=== PATIENT | male | born 2000 | race Caucasian/White ===

== ENCOUNTER 2022-02-08 07:57 | Emergency (ER) | payer MEDICAID, OTHER ==
[~2022-02-08] VITALS: Ht 183 cm; Wt 127.0 kg
[2022-02-08] MEDS ORDERED: LORazepam INJ 2 MG/ML (ATIVAN) VIAL IVP STA (08:39)
--- NOTE | 2022-02-08 08:39 | ED Neurological Problem ---
General Chief Complaint: Neurological Problems Stated Complaint: VOMITING - DIZZY - POSS SEIZURE - ABD PAIN Nursing Triage Note: SEIZURES X 5 SINCE 1700 02/08, WITH N/V/D UNABLE TO HOLD DOWN SEIZURE MEDS. ABDOMINAL PAIN, HAS RINGING IN HIS EARS, ATYPICAL FOR NORMAL SEIZURES Source: patient Exam Limitations: no limitations History of Present Illness Date Seen by Provider: February 08, 2022 Time Seen by Provider: 08:18 Initial Comments 21yoM with PMH of epilepsy, PNES, MORAN, CKD (normal creatinine around 1.3 per the patient) coming in due to one day of upper abdominal pain, n/v that is nb/nb, and increase in seizure activity. He says he hasn't been able to take his Depakote med due to the nausea which he says when he misses, he typically has breakthrough seizures. Denies any fever, significant chest pain, shortness of b reath, diarrhea, weakness, numbness, rash, or any other concerns. Allergies and Home Medications Allergies Coded Allergies: Penicillins (Verified Allergy, Unknown, 02/08/22) amoxicillin (Verified Allergy, Unknown, 02/08/22) latex (Verified Allergy, Unknown, 02/08/22) Patient Home Medication List Home Medication List Reviewed: Yes Ondansetron (Ondansetron Odt) 4 Mg Tab.rapdis, 4 MG PO Q6H PRN for NAUSEA/VOMITING-1ST LINE Prescribed by: SANDRA MARI on 02/08/22 0931 Review of Systems Review of Systems Constitutional: No chills, No fever Eyes: Denies Blurred Vision Ears, Nose, Mouth, Throat: ear pain Respiratory: No cough, No short of breath Cardiovascular: No chest pain Gastrointestinal: abdominal pain, nausea, vomiting Genitourinary: no symptoms reported Musculoskeletal: no symptoms reported Skin: no symptoms reported Psychiatric/Neurological: Other (seizures) Endocrine: No Symptoms Reported Hematologic/Lymphatic: No Symptoms Reported All Other Systems Reviewed Negative Unless Noted: Yes Past [id number]-Jblcqh-Elxvxc Hx Patient Social History Tobacco type used: Cigarettes Smoking Status: Current Everyday Smoker Alcohol Frequency: Rarely Immunizations Up To Date Influenza Vaccine Up-to-Date: Yes; Up-to-Date Past Medical History Surgery/Hospitalization HX: CKD, SEIZURES, AFIB WITH ABLATION, HEPATITIS, SMOKER Physical Exam Vital Signs Vital Signs - First Documented 02/08/22 08:25 Temp 37.0 Pulse 111 Resp 22 B/P (MAP) 155/126 (136) Pulse Ox 98 O2 Delivery Room Air Capillary Refill : Height, Weight, BMI Height: '" Weight: lbs. oz. kg; 37.00 BMI Method: General Appearance: WD/WN, no apparent distress HEENT: PERRL/EOMI, normal ENT inspection, pharynx normal Neck: non-tender, full range of motion, supple, normal inspection Respiratory: chest non-tender, lungs clear, normal breath sounds, no respiratory distress, no accessory muscle use Cardiovascular: regular rate, rhythm, no edema, no murmur Gastrointestinal: normal bowel sounds, soft; No distended, No guarding, No rebound; tenderness Back: normal inspection, no CVA tenderness, no vertebral tenderness Extremities: normal range of motion, non-tender, normal inspection, no pedal edema, no calf tenderness, normal capillary refill Neurologic/Psychiatric: no motor/sensory deficits, alert, normal mood/affect Crainal Nerves: normal hearing, normal speech, PERRL Coordination/Gait: normal finger to nose Motor/Sensory: no motor deficit, no sensory deficit Skin: normal color, warm/dry Lymphatic: no adenopathy Progress/Results/Core Measures Results/Orders Lab Results Laboratory Tests Test 02/08/22 08:28 Range/Units White Blood Count 11.2 H 4.3-11.0 10^3/uL Red Blood Count 4.42 4.30-5.52 10^6/uL Hemoglobin 14.4 13.3-17.7 g/dL Hematocrit 41 40-54 % Mean Corpuscular Volume 92 80-99 fL Mean Corpuscular Hemoglobin 33 25-34 pg Mean Corpuscular Hemoglobin Concent 35 32-36 g/dL Red Cell Distribution Width 11.9 10.0-14.5 % Platelet Count 244 130-400 10^3/uL Mean Platelet Volume 11.2 9.0-12.2 fL Immature Granulocyte % (Auto) 1 % Neutrophils (%) (Auto) 51 42-75 % Lymphocytes (%) (Auto) 34 12-44 % Monocytes (%) (Auto) 14 H 0-12 % Eosinophils (%) (Auto) 1 0-10 % Basophils (%) (Auto) 1 0-10 % Neutrophils # (Auto) 5.6 1.8-7.8 10^3/uL Lymphocytes # (Auto) 3.8 1.0-4.0 10^3/uL Monocytes # (Auto) 1.5 H 0.0-1.0 10^3/uL Eosinophils # (Auto) 0.1 0.0-0.3 10^3/uL Basophils # (Auto) 0.1 0.0-0.1 10^3/uL Immature Granulocyte # (Auto) 0.1 0.0-0.1 10^3/uL Sodium Level 141 135-145 MMOL/L Potassium Level 3.7 3.6-5.0 MMOL/L Chloride Level 97 L 98-107 MMOL/L Carbon Dioxide Level 28 21-32 MMOL/L Anion Gap 16 H 5-14 MMOL/L Blood Urea Nitrogen 17 7-18 MG/DL Creatinine 1.53 H 0.60-1.30 MG/DL Estimat Glomerular Filtration Rate 66 BUN/Creatinine Ratio 11 Glucose Level 92 70-105 MG/DL Calcium Level 12.8 H 8.5-10.1 MG/DL Corrected Calcium 8.5-10.1 MG/DL Total Bilirubin 0.4 0.1-1.0 MG/DL Aspartate Amino Transf (AST/SGOT) 60 H 5-34 U/L Alanine Aminotransferase (ALT/SGPT) 153 H 0-55 U/L Alkaline Phosphatase 60 40-136 U/L Troponin I < 0.028 <0.028 NG/ML Total Protein 8.1 6.4-8.2 GM/DL Albumin 5.1 H 3.2-4.5 GM/DL Lipase 26 8-78 U/L My Orders Orders - SANDRA MARI MD Ed Iv/Invasive Line Start (02/08/22 08:39) Ns Iv 1000 Ml (Sodium Chloride 0.9%) (02/08/22 08:45) Ondansetron Injection (Zofran Injectio (02/08/22 08:45) Lidocaine 2% Viscous 15 Ml (Xylocaine Vi (02/08/22 08:45) Antacid Suspension (Mylanta Suspension (02/08/22 08:45) Comprehensive Metabolic Panel (02/08/22 08:39) Lipase (02/08/22 08:39) Cbc With Automated Diff (02/08/22 08:39) Ct Abdomen/Pelvis W (02/08/22 08:39) Ketorolac Injection (Toradol Injection) (02/08/22 08:45) Lorazepam Injection (Ativan Injection) (02/08/22 08:39) Troponin I [place] (02/08/22 08:39) Ekg Tracing (02/08/22 08:39) Iohexol Injection (Omnipaque 350 Mg/Ml 1 (02/08/22 08:45) Received Contrast (Hold Metformin- Contr (02/08/22 08:45) Ns (Ivpb) (Sodium Chloride 0.9% Ivpb Bag (02/08/22 08:45) Sodium Chloride Flush (Catheter Flush Sy (02/08/22 08:45) Medications Given in ED Current Medications Medications Dose Ordered Sig/Macho Route Start Time Stop Time Status Last Admin Dose Admin Al Hydrox/Mg Hydrox/Simethicone 30 ml ONCE ONCE PO 02/08/22 08:45 02/08/22 08:46 DC 02/08/22 08:54 30 ML Iohexol 100 ml ONCE ONCE IV 02/08/22 08:45 02/08/22 08:46 DC 02/08/22 09:15 100 ML Ketorolac Tromethamine 15 mg ONCE ONCE IVP 02/08/22 08:45 02/08/22 08:46 DC 02/08/22 08:56 15 MG Lidocaine HCl 15 ml ONCE ONCE PO 02/08/22 08:45 02/08/22 08:46 DC 02/08/22 08:54 15 ML Ondansetron HCl 4 mg ONCE ONCE IVP 02/08/22 08:45 02/08/22 08:46 DC 02/08/22 08:55 4 MG Sodium Chloride 100 ml ONCE ONCE IV 02/08/22 08:45 02/08/22 08:46 DC 02/08/22 09:15 80 ML Vital Signs/I&O 02/08/22 02/08/22 08:25 09:17 Temp 37.0 37.0 Pulse 111 111 Resp 22 22 B/P (MAP) 155/126 (136) 155/126 Pulse Ox 98 98 O2 Delivery Room Air Blood Pressure Mean: 136 Progress Progress Note : Progress Note 21-year-old male with above history coming in due to upper abdominal pain with vomiting, not taking his seizure medicine and having a seizure. ABCs were intact and vitals were stable on presentation. Physical exam with some upper abdominal tenderness but no signs of peritonitis. An IV was placed and basic labs were obtained. AST and ALT slightly elevated, the patient says he does have chronic hepatitis and this is normal for him. Corrected calcium with albu min is 11.9. Creatinine 1.5 which is not far from his baseline. He was given a liter of IV fluids. He was also given Toradol for pain, Zofran for nausea. Given Ativan half milligram to reduce seizure activity. The activity that was witnessed by me seems to be nonepileptic in nature. He appears to shake his body for a few seconds, talks during that, is not confused afterwards. On reassessment the patient was feeling much better, and feels back to his baseline. CT abdomen pelvis negative for acute findings. I believe he is stable for discharge with outpatient follow-up. He was sent home with strict return precautions Initial ECG Impression Date: February 08, 2022 Initial ECG Impression Time: 08:33 Initial ECG Rate: 103 Initial ECG Rhythm: S.Tach Comment Narrow QRS, normal axis, no significant ST changes, T wave inversion in lead III which is nonspecific Diagnostic Imaging Diagonstic Imaging: CT (abd/pelv) Comments NAME: SAL MARTINEZ [facility] REC#: [id number] PT STATUS: REG ER : 2000 PHYSICIAN: SANDRA MARI MD ADMIT DATE: 02/08/22/ER Draft Date of Exam:02/08/22 CT ABDOMEN/PELVIS W CLINICAL INDICATION: Patient with central abdominal pain with vomiting. EXAM: Axial CT scan abdomen and pelvis performed with 100 mL of Omnipaque 350 IV contrast. Sagittal and coronal reformatted images are created. Auto Exposure Controls were utilized during the CT exam to meet ALARA standards for radiation dose reduction. COMPARISON: None. FINDINGS: There is minimal atelectasis involving the posterior aspect of the right lung base. There is hepatomegaly with the liver measuring 22.2 cm in craniocaudal dimension. There is diffuse low-density throughout the liver. There is no liver mass. There is no intrahepatic or extrahepatic ductal dilation. The spleen, pancreas, gallbladder, and adrenal glands are unremarkable. Both kidneys are unremarkable. No hydronephrosis, stone, or mass. The bladder is fluid-filled and unremarkable. Prostate gland is unremarkable. There is no intraabdominal free air or free fluid. There is dense material within the right colon and appendix likely from ingested material. Appendix is unremarkable. There is no intestinal obstruction. There is a small hiatal hernia. There is no lymphadenopathy. The extraabdominal and extrapelvic soft tissue structures are unremarkable. IMPRESSION: 1: There is hepatomegaly and diffuse low-density throughout the liver. These findings may be seen with diffuse fatty infiltration. Hepatitis should also be excluded. 2: Small hiatal hernia. 3: The remainder of this exam is unremarkable. Dictated on workstation # [id number] Dict: 02/08/22920 Trans: 02/08/22932 [facility] [id number] Interpreted by: PORFIRIO SIDDIQUI MD Electronically signed by: Departure Impression Primary Impression: Vomiting in adult Additional Impression: Seizure Disposition: 01 HOME, SELF-CARE Condition: Stable Departure-Patient Inst. Decision time for Depature: 09:45 Referrals: NO,LOCAL PHYSICIAN (PCP/Family) Primary Care Physician Patient Instructions: Nausea and Vomiting, Adult ED, Seizures, Adult ED Add. Discharge Instructions: I sent nausea medicine to your pharmacy. Be sure to take this and then take your seizure medicine so that you have less seizures. If you have any concerns follow-up with your regular doctor or if things get a lot worse you can always come back to the ER. Scripts Ondansetron (Ondansetron Odt) 4 Mg Tab.rapdis 4 MG PO Q6H PRN for NAUSEA/VOMITING-1ST LINE for 5 Days, #20 TAB Prov: SANDRA MARI MD 02/08/22 Work/School Note: Work Release Form Date Seen in the Emergency Department: February 08, 2022 Return to Work: February 09, 2022 Restrictions: Return-No Vomiting(24hrs) SANDRA MARI MD February 08, 2022 08:39
[2022-02-08] MEDS ORDERED: NS 100 ML (IVPB) BAG IV ONE (08:45)
[2022-02-08] MEDS ORDERED: LIDOCAINE 2% VISCOUS 15 ML UDC PO ONE (08:45)
[2022-02-08] MEDS ORDERED: KETOROLAC 30 MG/ML VIAL IVP ONE (08:45)
[2022-02-08] MEDS ORDERED: ONDANSETRON 4 MG/2 ML (SDV) Z0FRAN IVP ONE (08:45)
[2022-02-08] MEDS ORDERED: CATHETER FLUSH 10 ML SYR IV PRN (08:45)
[2022-02-08] MEDS ORDERED: NS IV 1000 ML 1,000 ML IV SCH (08:45)
[2022-02-08] MEDS ORDERED: ANTACID SUSP 30 ML UDC (MYLANTA) PO ONE (08:45)
[2022-02-08] MEDS ORDERED: HOLD METFORMIN - RECEIVED CONTRAST 20 ML VIAL IV SCH (08:45)
[2022-02-08] MEDS ORDERED: IOHEXOL 350 MG/ML 100 ML (OMNIPAQUE 350) VIAL IV ONE (08:45)
[2022-02-08 08:47] LABS: BASOPHILS # (AUTO) 0.1 10^3/uL (0.0-0.1); BASOPHILS % (AUTO) 1 % (0-10); EOSINOPHILS # (AUTO) 0.1 10^3/uL (0.0-0.3); EOSINOPHILS % (AUTO) 1 % (0-10); HEMATOCRIT 41 % (40-54); HEMOGLOBIN 14.4 g/dL (13.3-17.7); LYMPHOCYTES # (AUTO) 3.8 10^3/uL (1.0-4.0); LYMPHOCYTES % (AUTO) 34 % (12-44); MEAN CORPUSCULAR HEMOGLOBIN 33 pg (25-34); MEAN CORPUSCULAR HGB CONC 35 g/dL (32-36); MEAN CORPUSCULAR VOLUME 92 fL (80-99); MEAN PLATELET VOLUME 11.2 fL (9.0-12.2); MONOCYTES # (AUTO) 1.5 10^3/uL (0.0-1.0); MONOCYTES % (AUTO) 14 % (0-12); NEUTROPHILS # (AUTO) 5.6 10^3/uL (1.8-7.8); NEUTROPHILS % (AUTO) 51 % (42-75); PLATELET COUNT 244 10^3/uL (130-400); WHITE BLOOD COUNT 11.2 10^3/uL (4.3-11.0)
[2022-02-08 08:52] LABS: ALBUMIN 5.1 GM/DL (3.2-4.5); CHLORIDE 97 MMOL/L (98-107); POTASSIUM 3.7 MMOL/L (3.6-5.0); SODIUM 141 MMOL/L (135-145)
[2022-02-08 08:54] LABS: CALCIUM 12.8 MG/DL (8.5-10.1)
[2022-02-08 08:55] LABS: GLUCOSE 92 MG/DL (70-105); TOTAL PROTEIN 8.1 GM/DL (6.4-8.2)
[2022-02-08 08:56] LABS: BILIRUBIN,TOTAL 0.4 MG/DL (0.1-1.0); CARBON DIOXIDE 28 MMOL/L (21-32)
[2022-02-08 08:58] LABS: ALKALINE PHOSPHATASE 60 U/L (40-136); CREATININE SERUM 1.53 MG/DL (0.60-1.30); GFR ESTIMATED 66
[2022-02-08 08:59] LABS: BUN/CREATININE RATIO 11
[2022-02-08 09:01] LABS: ALANINE AMINOTRANSFERASE 153 U/L (0-55); LIPASE 26 U/L (8-78)
[2022-02-08] MEDS ORDERED: ONDA4TAB11 PO (09:31)
--- NOTE | 2022-02-08 09:34 | Diagnostic Imaging Report ---
CLINICAL INDICATION: Patient with central abdominal pain with vomiting. EXAM: Axial CT scan abdomen and pelvis performed with 100 mL of Omnipaque 350 IV contrast. Sagittal and coronal reformatted images are created. Auto Exposure Controls were utilized during the CT exam to meet ALARA standards for radiation dose reduction. COMPARISON: None. FINDINGS: There is minimal atelectasis involving the posterior aspect of the right lung base. There is hepatomegaly with the liver measuring 22.2 cm in craniocaudal dimension. There is diffuse low-density throughout the liver. There is no liver mass. There is no intrahepatic or extrahepatic ductal dilation. The spleen, pancreas, gallbladder, and adrenal glands are unremarkable. Both kidneys are unremarkable. No hydronephrosis, stone, or mass. The bladder is fluid-filled and unremarkable. Prostate gland is unremarkable. There is no intraabdominal free air or free fluid. There is dense material within the right colon and appendix likely from ingested material. Appendix is unremarkable. There is no intestinal obstruction. There is a small hiatal hernia. There is no lymphadenopathy. The extraabdominal and extrapelvic soft tissue structures are unremarkable. IMPRESSION: 1: There is hepatomegaly and diffuse low-density throughout the liver. These findings may be seen with diffuse fatty infiltration. Hepatitis should also be excluded. 2: Small hiatal hernia. 3: The remainder of this exam is unremarkable. Dictated by: Dictated on workstation # [id number]
[2022-02-08 09:53] VITALS: BP 116/83
== END 2022-02-08 09:56 | disposition home or self-care (01) ==
LOC: ER 07:59
DX: R11.2 Nausea with vomiting, unspecified (principal); R56.9 Unspecified convulsions; T42.6X6A Underdosing of other antiepileptic and sedative-hypnotic drugs, initial encounter; F17.210 Nicotine dependence, cigarettes, uncomplicated; Z91.14 Patient's other noncompliance with medication regimen
CPT/HCPCS: 36415; 74177; 80053; 83690; 84484; 85025

== ENCOUNTER 2022-02-11 11:27 | Inpatient (IN) | payer MEDICAID ==
[~2022-02-11] VITALS: Ht 180 cm; Wt 118.0 kg
[~2022-02-11 11:27] MED LIST: ONDA4TAB11 PO
[2022-02-11] MEDS ORDERED: LACTATED RINGERS 1,000 ML IV SCH (12:45)
[2022-02-11] MEDS ORDERED: PROMETHAZINE INJ 25 MG/ML (PHENERGAN) AMP IVP ONE ×2 (12:45→13:45)
--- NOTE | 2022-02-11 13:00 | ED General ---
General Chief Complaint: Neurological Problems Stated Complaint: SEIZURE,ABD PAIN, N/V Nursing Triage Note: PT PRESENTS TO ED WITH COMPLAINTS OF SEIZURE LASTING APROX 5-6 SEC TODAY. REPORTS HE HAS HAD N/V SINCE LAST NIGHT. PT DENIES FEVER. (GABY ROWLAND) Source of Information: Patient (FRANTZ GONSALEZ MD) History of Present Illness Date Seen by Provider: February 11, 2022 Time Seen by Provider: 12:30 Initial Comments 21 year old male with history of epilepsy presents today for increased seizure activity, abdominal pain, nausea, and vomiting. He was seen in the ED on February 08 for the same symptoms and had a CT at that time that showed no acute findings but did show diffuse low-density areas throughout his liver. he also had elevated liver enzymes and creatinine at that time. He was deemed safe to return home at that time with instructions to return if symptoms worsened or failed to improve and given zofran for nausea. He reports that the zofran hasn't helped and he hasn;t been able to keep any food down since yeterday around noon. he actively threw up clear fluid while I was in the room speaking with him. He takes depakote for his seizures and reports yesterday at noon was the last time he has been able to take it. His last seizure was today at around 9:00am. He reports his abdominal pain is diffuse and unchanged. (GABY ROWLAND) Allergies and Home Medications Allergies Coded Allergies: Penicillins (Verified Allergy, Unknown, 02/11/22) amoxicillin (Verified Allergy, Unknown, 02/11/22) latex (Verified Allergy, Unknown, 02/11/22) Patient Home Medication List Home Medication List Reviewed: Yes (FRANTZ GONSALEZ MD) Divalproex Sodium (Divalproex Sodium) 500 Mg Tablet.dr, 500 MG PO TID, (Reported) Entered as Reported by: LUZ MARINA PEGUERO on 02/11/222219 Last Action: Reviewed Gabapentin (Neurontin) 300 Mg Capsule, 300 MG PO TID, (Reported) Entered as Reported by: LEANNA DASILVA on 02/12/221137 Last Action: Reviewed Levothyroxine Sodium (Levothyroxine Sodium) 25 Mcg Tablet, 25 MCG PO DAILY, (Reported) Entered as Reported by: LEANNA DASILVA on 02/12/221137 Last Action: Reviewed Metoprolol Tartrate (Metoprolol Tartrate) 25 Mg Tablet, 25 MG PO BID PRN for FAST HEART RATE, (Reported) Entered as Reported by: LEANNA DASILVA on 02/12/221137 Last Action: Reviewed Ondansetron (Ondansetron Odt) 4 Mg Tab.rapdis, 4 MG PO Q8H PRN for NAUSEA/VOMITING, (Reported) Entered as Reported by: LEANNA DASILVA on 02/12/221137 Last Action: Reviewed Discontinued Medications Divalproex Sodium (Depakote Sprinkle) 125 Mg Cap, 300 MG PO TID Discontinued Reason: No Longer Taking Prescribed by: SHIRAZ VICTORIA on 02/11/22 [id number] Last Action: Discontinued Review of Systems Review of Systems Constitutional: No chills, No fever EENTM: throat pain (from throwing up); No hearing loss, No vision loss Respiratory: No cough, No short of breath Cardiovascular: No chest pain, No palpitations Gastrointestinal: abdominal pain (diffuse); No constipation; diarrhea, nausea, vomiting Genitourinary: No dysuria; frequency (normal); No hematuria; other (reports urine is very dark) Musculoskeletal: No muscle pain, No muscle weakness Skin: No change in color, No rash Psychiatric/Neurological: No Symptoms Reported Hematologic/Lymphatic: No Symptoms Reported Immunological/Allergic: no symptoms reported (GABY ROWLAND) Past Lwzpfqy-Xzcqbw-Xxcdgi Hx Patient Social History Tobacco Use?: Yes Tobacco type used: Cigarettes Smoking Status: Current Everyday Smoker Substance use?: No Alcohol Use?: Yes Alcohol Frequency: Once in a while Pt feels they are or have been: No (GABY ROWLAND) Past Medical History Surgery/Hospitalization HX: CKD, SEIZURES, AFIB WITH ABLATION, HEPATITIS, SMOKER (GABY ROWLAND) Physical Exam Vital Signs Vital Signs - First Documented 02/11/22 11:47 Temp 37.3 Pulse 98 Resp 18 B/P (MAP) 150/100 (117) Pulse Ox 99 (FRANTZ GONSALEZ MD) Vital Signs Capillary Refill : Less Than 3 Seconds (GABY ROWLAND) Height, Weight, BMI Height: '" Weight: lbs. oz. kg; 36.00 BMI Method: General Appearance: WD/WN, Other (threw up once while I was int he room with him and appeared uncomfortable when I layed him back flat or had him sit up on his own.) Eyes: Bilateral Eye PERRL, Bilateral Eye EOMI HEENT: PERRL/EOMI; No Moist Mucous Membranes Neck: Normal Inspection, Non Tender, Supple Respiratory: Lungs Clear, Normal Breath Sounds, No Respiratory Distress Cardiovascular: No Murmur, Normal Peripheral Pulses, Tachycardia Gastrointestinal: Normal Bowel Sounds, Soft; No Rebound; Tenderness (Diffuse pain worse in the RLQ, suprapubic region, and RUQ. Negative rovsings sign. Pushing in the RLQ caused him to complain of suprapubic pain.) Back: Normal Inspection, No CVA Tenderness Extremity: Normal Inspection, No Pedal Edema Neurologic/Psychiatric: Alert, Oriented x3, No Motor/Sensory Deficits Skin: Normal Color, Warm/Dry Lymphatic: No Adenopathy (GABY ROWLAND) Progress/Results/Core Measures Suspected Sepsis SIRS Temperature: Pulse: 98 Respiratory Rate: 18 Laboratory Tests 02/11/22 13:03: Blood Pressure 150 /100 Mean: 117 Laboratory Tests 02/11/22 13:03: (GABY ROWLAND) Results/Orders Lab Results Laboratory Tests Test 02/11/22 13:03 02/11/22 14:48 Range/Units White Blood Count 9.7 4.3-11.0 10^3/uL Red Blood Count 3.98 L 4.30-5.52 10^6/uL Hemoglobin 13.0 L 13.3-17.7 g/dL Hematocrit 37 L 40-54 % Mean Corpuscular Volume 92 80-99 fL Mean Corpuscular Hemoglobin 33 25-34 pg Mean Corpuscular Hemoglobin Concent 35 32-36 g/dL Red Cell Distribution Width 11.8 10.0-14.5 % Platelet Count 188 130-400 10^3/uL Mean Platelet Volume 11.3 9.0-12.2 fL Immature Granulocyte % (Auto) 0 % Neutrophils (%) (Auto) 67 42-75 % Lymphocytes (%) (Auto) 23 12-44 % Monocytes (%) (Auto) 9 0-12 % Eosinophils (%) (Auto) 1 0-10 % Basophils (%) (Auto) 0 0-10 % Neutrophils # (Auto) 6.5 1.8-7.8 10^3/uL Lymphocytes # (Auto) 2.2 1.0-4.0 10^3/uL Monocytes # (Auto) 0.9 0.0-1.0 10^3/uL Eosinophils # (Auto) 0.1 0.0-0.3 10^3/uL Basophils # (Auto) 0.0 0.0-0.1 10^3/uL Immature Granulocyte # (Auto) 0.0 0.0-0.1 10^3/uL Sodium Level 139 135-145 MMOL/L Potassium Level 3.9 3.6-5.0 MMOL/L Chloride Level 98 98-107 MMOL/L Carbon Dioxide Level 25 21-32 MMOL/L Anion Gap 16 H 5-14 MMOL/L Blood Urea Nitrogen 29 H 7-18 MG/DL Creatinine 2.99 #H 0.60-1.30 MG/DL Estimat Glomerular Filtration Rate 29 BUN/Creatinine Ratio 10 Glucose Level 98 70-105 MG/DL Calcium Level 13.6 *H 8.5-10.1 MG/DL Corrected Calcium 13.2 H 8.5-10.1 MG/DL Magnesium Level 1.6 1.6-2.4 MG/DL Total Bilirubin 0.5 0.1-1.0 MG/DL Aspartate Amino Transf (AST/SGOT) 43 H 5-34 U/L Alanine Aminotransferase (ALT/SGPT) 100 H 0-55 U/L Alkaline Phosphatase 54 40-136 U/L Total Protein 7.0 6.4-8.2 GM/DL Albumin 4.5 3.2-4.5 GM/DL Thyroid Stimulating Hormone (TSH) 7.16 H 0.35-4.94 UIU/ML Free Thyroxine 0.82 0.70-1.48 NG/DL Free Triiodothyronine 2.43 1.71-3.71 pg/mL Valproic Acid (Depakene) Level 68.8 50.0-100.0 UG/ML Urine Color YELLOW Urine Clarity CLEAR Urine pH 7.0 5-9 Urine Specific [place] <=1.005 1.016-1.022 Urine Protein NEGATIVE NEGATIVE Urine Glucose (UA) NEGATIVE NEGATIVE Urine Ketones NEGATIVE NEGATIVE Urine Nitrite NEGATIVE NEGATIVE Urine Bilirubin NEGATIVE NEGATIVE Urine Urobilinogen 0.2 < = 1.0 MG/DL Urine Leukocyte Esterase NEGATIVE NEGATIVE Urine RBC (Auto) NEGATIVE NEGATIVE Urine RBC NONE /HPF Urine WBC 2-5 /HPF Urine Crystals PRESENT H /LPF Urine Amorphous Sediment RARE ANGY URATES H /LPF Urine Bacteria TRACE /HPF Urine Casts PRESENT /LPF Urine Hyaline Casts 0-2 H /LPF Urine Mucus NEGATIVE /LPF Urine Culture Indicated YES Urine Opiates Screen NEGATIVE NEGATIVE Urine Oxycodone Screen NEGATIVE NEGATIVE Urine Methadone Screen NEGATIVE NEGATIVE Urine Propoxyphene Screen NEGATIVE NEGATIVE Urine Barbiturates Screen NEGATIVE NEGATIVE Ur Tricyclic Antidepressants Screen NEGATIVE NEGATIVE Urine Phencyclidine Screen NEGATIVE NEGATIVE Urine Amphetamines Screen NEGATIVE NEGATIVE Urine Methamphetamines Screen NEGATIVE NEGATIVE Urine Benzodiazepines Screen NEGATIVE NEGATIVE Urine Cocaine Screen NEGATIVE NEGATIVE Urine Cannabinoids Screen NEGATIVE NEGATIVE (FRANTZ GONSALEZ MD) Micro Results Microbiology 02/11/22 Urine Culture - Final, Complete NO GROWTH (FRANTZ GONSALEZ MD) My Orders Orders - FRANTZ GONSALEZ MD Ed Iv/Invasive Line Start (02/11/22 12:42) Cbc With Automated Diff (02/11/22 12:42) Comprehensive Metabolic Panel (02/11/22 12:42) Magnesium (02/11/22 12:42) Ua Culture If Indicated (02/11/22 12:42) Drug Screen Stat (Urine) (02/11/22 12:42) Lactated Ringers (Lr 1000 Ml Iv Solution (02/11/22 12:45) Promethazine Injection (Phenergan Injec (02/11/22 13:45) Thyroid Stimulating Hormone (02/11/22 14:01) Triiodothryonine T3 Free (02/11/22 14:01) Free T4 (Free Thyroxine) (02/11/22 14:01) Valproic Acid (02/11/22 14:01) (FRANTZ GONSALEZ MD) Medications Given in ED (FRANTZ GONSALEZ MD) Vital Signs/I&O 02/11/22 11:47 Temp 37.3 Pulse 98 Resp 18 B/P (MAP) 150/100 (117) Pulse Ox 99 (FRANTZ GONSALEZ MD) Vital Signs/I&O Capillary Refill : Less Than 3 Seconds (GABY ROWLAND) Blood Pressure Mean: 117 Progress Note : Time: 15:08 Progress Note I have reviewed and agree with the medical student's history and physical exam ination. 21-year-old male history of seizures and he states chronic kidney disease, Valerio, hypertension. Has had increasing abdominal pain nausea vomiting and diarrhea for the last week. Prior ED visit on 02/08 showed some dehydration. Patient was fluid resuscitated and given Zofran for home. He states it had been working until last night when his symptoms started worsening again. He presents for further evaluation. Patient is noted. Had a CT of the abdomen and pelvis at his most recent visit on the which was read as negative except for some mild hepatomegaly and findings consistent with VALERIO. Physical exam reveals that he is awake alert and oriented mentating normally. He has normal bowel sounds but generalized tenderness to the abdomen without distention, rebound or guarding. He has clear lungs and stable vitals. He does have dry oral mucosa. Laboratory studies show a normal CBC with an abnormal chemistry mildly elevated liver functions actually improved from his most recent visit. Elevated calcium greater than 13 and a significant increase in his creatinine. At this point decision was made to offer admission for further fluid therapy and control of his nausea and vomiting. Nausea and vomiting may be due to the increase in calcium. At this time thyroid functions are pending as is a Depakote level. I discussed the case with Dr. Faria who graciously accepts the patient for admission at this time. (FRANTZ GONSALEZ MD) Departure Communication (Admissions) Time/Spoke to Admitting Phy: 14:[address] Faria (FRANTZ GONSALEZ MD) Impression Primary Impression: Nausea & vomiting Qualified Codes: R11.2 - Nausea with vomiting, unspecified Additional Impressions: Acute on chronic renal failure Qualified Codes: N17.9 - Acute kidney failure, unspecified; N18.9 - Chronic kidney disease, unspecified Dehydration Hypercalcemia Abdominal pain Qualified Codes: R10.84 - Generalized abdominal pain Disposition: ADMITTED INPATIENT Condition: Stable Admissions Decision to Admit Reason: Admit from ER (General) Decision to Admit/Date: February 11, 2022 Time/Decision to Admit Time: 14:20 (FRANTZ GONSALEZ MD) Departure-Patient Inst. Referrals: NO,LOCAL PHYSICIAN (PCP/Family) Primary Care Physician Verification and Attestation of Medical Student E/M Service A medical student performed and documented this service in my presence. I reviewed and verified all information documented by the medical student and made modifications to such information, when appropriate. I personally performed the physical exam and medical decision making. Frantz Gonsalez, February 11, 2022,15:12 (FRANTZ GONSALEZ MD) GABY ROWLAND February 11, 2022 13:00 FRANTZ GONSALEZ MD February 11, 2022 14:20
[2022-02-11 13:16] LABS: BASOPHILS % (AUTO) 0 % (0-10); EOSINOPHILS # (AUTO) 0.1 10^3/uL (0.0-0.3); EOSINOPHILS % (AUTO) 1 % (0-10); HEMATOCRIT 37 % (40-54); LYMPHOCYTES # (AUTO) 2.2 10^3/uL (1.0-4.0); LYMPHOCYTES % (AUTO) 23 % (12-44); MEAN CORPUSCULAR HEMOGLOBIN 33 pg (25-34); MEAN CORPUSCULAR HGB CONC 35 g/dL (32-36); MEAN CORPUSCULAR VOLUME 92 fL (80-99); MEAN PLATELET VOLUME 11.3 fL (9.0-12.2); MONOCYTES # (AUTO) 0.9 10^3/uL (0.0-1.0); MONOCYTES % (AUTO) 9 % (0-12); NEUTROPHILS # (AUTO) 6.5 10^3/uL (1.8-7.8); NEUTROPHILS % (AUTO) 67 % (42-75); PLATELET COUNT 188 10^3/uL (130-400); WHITE BLOOD COUNT 9.7 10^3/uL (4.3-11.0)
[2022-02-11 13:26] LABS: ALBUMIN 4.5 GM/DL (3.2-4.5); POTASSIUM 3.9 MMOL/L (3.6-5.0)
[2022-02-11 13:31] LABS: BILIRUBIN,TOTAL 0.5 MG/DL (0.1-1.0)
[2022-02-11 13:33] LABS: CREATININE SERUM 2.99 MG/DL (0.60-1.30)
[2022-02-11 13:35] LABS: MAGNESIUM 1.6 MG/DL (1.6-2.4)
[2022-02-11 13:48] LABS: CALCIUM 13.6 MG/DL (8.5-10.1)
[2022-02-11 14:24] LABS: VALPROIC ACID 68.8 UG/ML (50.0-100.0)
[2022-02-11 14:39] LABS: FREE T4 (FREE THYROXINE) 0.82 NG/DL (0.70-1.48)
[2022-02-11 14:53] LABS: BILIRUBIN,URINE NEGATIVE (NEGATIVE); CLARITY,URINE CLEAR; COLOR,URINE YELLOW; GLUCOSE, URINE (UA) NEGATIVE (NEGATIVE); KETONES,URINE NEGATIVE (NEGATIVE); LEUKOCYTE ESTERASE ,URINE NEGATIVE (NEGATIVE); NITRITE,URINE NEGATIVE (NEGATIVE); PROTEIN,URINE NEGATIVE (NEGATIVE)
[2022-02-11 15:12] LABS: AMORPHOUS SEDIMENT,UR RARE AMOR URATES /LPF; BACTERIA,URINE TRACE /HPF; HYALINE CASTS, URINE 0-2 /LPF
[2022-02-11 15:14] LABS: AMPHETAMINE SCREEN, URINE NEGATIVE (NEGATIVE); BARBITURATE SCREEN URINE NEGATIVE (NEGATIVE); BENZODIAZEPINES SCREEN URINE NEGATIVE (NEGATIVE); CANNABINOID SCREEN, URINE NEGATIVE (NEGATIVE); COCAINE SCREEN URINE NEGATIVE (NEGATIVE); METHADONE STAT NEGATIVE (NEGATIVE); OPIATE SCREEN URINE NEGATIVE (NEGATIVE); OXYCODONE STAT NEGATIVE (NEGATIVE); PROPOXYPHENE STAT NEGATIVE (NEGATIVE); TRICYCLIC ANTIDEPRESSANTS SCRE NEGATIVE (NEGATIVE)
[2022-02-11 17:27] VITALS: BP 143/92
[2022-02-11] MEDS ORDERED: DIVA125C PO (17:49)
[2022-02-11] MEDS ORDERED: GABA300S2 PO (17:50)
[2022-02-11] MEDS ORDERED: METO-333 PO (17:51)
[2022-02-11] MEDS ORDERED: LEVO25CA4 PO (17:54)
[2022-02-11] MEDS ORDERED: ONDANSETRON 4 MG (ZOFRAN) ORAL DISSOLVE TAB PO PRN (18:30)
[2022-02-11 19:06] VITALS: BP 117/71
[2022-02-11 19:14] VITALS: BP 117/71
[2022-02-11] MEDS ORDERED: NS IV 1000 ML 1,000 ML ONE (19:21)
[2022-02-11] MEDS ORDERED: RT-ALBUTEROL/IPRATROPIUM 3 ML (DUONEB) VIAL INH PRN (19:30)
[2022-02-11] MEDS ORDERED: DIVALPROX SPRINKLE 125 MG (DEPAKOTE) CAP PO SCH (21:00)
[2022-02-11] MEDS ORDERED: DIVA-76 PO (22:20)
[2022-02-11] MEDS: DIVALPROEX 500 MG DELAYED RELEASE (DEPAKOTE) TAB PO SCH (22:45)
[2022-02-11] MEDS: NS IV 1000 ML 1,000 ML IV SCH (22:45)
[2022-02-11] MEDS: GABAPENTIN 300 MG (NEURONTIN) CAP PO SCH (22:45)
[2022-02-12] VITALS (7 sets, daily range): BP systolic 113–158; BP diastolic 57–88
[2022-02-12] MEDS: LEVOTHYROXINE 25 MCG (LEVOTHROID) TAB PO SCH (05:43)
[2022-02-12] MEDS: NS IV 1000 ML 1,000 ML IV SCH ×3 (05:44→22:22)
[2022-02-12 05:56] LABS: BASOPHILS % (AUTO) 0 % (0-10); EOSINOPHILS # (AUTO) 0.1 10^3/uL (0.0-0.3); EOSINOPHILS % (AUTO) 2 % (0-10); HEMATOCRIT 34 % (40-54); HEMOGLOBIN 11.9 g/dL (13.3-17.7); LYMPHOCYTES # (AUTO) 1.8 10^3/uL (1.0-4.0); LYMPHOCYTES % (AUTO) 27 % (12-44); MEAN CORPUSCULAR HEMOGLOBIN 33 pg (25-34); MEAN CORPUSCULAR HGB CONC 35 g/dL (32-36); MEAN CORPUSCULAR VOLUME 93 fL (80-99); MEAN PLATELET VOLUME 10.9 fL (9.0-12.2); MONOCYTES # (AUTO) 0.9 10^3/uL (0.0-1.0); MONOCYTES % (AUTO) 13 % (0-12); NEUTROPHILS # (AUTO) 3.9 10^3/uL (1.8-7.8); NEUTROPHILS % (AUTO) 58 % (42-75); PLATELET COUNT 160 10^3/uL (130-400); WHITE BLOOD COUNT 6.8 10^3/uL (4.3-11.0)
[2022-02-12 06:20] LABS: POTASSIUM 4.4 MMOL/L (3.6-5.0)
[2022-02-12 06:21] LABS: CALCIUM 11.1 MG/DL (8.5-10.1)
[2022-02-12 06:25] LABS: CREATININE SERUM 2.43 MG/DL (0.60-1.30)
[2022-02-12] MEDS: GABAPENTIN 300 MG (NEURONTIN) CAP PO SCH ×3 (08:13→21:27)
[2022-02-12] MEDS: DIVALPROEX 500 MG DELAYED RELEASE (DEPAKOTE) TAB PO SCH ×3 (08:13→21:27)
[2022-02-12] MEDS: PANTOPRAZOLE 40 MG (PROTONIX) VIAL IV SCH (08:15)
--- NOTE | 2022-02-12 10:16 | History & Physical-Hospitalist ---
History of Present Illness HPI/Chief Complaint Pt is a 21yoCM who presented to the ER due to increase seizures. He has a known seizure disorder and has hd some nasuea and vomiting over the past few days and has subsequently ahd increased siezures. He was in the ER on 02/[address] of his abd done without acute findings and he was able to be discharged home. He has continued to worsen and returned to the ER yesterday where he was found to have elevated creatinine and admitted for IV fluids. This morning he reports feeling better but still thinks he has a ways to go. He states he is still shakey but is able to keep food down now. Source: patient Exam Limitations: no limitations Date Seen 02/12/22 Time Seen by a Provider: 10:16 Attending Physician No,Local Physician PCP Admitting Physician: Zeinab Faria MD Attending Physician: Zeinab Faria MD Referring Physician Date of Admission February 11, 2022 at 15:06 Home Medications & Allergies Home Medications Reviewed patient Home Medication Reconciliation performed by pharmacy medication reconciliations dialysis patient care technician and/or nursing. Patients Allergies have been reviewed. Allergies Allergies Coded Allergies Penicillins (Verified Allergy, Unknown, 02/11/22) amoxicillin (Verified Allergy, Unknown, 02/11/22) latex (Verified Allergy, Unknown, 02/11/22) Past Tizlhcu-Cahljf-Gcgmfi Hx Patient Social History Marrital Status: single Tobacco Use?: No Tobacco type used: Cigarettes Smoking Status: Current Everyday Smoker Use of E-Cig and/or Vaping dev: Unable to obtain Substance use?: No Alcohol Use?: Yes Alcohol Frequency: Several times a month Pt feels they are or have been: No Current Status Advance Directives: No Primary Language: Lithuanian Preferred Spoken Language: Lithuanian Is interpretation needed?: No Sensory deficits: Vision impairment Implanted or Applied Medical D: None Past Medical History Seizure Disorder Renal Failure Liver Disease/Jaundice Hypothyroidsim Review of Systems Constitutional: No chills, No fever EENTM: no symptoms reported Respiratory: No cough, No short of breath Cardiovascular: No chest pain, No palpitations Gastrointestinal: abdominal pain, nausea, vomiting Genitourinary: no symptoms reported Musculoskeletal: no symptoms reported Skin: no symptoms reported Psychiatric/Neurological: No Symptoms Reported Physical Exam Physical Exam Vital Signs Vital Signs - First Documented 02/11/22 02/11/22 02/11/22 11:47 17:27 19:14 Temp 37.3 Pulse 98 Resp 18 B/P (MAP) 150/100 (117) Pulse Ox 99 O2 Delivery Room Air FiO2 21 Capillary Refill : Less Than 3 Seconds Height, Weight, BMI Height: '" Weight: lbs. oz. kg; 36.41 BMI Method: General Appearance: No Apparent Distress, WD/WN, Anxious, Obese HEENT: PERRL/EOMI, Moist Mucous Membranes; No Scleral Icterus (L), No Scleral Icterus (R) Neck: Normal Inspection, Supple Respiratory: Lungs Clear, No Accessory Muscle Use, No Respiratory Distress Cardiovascular: Regular Rate, Rhythm, No JVD, No Murmur Gastrointestinal: Normal Bowel Sounds, Non Tender, Soft Extremity: Normal Capillary Refill, No Calf Tenderness, No Pedal Edema Neurologic/Psychiatric: Alert, Oriented x3, Normal Mood/Affect Skin: Normal Color, Warm/Dry Results Results/Procedures Labs Laboratory Tests 02/11/22 13:03 02/12/22 05:40 Patient resulted labs reviewed. Imaging: Reviewed Imaging Report Imaging [facility] [place], [place] NAME: SAL MARTINEZ [facility] REC#: [id number] PT STATUS: DEP ER : 2000 PHYSICIAN: SANDRA MARI MD ADMIT DATE: 02/08/22/ER Signed Date of Exam:02/08/22 CT ABDOMEN/PELVIS W CLINICAL INDICATION: Patient with central abdominal pain with vomiting. EXAM: Axial CT scan abdomen and pelvis performed with 100 mL of Omnipaque 350 IV contrast. Sagittal and coronal reformatted images are created. Auto Exposure Controls were utilized during the CT exam to meet ALARA standards for radiation dose reduction. COMPARISON: None. FINDINGS: There is minimal atelectasis involving the posterior aspect of the right lung base. There is hepatomegaly with the liver measuring 22.2 cm in craniocaudal dimension. There is diffuse low-density throughout the liver. There is no liver mass. There is no intrahepatic or extrahepatic ductal dilation. The spleen, pancreas, gallbladder, and adrenal glands are unremarkable. Both kidneys are unremarkable. No hydronephrosis, stone, or mass. The bladder is fluid-filled and unremarkable. Prostate gland is unremarkable. There is no intraabdominal free air or free fluid. There is dense material within the right colon and appendix likely from ingested material. Appendix is unremarkable. There is no intestinal obstruction. There is a small hiatal hernia. There is no lymphadenopathy. The extraabdominal and extrapelvic soft tissue structures are unremarkable. IMPRESSION: 1: There is hepatomegaly and diffuse low-density throughout the liver. These findings may be seen with diffuse fatty infiltration. Hepatitis should also be excluded. 2: Small hiatal hernia. 3: The remainder of this exam is unremarkable. Dictated by: Dictated on workstation # [id number] Dict: 02/08/2221 Trans: 02/08/221653 CV [id number] Interpreted by: PORFIRIO SIDDIQUI MD Electronically signed by: PORFIRIO SIDDIQUI MD 02/08/22 165 Assessment/Plan Admission Diagnosis Acute renal failure Admission Status: Inpatient Order (span 2 midnights) Reason for Inpatient Admission: see below Assessment and Plan Acute Renal Failure Dehydration Hypercalcemia Continue IVF Trend creatinine, improving Monitor UOP Will refer to Nephrology as an outpatient Seizure disorder Continue home meds Ativan prn Seizure precautions Hypothyroidism Just started synthroid it appears on 01/23 Keep current dose as likely not therapeutic yet TSH 7 Diagnosis/Problems Diagnosis/Problems (1) Hypothyroidism (2) Acute on chronic renal failure Status: Acute Qualifiers: Acute renal failure type: unspecified Chronic kidney disease stage: unspecified stage Qualified Codes: N17.9 - Acute kidney failure, unspecified; N18.9 - Chronic kidney disease, unspecified (3) Nausea & vomiting Status: Acute Qualifiers: Vomiting type: unspecified Qualified Codes: R11.2 - Nausea with vomiting, unspecified (4) Hypercalcemia Status: Acute (5) Dehydration Status: Acute (6) Seizure Status: Acute ZEINAB FARIA MD February 12, 2022 10:16
[2022-02-12] MEDS ORDERED: GABA300C PO (11:38)
[2022-02-12] MEDS ORDERED: METO-333 PO (11:38)
[2022-02-12] MEDS ORDERED: LEVO25TA5 PO (11:38)
[2022-02-12] MEDS ORDERED: ONDA4TAB11 PO (11:38)
[2022-02-12] MEDS: ACETAMINOPHEN 500 MG TAB (TYLENOL) PO PRN (13:09)
[2022-02-12] MEDS ORDERED: LORazepam 0.5 MG (ATIVAN) TABLET PO PRN (13:30)
[2022-02-12 21:35] LABS: HEPATITIS C ANTIBODY C Non-Reactive (Non-Reactive)
[2022-02-13] MEDS: ACETAMINOPHEN 500 MG TAB (TYLENOL) PO PRN ×2 (00:46→07:05)
[2022-02-13 04:21] VITALS: BP 130/74
[2022-02-13] MEDS: LEVOTHYROXINE 25 MCG (LEVOTHROID) TAB PO SCH (05:27)
[2022-02-13 05:47] LABS: HEMATOCRIT 32 % (40-54); HEMOGLOBIN 10.9 g/dL (13.3-17.7); MEAN CORPUSCULAR HEMOGLOBIN 32 pg (25-34); MEAN CORPUSCULAR HGB CONC 35 g/dL (32-36); MEAN CORPUSCULAR VOLUME 94 fL (80-99); MEAN PLATELET VOLUME 11.4 fL (9.0-12.2); PLATELET COUNT 146 10^3/uL (130-400); WHITE BLOOD COUNT 4.9 10^3/uL (4.3-11.0)
[2022-02-13 05:58] LABS: POTASSIUM 4.1 MMOL/L (3.6-5.0)
[2022-02-13 05:59] LABS: CALCIUM 9.1 MG/DL (8.5-10.1)
[2022-02-13 06:04] LABS: CREATININE SERUM 1.7 MG/DL (0.60-1.30)
[2022-02-13 07:42] VITALS: BP 154/82
[2022-02-13] MEDS: NS IV 1000 ML 1,000 ML IV SCH (07:49)
[2022-02-13] MEDS: GABAPENTIN 300 MG (NEURONTIN) CAP PO SCH (08:59)
[2022-02-13] MEDS: DIVALPROEX 500 MG DELAYED RELEASE (DEPAKOTE) TAB PO SCH (08:59)
[2022-02-13] MEDS: PANTOPRAZOLE 40 MG (PROTONIX) VIAL IV SCH (08:59)
--- NOTE | 2022-02-13 10:54 | Discharge Summary ---
Diagnosis/Chief Complaint Date of Admission February 11, 2022 at 15:06 Date of Discharge Admission Diagnosis Acute renal failure Primary Care No,Local Physician Discharge Diagnosis (1) Hypothyroidism (2) Acute on chronic renal failure Status: Acute (3) Nausea & vomiting Status: Acute (4) Hypercalcemia Status: Acute (5) Dehydration Status: Acute (6) Seizure Status: Acute Discharge Summary Discharge Physical Exam Allergies: Coded Allergies: Penicillins (Verified Allergy, Unknown, 02/11/22) amoxicillin (Verified Allergy, Unknown, 02/11/22) latex (Verified Allergy, Unknown, 02/11/22) Vitals & I&Os Vital Signs Date Time Temp Pulse Resp B/P (MAP) Pulse Ox O2 Delivery O2 Flow Rate FiO2 02/13/22 08:00 Room Air 02/13/22 07:42 36.4 89 17 154/82 (106) 97 02/11/22 19:14 21 Hospital Course Labs (last 24 hrs) Laboratory Tests 02/13/22 05:13: White Blood Count 4.9, Red Blood Count 3.36L, Hemoglobin 10.9L, Hematocrit 32L, Mean Corpuscular Volume 94, Mean Corpuscular Hemoglobin 32, Mean Corpuscular Hemoglobin Concent 35, Red Cell Distribution Width 11.8, Platelet Count 146, Mean Platelet Volume 11.4, Sodium Level 141, Potassium Level 4.1, Chloride Level 108H, Carbon Dioxide Level 22, Anion Gap 11, Blood Urea Nitrogen 18, Creatinine 1.70H, Estimat Glomerular Filtration Rate 58, BUN/Creatinine Ratio 11, Glucose Level 89, Calcium Level 9.1 Microbiology 02/11/22 Urine Culture - Final, Complete NO GROWTH Patient resulted labs reviewed. Pending Labs Laboratory Tests 02/13/22 05:13: White Blood Count 4.9, Red Blood Count 3.36, Hemoglobin 10.9, Hematocrit 32, Me an Corpuscular Volume 94, Mean Corpuscular Hemoglobin 32, Mean Corpuscular Hemoglobin Concent 35, Red Cell Distribution Width 11.8, Platelet Count 146, Mean Platelet Volume 11.4, Sodium Level 141, Potassium Level 4.1, Chloride Level 108, Carbon Dioxide Level 22, Anion Gap 11, Blood Urea Nitrogen 18, Creatinine 1.70, Estimat Glomerular Filtration Rate 58, BUN/Creatinine Ratio 11, Glucose Level 89, Calcium Level 9.1 Imaging: Reviewed Imaging Report Discharge Home Medications: Active Scripts Active Reported Metoprolol Tartrate 25 Mg Tablet 25 Mg PO BID PRN ONLY TAKES IF HAVE A FAST HEART RATE Levothyroxine Sodium 25 Mcg Tablet 25 Mcg PO DAILY Neurontin (Gabapentin) 300 Mg Capsule 300 Mg PO TID Ondansetron Odt (Ondansetron) 4 Mg Tab.rapdis 4 Mg PO Q8H PRN Divalproex Sodium 500 Mg Tablet.dr 500 Mg PO TID Instructions to patient/family Please see electronic discharge instructions given to patient. Problem Qualifiers (1) Acute on chronic renal failure: Acute renal failure type: unspecified Chronic kidney disease stage: unspecified stage Qualified Codes: N17.9 - Acute kidney failure, unspecified; N18.9 - Chronic kidney disease, unspecified (2) Nausea & vomiting: Vomiting type: unspecified Qualified Codes: R11.2 - Nausea with vomiting, unspecified ZEINAB GIMENEZ MD Feb 13, 2022 10:54
--- NOTE | 2022-02-13 10:56 | Discharge Inst-Simple/Standard ---
Discharge Inst-Standard Patient Instructions/Follow Up Plan of Care/Instructions/FU: Please continue to take your medications as written. Please follow up with your primary care doctor to follow up this hospital stay. Activity as Tolerated: Yes Discharge Diet: No Restrictions Return to The Hospital For: Chest pain, shortness of breath, fever, weakness, if you feel you are getting worse. ZEINAB GIMENEZ MD Feb 13, 2022 10:56
[2022-02-13 11:14] VITALS: BP 141/82
[2022-02-13 11:50] VITALS: BP 141/82
== END 2022-02-13 11:50 | disposition home or self-care (01) | DRG 684 ==
LOC: EDUNIT# 11:27 → ER 11:28 → OBSVTOIN 15:06 → 4TH 15:06
PROVIDERS: ADMIT Family Medicine; ATTEND Family Medicine
DX: N17.9 Acute kidney failure, unspecified (principal); E86.0 Dehydration; E83.52 Hypercalcemia; G40.909 Epilepsy, unspecified, not intractable, without status epilepticus; E03.9 Hypothyroidism, unspecified; N18.9 Chronic kidney disease, unspecified; R11.2 Nausea with vomiting, unspecified; F17.210 Nicotine dependence, cigarettes, uncomplicated; I48.91 Unspecified atrial fibrillation
CPT/HCPCS: 36415; 80048; 80053; 80074; 80164; 80306; 81000; 83735; 84439; 84443; 84481; 85025; 85027; 87088

== ENCOUNTER 2022-02-20 13:21 | Emergency (ER) | payer MEDICAID ==
[~2022-02-20] VITALS: Ht 180 cm; Wt 81.0 kg
[~2022-02-20 13:21] MED LIST changes: +DIVA-76 PO; +DIVA125C PO; +GABA300C PO; +GABA300S2 PO; +LEVO25CA4 PO; +LEVO25TA5 PO; +METO-333 PO
[2022-02-20 13:59] LABS: BILIRUBIN,URINE NEGATIVE (NEGATIVE); CLARITY,URINE CLEAR; COLOR,URINE YELLOW; GLUCOSE, URINE (UA) NEGATIVE (NEGATIVE); KETONES,URINE NEGATIVE (NEGATIVE); LEUKOCYTE ESTERASE ,URINE NEGATIVE (NEGATIVE); NITRITE,URINE NEGATIVE (NEGATIVE); PROTEIN,URINE NEGATIVE (NEGATIVE)
--- NOTE | 2022-02-20 13:59 | ED GI ---
General Chief Complaint: Abdominal/GI Problems Stated Complaint: VOMITING - BLURRED VISION - SHAKING Nursing Triage Note: ARRIVED VIA AMB TO ROOM 09 WITH MULTIPLE COMPLAINTS. COMPLAINS OF LOWER ABD PAIN, DIZINESS, VOMITNG, AND HEADACHE X2 DAYS. Source of Information: Patient Exam Limitations: No Limitations History of Present Illness Date Seen by Provider: Feb 20, 2022 Time Seen by Provider: 13:35 Initial Comments Patient to the ER with 2 days progressive worsening nausea vomiting, abdominal pain, shakes lightheadedness. His mom who he lives with has similar symptoms. He does not have anything at home for nausea. He has a history of epilepsy as well as PNES, Valerio and CKD with a baseline creatinine around 1.3. He feels dehydrated. He is not having diarrhea or constipation. No dysuria. He has not been exposed to adverse climate conditions. Patient is followed by [facility] and used to go to the [facility] and [place] for primary care. Uses Depakote for his epilepsy. No history of abdominal surgeries but he has had EGD and colonoscopy in [place] both of which were unremarkable except for gastritis. Allergies and Home Medications Allergies Coded Allergies: Penicillins (Verified Allergy, Unknown, 02/11/22) amoxicillin (Verified Allergy, Unknown, 02/11/22) latex (Verified Allergy, Unknown, 02/11/22) meclizine (Verified Allergy, Unknown, 02/20/22) Patient Home Medication List Home Medication List Reviewed: Yes Divalproex Sodium (Divalproex Sodium) 500 Mg Tablet.dr, 500 MG PO TID, (Reported) Entered as Reported by: LUZ MARINA PEGUERO on 02/11/222219 Gabapentin (Neurontin) 300 Mg Capsule, 300 MG PO TID, (Reported) Entered as Reported by: LEANNA DASILVA on 02/12/22 1138 Levothyroxine Sodium (Levothyroxine Sodium) 25 Mcg Tablet, 25 MCG PO DAILY, (Reported) Entered as Reported by: LEANNA DASILVA on 02/12/22 1138 Metoprolol Tartrate (Metoprolol Tartrate) 25 Mg Tablet, 25 MG PO BID PRN for FAST HEART RATE, (Reported) Entered as Reported by: LEANNA DASILVA on 02/12/22 1138 Ondansetron (Ondansetron Odt) 4 Mg Tab.rapdis, 4 MG PO Q8H PRN for NAUSEA/VOMITING, (Reported) Entered as Reported by: LEANNA DASILVA on 02/12/22 1138 Review of Systems Review of Systems Constitutional: No chills, No diaphoresis EENTM: No Blurred Vision, No Double Vision Respiratory: Denies Cough, Denies Shortness of Air Cardiovascular: Denies Chest Pain, Denies Edema Gastrointestinal: See HPI; Denies Abdomen Distended; Abdominal Pain; Denies Constipated, Denies Diarrhea; Nausea, Poor Fluid Intake, Vomiting Genitourinary: Denies Burning, Denies Discharge Musculoskeletal: No back pain, No joint pain All Other Systems Reviewed Negative Unless Noted: Yes Past Xvxyiia-Rduzdw-Pspmps Hx Patient Social History Tobacco Use?: Yes Smoking Status: Current Everyday Smoker Substance use?: No Alcohol Use?: No Past Medical History Surgery/Hospitalization HX: CKD, SEIZURES, AFIB WITH ABLATION, HEPATITIS, SMOKER Seizure Disorder Renal Failure Liver Disease/Jaundice Hypothyroidsim Physical Exam Vital Signs Vital Signs - First Documented 02/20/22 13:35 Temp 37.3 Pulse 121 Resp 16 B/P (MAP) 145/98 (114) Pulse Ox 96 O2 Delivery Room Air Capillary Refill : Less Than 3 Seconds Height/Weight/BMI Height: '" Weight: lbs. oz. kg; 25.00 BMI Method: General Appearance: WD/WN, no apparent distress HEENT: PERRL/EOMI; No pharynx normal (Mildly dry oral mucosa) Neck: full range of motion, supple, normal inspection Respiratory: lungs clear, normal breath sounds, no respiratory distress, no accessory muscle use Cardiovascular: normal peripheral pulses, regular rate, rhythm Gastrointestinal: normal bowel sounds, non tender, soft, no organomegaly, other (No mesenteric signs.) Extremities: normal range of motion, non-tender, normal capillary refill Neurologic/Psychiatric: alert, normal mood/affect, oriented x 3 Skin: normal color, warm/dry Progress/Results/Core Measures Results/Orders Lab Results Laboratory Tests Test 02/20/22 13:44 02/20/22 13:55 02/20/22 14:34 Range/Units White Blood Count 7.0 4.3-11.0 10^3/uL Red Blood Count 3.72 L 4.30-5.52 10^6/uL Hemoglobin 12.4 L 13.3-17.7 g/dL Hematocrit 35 L 40-54 % Mean Corpuscular Volume 94 80-99 fL Mean Corpuscular Hemoglobin 33 25-34 pg Mean Corpuscular Hemoglobin Concent 35 32-36 g/dL Red Cell Distribution Width 12.1 10.0-14.5 % Platelet Count 238 130-400 10^3/uL Mean Platelet Volume 10.9 9.0-12.2 fL Immature Granulocyte % (Auto) 1 % Neutrophils (%) (Auto) 62 42-75 % Lymphocytes (%) (Auto) 25 12-44 % Monocytes (%) (Auto) 10 0-12 % Eosinophils (%) (Auto) 1 0-10 % Basophils (%) (Auto) 0 0-10 % Neutrophils # (Auto) 4.4 1.8-7.8 10^3/uL Lymphocytes # (Auto) 1.8 1.0-4.0 10^3/uL Monocytes # (Auto) 0.7 0.0-1.0 10^3/uL Eosinophils # (Auto) 0.1 0.0-0.3 10^3/uL Basophils # (Auto) 0.0 0.0-0.1 10^3/uL Immature Granulocyte # (Auto) 0.1 0.0-0.1 10^3/uL Sodium Level 143 135-145 MMOL/L Potassium Level 3.6 3.6-5.0 MMOL/L Chloride Level 105 98-107 MMOL/L Carbon Dioxide Level 25 21-32 MMOL/L Anion Gap 13 5-14 MMOL/L Blood Urea Nitrogen 14 7-18 MG/DL Creatinine 1.40 H 0.60-1.30 MG/DL Estimat Glomerular Filtration Rate 73 BUN/Creatinine Ratio 10 Glucose Level 90 70-105 MG/DL Calcium Level 9.5 8.5-10.1 MG/DL Corrected Calcium 9.1 8.5-10.1 MG/DL Magnesium Level 1.9 1.6-2.4 MG/DL Total Bilirubin 0.3 0.1-1.0 MG/DL Aspartate Amino Transf (AST/SGOT) 59 H 5-34 U/L Alanine Aminotransferase (ALT/SGPT) 120 H 0-55 U/L Alkaline Phosphatase 54 40-136 U/L C-Reactive Protein High Sensitivity 0.05 0.00-0.50 MG/DL Total Protein 7.2 6.4-8.2 GM/DL Albumin 4.5 3.2-4.5 GM/DL Lipase 27 8-78 U/L Valproic Acid (Depakene) Level 84.1 50.0-100.0 UG/ML Urine Color YELLOW Urine Clarity CLEAR Urine pH 7.0 5-9 Urine Specific [place] 1.010 L 1.016-1.022 Urine Protein NEGATIVE NEGATIVE Urine Glucose (UA) NEGATIVE NEGATIVE Urine Ketones NEGATIVE NEGATIVE Urine Nitrite NEGATIVE NEGATIVE Urine Bilirubin NEGATIVE NEGATIVE Urine Urobilinogen 0.2 < = 1.0 MG/DL Urine Leukocyte Esterase NEGATIVE NEGATIVE Urine RBC (Auto) NEGATIVE NEGATIVE Urine RBC NONE /HPF Urine WBC RARE /HPF Urine Squamous Epithelial Cells NONE /HPF Urine Crystals NONE /LPF Urine Bacteria NEGATIVE /HPF Urine Casts NONE /LPF Urine Mucus NEGATIVE /LPF Urine Culture Indicated NO SARS-CoV-2 RNA (RT-PCR) Not Detected Not Detecte My Orders Orders - YESY LALA Covid 19 Inhouse Test (02/20/22 13:51) Ed Iv/Invasive Line Start (02/20/22 13:51) Lactated Ringers (Lr 1000 Ml Iv Solution (02/20/22 14:00) Ondansetron Injection (Zofran Injectio (02/20/22 14:00) Cbc With Automated Diff (02/20/22 13:51) Comprehensive Metabolic Panel (02/20/22 13:51) Hs C Reactive Protein (02/20/22 13:51) Valproic Acid (02/20/22 13:51) Ua Culture If Indicated (02/20/22 13:51) Lipase (02/20/22 13:51) Magnesium (02/20/22 13:51) Medications Given in ED Current Medications Medications Dose Ordered Sig/Macho Route Start Time Stop Time Status Last Admin Dose Admin Lactated Ringer's 1,000 ml @ 0 mls/hr Q0M ONCE IV 02/20/22 14:00 02/20/22 14:01 DC 02/20/22 14:11 1,000 MLS/HR Ondansetron HCl 8 mg ONCE ONCE IVP 02/20/22 14:00 02/20/22 14:01 DC 02/20/22 14:11 8 MG Vital Signs/I&O 02/20/22 13:35 Temp 37.3 Pulse 121 Resp 16 B/P (MAP) 145/98 (114) Pulse Ox 96 O2 Delivery Room Air Blood Pressure Mean: 114 Progress Progress Note #1: Time: 13:58 Progress Note Patient does appear mildly dehydrated but has normal vital signs. We will give him a liter of lactated Ringer's check some labs including a lipase. He sounds like he has a gastroenteritis probably viral in type. Ondansetron 8 mg. Progress Note #2: Time: 15:19 Progress Note Nausea is gone. Labs are at baseline. Questions are answered and patient is okay to go home for a GI bug with some ondansetron. Departure Impression Primary Impression: Viral gastroenteritis Disposition: HOME, SELF-CARE Condition: Improved Departure-Patient Inst. Decision time for Depature: 15:20 Referrals: NO,LOCAL PHYSICIAN (PCP/Family) Primary Care Physician Patient Instructions: Viral Gastroenteritis, Adult (DC) Add. Discharge Instructions: Drink lots of fluids. Sports drink such as Gatorade, Powerade etc. are recommended. Ondansetron 1 or 2 tablets every 6 hours as needed for nausea and or vomiting. Tylenol 1000 mg every 8 hours as needed for pain. Gas-X can be helpful for cramping. Probiotics are always a good choice while you are sick. If you develop diarrhea then take 2 tablets of Imodium/loperamide, 4 mg. Every 4 hours afterwards that you still have loose, watery stools you should take an extra tablet of loperamide until symptoms natividad. Symptoms usually go away in 3 to 5 days. If they are persistent for longer than that and you can follow-up with your primary care doctor for reevaluation. However if you become dehydrated have intractable vomiting or other worrisome symptoms then I encourage you to return to the nearest ER for reevaluation. All discharge instructions reviewed with patient and/or family. Voiced understanding. Scripts Ondansetron (Ondansetron Odt) 4 Mg Tab.rapdis 4-8 MG PO Q6H PRN for NAUSEA/VOMITING, #15 TAB 0 Refills Prov: YESY LALA 02/20/22 YESY LALA Feb 20, 2022 13:59
[2022-02-20] MEDS ORDERED: ONDANSETRON 4 MG/2 ML (SDV) Z0FRAN IVP ONE (14:00)
[2022-02-20] MEDS ORDERED: LACTATED RINGERS 1,000 ML IV ONE (14:00)
[2022-02-20 14:05] LABS: ALBUMIN 4.5 GM/DL (3.2-4.5); POTASSIUM 3.6 MMOL/L (3.6-5.0)
[2022-02-20 14:06] LABS: CALCIUM 9.5 MG/DL (8.5-10.1)
[2022-02-20 14:08] LABS: TOTAL PROTEIN 7.2 GM/DL (6.4-8.2)
[2022-02-20 14:09] LABS: BASOPHILS % (AUTO) 0 % (0-10); BILIRUBIN,TOTAL 0.3 MG/DL (0.1-1.0); EOSINOPHILS # (AUTO) 0.1 10^3/uL (0.0-0.3); EOSINOPHILS % (AUTO) 1 % (0-10); HEMATOCRIT 35 % (40-54); HEMOGLOBIN 12.4 g/dL (13.3-17.7); LYMPHOCYTES # (AUTO) 1.8 10^3/uL (1.0-4.0); LYMPHOCYTES % (AUTO) 25 % (12-44); MEAN CORPUSCULAR HEMOGLOBIN 33 pg (25-34); MEAN CORPUSCULAR HGB CONC 35 g/dL (32-36); MEAN CORPUSCULAR VOLUME 94 fL (80-99); MEAN PLATELET VOLUME 10.9 fL (9.0-12.2); MONOCYTES # (AUTO) 0.7 10^3/uL (0.0-1.0); MONOCYTES % (AUTO) 10 % (0-12); NEUTROPHILS # (AUTO) 4.4 10^3/uL (1.8-7.8); NEUTROPHILS % (AUTO) 62 % (42-75); PLATELET COUNT 238 10^3/uL (130-400)
[2022-02-20 14:11] LABS: CREATININE SERUM 1.4 MG/DL (0.60-1.30)
[2022-02-20 14:14] LABS: MAGNESIUM 1.9 MG/DL (1.6-2.4)
[2022-02-20 14:16] LABS: BACTERIA,URINE NEGATIVE /HPF; WBC,URINE RARE /HPF
[2022-02-20 14:21] LABS: VALPROIC ACID 84.1 UG/ML (50.0-100.0)
[2022-02-20] MEDS ORDERED: ONDA4TAB11 PO (15:22)
[2022-02-20 15:31] VITALS: BP 114/56
== END 2022-02-20 15:31 | disposition home or self-care (01) ==
LOC: EDUNIT# 13:21 → ER 13:22
DX: A08.4 Viral intestinal infection, unspecified (principal); F17.200 Nicotine dependence, unspecified, uncomplicated
CPT/HCPCS: 36415; 80053; 80164; 81000; 83690; 83735; 85025; 86141; 87636

== ENCOUNTER 2022-02-27 08:08 | Emergency (ER) | payer MEDICAID ==
[~2022-02-27] VITALS: Ht 180 cm; Wt 117.9 kg
[2022-02-27 08:43] LABS: BASOPHILS % (AUTO) 0 % (0-10); EOSINOPHILS # (AUTO) 0.1 10^3/uL (0.0-0.3); EOSINOPHILS % (AUTO) 1 % (0-10); HEMATOCRIT 37 % (40-54); HEMOGLOBIN 12.9 g/dL (13.3-17.7); LYMPHOCYTES # (AUTO) 2.5 10^3/uL (1.0-4.0); LYMPHOCYTES % (AUTO) 36 % (12-44); MEAN CORPUSCULAR HEMOGLOBIN 33 pg (25-34); MEAN CORPUSCULAR HGB CONC 35 g/dL (32-36); MEAN CORPUSCULAR VOLUME 94 fL (80-99); MONOCYTES # (AUTO) 0.7 10^3/uL (0.0-1.0); MONOCYTES % (AUTO) 10 % (0-12); NEUTROPHILS # (AUTO) 3.7 10^3/uL (1.8-7.8); NEUTROPHILS % (AUTO) 52 % (42-75); PLATELET COUNT 226 10^3/uL (130-400)
[2022-02-27] MEDS ORDERED: LACTATED RINGERS 1,000 ML IV ONE (08:45)
[2022-02-27] MEDS ORDERED: VALPROATE INJ (NON-FORMULARY) 500 MG in D5W 100 ML IVPB 100 ML IV ONE (08:45)
[2022-02-27] MEDS ORDERED: ONDANSETRON 4 MG/2 ML (SDV) Z0FRAN IVP ONE (09:00)
[2022-02-27] MEDS ORDERED: PANTOPRAZOLE 40 MG (PROTONIX) VIAL IV ONE (09:00)
[2022-02-27 09:01] LABS: ALBUMIN 4.8 GM/DL (3.2-4.5)
[2022-02-27 09:02] LABS: CHLORIDE 102 MMOL/L (98-107); POTASSIUM 4.4 MMOL/L (3.6-5.0); SODIUM 139 MMOL/L (135-145)
[2022-02-27 09:04] LABS: GLUCOSE 98 MG/DL (70-105); TOTAL PROTEIN 7.5 GM/DL (6.4-8.2)
[2022-02-27 09:05] LABS: CARBON DIOXIDE 25 MMOL/L (21-32)
[2022-02-27 09:06] LABS: BILIRUBIN,TOTAL 0.3 MG/DL (0.1-1.0)
[2022-02-27 09:07] LABS: BILIRUBIN,URINE NEGATIVE (NEGATIVE); CLARITY,URINE CLEAR; COLOR,URINE YELLOW; GLUCOSE, URINE (UA) NEGATIVE (NEGATIVE); KETONES,URINE NEGATIVE (NEGATIVE); LEUKOCYTE ESTERASE ,URINE TRACE (NEGATIVE); NITRITE,URINE NEGATIVE (NEGATIVE); PROTEIN,URINE NEGATIVE (NEGATIVE)
[2022-02-27 09:07] LABS: ALKALINE PHOSPHATASE 61 U/L (40-136)
[2022-02-27 09:08] LABS: CREATININE SERUM 1.38 MG/DL (0.60-1.30); GFR ESTIMATED 74
[2022-02-27 09:09] LABS: BUN/CREATININE RATIO 14
[2022-02-27 09:10] LABS: ALANINE AMINOTRANSFERASE 118 U/L (0-55); MAGNESIUM 1.9 MG/DL (1.6-2.4)
[2022-02-27 09:17] LABS: VALPROIC ACID 54.9 UG/ML (50.0-100.0)
[2022-02-27 09:32] LABS: FREE T4 (FREE THYROXINE) 1.12 NG/DL (0.70-1.48)
[2022-02-27 09:44] LABS: AMORPHOUS SEDIMENT,UR MOD AMOR PHOSPHATE /LPF; BACTERIA,URINE NEGATIVE /HPF; WBC,URINE 0-2 /HPF
--- NOTE | 2022-02-27 10:28 | ED General ---
General Chief Complaint: Abdominal/GI Problems Stated Complaint: VOMITING - ABD PAIN - SEIZURE Nursing Triage Note: NAUSEA/VOMITING- STARTED APPROX 0300, TOOK ZOFRAN 0400, PT REPORTS 3 SEIZURES SINCE 399-LAST TOOK DEPAKOTE 02-26-221999- REPORTS HE ATTEMPTED TO TAKE AM DOSE BUT VOMITED. Source of Information: Patient, Old Records Exam Limitations: No Limitations Allergies and Home Medications Allergies Coded Allergies: Penicillins (Verified Allergy, Unknown, 02/11/22) amoxicillin (Verified Allergy, Unknown, 02/11/22) latex (Verified Allergy, Unknown, 02/11/22) meclizine (Verified Allergy, Unknown, 02/20/22) Patient Home Medication List Divalproex Sodium (Divalproex Sodium) 500 Mg Tablet.dr, 500 MG PO TID, (Reported) Entered as Reported by: LUZ MARINA PEGUERO on 02/11/222219 Gabapentin (Neurontin) 300 Mg Capsule, 300 MG PO TID, (Reported) Entered as Reported by: LEANNA DASILVA on 02/12/22 1138 Levothyroxine Sodium (Levothyroxine Sodium) 25 Mcg Tablet, 25 MCG PO DAILY, (Reported) Entered as Reported by: LEANNA DASILVA on 02/12/22 1138 Metoprolol Tartrate (Metoprolol Tartrate) 25 Mg Tablet, 25 MG PO BID PRN for FAST HEART RATE, (Reported) Entered as Reported by: LEANNA DASILVA on 02/12/22 1138 Ondansetron (Ondansetron Odt) 4 Mg Tab.rapdis, 4 MG PO Q8H PRN for NAUSEA/VOMITING, (Reported) Entered as Reported by: LEANNA DASILVA on 02/12/22 1138 Ondansetron (Ondansetron Odt) 4 Mg Tab.rapdis, 4-8 MG PO Q6H PRN for NAUSEA/VOMITING Prescribed by: YESY LALA on 02/20/22 1522 Past Kvdthxy-Vljiiw-Qbrayi Hx Patient Social History Tobacco Use?: Yes Tobacco type used: Cigarettes Smoking Status: Current Everyday Smoker Substance use?: No Alcohol Frequency: Couple times a week Past Medical History Surgery/Hospitalization HX: CKD, SEIZURES, AFIB WITH ABLATION, HEPATITIS, SMOKER Seizure Disorder Renal Failure Liver Disease/Jaundice Hypothyroidsim Physical Exam Vital Signs Vital Signs - First Documented Capillary Refill : Less Than 3 Seconds Height, Weight, BMI Height: '" Weight: lbs. oz. kg; 36.00 BMI Method: Progress/Results/Core Measures Suspected Sepsis SIRS Temperature: Pulse: 68 Respiratory Rate: 18 Laboratory Tests 02/27/22 08:35: White Blood Count 7.0 Blood Pressure 132 /68 Mean: 91 Laboratory Tests 02/27/22 08:35: Creatinine 1.38H, Platelet Count 226, Total Bilirubin 0.3 Results/Orders Lab Results Laboratory Tests Test 02/27/22 08:35 02/27/22 09:05 Range/Units White Blood Count 7.0 4.3-11.0 10^3/uL Red Blood Count 3.91 L 4.30-5.52 10^6/uL Hemoglobin 12.9 L 13.3-17.7 g/dL Hematocrit 37 L 40-54 % Mean Corpuscular Volume 94 80-99 fL Mean Corpuscular Hemoglobin 33 25-34 pg Mean Corpuscular Hemoglobin Concent 35 32-36 g/dL Red Cell Distribution Width 12.3 10.0-14.5 % Platelet Count 226 130-400 10^3/uL Mean Platelet Volume 11.0 9.0-12.2 fL Immature Granulocyte % (Auto) 0 % Neutrophils (%) (Auto) 52 42-75 % Lymphocytes (%) (Auto) 36 12-44 % Monocytes (%) (Auto) 10 0-12 % Eosinophils (%) (Auto) 1 0-10 % Basophils (%) (Auto) 0 0-10 % Neutrophils # (Auto) 3.7 1.8-7.8 10^3/uL Lymphocytes # (Auto) 2.5 1.0-4.0 10^3/uL Monocytes # (Auto) 0.7 0.0-1.0 10^3/uL Eosinophils # (Auto) 0.1 0.0-0.3 10^3/uL Basophils # (Auto) 0.0 0.0-0.1 10^3/uL Immature Granulocyte # (Auto) 0.0 0.0-0.1 10^3/uL Sodium Level 139 135-145 MMOL/L Potassium Level 4.4 3.6-5.0 MMOL/L Chloride Level 102 98-107 MMOL/L Carbon Dioxide Level 25 21-32 MMOL/L Anion Gap 12 5-14 MMOL/L Blood Urea Nitrogen 19 H 7-18 MG/DL Creatinine 1.38 H 0.60-1.30 MG/DL Estimat Glomerular Filtration Rate 74 BUN/Creatinine Ratio 14 Glucose Level 98 70-105 MG/DL Calcium Level 11.0 H 8.5-10.1 MG/DL Corrected Calcium 8.5-10.1 MG/DL Magnesium Level 1.9 1.6-2.4 MG/DL Total Bilirubin 0.3 0.1-1.0 MG/DL Aspartate Amino Transf (AST/SGOT) 49 H 5-34 U/L Alanine Aminotransferase (ALT/SGPT) 118 H 0-55 U/L Alkaline Phosphatase 61 40-136 U/L C-Reactive Protein High Sensitivity 0.06 0.00-0.50 MG/DL Total Protein 7.5 6.4-8.2 GM/DL Albumin 4.8 H 3.2-4.5 GM/DL Lipase 22 8-78 U/L Thyroid Stimulating Hormone (TSH) 4.92 0.35-4.94 UIU/ML Free Thyroxine 1.12 0.70-1.48 NG/DL Valproic Acid (Depakene) Level 54.9 50.0-100.0 UG/ML Urine Color YELLOW Urine Clarity CLEAR Urine pH 7.0 5-9 Urine Specific [place] 1.015 L 1.016-1.022 Urine Protein NEGATIVE NEGATIVE Urine Glucose (UA) NEGATIVE NEGATIVE Urine Ketones NEGATIVE NEGATIVE Urine Nitrite NEGATIVE NEGATIVE Urine Bilirubin NEGATIVE NEGATIVE Urine Urobilinogen 0.2 < = 1.0 MG/DL Urine Leukocyte Esterase TRACE H NEGATIVE Urine RBC (Auto) NEGATIVE NEGATIVE Urine RBC NONE /HPF Urine WBC 0-2 /HPF Urine Crystals PRESENT H /LPF Urine Amorphous Sediment MOD ANGY PHOSPHATE H /LPF Urine Bacteria NEGATIVE /HPF Urine Casts NONE /LPF Urine Mucus NEGATIVE /LPF Urine Culture Indicated NO My Orders Orders - JAMES GUADARRAMA MD Valproate Inj (Non-Formulary) (Depacon ( (02/27/22 08:45) Ed Iv/Invasive Line Start (02/27/22 08:34) Lactated Ringers (Lr 1000 Ml Iv Solution (02/27/22 08:45) Cbc With Automated Diff (02/27/22 08:34) Comprehensive Metabolic Panel (02/27/22 08:34) Magnesium (02/27/22 08:34) Ua Culture If Indicated (02/27/22 08:34) Thyroid Stimulating Hormone (02/27/22 08:34) Free T4 (Free Thyroxine) (02/27/22 08:34) Valproic Acid (02/27/22 08:37) Ondansetron Injection (Zofran Injectio (02/27/22 09:00) Pantoprazole Injection (Protonix Injecti (02/27/22 09:00) Hs C Reactive Protein (02/27/22 09:13) Lipase (02/27/22 09:13) Medications Given in ED Current Medications Medications Dose Ordered Sig/Macho Route Start Time Stop Time Status Last Admin Dose Admin Lactated Ringer's 1,000 ml @ 0 mls/hr Q0M ONCE IV 02/27/22 08:45 02/27/22 08:46 DC 02/27/22 08:54 999 MLS/HR Ondansetron HCl 4 mg ONCE ONCE IVP 02/27/22 09:00 02/27/22 09:01 DC 02/27/22 09:00 4 MG Pantoprazole 40 mg ONCE ONCE IV 02/27/22 09:00 02/27/22 09:01 DC 02/27/22 09:00 40 MG Valproate Sodium 500 mg/Dextrose 105 ml @ 110 mls/hr ONCE ONCE IV 02/27/22 08:45 02/27/22 09:42 DC 02/27/22 09:23 110 MLS/HR Vital Signs/I&O 02/27/22 02/27/22 08:20 08:20 Temp 35.9 35.9 Pulse 68 68 Resp 18 99 B/P (MAP) 132/68 (89) 138/68 Pulse Ox 99 99 O2 Delivery Room Air Capillary Refill : Less Than 3 Seconds Blood Pressure Mean: 91 Departure Impression Primary Impression: Nausea and vomiting Qualified Codes: R11.2 - Nausea with vomiting, unspecified Additional Impressions: Generalized abdominal pain Hypothyroidism Qualified Codes: E03.9 - Hypothyroidism, unspecified Seizure disorder Hiatal hernia Disposition: HOME, SELF-CARE Condition: Improved Departure-Patient Inst. Referrals: NO,LOCAL PHYSICIAN (PCP/Family) Primary Care Physician Patient Instructions: Severe Abdominal Pain, Adult (DC), Seizures Add. Discharge Instructions: Resume your home medications as previously directed. Start with a noncarbonated clear liquid diet today. If you are not feeling improved tomorrow, gradually advance your diet with small quantities of bland food as tolerated. Because of your hiatal hernia, you likely have some gastritis and acid reflux. You may help control symptoms of these conditions with antacid medication such as Pepcid (famotidine) 20 mg twice daily. Try this for the next couple of weeks and discuss with a primary care provider in follow-up. Avoid the following: Eating large meals, eating close to bedtime, caffeine, carbonation, citrus fruits and juices, tomato products, other acidic foods and beverages, mints, tobacco, alcohol, spicy foods, fatty and greasy foods, NSAID medications such as ibuprofen or naproxen, and anything else you know irritates your stomach. For nausea and vomiting start with sublingual Zofran. For nausea and vomiting not controlled by Zofran, add Phenergan (promethazine) as prescribed. Establish with a primary care provider soon as possible. Return to care if you have worsening symptoms despite following these instructions. All discharge instructions reviewed with patient and/or family. Voiced understanding. Scripts Famotidine (Pepcid) 20 Mg Tablet 20 MG PO BID, #30 TAB Prov: JAMES GUADARRAMA MD 02/27/22 Promethazine HCl (Promethazine Tablet) 25 Mg Tablet 25 MG PO Q6H PRN for NAUSEA/VOMITING, #10 TAB Prov: JAMES GUADARRAMA MD 02/27/22 JAMES GUADARRAMA MD Feb 27, 2022 10:28
[2022-02-27] MEDS ORDERED: KETOROLAC 30 MG/ML VIAL IVP ONE (10:30)
[2022-02-27] MEDS ORDERED: LIDOCAINE 2% VISCOUS 15 ML UDC PO ONE (10:30)
[2022-02-27] MEDS ORDERED: PROM25TA14 PO (10:32)
[2022-02-27] MEDS ORDERED: FAMO-119 PO (10:32)
[2022-02-27 10:40] VITALS: BP 139/75
== END 2022-02-27 10:40 | disposition home or self-care (01) ==
LOC: EDUNIT# 08:08 → ER 08:09
DX: K44.9 Diaphragmatic hernia without obstruction or gangrene (principal); G40.909 Epilepsy, unspecified, not intractable, without status epilepticus; E03.9 Hypothyroidism, unspecified; F17.210 Nicotine dependence, cigarettes, uncomplicated; Z79.899 Other long term (current) drug therapy
CPT/HCPCS: 36415; 80053; 80164; 81000; 83690; 83735; 84439; 84443; 85025; 86141

== ENCOUNTER 2022-03-01 21:59 | Emergency (ER) | payer MEDICAID ==
[~2022-03-01] VITALS: Ht 175.3 cm; Wt 117.0 kg
[~2022-03-01 21:59] MED LIST changes: +FAMO-119 PO; +PROM25TA14 PO
--- NOTE | 2022-03-01 22:34 | ED Abdominal Pain ---
General Chief Complaint: General Problems/Pain Stated Complaint: ABD PAIN, DIZZY, SEIZURE ACTIVITY Source of Information: Patient Exam Limitations: No Limitations History of Present Illness Date Seen by Provider: Mar 01, 2022 Time Seen by Provider: 22:18 Initial Comments Patient to the ER by private conveyance chief complaint that his chronic nausea vomiting and abdominal pain have acted up to the point that he has not been able to keep his Depakote down for the past 2 to 3 days and he is having some tremors in his legs. He has a history of pseudoseizures as well as epilepsy. He is f ollowed outpatient by nephrology for his chronic kidney disease and had an admission earlier in the month for dehydration related to his chronic GI troubles. He sees a GI doctor at [facility] who told him they thought most of his symptoms were from anxiety. He is also been having some dizziness which is chronic for him and feels like he is off balance when he walks. He says this is worse when he is having his GI symptoms. Nursing reports he was flailing his arms around in the waiting room when she called him back. Patient states he has started following up here at [place] because he was fired by his renal doctor for looking into his records and seeing that his GI doctor and frequent ER visits have all documented his high history of anxiety and suspected multitude of his symptoms are related to this diagnosis of anxiety. Allergies and Home Medications Allergies Coded Allergies: Penicillins (Verified Allergy, Unknown, 02/11/22) amoxicillin (Verified Allergy, Unknown, 02/11/22) latex (Verified Allergy, Unknown, 02/11/22) meclizine (Verified Allergy, Unknown, 02/20/22) Patient Home Medication List Home Medication List Reviewed: Yes Divalproex Sodium (Divalproex Sodium) 500 Mg Tablet.dr, 500 MG PO TID, (Reported) Entered as Reported by: LUZ MARINA PEGUERO on 02/11/220 Famotidine (Pepcid) 20 Mg Tablet, 20 MG PO BID Prescribed by: JAMES PELAYO on 02/27/22 1032 Gabapentin (Neurontin) 300 Mg Capsule, 300 MG PO TID, (Reported) Entered as Reported by: LEANNA DASILVA on 02/12/22 1138 Levothyroxine Sodium (Levothyroxine Sodium) 25 Mcg Tablet, 25 MCG PO DAILY, (Reported) Entered as Reported by: LEANNA DASILVA on 02/12/22 1138 Metoprolol Tartrate (Metoprolol Tartrate) 25 Mg Tablet, 25 MG PO BID PRN for FAST HEART RATE, (Reported) Entered as Reported by: LEANNA DASILVA on 02/12/22 1138 Ondansetron (Ondansetron Odt) 4 Mg Tab.rapdis, 4 MG PO Q8H PRN for NAUSEA /VOMITING, (Reported) Entered as Reported by: LEANNA DASILVA on 02/12/22 1138 Ondansetron (Ondansetron Odt) 4 Mg Tab.rapdis, 4-8 MG PO Q6H PRN for NAUSEA/VOMITING Prescribed by: YESY LALA on 02/20/22 1522 Promethazine HCl (Promethazine Tablet) 25 Mg Tablet, 25 MG PO Q6H PRN for NAUSEA/VOMITING Prescribed by: JAMES PELAYO on 02/27/22 1032 Review of Systems Review of Systems Constitutional: No chills, No diaphoresis EENTM: No Blurred Vision, No Double Vision Respiratory: Denies Cough, Denies Shortness of Air Cardiovascular: Denies Chest Pain, Denies Lightheadedness Gastrointestinal: See HPI, Abdominal Pain (Epigastric); Denies Constipated, Denies Diarrhea; Nausea, Poor Fluid Intake, Vomiting Genitourinary: Denies Burning, Denies Discharge Musculoskeletal: No back pain, No joint pain All Other Systems Reviewed Negative Unless Noted: Yes Past Tzsbsfc-Lewymf-Jznnmn Hx Patient Social History Tobacco Use?: No Use of E-Cig and/or Vaping dev: No Substance use?: No Past Medical History Surgery/Hospitalization HX: CKD, SEIZURES, AFIB WITH ABLATION, HEPATITIS, SMOKER Seizure Disorder Renal Failure Liver Disease/Jaundice Hypothyroidsim Physical Exam Vital Signs Vital Signs - First Documented 03/01/22 22:21 Temp 36.9 Pulse 112 Resp 14 B/P (MAP) 153/98 (116) Pulse Ox 100 Capillary Refill : Height/Weight/BMI Height: '" Weight: lbs. oz. kg; 36.00 BMI Method: General Appearance: WD/WN, mild distress HEENT: PERRL/EOMI, normal ENT inspection, TMs normal (Clear, noninjected nonretracted or bulging); No pharynx normal (Mildly dry oral mucosa) Neck: full range of motion, supple, normal inspection Respiratory: lungs clear, normal breath sounds, no respiratory distress, no accessory muscle use Cardiovascular: normal peripheral pulses, regular rate, rhythm Gastrointestinal: normal bowel sounds, non tender, soft Extremities: normal inspection, normal capillary refill Neurologic/Psychiatric: relations director II-XII nml as tested, no motor/sensory deficits, alert, normal mood/affect, oriented x 3 Skin: normal color, warm/dry Progress/Results/Core Measures Results/Orders Lab Results Laboratory Tests Test 03/01/22 22:30 03/01/22 22:36 Range/Units White Blood Count 6.8 4.3-11.0 10^3/uL Red Blood Count 4.17 L 4.30-5.52 10^6/uL Hemoglobin 13.7 13.3-17.7 g/dL Hematocrit 39 L 40-54 % Mean Corpuscular Volume 94 80-99 fL Mean Corpuscular Hemoglobin 33 25-34 pg Mean Corpuscular Hemoglobin Concent 35 32-36 g/dL Red Cell Distribution Width 12.1 10.0-14.5 % Platelet Count 238 130-400 10^3/uL Mean Platelet Volume 11.0 9.0-12.2 fL Immature Granulocyte % (Auto) 0 % Neutrophils (%) (Auto) 52 42-75 % Lymphocytes (%) (Auto) 36 12-44 % Monocytes (%) (Auto) 10 0-12 % Eosinophils (%) (Auto) 2 0-10 % Basophils (%) (Auto) 1 0-10 % Neutrophils # (Auto) 3.5 1.8-7.8 10^3/uL Lymphocytes # (Auto) 2.5 1.0-4.0 10^3/uL Monocytes # (Auto) 0.7 0.0-1.0 10^3/uL Eosinophils # (Auto) 0.1 0.0-0.3 10^3/uL Basophils # (Auto) 0.0 0.0-0.1 10^3/uL Immature Granulocyte # (Auto) 0.0 0.0-0.1 10^3/uL Sodium Level 137 135-145 MMOL/L Potassium Level 3.5 L 3.6-5.0 MMOL/L Chloride Level 98 98-107 MMOL/L Carbon Dioxide Level 25 21-32 MMOL/L Anion Gap 14 5-14 MMOL/L Blood Urea Nitrogen 12 7-18 MG/DL Creatinine 1.54 H 0.60-1.30 MG/DL Estimat Glomerular Filtration Rate 65 BUN/Creatinine Ratio 8 Glucose Level 124 H 70-105 MG/DL Calcium Level 9.7 8.5-10.1 MG/DL Corrected Calcium 8.5-10.1 MG/DL Total Bilirubin 0.4 0.1-1.0 MG/DL Aspartate Amino Transf (AST/SGOT) 82 H 5-34 U/L Alanine Aminotransferase (ALT/SGPT) 147 H 0-55 U/L Alkaline Phosphatase 64 40-136 U/L C-Reactive Protein High Sensitivity 0.06 0.00-0.50 MG/DL Total Protein 7.7 6.4-8.2 GM/DL Albumin 4.9 H 3.2-4.5 GM/DL Lipase 28 8-78 U/L Valproic Acid (Depakene) Level 47.7 L 50.0-100.0 UG/ML Urine Color YELLOW Urine Clarity CLEAR Urine pH 6.5 5-9 Urine Specific [place] 1.020 1.016-1.022 Urine Protein NEGATIVE NEGATIVE Urine Glucose (UA) NEGATIVE NEGATIVE Urine Ketones NEGATIVE NEGATIVE Urine Nitrite NEGATIVE NEGATIVE Urine Bilirubin NEGATIVE NEGATIVE Urine Urobilinogen 0.2 < = 1.0 MG/DL Urine Leukocyte Esterase NEGATIVE NEGATIVE Urine RBC (Auto) NEGATIVE NEGATIVE Urine RBC NONE /HPF Urine WBC 0-2 /HPF Urine Squamous Epithelial Cells RARE /HPF Urine Crystals NONE /LPF Urine Bacteria TRACE /HPF Urine Casts NONE /LPF Urine Mucus NEGATIVE /LPF Urine Culture Indicated NO Urine Opiates Screen NEGATIVE NEGATIVE Urine Oxycodone Screen NEGATIVE NEGATIVE Urine Methadone Screen NEGATIVE NEGATIVE Urine Propoxyphene Screen NEGATIVE NEGATIVE Urine Barbiturates Screen NEGATIVE NEGATIVE Ur Tricyclic Antidepressants Screen NEGATIVE NEGATIVE Urine Phencyclidine Screen NEGATIVE NEGATIVE Urine Amphetamines Screen NEGATIVE NEGATIVE Urine Methamphetamines Screen NEGATIVE NEGATIVE Urine Benzodiazepines Screen NEGATIVE NEGATIVE Urine Cocaine Screen NEGATIVE NEGATIVE Urine Cannabinoids Screen NEGATIVE NEGATIVE My Orders Orders - YESY LALA Ua Culture If Indicated (03/01/22 22:31) Drug Screen Stat (Urine) (03/01/22 22:31) Cbc With Automated Diff (03/01/22 22:31) Comprehensive Metabolic Panel (03/01/22 22:31) Hs C Reactive Protein (03/01/22 22:31) Lipase (03/01/22 22:31) Ed Iv/Invasive Line Start (03/01/22 22:31) Lactated Ringers (Lr 1000 Ml Iv Solution (03/01/22 22:45) Ondansetron Injection (Zofran Injectio (03/01/22 22:45) Valproic Acid (03/01/22 22:35) Lidocaine 2% Viscous 15 Ml (Xylocaine Vi (03/01/22 22:45) Famotidine Tablet (Pepcid Tablet) (03/01/22 22:40) Antacid Suspension (Mylanta Suspension (03/01/22 22:45) Medications Given in ED Current Medications Medications Dose Ordered Sig/Macho Route Start Time Stop Time Status Last Admin Dose Admin Al Hydrox/Mg Hydrox/Simethicone 30 ml ONCE ONCE PO 03/01/22 22:45 03/01/22 22:46 DC 03/01/22 23:28 30 ML Lactated Ringer's 1,000 ml @ 0 mls/hr Q0M ONCE IV 03/01/22 22:45 03/01/22 22:46 DC 03/01/22 22:45 0 MLS/HR Lidocaine HCl 15 ml ONCE ONCE PO 03/01/22 22:45 03/01/22 22:46 DC 03/01/22 23:28 15 ML Ondansetron HCl 8 mg ONCE ONCE IVP 03/01/22 22:45 03/01/22 22:46 DC 03/01/22 22:45 8 MG Vital Signs/I&O 03/01/22 22:21 Temp 36.9 Pulse 112 Resp 14 B/P (MAP) 153/98 (116) Pulse Ox 100 Progress Progress Note #1: Time: 22:38 Progress Note Patient was observed ambulating normally prior to being called back to her room. He may have some vertigo so we will trial some meclizine after his nausea is under control. Ondansetron 8 mg IV a liter of fluids for his potential dehydration based on his history and tachycardia of 115. We will check some basic labs and trial GI cocktail soon as his nausea is under control. Progress Note #2: Time: 23:49 Progress Note His labs are at baseline. His nausea was taken away with 8 mg of IV Zofran. We gave him a GI cocktail which he states took away all of his abdominal pain. He is feeling better. We encouraged him to get back to taking his Depakote as his levels have slipped a little below 50 and he is claiming some seizure-like activity. We recommend he establish care with a primary care doctor and we will provide him with a refill of Phenergan per his request. The patient was able to easily ambulate to and from the bathroom without issue. He is no longer having dizziness and states he feels back to normal. He does not take meclizine because it causes a rash and ringing in his ears. Departure Impression Primary Impression: Gastroenteritis Disposition: HOME, SELF-CARE Condition: Stable Departure-Patient Inst. Decision time for Depature: 23:50 Referrals: NO,LOCAL PHYSICIAN (PCP/Family) Primary Care Physician Patient Instructions: Gastritis (DC), LOCAL PHYSICIAN LIST Add. Discharge Instructions: Continue to work on establishing care with a primary care provider. Drink plenty of fluids. Resume taking your Depakote today. Ondansetron as prescribed. Phenergan 1 tablet every 6 hours as needed for breakthrough nausea and vomiting. All discharge instructions reviewed with patient and/or family. Voiced understanding. Scripts Promethazine HCl (Promethazine Tablet) 25 Mg Tablet 25 MG PO Q6H PRN for NAUSEA/VOMITING, #15 TAB 0 Refills Prov: YESY LALA 03/01/22 YESY LALA Mar 01, 2022 22:34
[2022-03-01 22:37] LABS: BASOPHILS % (AUTO) 1 % (0-10); EOSINOPHILS # (AUTO) 0.1 10^3/uL (0.0-0.3); EOSINOPHILS % (AUTO) 2 % (0-10); HEMATOCRIT 39 % (40-54); HEMOGLOBIN 13.7 g/dL (13.3-17.7); LYMPHOCYTES # (AUTO) 2.5 10^3/uL (1.0-4.0); LYMPHOCYTES % (AUTO) 36 % (12-44); MEAN CORPUSCULAR HEMOGLOBIN 33 pg (25-34); MEAN CORPUSCULAR HGB CONC 35 g/dL (32-36); MEAN CORPUSCULAR VOLUME 94 fL (80-99); MONOCYTES # (AUTO) 0.7 10^3/uL (0.0-1.0); MONOCYTES % (AUTO) 10 % (0-12); NEUTROPHILS # (AUTO) 3.5 10^3/uL (1.8-7.8); NEUTROPHILS % (AUTO) 52 % (42-75); PLATELET COUNT 238 10^3/uL (130-400); WHITE BLOOD COUNT 6.8 10^3/uL (4.3-11.0)
[2022-03-01] MEDS ORDERED: FAMOTIDINE 20 MG (PEPCID) TABLET PO STA (22:40)
[2022-03-01 22:41] LABS: BILIRUBIN,URINE NEGATIVE (NEGATIVE); CLARITY,URINE CLEAR; COLOR,URINE YELLOW; GLUCOSE, URINE (UA) NEGATIVE (NEGATIVE); KETONES,URINE NEGATIVE (NEGATIVE); LEUKOCYTE ESTERASE ,URINE NEGATIVE (NEGATIVE); NITRITE,URINE NEGATIVE (NEGATIVE); PH,URINE 6.5 (5-9); PROTEIN,URINE NEGATIVE (NEGATIVE)
[2022-03-01 22:45] LABS: ALBUMIN 4.9 GM/DL (3.2-4.5); CHLORIDE 98 MMOL/L (98-107); POTASSIUM 3.5 MMOL/L (3.6-5.0); SODIUM 137 MMOL/L (135-145)
[2022-03-01] MEDS ORDERED: ONDANSETRON 4 MG/2 ML (SDV) Z0FRAN IVP ONE (22:45)
[2022-03-01] MEDS ORDERED: LACTATED RINGERS 1,000 ML IV ONE (22:45)
[2022-03-01] MEDS ORDERED: LIDOCAINE 2% VISCOUS 15 ML UDC PO ONE (22:45)
[2022-03-01] MEDS ORDERED: ANTACID SUSP 30 ML UDC (MYLANTA) PO ONE (22:45)
[2022-03-01 22:47] LABS: CALCIUM 9.7 MG/DL (8.5-10.1)
[2022-03-01 22:48] LABS: GLUCOSE 124 MG/DL (70-105); TOTAL PROTEIN 7.7 GM/DL (6.4-8.2)
[2022-03-01 22:49] LABS: CARBON DIOXIDE 25 MMOL/L (21-32)
[2022-03-01 22:50] LABS: BILIRUBIN,TOTAL 0.4 MG/DL (0.1-1.0)
[2022-03-01 22:51] LABS: ALKALINE PHOSPHATASE 64 U/L (40-136); CREATININE SERUM 1.54 MG/DL (0.60-1.30); GFR ESTIMATED 65
[2022-03-01 22:53] LABS: BUN/CREATININE RATIO 8
[2022-03-01 22:54] LABS: ALANINE AMINOTRANSFERASE 147 U/L (0-55)
[2022-03-01 22:55] LABS: LIPASE 28 U/L (8-78)
[2022-03-01 22:57] LABS: WBC,URINE 0-2 /HPF
[2022-03-01 22:58] LABS: AMPHETAMINE SCREEN, URINE NEGATIVE (NEGATIVE); BACTERIA,URINE TRACE /HPF; BARBITURATE SCREEN URINE NEGATIVE (NEGATIVE); BENZODIAZEPINES SCREEN URINE NEGATIVE (NEGATIVE); CANNABINOID SCREEN, URINE NEGATIVE (NEGATIVE); COCAINE SCREEN URINE NEGATIVE (NEGATIVE); METHADONE STAT NEGATIVE (NEGATIVE); OPIATE SCREEN URINE NEGATIVE (NEGATIVE); OXYCODONE STAT NEGATIVE (NEGATIVE); PROPOXYPHENE STAT NEGATIVE (NEGATIVE); SQUAMOUS EPITHELIAL CELL,UR RARE /HPF; TRICYCLIC ANTIDEPRESSANTS SCRE NEGATIVE (NEGATIVE)
[2022-03-01] MEDS ORDERED: PROM25TA14 PO (23:51)
[2022-03-02 00:18] VITALS: BP 124/58
== END 2022-03-02 00:22 | disposition home or self-care (01) ==
LOC: EDUNIT# 21:59 → ER 22:03
DX: K52.9 Noninfective gastroenteritis and colitis, unspecified (principal); F17.200 Nicotine dependence, unspecified, uncomplicated
CPT/HCPCS: 36415; 80053; 80164; 80306; 81000; 83690; 85025; 86141

== ENCOUNTER 2022-03-06 20:34 | Emergency (ER) | payer MEDICAID ==
[~2022-03-06] VITALS: Ht 167.2 cm; Wt 113.4 kg
[2022-03-06] MEDS ORDERED: NS IV 1000 ML 1,000 ML IV STA (21:01)
--- NOTE | 2022-03-06 21:04 | ED General ---
General Chief Complaint: Neurological Problems Stated Complaint: DIZZY, ABD PAIN, SEIZURES, DRY THROAT Source of Information: Patient Exam Limitations: No Limitations (SANDRA BARCENAS) History of Present Illness Date Seen by Provider: Mar 06, 2022 Time Seen by Provider: 21:02 Initial Comments Patient is a 21-year-old male with a history of chronic kidney disease, seizures who presents ED with dizziness, seizures, abdominal pain and vomiting. Symptoms started last night not feeling well. He states this morning he started having some intermittent diffuse abdominal cramping with 10+ episodes of vomiting without any blood. Denies of any diarrhea. Generalized abdominal discomfort without any difficulty urinating. Patient states he had 3 seizures today. He reports history of epilepsy and currently on Depakote. Was not able to take his Depakote secondary to the vomiting. States he had a few seconds of shaking and then became postictal for about 5 minutes. These were not witnessed. Last seizure a few weeks ago. Does not currently follow with a neurologist or cook pie. Patient denies any chest pain, cough, shortness of breath. Reports a mild headache and dizziness. Denies any visual disturbances. States he has been seen in the past for similar abdominal pain. Patient on arrival alert and orient x3. GCS 15. (SANDRA BARCENAS) Allergies and Home Medications Allergies Coded Allergies: Penicillins (Verified Allergy, Unknown, 02/11/22) amoxicillin (Verified Allergy, Unknown, 02/11/22) latex (Verified Allergy, Unknown, 02/11/22) meclizine (Verified Allergy, Unknown, 02/20/22) Patient Home Medication List Home Medication List Reviewed: Yes (JAMES GUADARRAMA MD) Divalproex Sodium (Divalproex Sodium) 500 Mg Tablet.dr, 500 MG PO TID, (Reported) Entered as Reported by: LUZ MARINA PEGUERO on 02/11/220 Famotidine (Pepcid) 20 Mg Tablet, 20 MG PO BID Prescribed by: JAMES PELAYO on 02/27/22 1032 Gabapentin (Neurontin) 300 Mg Capsule, 300 MG PO TID, (Reported) Entered as Reported by: LEANNA DASILVA on 02/12/22 1138 Levothyroxine Sodium (Levothyroxine Sodium) 25 Mcg Tablet, 25 MCG PO DAILY, (Reported) Entered as Reported by: LEANNA DASILVA on 02/12/22 1138 Metoprolol Tartrate (Metoprolol Tartrate) 25 Mg Tablet, 25 MG PO BID PRN for FAST HEART RATE, (Reported) Entered as Reported by: LEANNA DASILVA on 02/12/22 1138 Ondansetron (Ondansetron Odt) 4 Mg Tab.rapdis, 4 MG PO Q8H PRN for N AUSEA/VOMITING, (Reported) Entered as Reported by: LEANNA DASILVA on 02/12/22 1138 Ondansetron (Ondansetron Odt) 4 Mg Tab.rapdis, 4-8 MG PO Q6H PRN for NAUSEA/VOMITING Prescribed by: YESY LALA on 02/20/22 1522 Promethazine HCl (Promethazine Tablet) 25 Mg Tablet, 25 MG PO Q6H PRN for NAUSEA/VOMITING Prescribed by: JAMES PELAYO on 02/27/22 1032 Promethazine HCl (Promethazine Tablet) 25 Mg Tablet, 25 MG PO Q6H PRN for NAUSEA/VOMITING Prescribed by: YESY LALA on 03/01/22 7481 Review of Systems Review of Systems Constitutional: No chills, No diaphoresis; malaise, weakness EENTM: No hearing loss, No ear pain, No blurred vision, No double vision Respiratory: No cough, No orthopnea, No short of breath, No stridor, No wheezing Cardiovascular: No chest pain, No edema Gastrointestinal: abdominal pain; No diarrhea; nausea, vomiting Genitourinary: No decreased output, No discharge Musculoskeletal: No back pain, No joint pain Skin: No change in color, No change in hair/nails (SANDRA BARCENAS) All Other Systems Reviewed Negative Unless Noted: Yes (SANDRA BARCENAS) Past Tllqrhr-Ijwwki-Qszkdk Hx Past Medical History Surgery/Hospitalization HX: CKD, SEIZURES, AFIB WITH ABLATION, HEPATITIS, SMOKER Seizure Disorder Renal Failure Liver Disease/Jaundice Hypothyroidsim (SANDRA BARCENAS) Physical Exam Vital Signs Vital Signs - First Documented 03/06/22 03/06/22 20:43 22:39 Temp 37.0 Pulse 132 Resp 20 B/P (MAP) 145/83 (103) Pulse Ox 100 O2 Delivery Room Air (JAMES GUADARRAMA MD) Vital Signs Capillary Refill : (SANDRA BARCENAS) Height, Weight, BMI Height: '" Weight: lbs. oz. kg; 38.00 BMI Method: General Appearance: No Apparent Distress, WD/WN Eyes: Bilateral Eye Normal Inspection, Bilateral Eye PERRL, Bilateral Eye EOMI HEENT: PERRL/EOMI, TMs Normal, Normal ENT Inspection, Pharynx Normal Neck: Full Range of Motion, Normal Inspection, Non Tender, Supple Respiratory: Chest Non Tender, Lungs Clear, Normal Breath Sounds, No Accessory Muscle Use Cardiovascular: Regular Rate, Rhythm, No Edema, No Gallop, No JVD Gastrointestinal: Normal Bowel Sounds, No Organomegaly, No Pulsatile Mass, Non Tender Back: Normal Inspection, No CVA Tenderness Neurologic/Psychiatric: Alert, Oriented x3, No Motor/Sensory Deficits, Normal Mood/Affect Skin: Normal Color, Warm/Dry (SANDRA BARCENAS) Progress/Results/Core Measures Suspected Sepsis SIRS Temperature: Pulse: Respiratory Rate: Laboratory Tests 03/06/22 20:50: White Blood Count 8.8 Blood Pressure / Mean: Laboratory Tests 03/06/22 20:50: Creatinine 1.40H, Platelet Count 202, Total Bilirubin 0.4 (SANDRA BARCENAS) Results/Orders Lab Results Laboratory Tests Test 03/06/22 20:50 03/06/22 21:08 Range/Units White Blood Count 8.8 4.3-11.0 10^3/uL Red Blood Count 4.23 L 4.30-5.52 10^6/uL Hemoglobin 14.0 13.3-17.7 g/dL Hematocrit 40 40-54 % Mean Corpuscular Volume 96 80-99 fL Mean Corpuscular Hemoglobin 33 25-34 pg Mean Corpuscular Hemoglobin Concent 35 32-36 g/dL Red Cell Distribution Width 12.2 10.0-14.5 % Platelet Count 202 130-400 10^3/uL Mean Platelet Volume 11.1 9.0-12.2 fL Immature Granulocyte % (Auto) 1 % Neutrophils (%) (Auto) 62 42-75 % Lymphocytes (%) (Auto) 26 12-44 % Monocytes (%) (Auto) 11 0-12 % Eosinophils (%) (Auto) 1 0-10 % Basophils (%) (Auto) 1 0-10 % Neutrophils # (Auto) 5.4 1.8-7.8 10^3/uL Lymphocytes # (Auto) 2.3 1.0-4.0 10^3/uL Monocytes # (Auto) 0.9 0.0-1.0 10^3/uL Eosinophils # (Auto) 0.0 0.0-0.3 10^3/uL Basophils # (Auto) 0.0 0.0-0.1 10^3/uL Immature Granulocyte # (Auto) 0.0 0.0-0.1 10^3/uL Sodium Level 138 135-145 MMOL/L Potassium Level 3.9 3.6-5.0 MMOL/L Chloride Level 103 98-107 MMOL/L Carbon Dioxide Level 21 21-32 MMOL/L Anion Gap 14 5-14 MMOL/L Blood Urea Nitrogen 10 7-18 MG/DL Creatinine 1.40 H 0.60-1.30 MG/DL Estimat Glomerular Filtration Rate 73 BUN/Creatinine Ratio 7 Glucose Level 112 H 70-105 MG/DL Calcium Level 11.1 H 8.5-10.1 MG/DL Corrected Calcium 8.5-10.1 MG/DL Magnesium Level 1.5 L 1.6-2.4 MG/DL Total Bilirubin 0.4 0.1-1.0 MG/DL Aspartate Amino Transf (AST/SGOT) 70 H 5-34 U/L Alanine Aminotransferase (ALT/SGPT) 163 H 0-55 U/L Alkaline Phosphatase 58 40-136 U/L C-Reactive Protein High Sensitivity 0.05 0.00-0.50 MG/DL Total Protein 7.9 6.4-8.2 GM/DL Albumin 4.8 H 3.2-4.5 GM/DL Thyroid Stimulating Hormone (TSH) 1.38 0.35-4.94 UIU/ML Valproic Acid (Depakene) Level 54.1 50.0-100.0 UG/ML Urine Color YELLOW Urine Clarity CLEAR Urine pH 7.5 5-9 Urine Specific Sod 1.015 L 1.016-1.022 Urine Protein NEGATIVE NEGATIVE Urine Glucose (UA) NEGATIVE NEGATIVE Urine Ketones NEGATIVE NEGATIVE Urine Nitrite NEGATIVE NEGATIVE Urine Bilirubin NEGATIVE NEGATIVE Urine Urobilinogen 0.2 < = 1.0 MG/DL Urine Leukocyte Esterase NEGATIVE NEGATIVE Urine RBC (Auto) NEGATIVE NEGATIVE Urine RBC NONE /HPF Urine WBC RARE /HPF Urine Squamous Epithelial Cells NONE /HPF Urine Crystals NONE /LPF Urine Bacteria TRACE /HPF Urine Casts NONE /LPF Urine Mucus NEGATIVE /LPF Urine Culture Indicated NO Urine Opiates Screen NEGATIVE NEGATIVE Urine Oxycodone Screen NEGATIVE NEGATIVE Urine Methadone Screen NEGATIVE NEGATIVE Urine Propoxyphene Screen NEGATIVE NEGATIVE Urine Barbiturates Screen NEGATIVE NEGATIVE Ur Tricyclic Antidepressants Screen NEGATIVE NEGATIVE Urine Phencyclidine Screen NEGATIVE NEGATIVE Urine Amphetamines Screen NEGATIVE NEGATIVE Urine Methamphetamines Screen NEGATIVE NEGATIVE Urine Benzodiazepines Screen NEGATIVE NEGATIVE Urine Cocaine Screen NEGATIVE NEGATIVE Urine Cannabinoids Screen NEGATIVE NEGATIVE (JAMES GUADARRAMA MD) Medications Given in ED Current Medications Medications Dose Ordered Sig/Macho Route Start Time Stop Time Status Last Admin Dose Admin Lorazepam 1 mg ONCE ONCE IVP 03/06/22 21:15 03/06/22 21:20 DC 03/06/22 21:16 1 MG Magnesium Oxide 400 mg ONCE ONCE PO 03/06/22 22:30 03/06/22 22:31 DC 03/06/22 22:35 400 MG Promethazine HCl 25 mg ONCE ONCE IVP 03/06/22 21:45 03/06/22 21:46 DC 03/06/22 21:47 25 MG (JAMES GUADARRAMA MD) Vital Signs/I&O 03/06/22 03/06/22 20:43 22:39 Temp 37.0 Pulse 132 89 Resp 20 18 B/P (MAP) 145/83 (103) 116/80 Pulse Ox 100 98 O2 Delivery Room Air (JAMES GUADARRAMA MD) Vital Signs/I&O Capillary Refill : (SANDRA BARCENAS) Departure Communication (PCP) No seizure-like activity. Patient given dose of Ativan with improvement of his symptoms. Was given Phenergan for nausea. Was given a liter of fluid. Patient lab work was otherwise unremarkable besides a magnesium of 1.5. Patient Was given p.o. magnesium. Stable chronic kidney disease with a GFR 73 and creatinine 1.40 which appears to be improving. Patient neuro exam unremarkable. No current chest pain. Has some mild dizziness. Patient was observed here in the ED without any acute changes. Patient was sleeping at bedside. No seizure- like activity. Patient needs a follow-up with a cook pie and neurologist for his chronic kidney disease and history of seizures. Currently on Depakote. Does have nausea medication at home. Generalized abdominal discomfort. Do not think CT scan is warranted at this time with normal white blood count with similar type pain in the past with negative CT scan. History of Valerio. Return precaution were discussed with patient. (SANDRA BARCENAS) Impression Primary Impression: Generalized abdominal pain Additional Impressions: Nausea and vomiting Seizure disorder Disposition: HOME, SELF-CARE Condition: Stable Departure-Patient Inst. Decision time for Depature: 21:57 (SANDRA BARCENAS) Referrals: [facility] [place],LOCAL PHYSICIAN (PCP) Primary Care Physician Patient Instructions: Seizures, Adult (DC) ATTENDING PHYSICIAN NOTE: I was physically present as attending physician in the emergency department during the care of this patient, but I was not directly involved in the decision making or delivery of care for this patient. (JAMES GUADARRAMA MD) SANDRA BARCENAS Mar 06, 2022 21:04 JAMES GUADARRAMA MD Mar 07, 2022 07:37
[2022-03-06 21:06] LABS: BASOPHILS % (AUTO) 1 % (0-10); EOSINOPHILS % (AUTO) 1 % (0-10); HEMATOCRIT 40 % (40-54); LYMPHOCYTES # (AUTO) 2.3 10^3/uL (1.0-4.0); LYMPHOCYTES % (AUTO) 26 % (12-44); MEAN CORPUSCULAR HEMOGLOBIN 33 pg (25-34); MEAN CORPUSCULAR HGB CONC 35 g/dL (32-36); MEAN CORPUSCULAR VOLUME 96 fL (80-99); MEAN PLATELET VOLUME 11.1 fL (9.0-12.2); MONOCYTES # (AUTO) 0.9 10^3/uL (0.0-1.0); MONOCYTES % (AUTO) 11 % (0-12); NEUTROPHILS # (AUTO) 5.4 10^3/uL (1.8-7.8); NEUTROPHILS % (AUTO) 62 % (42-75); PLATELET COUNT 202 10^3/uL (130-400); WHITE BLOOD COUNT 8.8 10^3/uL (4.3-11.0)
[2022-03-06 21:10] LABS: ALBUMIN 4.8 GM/DL (3.2-4.5); CHLORIDE 103 MMOL/L (98-107); POTASSIUM 3.9 MMOL/L (3.6-5.0); SODIUM 138 MMOL/L (135-145)
[2022-03-06 21:11] LABS: CALCIUM 11.1 MG/DL (8.5-10.1)
[2022-03-06 21:12] LABS: GLUCOSE 112 MG/DL (70-105); TOTAL PROTEIN 7.9 GM/DL (6.4-8.2)
[2022-03-06 21:13] LABS: CARBON DIOXIDE 21 MMOL/L (21-32)
[2022-03-06 21:13] LABS: BILIRUBIN,URINE NEGATIVE (NEGATIVE); CLARITY,URINE CLEAR; COLOR,URINE YELLOW; GLUCOSE, URINE (UA) NEGATIVE (NEGATIVE); KETONES,URINE NEGATIVE (NEGATIVE); LEUKOCYTE ESTERASE ,URINE NEGATIVE (NEGATIVE); NITRITE,URINE NEGATIVE (NEGATIVE); PH,URINE 7.5 (5-9); PROTEIN,URINE NEGATIVE (NEGATIVE)
[2022-03-06 21:14] LABS: BILIRUBIN,TOTAL 0.4 MG/DL (0.1-1.0)
[2022-03-06] MEDS ORDERED: LORazepam INJ 2 MG/ML (ATIVAN) VIAL IVP ONE (21:15)
[2022-03-06 21:16] LABS: ALKALINE PHOSPHATASE 58 U/L (40-136); GFR ESTIMATED 73
[2022-03-06 21:17] LABS: BUN/CREATININE RATIO 7
[2022-03-06 21:19] LABS: ALANINE AMINOTRANSFERASE 163 U/L (0-55)
[2022-03-06 21:24] LABS: MAGNESIUM 1.5 MG/DL (1.6-2.4)
[2022-03-06 21:25] LABS: VALPROIC ACID 54.1 UG/ML (50.0-100.0)
[2022-03-06] MEDS ORDERED: PROMETHAZINE INJ 25 MG/ML (PHENERGAN) AMP IVP ONE (21:45)
[2022-03-06 21:49] LABS: AMPHETAMINE SCREEN, URINE NEGATIVE (NEGATIVE); BARBITURATE SCREEN URINE NEGATIVE (NEGATIVE); BENZODIAZEPINES SCREEN URINE NEGATIVE (NEGATIVE); CANNABINOID SCREEN, URINE NEGATIVE (NEGATIVE); COCAINE SCREEN URINE NEGATIVE (NEGATIVE); METHADONE STAT NEGATIVE (NEGATIVE); OPIATE SCREEN URINE NEGATIVE (NEGATIVE); OXYCODONE STAT NEGATIVE (NEGATIVE); PROPOXYPHENE STAT NEGATIVE (NEGATIVE); TRICYCLIC ANTIDEPRESSANTS SCRE NEGATIVE (NEGATIVE)
[2022-03-06 21:55] LABS: BACTERIA,URINE TRACE /HPF; WBC,URINE RARE /HPF
[2022-03-06] MEDS ORDERED: MAGNESIUM OXIDE (MAG-OX)400 MG TAB PO ONE (22:30)
[2022-03-06 22:39] VITALS: BP 116/80
== END 2022-03-06 22:35 | disposition home or self-care (01) ==
LOC: EDUNIT# 20:34 → ER 20:39
DX: G40.909 Epilepsy, unspecified, not intractable, without status epilepticus (principal); R10.84 Generalized abdominal pain; Z79.899 Other long term (current) drug therapy
CPT/HCPCS: 36415; 80053; 80164; 80306; 81000; 83735; 84443; 85025; 86141

== ENCOUNTER → 2022-03-07 | Outpatient (CLI) | payer MEDICAID ==
[2022-03-07 12:30] LABS: ALANINE AMINOTRANSFERASE 156 U/L (0-55); ALBUMIN 4.7 GM/DL (3.2-4.5); ALKALINE PHOSPHATASE 61 U/L (40-136); BILIRUBIN,TOTAL 0.5 MG/DL (0.1-1.0); BUN/CREATININE RATIO 8; CALCIUM 10.6 MG/DL (8.5-10.1); CARBON DIOXIDE 28 MMOL/L (21-32); CHLORIDE 101 MMOL/L (98-107); CREATININE SERUM 1.55 MG/DL (0.60-1.30); GFR ESTIMATED 65; GLUCOSE 94 MG/DL (70-105); POTASSIUM 3.5 MMOL/L (3.6-5.0); SODIUM 143 MMOL/L (135-145); TOTAL PROTEIN 7.5 GM/DL (6.4-8.2)
== END ==
LOC: LAB 11:27
PROVIDERS: ATTEND Registered Nurse Emergency
DX: K44.9 Diaphragmatic hernia without obstruction or gangrene (principal); R16.0 Hepatomegaly, not elsewhere classified; R73.9 Hyperglycemia, unspecified; I12.9 Hypertensive chronic kidney disease with stage 1 through stage 4 chronic kidney disease, or unspecified chronic kidney disease; N18.9 Chronic kidney disease, unspecified; K76.0 Fatty (change of) liver, not elsewhere classified; E78.5 Hyperlipidemia, unspecified; R40.0 Somnolence
CPT/HCPCS: 36415; 80053; 83036; 86038; 86431

== ENCOUNTER 2022-03-12 05:05 | Emergency (ER) | payer MEDICAID ==
[~2022-03-12] VITALS: Ht 155 cm; Wt 127.0 kg
--- NOTE | 2022-03-12 05:39 | ED Abdominal Pain ---
General Chief Complaint: Abdominal/GI Problems Stated Complaint: DIZZY,VOMITING,ABD PAIN Nursing Triage Note: PATIENT VERBALIZED PAIN ABDOMINAL, NAUSEA, VOMITTING Source of Information: Patient Exam Limitations: No Limitations (FRANTZ GONSALEZ MD) History of Present Illness Date Seen by Provider: Mar 12, 2022 Time Seen by Provider: 05:28 Initial Comments Patient is a 21-year-old male who appears older than stated age chief complaint right upper quadrant abdominal pain, nausea vomiting. Patient has a history of chronic liver disease and chronic kidney disease. 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 Ulloa from facilities that Mr. Ulloa apparently told him not to get records from. He does not currently have a glass technologist and is awaiting referral to one in [place]. He tells me that his liver disease is related to MORAN. He tells me that he is borderline diabetic. He has hyperthyroidism. He tells me his last dose of Zofran and Phenergan was at 2 AM. He took both at the same time. He is continued to vomit. He is concerned that he will be unable to hold down his seizure medicines. He is on valproic acid for seizure since he was 14 years old. No recent fevers, chills, cough or congestion. His right upper quadrant abdominal pain is chronic. He endorses a little bit of burning with urination this morning but not a lot. No diarrhea, no black or bloody stools. He states that he has had a cardiac ablation in the past he is on metoprolol daily. Nursing staff noted prior to triage that the patient was drinking a Pepsi and seem to be "guzzling it" and then he vomited in a trash can. Patient is counseled on not drinking large amounts of soda with chronic kidney disease and with active nausea and vomiting. All other review of systems reviewed and negative except as stated. Timing/Duration: 12-24 Hours Severity/Quality: Moderate, Cramping Location: RUQ Radiation: No Radiation Activities at Onset: None Associated Symptoms: Nausea/Vomiting (FRANTZ GONSALEZ MD) Allergies and Home Medications Allergies Coded Allergies: Penicillins (Verified Allergy, Unknown, 02/11/22) amoxicillin (Verified Allergy, Unknown, 02/11/22) latex (Verified Allergy, Unknown, 02/11/22) meclizine (Verified Allergy, Unknown, 02/20/22) Patient Home Medication List Home Medication List Reviewed: Yes (FRANTZ GONSALEZ MD) Divalproex Sodium (Divalproex Sodium) 500 Mg Tablet.dr, 500 MG PO TID, (Reported) Entered as Reported by: LUZ MARINA PEGUERO on 02/11/22 2220 Famotidine (Pepcid) 20 Mg Tablet, 20 MG PO BID Prescribed by: JAMES PELAYO on 02/27/22 1032 Gabapentin (Neurontin) 300 Mg Capsule, 300 MG PO TID, (Reported) Entered as Reported by: LEANNA DASILVA on 02/12/22 1138 Levothyroxine Sodium (Levothyroxine Sodium) 25 Mcg Tablet, 25 MCG PO DAILY, (Reported) Entered as Reported by: LEANNA DASILVA on 02/12/22 1138 Metoprolol Tartrate (Metoprolol Tartrate) 25 Mg Tablet, 25 MG PO BID PRN for FAST HEART RATE, (Reported) Entered as Reported by: LEANNA DASILVA on 02/12/22 1138 Ondansetron (Ondansetron Odt) 4 Mg Tab.rapdis, 4 MG PO Q8H PRN for NAUSEA/VOMITING, (Reported) Entered as Reported by: LEANNA DASILVA on 02/12/22 1138 Ondansetron (Ondansetron Odt) 4 Mg Tab.rapdis, 4-8 MG PO Q6H PRN for NAUSEA/VOMITING Prescribed by: YESY LALA on 02/20/22 1522 Promethazine HCl (Promethazine Tablet) 25 Mg Tablet, 25 MG PO Q6H PRN for NAUSEA/VOMITING Prescribed by: JAMES PELAYO on 02/27/22 1032 Promethazine HCl (Promethazine Tablet) 25 Mg Tablet, 25 MG PO Q6H PRN for NAUSEA/VOMITING Prescribed by: YESY LALA on 03/01/22 7823 Review of Systems Review of Systems Constitutional: see HPI EENTM: No Symptoms Reported Respiratory: No Symptoms Reported Cardiovascular: No Symptoms Reported Gastrointestinal: Abdominal Pain (RUQ), Nausea, Vomiting Genitourinary: Burning ("a little") Musculoskeletal: no symptoms reported Skin: no symptoms reported Psychiatric/Neurological: No Symptoms Reported (FRANTZ GONSALEZ MD) All Other Systems Reviewed Negative Unless Noted: Yes (FRANTZ GONSALEZ MD) Past Vagulzz-Vovkkm-Caanca Hx Past Medical History Surgery/Hospitalization HX: CKD, SEIZURES, AFIB WITH ABLATION, HEPATITIS, SMOKER Seizure Disorder Renal Failure Liver Disease/Jaundice Hypothyroidsim (FRANTZ GONSALEZ MD) Physical Exam Vital Signs Vital Signs - First Documented 03/12/22 05:28 Temp 36.7 Pulse 101 Resp 20 B/P (MAP) 149/108 (122) Pulse Ox 100 O2 Delivery Room Air (JAMES GUADARRAMA MD) Vital Signs Capillary Refill : Less Than 3 Seconds (FRANTZ GONSALEZ MD) Height/Weight/BMI Height: '" Weight: lbs. oz. kg; 52.00 BMI Method: General Appearance: WD/WN, no apparent distress HEENT: PERRL/EOMI Respiratory: lungs clear, normal breath sounds, no respiratory distress, no accessory muscle use Cardiovascular: regular rate, rhythm Gastrointestinal: soft, tenderness (mild RUQ) Extremities: normal range of motion, non-tender, normal inspection Neurologic/Psychiatric: alert, normal mood/affect, oriented x 3, other (flat affect; lisp) Skin: normal color, warm/dry (FRANTZ GONSALEZ MD) Progress/Results/Core Measures Results/Orders Lab Results Laboratory Tests Test 03/12/22 05:25 Range/Units White Blood Count 7.2 4.3-11.0 10^3/uL Red Blood Count 3.98 L 4.30-5.52 10^6/uL Hemoglobin 13.1 L 13.3-17.7 g/dL Hematocrit 37 L 40-54 % Mean Corpuscular Volume 94 80-99 fL Mean Corpuscular Hemoglobin 33 25-34 pg Mean Corpuscular Hemoglobin Concent 35 32-36 g/dL Red Cell Distribution Width 12.0 10.0-14.5 % Platelet Count 188 130-400 10^3/uL Mean Platelet Volume 10.9 9.0-12.2 fL Immature Granulocyte % (Auto) 0 % Neutrophils (%) (Auto) 48 42-75 % Lymphocytes (%) (Auto) 40 12-44 % Monocytes (%) (Auto) 10 0-12 % Eosinophils (%) (Auto) 1 0-10 % Basophils (%) (Auto) 0 0-10 % Neutrophils # (Auto) 3.5 1.8-7.8 10^3/uL Lymphocytes # (Auto) 2.9 1.0-4.0 10^3/uL Monocytes # (Auto) 0.7 0.0-1.0 10^3/uL Eosinophils # (Auto) 0.1 0.0-0.3 10^3/uL Basophils # (Auto) 0.0 0.0-0.1 10^3/uL Immature Granulocyte # (Auto) 0.0 0.0-0.1 10^3/uL Urine Color YELLOW Urine Clarity CLEAR Urine pH 6.0 5-9 Urine Specific [place] 1.010 L 1.016-1.022 Urine Protein NEGATIVE NEGATIVE Urine Glucose (UA) NEGATIVE NEGATIVE Urine Ketones NEGATIVE NEGATIVE Urine Nitrite NEGATIVE NEGATIVE Urine Bilirubin NEGATIVE NEGATIVE Urine Urobilinogen 0.2 < = 1.0 MG/DL Urine Leukocyte Esterase NEGATIVE NEGATIVE Urine RBC (Auto) NEGATIVE NEGATIVE Urine RBC NONE /HPF Urine WBC RARE /HPF Urine Crystals NONE /LPF Urine Bacteria NEGATIVE /HPF Urine Casts NONE /LPF Urine Mucus NEGATIVE /LPF Urine Culture Indicated NO Sodium Level 139 135-145 MMOL/L Potassium Level 3.6 3.6-5.0 MMOL/L Chloride Level 99 98-107 MMOL/L Carbon Dioxide Level 26 21-32 MMOL/L Anion Gap 14 5-14 MMOL/L Blood Urea Nitrogen 12 7-18 MG/DL Creatinine 1.41 H 0.60-1.30 MG/DL Estimat Glomerular Filtration Rate 72 BUN/Creatinine Ratio 9 Glucose Level 107 H 70-105 MG/DL Calcium Level 11.1 H 8.5-10.1 MG/DL Corrected Calcium 8.5-10.1 MG/DL Total Bilirubin 0.3 0.1-1.0 MG/DL Aspartate Amino Transf (AST/SGOT) 46 H 5-34 U/L Alanine Aminotransferase (ALT/SGPT) 116 H 0-55 U/L Alkaline Phosphatase 59 40-136 U/L Total Protein 7.5 6.4-8.2 GM/DL Albumin 4.8 H 3.2-4.5 GM/DL Valproic Acid (Depakene) Level 71.6 50.0-100.0 UG/ML (JAMES GUADARRAMA MD) Medications Given in ED Current Medications Medications Dose Ordered Sig/Macho Route Start Time Stop Time Status Last Admin Dose Admin Diphenhydramine HCl 12.5 mg ONCE ONCE IVP 03/12/22 06:00 03/12/22 06:01 DC 03/12/22 05:55 12.5 MG Droperidol 2.5 mg ONCE ONCE IV 03/12/22 06:00 03/12/22 06:01 DC 03/12/22 05:56 2.5 MG (JAMES GUADARRAMA MD) Vital Signs/I&O 03/12/22 05:28 Temp 36.7 Pulse 101 Resp 20 B/P (MAP) 149/108 (122) Pulse Ox 100 O2 Delivery Room Air (JAMES GUADARRAMA MD) Blood Pressure Mean: 122 Progress Progress Note : Time: 06:40 Progress Note Care of this patient was assumed from Dr. Gonsalez at shift change. Patient states that his nausea is improved after receiving medications and IV fluids. He does report feeling dizzy or lightheaded after receiving these medications. He told the nurse prior to receiving Benadryl that he sometimes gets dizzy with that. He is working on getting a ride presently. He is asking to be discharged now. (JAMES GUADARRAMA MD) Initial ECG Impression Date: Mar 12, 2022 Initial ECG Impression Time: 05:44 Initial ECG Rate: 92 Initial ECG Rhythm: Normal Sinus Initial ECG Intervals: Normal Initial ECG Intervals WA interval 149 QRS 95 QTC 373 Comment No ectopy is noted, no ST segment elevation or depression, nonspecific ST-T wave changes in the lateral leads (FRANTZ GONSALEZ MD) Departure Impression Primary Impression: Nausea and vomiting Qualified Codes: R11.2 - Nausea with vomiting, unspecified Additional Impression: Chronic kidney disease Qualified Codes: N18.9 - Chronic kidney disease, unspecified Disposition: 01 HOME, SELF-CARE Condition: Improved Departure-Patient Inst. Referrals: SHAYNA MAI APRN (PCP) Primary Care Physician Patient Instructions: Nausea and Vomiting, Adult (DC) Add. Discharge Instructions: You may continue taking Zofran (ondansetron) and/or Phenergan (promethazine) as previously prescribed to control nausea and vomiting. Adhere to a noncarbonated clear liquid diet for the first half of today. If you are feeling well at that point, you may gradually advance your diet with small quantities of bland food as tolerated. Continue taking Pepcid (famotidine) 20 mg twice daily. Avoid the following: Eating large meals, eating close to bedtime, caffeine, carbonation, citrus fruits and juices, chocolate, alcohol, tobacco, mints, tomato products, fatty/greasy foods, NSAID medications such as ibuprofen or naproxen, spicy foods, or anything else you know irritates your stomach. Follow-up with your primary care provider. Please call today to schedule an appointment. All discharge instructions reviewed with patient and/or family. Voiced understanding. FRANTZ GONSALEZ MD Mar 12, 2022 05:39 JAMES GUADARRAMA MD Mar 12, 2022 06:45
[2022-03-12 05:44] LABS: BILIRUBIN,URINE NEGATIVE (NEGATIVE); CLARITY,URINE CLEAR; COLOR,URINE YELLOW; GLUCOSE, URINE (UA) NEGATIVE (NEGATIVE); KETONES,URINE NEGATIVE (NEGATIVE); LEUKOCYTE ESTERASE ,URINE NEGATIVE (NEGATIVE); NITRITE,URINE NEGATIVE (NEGATIVE); PROTEIN,URINE NEGATIVE (NEGATIVE)
[2022-03-12] MEDS ORDERED: NS IV 500 ML 500 ML IV SCH (05:45)
[2022-03-12 05:54] LABS: BASOPHILS % (AUTO) 0 % (0-10); EOSINOPHILS # (AUTO) 0.1 10^3/uL (0.0-0.3); EOSINOPHILS % (AUTO) 1 % (0-10); HEMATOCRIT 37 % (40-54); HEMOGLOBIN 13.1 g/dL (13.3-17.7); LYMPHOCYTES # (AUTO) 2.9 10^3/uL (1.0-4.0); LYMPHOCYTES % (AUTO) 40 % (12-44); MEAN CORPUSCULAR HEMOGLOBIN 33 pg (25-34); MEAN CORPUSCULAR HGB CONC 35 g/dL (32-36); MEAN CORPUSCULAR VOLUME 94 fL (80-99); MEAN PLATELET VOLUME 10.9 fL (9.0-12.2); MONOCYTES # (AUTO) 0.7 10^3/uL (0.0-1.0); MONOCYTES % (AUTO) 10 % (0-12); NEUTROPHILS # (AUTO) 3.5 10^3/uL (1.8-7.8); NEUTROPHILS % (AUTO) 48 % (42-75); PLATELET COUNT 188 10^3/uL (130-400); WHITE BLOOD COUNT 7.2 10^3/uL (4.3-11.0)
[2022-03-12] MEDS ORDERED: DROPERIDOL 5 MG/2 ML (INAPSINE) ED ONLY! IV ONE (06:00)
[2022-03-12] MEDS ORDERED: diphenhydrAMINE 50 MG/ML INJ (BENADRYL) IVP ONE (06:00)
[2022-03-12 06:03] LABS: ALBUMIN 4.8 GM/DL (3.2-4.5); CHLORIDE 99 MMOL/L (98-107); POTASSIUM 3.6 MMOL/L (3.6-5.0); SODIUM 139 MMOL/L (135-145)
[2022-03-12 06:04] LABS: BACTERIA,URINE NEGATIVE /HPF; CALCIUM 11.1 MG/DL (8.5-10.1); WBC,URINE RARE /HPF
[2022-03-12 06:05] LABS: GLUCOSE 107 MG/DL (70-105); TOTAL PROTEIN 7.5 GM/DL (6.4-8.2)
[2022-03-12 06:06] LABS: CARBON DIOXIDE 26 MMOL/L (21-32)
[2022-03-12 06:07] LABS: BILIRUBIN,TOTAL 0.3 MG/DL (0.1-1.0)
[2022-03-12 06:09] LABS: ALKALINE PHOSPHATASE 59 U/L (40-136); CREATININE SERUM 1.41 MG/DL (0.60-1.30); GFR ESTIMATED 72
[2022-03-12 06:10] LABS: BUN/CREATININE RATIO 9
[2022-03-12 06:12] LABS: ALANINE AMINOTRANSFERASE 116 U/L (0-55)
[2022-03-12 06:18] LABS: VALPROIC ACID 71.6 UG/ML (50.0-100.0)
[2022-03-12 06:57] VITALS: BP 149/108
== END 2022-03-12 06:50 | disposition home or self-care (01) ==
LOC: EDUNIT# 05:05 → ER 05:08
DX: N18.9 Chronic kidney disease, unspecified (principal); Z91.040 Latex allergy status
CPT/HCPCS: 36415; 80053; 80164; 81000; 85025; 93005

== ENCOUNTER 2022-03-13 18:54 | Emergency (ER) | payer MEDICAID ==
[~2022-03-13] VITALS: Ht 180 cm; Wt 113.4 kg
[2022-03-13] MEDS ORDERED: NS IV 1000 ML 1,000 ML IV STA ×2 (20:10→21:43)
[2022-03-13] MEDS ORDERED: diphenhydrAMINE 50 MG/ML INJ (BENADRYL) IM ONE (20:15)
--- NOTE | 2022-03-13 20:16 | ED Abdominal Pain ---
General Chief Complaint: Abdominal/GI Problems Stated Complaint: VOMITING, ABDOMINAL PAIN, DIZZINESS Nursing Triage Note: pt amb to ed by pov with c/o n/v and abd pain. pt reports he began vomiting worse after receiving a med here yesterday and felt like it was "lao torture" and his "whole body was ready to burst." reports he has vomited 12 times in the last 24 hours. pt also reports sore throat for several weeks. Source of Information: Patient Exam Limitations: No Limitations (SANDRA BARCENAS) History of Present Illness Date Seen by Provider: Mar 13, 2022 Time Seen by Provider: 20:15 Initial Comments Patient is a 21-year-old male with a history of chronic liver disease, chronic kidney disease who presents ED for evaluation of his vomiting. States this was secondary to taking the medication yesterday here in the ER droperidol. Patient states he has vomited 10+ episodes of any blood or mucus. Denies any diarrhea. Patient states he does take Zofran and Phenergan without much improvement. Patient reports some burning sensation of the right side of his head with some dizziness. History of similar type pain in the past. Reports left and right- sided abdominal pain since last night. Described as sharp without radiation. Patient appears in no acute distress. Patient had associated burning with urination. Denies of any diarrhea, black tarry stools, chest pain, shortness of breath, fever, chills (SANDRA BARCENAS) Allergies and Home Medications Allergies Coded Allergies: Penicillins (Verified Allergy, Unknown, 02/11/22) amoxicillin (Verified Allergy, Unknown, 02/11/22) latex (Verified Allergy, Unknown, 02/11/22) meclizine (Verified Allergy, Unknown, 02/20/22) Patient Home Medication List Home Medication List Reviewed: Yes (SANDRA BARCENAS) Divalproex Sodium (Divalproex Sodium) 500 Mg Tablet.dr, 500 MG PO TID, (Reported) Entered as Reported by: LUZ MARINA PEGUERO on 02/11/222219 Famotidine (Pepcid) 20 Mg Tablet, 20 MG PO BID Prescribed by: JAMES PELAYO on 02/27/22 1032 Gabapentin (Neurontin) 300 Mg Capsule, 300 MG PO TID, (Reported) Entered as Reported by: LEANNA DASILVA on 02/12/22 1138 Levothyroxine Sodium (Levothyroxine Sodium) 25 Mcg Tablet, 25 MCG PO DAILY, (Reported) Entered as Reported by: LEANNA DASILVA on 02/12/22 1138 Metoprolol Tartrate (Metoprolol Tartrate) 25 Mg Tablet, 25 MG PO BID PRN for FAST HEART RATE, (Reported) Entered as Reported by: LEANNA DASILVA on 02/12/22 1138 Ondansetron (Ondansetron Odt) 4 Mg Tab.rapdis, 4 MG PO Q8H PRN for NAUSEA/VOMITING, (Reported) Entered as Reported by: LEANNA DASILVA on 02/12/22 1138 Ondansetron (Ondansetron Odt) 4 Mg Tab.rapdis, 4-8 MG PO Q6H PRN for NAUSEA/VOMITING Prescribed by: YESY LALA on 02/20/22 1522 Promethazine HCl (Promethazine Tablet) 25 Mg Tablet, 25 MG PO Q6H PRN for NAUSEA/VOMITING Prescribed by: JAMES PELAYO on 02/27/22 1032 Promethazine HCl (Promethazine Tablet) 25 Mg Tablet, 25 MG PO Q6H PRN for NAUSEA/VOMITING Prescribed by: YESY LALA on 03/01/22 4381 Review of Systems Review of Systems Constitutional: No chills, No diaphoresis, No malaise, No weakness EENTM: No Double Vision, No Eye Pain, No Ear Drainage, No Ear Pain, No Mouth Pain, No Throat Pain Respiratory: Denies Cough, Denies Shortness of Air Cardiovascular: Denies Chest Pain, Denies Edema Gastrointestinal: Denies Abdominal Pain, Denies Diarrhea, Denies Nausea Genitourinary: Denies Burning, Denies Discharge Musculoskeletal: No back pain, No joint pain Skin: No change in color, No change in hair/nails Psychiatric/Neurological: Denies Anxiety, Denies Depressed (SANDRA BARCENAS) All Other Systems Reviewed Negative Unless Noted: Yes (SANDRA BARCENAS) Past Yfppncf-Bvaair-Nfqqsp Hx Past Medical History Surgery/Hospitalization HX: CKD, SEIZURES, AFIB WITH ABLATION, HEPATITIS, SMOKER Seizure Disorder Renal Failure Liver Disease/Jaundice Hypothyroidsim (SANDRA BARCENAS) Physical Exam Vital Signs Vital Signs - First Documented 03/13/22 19:33 Temp 37.6 Pulse 111 Resp 20 B/P (MAP) 123/90 (101) Pulse Ox 96 O2 Delivery Room Air (JENNY FRY DO) Vital Signs Capillary Refill : Less Than 3 Seconds (SANDRA BARCENAS) Height/Weight/BMI Height: '" Weight: lbs. oz. kg; 35.00 BMI Method: General Appearance: WD/WN, no apparent distress HEENT: PERRL/EOMI, normal ENT inspection, TMs normal, pharynx normal Neck: non-tender, full range of motion, supple, normal inspection Respiratory: chest non-tender, lungs clear, normal breath sounds, no respiratory distress, no accessory muscle use Cardiovascular: regular rate, rhythm, no edema, no gallop, no JVD Gastrointestinal: normal bowel sounds, non tender, soft Extremities: normal range of motion, non-tender, normal inspection, no pedal edema Back: normal inspection, no CVA tenderness Neurologic/Psychiatric: customer support analyst II-XII nml as tested, no motor/sensory deficits, alert, normal mood/affect, oriented x 3 Skin: normal color, warm/dry (SANDRA BARCENAS) Progress/Results/Core Measures Results/Orders Lab Results Laboratory Tests Test 03/13/22 21:07 03/13/22 21:51 03/13/22 22:40 Range/Units White Blood Count 8.2 4.3-11.0 10^3/uL Red Blood Count 4.38 4.30-5.52 10^6/uL Hemoglobin 14.5 13.3-17.7 g/dL Hematocrit 41 40-54 % Mean Corpuscular Volume 93 80-99 fL Mean Corpuscular Hemoglobin 33 25-34 pg Mean Corpuscular Hemoglobin Concent 36 32-36 g/dL Red Cell Distribution Width 12.0 10.0-14.5 % Platelet Count 220 130-400 10^3/uL Mean Platelet Volume 10.7 9.0-12.2 fL Immature Granulocyte % (Auto) 0 % Neutrophils (%) (Auto) 67 42-75 % Lymphocytes (%) (Auto) 20 12-44 % Monocytes (%) (Auto) 12 0-12 % Eosinophils (%) (Auto) 1 0-10 % Basophils (%) (Auto) 0 0-10 % Neutrophils # (Auto) 5.5 1.8-7.8 10^3/uL Lymphocytes # (Auto) 1.7 1.0-4.0 10^3/uL Monocytes # (Auto) 1.0 0.0-1.0 10^3/uL Eosinophils # (Auto) 0.0 0.0-0.3 10^3/uL Basophils # (Auto) 0.0 0.0-0.1 10^3/uL Immature Granulocyte # (Auto) 0.0 0.0-0.1 10^3/uL Sodium Level 141 143 135-145 MMOL/L Potassium Level 4.4 4.4 3.6-5.0 MMOL/L Chloride Level 100 104 98-107 MMOL/L Carbon Dioxide Level 28 25 21-32 MMOL/L Anion Gap 13 14 5-14 MMOL/L Blood Urea Nitrogen 18 17 7-18 MG/DL Creatinine 2.00 H 1.96 H 0.60-1.30 MG/DL Estimat Glomerular Filtration Rate 48 49 BUN/Creatinine Ratio 9 9 Glucose Level 101 109 H 70-105 MG/DL Calcium Level 13.1 *H 11.2 H 8.5-10.1 MG/DL Corrected Calcium 8.5-10.1 MG/DL Total Bilirubin 0.6 0.1-1.0 MG/DL Aspartate Amino Transf (AST/SGOT) 55 H 5-34 U/L Alanine Aminotransferase (ALT/SGPT) 122 H 0-55 U/L Alkaline Phosphatase 59 40-136 U/L Total Protein 7.8 6.4-8.2 GM/DL Albumin 5.0 H 3.2-4.5 GM/DL Lipase 15 8-78 U/L Magnesium Level 1.7 1.6-2.4 MG/DL Valproic Acid (Depakene) Level 70.5 50.0-100.0 UG/ML (JENNY FRY DO) Medications Given in ED Current Medications Medications Dose Ordered Sig/Macho Route Start Time Stop Time Status Last Admin Dose Admin Al Hydrox/Mg Hydrox/Simethicone 30 ml ONCE ONCE PO 03/13/22 22:30 03/13/22 22:31 DC 03/13/22 22:34 30 ML Lidocaine HCl 15 ml ONCE ONCE PO 03/13/22 22:30 03/13/22 22:31 DC 03/13/22 22:34 15 ML (JENNY FRY ) Vital Signs/I&O 03/13/22 03/13/22 19:33 23:25 Temp 37.6 Pulse 111 102 Resp 20 16 B/P (MAP) 123/90 (101) 125/87 Pulse Ox 96 97 O2 Delivery Room Air Room Air (JENNY FRY ) Blood Pressure Mean: 101 Departure Communication (PCP) Patient with a history of seizures, Vaelrio, chronic abdominal pain who has been seen here several times in the past month for abdominal pain vomiting seizures. Denies any seizures today but reports 10+ episode of vomiting since yesterday. Denies of any hematemesis. Unclear if this was secondary to the medication he was given yesterday according to the patient. He had no vomiting here in the ER. Generalized abdominal discomfort. Due to similar type pain in the past with negative CT scan abd and pelvis imaging was held at this time. Patient was given GI cocktail with resolution of abdominal pain. Tolerating p.o. fluids at bedside. Patient initial lab work showed normal white blood count, hemoglobin. Hypercalcemia of 13.1 with GFR 48 and creatinine of 2. This change from 1.41 creatinine from yesterday's visit. Had a calcium of 11.1 yesterday. Patient was given 2 L of fluid. Recheck of creatinine was 1.96, GFR 49 and calcium of 11.2. Not a significant change. Patient was still wanting to go home. Discussed observation for continued IV fluids. He states he has a visit with his primary care physician tomorrow. Does have Zofran and Phenergan at home contniue to take. He has been taking his Depakote with level of 70 here. No seizure-like activity. He has no tremoring or shakes. Avoid use high calcium diet. I do think this his kidney function will continue to improve if patient is able to keep oral fluids down. Discussed following up with his primary care physician tomorrow which he does have a visit for further evaluation of this nausea and vomiting, chronic abd pain. Patient needs a follow-up with watchstander. He needs recheck of his lab work kidney function and calcium. Patient was able to drink 3 cups of fluids here without vomiting or feel nauseous. Continue with PPI. (BARCENAS,SANDRA A PA) Impression Primary Impression: Acute on chronic renal failure Additional Impression: Hypercalcemia Disposition: HOME, SELF-CARE Condition: Stable Departure-Patient Inst. Decision time for Depature: 23:18 (SANDRA BARCENAS) Referrals: SHAYNA MAI APRN (PCP/Family) Primary Care Physician Patient Instructions: Acute Kidney Injury Add. Discharge Instructions: Follow-up with your primary care physician tomorrow for recheck of lab work. If worsening symptoms return back to ED for further evaluation All discharge instructions reviewed with patient and/or family. Voiced understanding. ATTENDING PHYSICIAN NOTE: I WAS PHYSICALLY PRESENT ER PHYSICIAN, BUT I WAS NOT INVOLVED IN ANY DECISION MAKING OR ANY CARE OF PT. (JENNY FRY DO) SANDRA BARCENAS Mar 13, 2022 20:16 JENNY FRY DO Mar 14, 2022 01:14
[2022-03-13 21:11] LABS: BASOPHILS % (AUTO) 0 % (0-10); EOSINOPHILS % (AUTO) 1 % (0-10); HEMATOCRIT 41 % (40-54); HEMOGLOBIN 14.5 g/dL (13.3-17.7); LYMPHOCYTES # (AUTO) 1.7 10^3/uL (1.0-4.0); LYMPHOCYTES % (AUTO) 20 % (12-44); MEAN CORPUSCULAR HEMOGLOBIN 33 pg (25-34); MEAN CORPUSCULAR HGB CONC 36 g/dL (32-36); MEAN CORPUSCULAR VOLUME 93 fL (80-99); MEAN PLATELET VOLUME 10.7 fL (9.0-12.2); MONOCYTES % (AUTO) 12 % (0-12); NEUTROPHILS # (AUTO) 5.5 10^3/uL (1.8-7.8); NEUTROPHILS % (AUTO) 67 % (42-75); PLATELET COUNT 220 10^3/uL (130-400); WHITE BLOOD COUNT 8.2 10^3/uL (4.3-11.0)
[2022-03-13 21:26] LABS: CHLORIDE 100 MMOL/L (98-107); POTASSIUM 4.4 MMOL/L (3.6-5.0); SODIUM 141 MMOL/L (135-145)
[2022-03-13 21:28] LABS: GLUCOSE 101 MG/DL (70-105); TOTAL PROTEIN 7.8 GM/DL (6.4-8.2)
[2022-03-13 21:30] LABS: BILIRUBIN,TOTAL 0.6 MG/DL (0.1-1.0); CARBON DIOXIDE 28 MMOL/L (21-32)
[2022-03-13 21:32] LABS: ALKALINE PHOSPHATASE 59 U/L (40-136); GFR ESTIMATED 48
[2022-03-13 21:33] LABS: BUN/CREATININE RATIO 9
[2022-03-13 21:35] LABS: ALANINE AMINOTRANSFERASE 122 U/L (0-55); LIPASE 15 U/L (8-78)
[2022-03-13 21:36] LABS: CALCIUM 13.1 MG/DL (8.5-10.1)
[2022-03-13] MEDS ORDERED: NS IV 1000 ML 1,000 ML ONE (21:53)
[2022-03-13 22:07] LABS: MAGNESIUM 1.7 MG/DL (1.6-2.4)
[2022-03-13 22:14] LABS: VALPROIC ACID 70.5 UG/ML (50.0-100.0)
[2022-03-13] MEDS ORDERED: ANTACID SUSP 30 ML UDC (MYLANTA) PO ONE (22:30)
[2022-03-13] MEDS ORDERED: LIDOCAINE 2% VISCOUS 15 ML UDC PO ONE (22:30)
[2022-03-13 22:59] LABS: POTASSIUM 4.4 MMOL/L (3.6-5.0)
[2022-03-13 23:00] LABS: CALCIUM 11.2 MG/DL (8.5-10.1)
[2022-03-13 23:05] LABS: CREATININE SERUM 1.96 MG/DL (0.60-1.30)
[2022-03-13 23:25] VITALS: BP 125/87
[2022-03-14] MEDS ORDERED: ONDA4TAB11 PO (15:30)
== END 2022-03-13 23:25 | disposition home or self-care (01) ==
LOC: EDUNIT# 18:54 → ER 18:55
DX: N18.9 Chronic kidney disease, unspecified (principal); E83.52 Hypercalcemia; Z91.040 Latex allergy status
CPT/HCPCS: 36415; 80048; 80053; 80164; 83690; 83735; 85025

== ENCOUNTER 2022-03-14 13:01 | Emergency (ER) | payer MEDICAID ==
[~2022-03-14] VITALS: Ht 175.3 cm; Wt 81.6 kg
--- NOTE | 2022-03-14 13:13 | ED General ---
General Stated Complaint: DIZZINESS,NAUSEA History of Present Illness Date Seen by Provider: Mar 14, 2022 Time Seen by Provider: 13:10 Initial Comments 21-year-old male presents with feeling of dizziness, nausea and left upper quadrant pain. Patient reports that has been going on for least 72 hours. Patient went to her primary care provider today where he received labs and nausea medication. He states that he was told just to go home nothing was wrong. However we did call his primary care provider who reported that reported that she did labs, gave him some Phenergan and wanted him to get a CT. Patient has a history of chronic kidney disease and elevated liver enzymes. 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 Upon arrival patient does not provide much other information. Allergies and Home Medications Allergies Coded Allergies: Penicillins (Verified Allergy, Unknown, 02/11/22) amoxicillin (Verified Allergy, Unknown, 02/11/22) latex (Verified Allergy, Unknown, 02/11/22) meclizine (Verified Allergy, Unknown, 02/20/22) Patient Home Medication List Home Medication List Reviewed: Yes Divalproex Sodium (Divalproex Sodium) 500 Mg Tablet.dr, 500 MG PO TID, (Reported) Entered as Reported by: LUZ MARINA PEGUERO on 02/11/220 Famotidine (Pepcid) 20 Mg Tablet, 20 MG PO BID Prescribed by: JAMES PELAYO on 02/27/22 1032 Gabapentin (Neurontin) 300 Mg Capsule, 300 MG PO TID, (Reported) Entered as Reported by: LEANNA DASILVA on 02/12/22 1138 Levothyroxine Sodium (Levothyroxine Sodium) 25 Mcg Tablet, 25 MCG PO DAILY, (Reported) Entered as Reported by: LEANNA DASILVA on 02/12/22 1138 Metoprolol Tartrate (Metoprolol Tartrate) 25 Mg Tablet, 25 MG PO BID PRN for FAST HEART RATE, (Reported) Entered as Reported by: LEANNA DASILVA on 02/12/22 1138 Ondansetron (Ondansetron Odt) 4 Mg Tab.rapdis, 4 MG PO Q8H PRN for NAUSEA/VOMITING, (Reported) Entered as Reported by: LEANNA DASILVA on 02/12/22 1138 Ondansetron (Ondansetron Odt) 4 Mg Tab.rapdis, 4-8 MG PO Q6H PRN for NAUSEA/VOMITING Prescribed by: YESY LALA on 02/20/22 1522 Ondansetron (Ondansetron Odt) 4 Mg Tab.rapdis, 4 MG PO Q6H PRN for NAUSEA/VOMITING Prescribed by: LILIA SHIN on 03/14/22 1530 Promethazine HCl (Promethazine Tablet) 25 Mg Tablet, 25 MG PO Q6H PRN for NAUSEA/VOMITING Prescribed by: JAMES PELAYO on 02/27/22 1032 Promethazine HCl (Promethazine Tablet) 25 Mg Tablet, 25 MG PO Q6H PRN for NAUSEA/VOMITING Prescribed by: YESY LALA on 03/01/22 2351 Review of Systems Review of Systems Constitutional: No chills; dizziness; No fever Respiratory: no symptoms reported Cardiovascular: no symptoms reported Gastrointestinal: abdominal pain (LUQ), nausea Genitourinary: no symptoms reported Musculoskeletal: no symptoms reported Skin: no symptoms reported Psychiatric/Neurological: No Symptoms Reported Past Epzyorh-Crkpse-Lhypfe Hx Immunizations Up To Date First/Initial COVID19 Vaccinat: n/a Past Medical History Surgery/Hospitalization HX: CKD, SEIZURES, AFIB WITH ABLATION, HEPATITIS, SMOKER, HYPERTHYROID Seizure Disorder Renal Failure Liver Disease/Jaundice Hypothyroidsim Physical Exam Vital Signs Vital Signs - First Documented 03/14/22 13:10 Temp 36.1 Pulse 75 Resp 16 B/P (MAP) 139/83 (101) Pulse Ox 99 O2 Delivery Room Air Capillary Refill : Height, Weight, BMI Height: '" Weight: lbs. oz. 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 Norm as Tested Skin: Normal Color, Warm/Dry Progress/Results/Core Measures Suspected Sepsis SIRS Temperature: Pulse: Respiratory Rate: Laboratory Tests 03/14/22 13:15: White Blood Count 8.2 Blood Pressure / Mean: Laboratory Tests 03/14/22 13:15: Creatinine 1.79H, Platelet Count 198, Total Bilirubin 0.4 Results/Orders Lab Results Laboratory Tests Test 03/14/22 13:15 03/14/22 13:30 03/14/22 13:52 Range/Units White Blood Count 8.2 4.3-11.0 10^3/uL Red Blood Count 3.91 L 4.30-5.52 10^6/uL Hemoglobin 12.7 L 13.3-17.7 g/dL Hematocrit 36 L 40-54 % Mean Corpuscular Volume 91 80-99 fL Mean Corpuscular Hemoglobin 33 25-34 pg Mean Corpuscular Hemoglobin Concent 36 32-36 g/dL Red Cell Distribution Width 12.0 10.0-14.5 % Platelet Count 198 130-400 10^3/uL Mean Platelet Volume 10.9 9.0-12.2 fL Immature Granulocyte % (Auto) 0 % Neutrophils (%) (Auto) 63 42-75 % Lymphocytes (%) (Auto) 27 12-44 % Monocytes (%) (Auto) 9 0-12 % Eosinophils (%) (Auto) 1 0-10 % Basophils (%) (Auto) 0 0-10 % Neutrophils # (Auto) 5.2 1.8-7.8 10^3/uL Lymphocytes # (Auto) 2.2 1.0-4.0 10^3/uL Monocytes # (Auto) 0.7 0.0-1.0 10^3/uL Eosinophils # (Auto) 0.1 0.0-0.3 10^3/uL Basophils # (Auto) 0.0 0.0-0.1 10^3/uL Immature Granulocyte # (Auto) 0.0 0.0-0.1 10^3/uL Sodium Level 141 135-145 MMOL/L Potassium Level 3.7 3.6-5.0 MMOL/L Chloride Level 100 98-107 MMOL/L Carbon Dioxide Level 29 21-32 MMOL/L Anion Gap 12 5-14 MMOL/L Blood Urea Nitrogen 13 7-18 MG/DL Creatinine 1.79 H 0.60-1.30 MG/DL Estimat Glomerular Filtration Rate 54 BUN/Creatinine Ratio 7 Glucose Level 104 70-105 MG/DL Calcium Level 12.9 H 8.5-10.1 MG/DL Corrected Calcium 8.5-10.1 MG/DL Total Bilirubin 0.4 0.1-1.0 MG/DL Aspartate Amino Transf (AST/SGOT) 42 H 5-34 U/L Alanine Aminotransferase (ALT/SGPT) 89 H 0-55 U/L Alkaline Phosphatase 60 40-136 U/L C-Reactive Protein 0.36 <0.50 MG/DL Total Protein 7.3 6.4-8.2 GM/DL Albumin 5.0 H 3.2-4.5 GM/DL Lipase 15 8-78 U/L Influenza Type A (RT-PCR) Not Detected Not Detecte Influenza Type B (RT-PCR) Not Detected Not Detecte SARS-CoV-2 RNA (RT-PCR) Not Detected Not Detecte My Orders Orders - LILIA SHIN DO Cbc With Automated Diff (03/14/22 13:14) Comprehensive Metabolic Panel (03/14/22 13:14) Drug Screen Stat (Urine) (03/14/22 13:14) Lipase (03/14/22 13:14) Ua Culture If Indicated (03/14/22 13:14) Influenza A And B By Pcr (03/14/22 13:14) Crp Fs (03/14/22 13:14) Covid 19 Inhouse Test (03/14/22 13:14) Ns Iv 1000 Ml (Sodium Chloride 0.9%) (03/14/22 13:14) Ed Iv/Invasive Line Start (03/14/22 13:14) Ondansetron Injection (Zofran Injectio (03/14/22 13:15) Ct Abdomen/Pelvis Wo (03/14/22 13:33) Medications Given in ED Current Medications Medications Dose Ordered Sig/Macho Route Start Time Stop Time Status Last Admin Dose Admin Ondansetron HCl 4 mg ONCE ONCE IVP 03/14/22 13:15 03/14/22 13:17 DC 03/14/22 13:21 4 MG Vital Signs/I&O 03/14/22 13:10 Temp 36.1 Pulse 75 Resp 16 B/P (MAP) 139/83 (101) Pulse Ox 99 O2 Delivery Room Air Capillary Refill : Progress Note : Progress Note Patient with no acute findings on CT exam or labs. Patient with no vomiting while in the ER. Patient stable and will be discharged home. His fatigue is likely result of the Phenergan he received prior to arrival. That had improved throughout his stay. Patient was encouraged to follow-up with his primary care provider for further evaluation as needed. Patient declined to give nurse a urine sample Departure Impression Primary Impression: Abdominal pain Qualified Codes: R10.12 - Left upper quadrant pain Additional Impression: Nausea and vomiting Qualified Codes: R11.2 - Nausea with vomiting, unspecified Disposition: HOME, SELF-CARE Condition: Stable Departure-Patient Inst. Referrals: SHAYNA MAI APRN (PCP/Family) Primary Care Physician Patient Instructions: CLEAR LIQUID DIET ADULT/CHILD, Nausea and Vomiting, Adult ED, Severe Abdominal Pain, Adult (DC) Add. Discharge Instructions: Please follow-up with your primary care provider for further outpatient evaluation and possible GI or general surgery consult if needed for further evaluation such as EGD or colonoscopy Clear liquid diet, advance as tolerated Scripts Ondansetron (Ondansetron Odt) 4 Mg Tab.rapdis 4 MG PO Q6H PRN for NAUSEA/VOMITING, #20 TAB 0 Refills Prov: LILIA SHIN DO 03/14/22 LILIA SHIN DO Mar 14, 2022 13:13
[2022-03-14] MEDS ORDERED: NS IV 1000 ML 1,000 ML IV STA (13:14)
[2022-03-14] MEDS ORDERED: ONDANSETRON 4 MG/2 ML (SDV) Z0FRAN IVP ONE (13:15)
[2022-03-14 13:21] LABS: BASOPHILS % (AUTO) 0 % (0-10); EOSINOPHILS # (AUTO) 0.1 10^3/uL (0.0-0.3); EOSINOPHILS % (AUTO) 1 % (0-10); HEMATOCRIT 36 % (40-54); HEMOGLOBIN 12.7 g/dL (13.3-17.7); LYMPHOCYTES # (AUTO) 2.2 10^3/uL (1.0-4.0); LYMPHOCYTES % (AUTO) 27 % (12-44); MEAN CORPUSCULAR HEMOGLOBIN 33 pg (25-34); MEAN CORPUSCULAR HGB CONC 36 g/dL (32-36); MEAN CORPUSCULAR VOLUME 91 fL (80-99); MEAN PLATELET VOLUME 10.9 fL (9.0-12.2); MONOCYTES # (AUTO) 0.7 10^3/uL (0.0-1.0); MONOCYTES % (AUTO) 9 % (0-12); NEUTROPHILS # (AUTO) 5.2 10^3/uL (1.8-7.8); NEUTROPHILS % (AUTO) 63 % (42-75); PLATELET COUNT 198 10^3/uL (130-400); WHITE BLOOD COUNT 8.2 10^3/uL (4.3-11.0)
[2022-03-14 13:41] LABS: CARBON DIOXIDE 29 MMOL/L (21-32); CHLORIDE 100 MMOL/L (98-107); POTASSIUM 3.7 MMOL/L (3.6-5.0); SODIUM 141 MMOL/L (135-145)
[2022-03-14 13:42] LABS: ALANINE AMINOTRANSFERASE 89 U/L (0-55); ALKALINE PHOSPHATASE 60 U/L (40-136); BILIRUBIN,TOTAL 0.4 MG/DL (0.1-1.0); BUN/CREATININE RATIO 7; CALCIUM 12.9 MG/DL (8.5-10.1); CREATININE SERUM 1.79 MG/DL (0.60-1.30); GFR ESTIMATED 54; GLUCOSE 104 MG/DL (70-105); LIPASE 15 U/L (8-78); TOTAL PROTEIN 7.3 GM/DL (6.4-8.2)
--- NOTE | 2022-03-14 13:59 | Diagnostic Imaging Report ---
PROCEDURE: CT abdomen and pelvis without contrast. TECHNIQUE: Multiple contiguous axial images were obtained through the abdomen and pelvis without the use of intravenous contrast. Auto Exposure Controls were utilized during the CT exam to meet ALARA standards for radiation dose reduction. INDICATION: Left upper quadrant abdominal pain with nausea and vomiting. COMPARISON: Comparison is made with prior CT from 02/08/2022. FINDINGS: The lung bases are clear. Diffuse low attenuation throughout the liver is noted consistent with hepatic steatosis. No discrete liver mass is identified. The gallbladder is unremarkable. No biliary ductal dilatation is seen. Pancreas and spleen are unremarkable. No adrenal mass is detected. No renal calculi or hydronephrosis is identified. Aorta is nonaneurysmal. The small and large bowel loops are normal in caliber. There is no obstruction. The appendix is visualized in the right lower quadrant and appears unremarkable. No free fluid or fluid collection is seen. The bladder and prostate are unremarkable. IMPRESSION: 1. Hepatic steatosis. 2. Otherwise, unremarkable noncontrast CT of the abdomen and pelvis. Dictated by: Dictated on workstation # [id number]
[2022-03-14] MEDS ORDERED: ONDA4TAB11 PO (15:30)
[2022-03-14 15:36] VITALS: BP 129/58
== END 2022-03-14 15:38 | disposition home or self-care (01) ==
LOC: EDUNIT# 13:01 → ER FS 13:04
DX: R11.2 Nausea with vomiting, unspecified (principal); R10.12 Left upper quadrant pain; Z20.822 Contact with and (suspected) exposure to COVID-19; Z28.310 Unvaccinated for COVID-19
CPT/HCPCS: 36415; 74176; 80053; 83690; 85025; 86141; 87636

== ENCOUNTER → 2022-03-14 | Outpatient (CLI) | payer MEDICAID ==
[2022-03-14 08:59] LABS: ALBUMIN 4.5 GM/DL (3.2-4.5); BILIRUBIN,TOTAL 0.5 MG/DL (0.1-1.0); CALCIUM 12.5 MG/DL (8.5-10.1); CREATININE SERUM 1.73 MG/DL (0.60-1.30); POTASSIUM 3.1 MMOL/L (3.6-5.0); TOTAL PROTEIN 7.1 GM/DL (6.4-8.2)
== END ==
LOC: LAB 07:54
PROVIDERS: ATTEND Registered Nurse Emergency
DX: E83.52 Hypercalcemia (principal); R73.9 Hyperglycemia, unspecified; I12.9 Hypertensive chronic kidney disease with stage 1 through stage 4 chronic kidney disease, or unspecified chronic kidney disease; N18.9 Chronic kidney disease, unspecified; K76.0 Fatty (change of) liver, not elsewhere classified; E78.5 Hyperlipidemia, unspecified; R40.0 Somnolence; M25.50 Pain in unspecified joint; R11.2 Nausea with vomiting, unspecified
CPT/HCPCS: 36415; 80053; 83036; 83970; 86038; 86431

== ENCOUNTER 2022-03-20 20:01 | Outpatient (CLI) | payer MEDICAID | END 2022-03-21 04:45 | disposition home or self-care (01) | LOC: SLEEP 20:01 | PROVIDERS: ATTEND Registered Nurse Emergency | DX: G47.10 Hypersomnia, unspecified (principal); I12.9 Hypertensive chronic kidney disease with stage 1 through stage 4 chronic kidney disease, or unspecified chronic kidney disease; N18.9 Chronic kidney disease, unspecified; E78.5 Hyperlipidemia, unspecified; K76.0 Fatty (change of) liver, not elsewhere classified; M25.50 Pain in unspecified joint; R73.9 Hyperglycemia, unspecified | CPT/HCPCS: 95810 ==

== ENCOUNTER → 2022-03-21 | Outpatient (CLI) | payer MEDICAID ==
--- NOTE | 2022-03-21 11:37 | Diagnostic Imaging Report ---
PROCEDURE: US Gallbladder. TECHNIQUE: Multiple real-time grayscale images were obtained over the right upper quadrant in various projections. INDICATION: Right upper quadrant pain. The liver is upper limits of normal in size at 17.4 cm. There is diffuse increased echogenicity throughout the liver consistent with hepatic steatosis. No discrete liver mass is detected. Portal vein is patent and shows normal direction of flow. The gallbladder is without stones or sludge. There is no wall thickening or biliary duct dilatation. Pancreas is poorly visualized due to overlying bowel gas. Proximal aorta is nonaneurysmal. IVC is patent. Right kidney is without calculi or hydronephrosis. There is no ascites. IMPRESSION: 1. Hepatic steatosis. 2. No evidence of cholelithiasis or acute cholecystitis. Dictated by: Dictated on workstation # [id number]
== END ==
LOC: RAD 08:17
PROVIDERS: ATTEND Registered Nurse Emergency
DX: K76.0 Fatty (change of) liver, not elsewhere classified (principal); I12.9 Hypertensive chronic kidney disease with stage 1 through stage 4 chronic kidney disease, or unspecified chronic kidney disease; N18.9 Chronic kidney disease, unspecified
CPT/HCPCS: 36415; 76705; 83690

== ENCOUNTER → 2022-03-27 | Outpatient (CLI) | payer MEDICAID ==
[2022-03-27 15:51] LABS: CHLORIDE 102 MMOL/L (98-107); POTASSIUM 3.1 MMOL/L (3.6-5.0); SODIUM 141 MMOL/L (135-145)
[2022-03-27 15:52] LABS: ALANINE AMINOTRANSFERASE 95 U/L (0-55); ALBUMIN 4.6 GM/DL (3.2-4.5); ALKALINE PHOSPHATASE 55 U/L (40-136); BILIRUBIN,TOTAL 0.2 MG/DL (0.1-1.0); BUN/CREATININE RATIO 7; CALCIUM 9.5 MG/DL (8.5-10.1); CARBON DIOXIDE 27 MMOL/L (21-32); GFR ESTIMATED 80; GLUCOSE 122 MG/DL (70-105); TOTAL PROTEIN 6.8 GM/DL (6.4-8.2)
--- NOTE | 2022-03-27 17:19 | Diagnostic Imaging Report ---
INDICATION: Chronic neck pain. FINDINGS: Three views. Good alignment of the vertebral bodies. Body height and disc spaces are well-maintained. Odontoid intact. Atlantoaxial joint is in good alignment. Facets appear normal. No hypertrophic changes noted. Prevertebral soft tissues are not widened. IMPRESSION: Normal cervical spine. Dictated by: Dictated on workstation # [id number]
== END ==
LOC: LAB FS 14:38
PROVIDERS: ATTEND Registered Nurse Emergency
DX: E83.52 Hypercalcemia (principal); K76.0 Fatty (change of) liver, not elsewhere classified; N18.9 Chronic kidney disease, unspecified; M54.2 Cervicalgia
CPT/HCPCS: 36415; 72040; 80053

== ENCOUNTER 2022-04-01 20:07 | Emergency (ER) | payer MEDICAID ==
[~2022-04-01] VITALS: Ht 175.2 cm; Wt 131.3 kg
--- NOTE | 2022-04-01 20:50 | ED Headache ---
General Chief Complaint: Head/Cervical Problems Stated Complaint: HIT HEAD IN POOL Nursing Triage Note: PT ARRIVAL TO ER WITH COMPLAINT OF HEADACHE AFTER STRIKING FRONT OF HEAD ON RIGHT SIDE ON THE BOTTOM OF A 8' DEEP POOL. 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 PT STATES HEADACHE, BLURRED VISION, AND RINGING IN EARS. PAIN AT A 6/10. Source: patient Exam Limitations: no limitations (YUMI SHAY APRN) History of Present Illness Date Seen by Provider: Apr 01, 2022 Time Seen by Provider: 20:49 Initial Comments To ER with a headache, tinnitus, blurred vision that began after jumping into the pool headfirst and striking the right faith on the bottom surface of the pool. No loss of consciousness. Timing/Duration: 4-6 hours Severity/Quality: moderate Location: frontal Prior Headaches/Recent Trauma: no recent headache/trauma Associated Symptoms: denies symptoms (YUMI SHAY APRN) Allergies and Home Medications Allergies Coded Allergies: Penicillins (Verified Allergy, Unknown, 02/11/22) amoxicillin (Verified Allergy, Unknown, 02/11/22) latex (Verified Allergy, Unknown, 02/11/22) meclizine (Verified Allergy, Unknown, 02/20/22) Patient Home Medication List Home Medication List Reviewed: Yes (YUMI SHAY APRN) Divalproex Sodium (Divalproex Sodium) 500 Mg Tablet.dr, 500 MG PO TID, (Reported) Entered as Reported by: LUZ MARINA PEGUERO on 02/11/22 2220 Famotidine (Pepcid) 20 Mg Tablet, 20 MG PO BID Prescribed by: JAMES PELAYO on 02/27/22 1032 Gabapentin (Neurontin) 300 Mg Capsule, 300 MG PO TID, (Reported) Entered as Reported by: LEANNA DASILVA on 02/12/22 1138 Levothyroxine Sodium (Levothyroxine Sodium) 25 Mcg Tablet, 25 MCG PO DAILY, (Reported) Entered as Reported by: LEANNA DASILVA on 02/12/22 1138 Metoprolol Tartrate (Metoprolol Tartrate) 25 Mg Tablet, 25 MG PO BID PRN for FAST HEART RATE, (Reported) Entered as Reported by: LEANNA DASILVA on 02/12/22 1138 Ondansetron (Ondansetron Odt) 4 Mg Tab.rapdis, 4 MG PO Q8H PRN for NAUSEA/VOMITING, (Reported) Entered as Reported by: LEANNA DASILVA on 02/12/22 1138 Ondansetron (Ondansetron Odt) 4 Mg Tab.rapdis, 4-8 MG PO Q6H PRN for NAUSEA/VOMITING Prescribed by: YESY LALA on 02/20/22 1522 Ondansetron (Ondansetron Odt) 4 Mg Tab.rapdis, 4 MG PO Q6H PRN for NAUSEA/VOMITING Prescribed by: LILIA HSIN on 03/14/22 1530 Promethazine HCl (Promethazine Tablet) 25 Mg Tablet, 25 MG PO Q6H PRN for NAUSEA/VOMITING Prescribed by: JAMES PELAYO on 02/27/22 1032 Promethazine HCl (Promethazine Tablet) 25 Mg Tablet, 25 MG PO Q6H PRN for NAUSEA/VOMITING Prescribed by: YESY LALA on 03/01/22 2351 Review of Systems Review of Systems Constitutional: see HPI Eyes: No Symptoms Reported Ears, Nose, Mouth, Throat: no symptoms reported Respiratory: no symptoms reported Cardiovascular: no symptoms reported Genitourinary: no symptoms reported Musculoskeletal: no symptoms reported Skin: no symptoms reported Psychiatric/Neurological: No Symptoms Reported (YUMI SHAY APRN) Past Hkbonjz-Dgaezh-Gphoyj Hx Patient Social History Tobacco Use?: Yes Tobacco type used: Cigarettes Smoking Status: Current Everyday Smoker Use of E-Cig and/or Vaping dev: No Substance use?: No Alcohol Use?: Yes Alcohol type: Beer, Hard Liquor Alcohol Frequency: Rarely Pt feels they are or have been: No (YUMI SHAY APRN) Immunizations Up To Date Influenza Vaccine Up-to-Date: Yes; Up-to-Date First/Initial COVID19 Vaccinat: n/a Second COVID19 Vaccination Lion: n/a Third COVID19 Vaccination Date: n/a (YUMI SHAY APRN) Past Medical History Surgery/Hospitalization HX: epilepsy, hypothyroidism, HTN, neuropathy, SVT with ablation. Seizure Disorder Renal Failure Liver Disease/Jaundice Hypothyroidsim (YUMI SHAY APRN) Physical Exam Vital Signs Vital Signs - First Documented 04/01/22 20:20 Temp 36.8 Pulse 71 Resp 16 B/P (MAP) 115/74 (88) Pulse Ox 99 O2 Delivery Room Air (JAMES GUADARRAMA MD) Vital Signs Capillary Refill : Less Than 3 Seconds (YUMI SHAY APRN) Height, Weight, BMI Height: '" Weight: lbs. oz. kg; 42.00 BMI Method: General Appearance: WD/WN, no apparent distress HEENT: PERRL/EOMI, normal ENT inspection, TMs normal, other (no wood sign no hemotympanum) Neck: non-tender, full range of motion Cardiovascular: regular rate, rhythm, no murmur Respiratory: lungs clear, normal breath sounds, no respiratory distress, no accessory muscle use Gastrointestinal: normal bowel sounds, non tender, soft Extremities: normal range of motion, non-tender Psychiatric: alert, oriented x 3 Crainal Nerves: normal hearing, normal speech, PERRL Skin: normal color, warm/dry (YUMI SHAY APRN) Progress/Results/Core Measures Results/Orders Vital Signs/I&O 04/01/22 04/01/22 20:20 21:35 Temp 36.8 Pulse 71 68 Resp 16 16 B/P (MAP) 115/74 (88) 119/73 Pulse Ox 99 99 O2 Delivery Room Air Room Air (JAMES GUADARRAMA MD) Blood Pressure Mean: 88 Departure Communication (Admissions) NAME: SAL MARTNIEZ [facility] REC#: [id number] PT STATUS: REG ER : 2000 PHYSICIAN: YUMI SHAY APRN ADMIT DATE: 04/01/22/ER Draft Date of Exam:04/01/22 CT HEAD/CERVICAL SPINE WO PROCEDURE: CT head and CT cervical spine without contrast. TECHNIQUE: Multiple contiguous axial images were obtained through the brain and cervical spine without the use of intravenous contrast. Sagittal and coronal reformations through the cervical spine were then performed. Auto Exposure Controls were utilized during the CT exam to meet ALARA standards for radiation dose reduction. INDICATION: Head pain following injury. Blurred vision. No priors. CT HEAD: There is no hemorrhage, hydrocephalus, cerebral edema, mass, mass effect nor evidence for an elevation of the intracranial pressures. There are no abnormal extra-axial fluid collections. There is no sulcal effacement. The ballesteros-white matter differentiations maintained. The orbits, sinuses and calvarium appeared nonacute. No pneumocephalus. No hemo-sinus. CT CERVICAL: Cervical body heights maintained. The alignment anatomic. The facet relationships unremarkable. No substantial canal stenosis. No cervical fracture or paraspinal hemorrhage. Craniocervical relationship appeared unremarkable. No substantial stenosis. IMPRESSION: No hemorrhage, fracture or other acute/posttraumatic abnormalities identified at CT head and CT cervical spine. Dictated on workstation # [id number] Dict: 04/01/[id number] Trans: 04/01/222110 [facility] [id number] Interpreted by: JOB ROSEN Electronically signed by: (YUMI SHAY APRN) Impression Primary Impression: Concussion Disposition: 01 HOME, SELF-CARE Condition: Stable Departure-Patient Inst. Decision time for Depature: 21:20 (YUMI SHAY APRN) Referrals: BEHZAD MOLINA MD (PCP) Primary Care Physician SHAYNA MAI APRN (Family) Primary Care Physician Patient Instructions: Concussion in Adults Add. Discharge Instructions: 1. You can use Tylenol and ibuprofen for pain control. Return to ER for any concerns. All discharge instructions reviewed with patient and/or family. Voiced understanding. Work/School Note: Work Release Form Date Seen in the Emergency Department: Apr 01, 2022 Return to Work: Apr 03, 2022 ATTENDING PHYSICIAN NOTE: I was physically present as attending physician in the emergency department during the care of this patient, but I was not directly involved in the decision making or delivery of care for this patient. (JAMES GUADARRAMA MD) YUMI SHAY APRN Apr 01, 2022 20:50 JAMES GUADARRAMA MD Apr 03, 2022 06:58
--- NOTE | 2022-04-01 21:11 | Diagnostic Imaging Report ---
PROCEDURE: CT head and CT cervical spine without contrast. TECHNIQUE: Multiple contiguous axial images were obtained through the brain and cervical spine without the use of intravenous contrast. Sagittal and coronal reformations through the cervical spine were then performed. Auto Exposure Controls were utilized during the CT exam to meet ALARA standards for radiation dose reduction. INDICATION: Head pain following injury. Blurred vision. No priors. CT HEAD: There is no hemorrhage, hydrocephalus, cerebral edema, mass, mass effect nor evidence for an elevation of the intracranial pressures. There are no abnormal extra-axial fluid collections. There is no sulcal effacement. The ballesteros-white matter differentiations maintained. The orbits, sinuses and calvarium appeared nonacute. No pneumocephalus. No hemo-sinus. CT CERVICAL: Cervical body heights maintained. The alignment anatomic. The facet relationships unremarkable. No substantial canal stenosis. No cervical fracture or paraspinal hemorrhage. Craniocervical relationship appeared unremarkable. No substantial stenosis. IMPRESSION: No hemorrhage, fracture or other acute/posttraumatic abnormalities identified at CT head and CT cervical spine. Dictated by: Dictated on workstation # [id number]
[2022-04-01 21:35] VITALS: BP 119/73
== END 2022-04-01 21:36 | disposition home or self-care (01) ==
LOC: EDUNIT# 20:07 → ER 20:08
DX: S06.0X0A Concussion without loss of consciousness, initial encounter (principal); F17.210 Nicotine dependence, cigarettes, uncomplicated; Z28.310 Unvaccinated for COVID-19; W16.522A Jumping or diving into swimming pool striking bottom causing other injury, initial encounter; Y92.34 Swimming pool (public) as the place of occurrence of the external cause
CPT/HCPCS: 70450; 72125

== ENCOUNTER → 2022-04-04 | Outpatient (CLI) | payer MEDICAID ==
[2022-04-04 13:25] LABS: BUN/CREATININE RATIO 7; CARBON DIOXIDE 27 MMOL/L (21-32); CHLORIDE 100 MMOL/L (98-107); CREATININE SERUM 1.72 MG/DL (0.60-1.30); GFR ESTIMATED 57; POTASSIUM 3.6 MMOL/L (3.6-5.0); SODIUM 139 MMOL/L (135-145)
[2022-04-04 13:26] LABS: ALANINE AMINOTRANSFERASE 92 U/L (0-55); ALBUMIN 4.8 GM/DL (3.2-4.5); ALKALINE PHOSPHATASE 58 U/L (40-136); BILIRUBIN,TOTAL 0.2 MG/DL (0.1-1.0); GLUCOSE 117 MG/DL (70-105); TOTAL PROTEIN 7.1 GM/DL (6.4-8.2)
== END ==
LOC: LAB FS 11:44
PROVIDERS: ATTEND Registered Nurse Emergency
DX: E87.6 Hypokalemia (principal); G47.30 Sleep apnea, unspecified
CPT/HCPCS: 36415; 80053

== ENCOUNTER → 2022-04-08 | Outpatient (CLI) | payer MEDICAID | LOC: LAB FS 12:56 | PROVIDERS: ATTEND Registered Nurse Emergency | DX: E83.52 Hypercalcemia (principal) | CPT/HCPCS: 36415; 82306; 83970 ==

== ENCOUNTER 2022-04-09 18:09 | Emergency (ER) | payer MEDICAID ==
[~2022-04-09] VITALS: Ht 175 cm; Wt 127.0 kg
[2022-04-09] MEDS ORDERED: LACTATED RINGERS 1,000 ML IV STA (18:30)
--- NOTE | 2022-04-09 18:37 | ED General ---
General Chief Complaint: Neurological Problems Stated Complaint: SEIZURE, NAUSEA, DIZZINESS, ABDOMINAL PAIN Nursing Triage Note: PT STATES HE HAD A SEIZURE ABOUT 1630, CC OF NAUSEA, VOMITING, DIZZINESS, BLURRED VISION, AND ABD PAIN. STATES HE HAD THESE SAME S/S BEFORE THE SEIZURE SINCE THIS MORNING. STATES HE MAY BE DEHYDRATED Source of Information: Patient Exam Limitations: No Limitations History of Present Illness Date Seen by Provider: Apr 09, 2022 Time Seen by Provider: 18:34 Initial Comments Patient is a 21-year-old male with a history of seizures who presents the ED with seizure around 1630 with nausea vomiting dizziness, blurry vision and abdominal pain. Patient states he has a history of seizure which has been for several months since his last. States today he woke up with left upper quadrant abdominal pain. Described as a squeezing station and constant. Patient states he felt nauseous today as well. Patient Was walking around [facility] around 1630 when he started feeling lightheaded and sleepy and had a seizure. Denies hitting his head. Bystanders called EMS. Patient is not aware how long he had a seizure. Patient vomit twice after his seizure. Patient refused EMS transpor t at that time. This occured in [place]. Patient states he is currently on Depakote 500 mg twice daily. No history of previous abdominal surgery. Denies fever, cough, chest pain, headache, current dizziness. He reports feeling dizzy after the the seizure. Denies of any urinary symptoms, drug use or alcohol use. Patient on arrival alert and orient x3 Allergies and Home Medications Allergies Coded Allergies: Penicillins (Verified Allergy, Unknown, 02/11/22) amoxicillin (Verified Allergy, Unknown, 02/11/22) latex (Verified Allergy, Unknown, 02/11/22) meclizine (Verified Allergy, Unknown, 02/20/22) Patient Home Medication List Home Medication List Reviewed: Yes Divalproex Sodium (Divalproex Sodium) 500 Mg Tablet.dr, 500 MG PO TID, (Reported) Entered as Reported by: LUZ MARINA PEGUERO on 02/11/222219 Famotidine (Pepcid) 20 Mg Tablet, 20 MG PO BID Prescribed by: JAMES PELAYO on 02/27/22 1032 Gabapentin (Neurontin) 300 Mg Capsule, 300 MG PO TID, (Reported) Entered as Reported by: LEANNA DASILVA on 02/12/22 1138 Levothyroxine Sodium (Levothyroxine Sodium) 25 Mcg Tablet, 25 MCG PO DAILY, (Reported) Entered as Reported by: LEANNA DASILVA on 02/12/22 1138 Metoprolol Tartrate (Metoprolol Tartrate) 25 Mg Tablet, 25 MG PO BID PRN for FAST HEART RATE, (Reported) Entered as Reported by: LEANNA DASILVA on 02/12/22 1138 Ondansetron (Ondansetron Odt) 4 Mg Tab.rapdis, 4 MG PO Q8H PRN for NAUSEA/VOMITING, (Reported) Entered as Reported by: LEANNA DASILVA on 02/12/22 1138 Ondansetron (Ondansetron Odt) 4 Mg Tab.rapdis, 4-8 MG PO Q6H PRN for NAUSEA/VOMITING Prescribed by: YESY LALA on 02/20/22 1522 Ondansetron (Ondansetron Odt) 4 Mg Tab.rapdis, 4 MG PO Q6H PRN for ABY SEA/VOMITING Prescribed by: LILIA SHIN on 03/14/22 1530 Promethazine HCl (Promethazine Tablet) 25 Mg Tablet, 25 MG PO Q6H PRN for NAUSEA/VOMITING Prescribed by: JAMES PELAYO on 02/27/22 1032 Promethazine HCl (Promethazine Tablet) 25 Mg Tablet, 25 MG PO Q6H PRN for NAUSEA/VOMITING Prescribed by: YESY LALA on 03/01/22 2351 Review of Systems Review of Systems Constitutional: No chills, No diaphoresis, No malaise, No weakness EENTM: No ear pain, No blurred vision, No double vision Respiratory: No cough, No dyspnea on exertion Cardiovascular: No chest pain, No edema Gastrointestinal: No no symptoms reported, No see HPI; abdominal pain; No diarrhea; nausea, vomiting Genitourinary: No decreased output, No discharge Musculoskeletal: No back pain, No joint pain Skin: No change in hair/nails Psychiatric/Neurological: Other (seizure) All Other Systems Reviewed Negative Unless Noted: Yes Past Yauixpw-Vansiw-Mejaak Hx Patient Social History Tobacco Use?: Yes Tobacco type used: Cigarettes Smoking Status: Current Someday Smoker Substance use?: No Alcohol Use?: Yes Alcohol type: Beer Immunizations Up To Date First/Initial COVID19 Vaccinat: n/a Second COVID19 Vaccination Lion: n/a Third COVID19 Vaccination Date: n/a Past Medical History Surgery/Hospitalization HX: epilepsy, hypothyroidism, HTN, neuropathy, SVT with ablation. Seizure Disorder Renal Failure Liver Disease/Jaundice Hypothyroidsim Physical Exam Vital Signs Vital Signs - First Documented 04/09/22 18:17 Temp 36.6 Pulse 109 Resp 20 B/P (MAP) 144/98 (113) Pulse Ox 99 O2 Delivery Room Air Capillary Refill : Less Than 3 Seconds Height, Weight, BMI Height: '" Weight: lbs. oz. kg; 41.00 BMI Method: General Appearance: No Apparent Distress, WD/WN Eyes: Bilateral Eye Normal Inspection, Bilateral Eye PERRL, Bilateral Eye Abnormal EOM HEENT: PERRL/EOMI, TMs Normal, Normal ENT Inspection, Pharynx Normal Neck: Full Range of Motion, Normal Inspection, Non Tender, Supple Respiratory: Chest Non Tender, Lungs Clear, Normal Breath Sounds, No Accessory Muscle Use, No Respiratory Distress Cardiovascular: Regular Rate, Rhythm, No Edema, No Gallop, No JVD Gastrointestinal: Normal Bowel Sounds, No Organomegaly, No Pulsatile Mass, Tenderness (Left upper quadrant tenderness. Normal bowel sounds throughout. No rebound or guarding.) Extremity: Normal Capillary Refill, Normal Inspection, Normal Range of Motion, Non Tender Neurologic/Psychiatric: Alert, Oriented x3, No Motor/Sensory Deficits, Normal Mood/Affect, roller stitcher II-XII Norm as Tested Skin: Normal Color, Warm/Dry Progress/Results/Core Measures Suspected Sepsis SIRS Temperature: Pulse: 109 Respiratory Rate: 20 Laboratory Tests 04/09/22 18:30: White Blood Count 7.1 Blood Pressure 144 /98 Mean: 113 Laboratory Tests 04/09/22 18:30: Creatinine 1.96H, Platelet Count 187, Total Bilirubin 0.6 Results/Orders Lab Results Laboratory Tests Test 04/09/22 18:30 04/09/22 18:32 Range/Units White Blood Count 7.1 4.3-11.0 10^3/uL Red Blood Count 4.25 L 4.30-5.52 10^6/uL Hemoglobin 13.8 13.3-17.7 g/dL Hematocrit 40 40-54 % Mean Corpuscular Volume 93 80-99 fL Mean Corpuscular Hemoglobin 33 25-34 pg Mean Corpuscular Hemoglobin Concent 35 32-36 g/dL Red Cell Distribution Width 11.8 10.0-14.5 % Platelet Count 187 130-400 10^3/uL Mean Platelet Volume 11.2 9.0-12.2 fL Immature Granulocyte % (Auto) 0 % Neutrophils (%) (Auto) 67 42-75 % Lymphocytes (%) (Auto) 24 12-44 % Monocytes (%) (Auto) 8 0-12 % Eosinophils (%) (Auto) 1 0-10 % Basophils (%) (Auto) 0 0-10 % Neutrophils # (Auto) 4.7 1.8-7.8 10^3/uL Lymphocytes # (Auto) 1.7 1.0-4.0 10^3/uL Monocytes # (Auto) 0.5 0.0-1.0 10^3/uL Eosinophils # (Auto) 0.1 0.0-0.3 10^3/uL Basophils # (Auto) 0.0 0.0-0.1 10^3/uL Immature Granulocyte # (Auto) 0.0 0.0-0.1 10^3/uL Sodium Level 141 135-145 MMOL/L Potassium Level 3.3 L 3.6-5.0 MMOL/L Chloride Level 101 98-107 MMOL/L Carbon Dioxide Level 24 21-32 MMOL/L Anion Gap 16 H 5-14 MMOL/L Blood Urea Nitrogen 13 7-18 MG/DL Creatinine 1.96 H 0.60-1.30 MG/DL Estimat Glomerular Filtration Rate 49 BUN/Creatinine Ratio 7 Glucose Level 176 H 70-105 MG/DL Calcium Level 12.8 H 8.5-10.1 MG/DL Corrected Calcium 8.5-10.1 MG/DL Magnesium Level 1.6 1.6-2.4 MG/DL Total Bilirubin 0.6 0.1-1.0 MG/DL Aspartate Amino Transf (AST/SGOT) 58 H 5-34 U/L Alanine Aminotransferase (ALT/SGPT) 117 H 0-55 U/L Alkaline Phosphatase 52 40-136 U/L Total Protein 7.6 6.4-8.2 GM/DL Albumin 4.9 H 3.2-4.5 GM/DL Lipase 17 8-78 U/L Valproic Acid (Depakene) Level 64.8 50.0-100.0 UG/ML Urine Color YELLOW Urine Clarity CLEAR Urine pH 6.0 5-9 Urine Specific [place] 1.010 L 1.016-1.022 Urine Protein TRACE H NEGATIVE Urine Glucose (UA) NEGATIVE NEGATIVE Urine Ketones NEGATIVE NEGATIVE Urine Nitrite NEGATIVE NEGATIVE Urine Bilirubin NEGATIVE NEGATIVE Urine Urobilinogen 0.2 < = 1.0 MG/DL Urine Leukocyte Esterase NEGATIVE NEGATIVE Urine RBC (Auto) NEGATIVE NEGATIVE Urine RBC NONE /HPF Urine WBC 0-2 /HPF Urine Squamous Epithelial Cells 0-2 /HPF Urine Crystals NONE /LPF Urine Bacteria TRACE /HPF Urine Casts NONE /LPF Urine Mucus NEGATIVE /LPF Urine Culture Indicated NO Urine Opiates Screen NEGATIVE NEGATIVE Urine Oxycodone Screen NEGATIVE NEGATIVE Urine Methadone Screen NEGATIVE NEGATIVE Urine Propoxyphene Screen NEGATIVE NEGATIVE Urine Barbiturates Screen NEGATIVE NEGATIVE Ur Tricyclic Antidepressants Screen NEGATIVE NEGATIVE Urine Phencyclidine Screen NEGATIVE NEGATIVE Urine Amphetamines Screen NEGATIVE NEGATIVE Urine Methamphetamines Screen NEGATIVE NEGATIVE Urine Benzodiazepines Screen NEGATIVE NEGATIVE Urine Cocaine Screen NEGATIVE NEGATIVE Urine Cannabinoids Screen NEGATIVE NEGATIVE My Orders Orders - SANDRA BARCENAS Cbc With Automated Diff (04/09/22 18:30) Comprehensive Metabolic Panel (04/09/22 18:30) Lipase (04/09/22 18:30) Magnesium (04/09/22 18:30) Urinalysis (04/09/22 18:30) Drug Screen Stat (Urine) (04/09/22 18:30) Iv/Invasive Line Insertion .IV start (04/09/22 18:30) Lactated Ringers (Lr 1000 Ml Iv Solution (04/09/22 18:30) Ondansetron Injection (Zofran Injectio (04/09/22 18:45) Ketorolac Injection (Toradol Injection) (04/09/22 18:45) Valproic Acid (04/09/22 18:33) Medications Given in ED Current Medications Medications Dose Ordered Sig/Macho Route Start Time Stop Time Status Last Admin Dose Admin Ketorolac Tromethamine 30 mg ONCE ONCE IVP 04/09/22 18:45 04/09/22 18:46 DC 04/09/22 18:40 30 MG Ondansetron HCl 4 mg ONCE ONCE IVP 04/09/22 18:45 04/09/22 18:46 DC 04/09/22 18:39 4 MG Vital Signs/I&O 04/09/22 04/09/22 18:17 18:40 Temp 36.6 36.6 Pulse 109 Resp 20 B/P (MAP) 144/98 (113) Pulse Ox 99 O2 Delivery Room Air Capillary Refill : Less Than 3 Seconds Blood Pressure Mean: 113 Departure Communication (PCP) Patient with a seizure around 1630. On arrival alert and orient x3. Neuro exam unremarkable. Complain of left-sided abdominal pain since this morning with nausea. Patient vomited after his seizure. Patient without any seizure-like activity. Complain left side abdominal tenderness with mild tenderness on palpation. No history of previous abdominal surgery. Patient was seen on [address] abdomen pelvis with similar type pain. Creatinine 1.96. Calcium of 12.8. Patient Was given a liter of fluid. Patient's kidney function has been fluctuating throughout his visits. Creatinine today is actually improved from previous visits. Do think due to the hypercalcemia fluids will help at this time. Was given Zofran with improvement. Patient without any seizure-like activity. Seizure precautions. Neuro exam unremarkable. Recommend outpatient follow-up with his primary care physician for lab work. No surgical abdomen. Abdominal pain has improved. Chronic elevated liver enzymes Impression Primary Impression: Seizure Disposition: 01 HOME, SELF-CARE Condition: Stable Departure-Patient Inst. Decision time for Depature: 19:24 Referrals: SHAYNA MAI APRN (PCP) Primary Care Physician BEHZAD MOLINA MD (Family) Primary Care Physician Patient Instructions: Seizures, Adult ED SANDRA BARCENAS Apr 09, 2022 18:37
[2022-04-09 18:38] LABS: BASOPHILS % (AUTO) 0 % (0-10); EOSINOPHILS # (AUTO) 0.1 10^3/uL (0.0-0.3); EOSINOPHILS % (AUTO) 1 % (0-10); HEMATOCRIT 40 % (40-54); HEMOGLOBIN 13.8 g/dL (13.3-17.7); LYMPHOCYTES # (AUTO) 1.7 10^3/uL (1.0-4.0); LYMPHOCYTES % (AUTO) 24 % (12-44); MEAN CORPUSCULAR HEMOGLOBIN 33 pg (25-34); MEAN CORPUSCULAR HGB CONC 35 g/dL (32-36); MEAN CORPUSCULAR VOLUME 93 fL (80-99); MEAN PLATELET VOLUME 11.2 fL (9.0-12.2); MONOCYTES # (AUTO) 0.5 10^3/uL (0.0-1.0); MONOCYTES % (AUTO) 8 % (0-12); NEUTROPHILS # (AUTO) 4.7 10^3/uL (1.8-7.8); NEUTROPHILS % (AUTO) 67 % (42-75); PLATELET COUNT 187 10^3/uL (130-400); WHITE BLOOD COUNT 7.1 10^3/uL (4.3-11.0)
[2022-04-09] MEDS ORDERED: KETOROLAC 30 MG/ML VIAL IVP ONE (18:45)
[2022-04-09] MEDS ORDERED: ONDANSETRON 4 MG/2 ML (SDV) Z0FRAN IVP ONE (18:45)
[2022-04-09 18:51] LABS: BILIRUBIN,URINE NEGATIVE (NEGATIVE); CLARITY,URINE CLEAR; COLOR,URINE YELLOW; GLUCOSE, URINE (UA) NEGATIVE (NEGATIVE); KETONES,URINE NEGATIVE (NEGATIVE); LEUKOCYTE ESTERASE ,URINE NEGATIVE (NEGATIVE); NITRITE,URINE NEGATIVE (NEGATIVE); PROTEIN,URINE TRACE (NEGATIVE)
[2022-04-09 18:52] LABS: ALBUMIN 4.9 GM/DL (3.2-4.5)
[2022-04-09 18:53] LABS: CHLORIDE 101 MMOL/L (98-107); POTASSIUM 3.3 MMOL/L (3.6-5.0); SODIUM 141 MMOL/L (135-145)
[2022-04-09 18:54] LABS: CALCIUM 12.8 MG/DL (8.5-10.1)
[2022-04-09 18:55] LABS: GLUCOSE 176 MG/DL (70-105); TOTAL PROTEIN 7.6 GM/DL (6.4-8.2)
[2022-04-09 18:56] LABS: CARBON DIOXIDE 24 MMOL/L (21-32)
[2022-04-09 18:57] LABS: BILIRUBIN,TOTAL 0.6 MG/DL (0.1-1.0)
[2022-04-09 18:58] LABS: ALKALINE PHOSPHATASE 52 U/L (40-136); CREATININE SERUM 1.96 MG/DL (0.60-1.30); GFR ESTIMATED 49
[2022-04-09 19:00] LABS: BACTERIA,URINE TRACE /HPF; SQUAMOUS EPITHELIAL CELL,UR 0-2 /HPF; WBC,URINE 0-2 /HPF
[2022-04-09 19:00] LABS: BUN/CREATININE RATIO 7
[2022-04-09 19:01] LABS: ALANINE AMINOTRANSFERASE 117 U/L (0-55); MAGNESIUM 1.6 MG/DL (1.6-2.4)
[2022-04-09 19:02] LABS: LIPASE 17 U/L (8-78)
[2022-04-09 19:07] LABS: AMPHETAMINE SCREEN, URINE NEGATIVE (NEGATIVE); BARBITURATE SCREEN URINE NEGATIVE (NEGATIVE); BENZODIAZEPINES SCREEN URINE NEGATIVE (NEGATIVE); CANNABINOID SCREEN, URINE NEGATIVE (NEGATIVE); COCAINE SCREEN URINE NEGATIVE (NEGATIVE); METHADONE STAT NEGATIVE (NEGATIVE); OPIATE SCREEN URINE NEGATIVE (NEGATIVE); OXYCODONE STAT NEGATIVE (NEGATIVE); PROPOXYPHENE STAT NEGATIVE (NEGATIVE); TRICYCLIC ANTIDEPRESSANTS SCRE NEGATIVE (NEGATIVE)
[2022-04-09 19:08] LABS: VALPROIC ACID 64.8 UG/ML (50.0-100.0)
[2022-04-09 20:05] VITALS: BP 137/91
== END 2022-04-09 20:05 | disposition home or self-care (01) ==
LOC: EDUNIT# 18:09 → ER 18:11
DX: G40.909 Epilepsy, unspecified, not intractable, without status epilepticus (principal); R10.12 Left upper quadrant pain; R94.5 Abnormal results of liver function studies; F17.210 Nicotine dependence, cigarettes, uncomplicated; Z28.310 Unvaccinated for COVID-19
CPT/HCPCS: 36415; 80053; 80164; 80306; 81000; 83690; 83735; 85025

== ENCOUNTER → 2022-04-15 | Outpatient (CLI) | payer MEDICAID ==
[2022-04-15 11:49] LABS: BUN/CREATININE RATIO 14; CARBON DIOXIDE 29 MMOL/L (21-32); CHLORIDE 102 MMOL/L (98-107); CREATININE SERUM 1.01 MG/DL (0.60-1.30); GFR ESTIMATED 108; POTASSIUM 3.8 MMOL/L (3.6-5.0); SODIUM 141 MMOL/L (135-145)
[2022-04-15 11:50] LABS: ALANINE AMINOTRANSFERASE 80 U/L (0-55); ALKALINE PHOSPHATASE 69 U/L (40-136); BILIRUBIN,TOTAL 0.2 MG/DL (0.1-1.0); CALCIUM 11.3 MG/DL (8.5-10.1); GLUCOSE 114 MG/DL (70-105); TOTAL PROTEIN 7.4 GM/DL (6.4-8.2)
== END ==
LOC: LAB FS 10:37
PROVIDERS: ATTEND Registered Nurse Emergency
DX: E83.52 Hypercalcemia (principal)
CPT/HCPCS: 36415; 80053; 82652; 83519

== ENCOUNTER 2022-04-25 13:04 | Emergency (ER) | payer MEDICAID ==
[~2022-04-25] VITALS: Ht 175 cm; Wt 117.0 kg
[2022-04-25] MEDS ORDERED: NS IV 1000 ML 1,000 ML IV SCH (14:00)
[2022-04-25] MEDS ORDERED: DROPERIDOL 5 MG/2 ML (INAPSINE) ED ONLY! IV ONE (14:15)
--- NOTE | 2022-04-25 14:15 | ED GI ---
General Chief Complaint: Abdominal/GI Problems Stated Complaint: ABD PAIN,N/V,DIZZINESS Nursing Triage Note: Pt reports abd pain, nausea and dizziness for a couple days. Source of Information: Patient Exam Limitations: No Limitations History of Present Illness Date Seen by Provider: Apr 25, 2022 Time Seen by Provider: 13:55 Initial Comments Montez is a 21-year-old male who presents to the emergency department with a chief complaint of diffuse abdominal cramping/pain, nausea vomiting and dizziness with standing. Symptoms have been ongoing for couple of days, worse today. He has a history of chronic liver disease/MORAN. He also states he has chronic kidney disease. He has had multiple visits to the emergency department in the past for similar symptoms. Reports no fevers or chills. States that he is compliant with his medications. Reports that he took Zofran prior to arrival that has not helped. Denies any black or bloody stools. No problems with urination. Reports no blood in his vomitus. All other review of systems reviewed and negative except as stated. Timing/Duration: 2-3 Days Severity/Quality: Moderate Location: Generalized Abdomen Radiation: No Radiation Activities at Onset: None Associated Symptoms: Nausea/Vomiting Allergies and Home Medications Allergies Coded Allergies: Penicillins (Verified Allergy, Unknown, 02/11/22) amoxicillin (Verified Allergy, Unknown, 02/11/22) latex (Verified Allergy, Unknown, 02/11/22) meclizine (Verified Allergy, Unknown, 02/20/22) Patient Home Medication List Home Medication List Reviewed: Yes Divalproex Sodium (Divalproex Sodium) 500 Mg Tablet.dr, 500 MG PO TID, (Reported) Entered as Reported by: LUZ MARINA PEGUERO on 02/11/222219 Famotidine (Pepcid) 20 Mg Tablet, 20 MG PO BID Prescribed by: JAMES PELAYO on 02/27/22 1032 Gabapentin (Neurontin) 300 Mg Capsule, 300 MG PO TID, (Reported) Entered as Reported by: LEANNA DASILVA on 02/12/22 1138 Levothyroxine Sodium (Levothyroxine Sodium) 25 Mcg Tablet, 25 MCG PO DAILY, (Reported) Entered as Reported by: LEANNA DASILVA on 02/12/22 1138 Metoclopramide HCl (Reglan) 10 Mg Tablet, 10 MG PO Q8H PRN for nausea Prescribed by: FRANTZ GONSALEZ on 04/25/22 1505 Metoprolol Tartrate (Metoprolol Tartrate) 25 Mg Tablet, 25 MG PO BID PRN for FAST HEART RATE, (Reported) Entered as Reported by: LEANNA DASILVA on 02/12/22 1138 Ondansetron (Ondansetron Odt) 4 Mg Tab.rapdis, 4 MG PO Q8H PRN for NA USEA/VOMITING, (Reported) Entered as Reported by: LEANNA DASILVA on 02/12/22 1138 Ondansetron (Ondansetron Odt) 4 Mg Tab.rapdis, 4-8 MG PO Q6H PRN for NAUSEA/VOMITING Prescribed by: YESY LALA on 02/20/22 1522 Ondansetron (Ondansetron Odt) 4 Mg Tab.rapdis, 4 MG PO Q6H PRN for NAUSEA/VOMITING Prescribed by: LILIA SHIN on 03/14/22 1530 Promethazine HCl (Promethazine Tablet) 25 Mg Tablet, 25 MG PO Q6H PRN for NAUSEA/VOMITING Prescribed by: JAMES PELAYO on 02/27/22 1032 Promethazine HCl (Promethazine Tablet) 25 Mg Tablet, 25 MG PO Q6H PRN for NAUSEA/VOMITING Prescribed by: YESY LALA on 03/01/22 9881 Review of Systems Review of Systems Constitutional: see HPI EENTM: No Symptoms Reported Respiratory: No Symptoms Reported Cardiovascular: No Symptoms Reported Gastrointestinal: Nausea, Vomiting Genitourinary: No Symptoms Reported Musculoskeletal: no symptoms reported Skin: no symptoms reported Psychiatric/Neurological: No Symptoms Reported, Other (dizziness) All Other Systems Reviewed Negative Unless Noted: Yes Past Xndmvrt-Pqmokf-Fdyuaf Hx Patient Social History Tobacco Use?: Yes Tobacco type used: Cigarettes Smoking Status: Current Everyday Smoker Substance use?: No Alcohol Use?: Yes Alcohol Frequency: Couple times a week Immunizations Up To Date First/Initial COVID19 Vaccinat: n/a Second COVID19 Vaccination Lion: n/a Third COVID19 Vaccination Date: n/a Past Medical History Surgery/Hospitalization HX: epilepsy, hypothyroidism, HTN, neuropathy, SVT with ablation. Seizure Disorder Renal Failure Liver Disease/Jaundice Hypothyroidsim Physical Exam Vital Signs Vital Signs - First Documented 04/25/22 13:33 Temp 37.0 Pulse 116 Resp 18 B/P (MAP) 137/97 (110) Pulse Ox 99 O2 Delivery Room Air Capillary Refill : Less Than 3 Seconds Height/Weight/BMI Height: '" Weight: lbs. oz. kg; 38.00 BMI Method: General Appearance: WD/WN, no apparent distress HEENT: PERRL/EOMI Neck: full range of motion, supple, normal inspection Respiratory: lungs clear, normal breath sounds, no respiratory distress, no accessory muscle use Cardiovascular: regular rate, rhythm, tachycardia Peripheral Pulses: 2+ Radial Pulses (R), 2+ Radial Pulses (L) Gastrointestinal: normal bowel sounds, non tender, soft Extremities: normal range of motion, non-tender, normal inspection, no pedal edema Neurologic/Psychiatric: no motor/sensory deficits, alert, normal mood/affect, oriented x 3 Skin: normal color, warm/dry Progress/Results/Core Measures Results/Orders Lab Results Laboratory Tests Test 04/25/22 14:13 Range/Units Sodium Level 141 135-145 MMOL/L Potassium Level 3.2 L 3.6-5.0 MMOL/L Chloride Level 100 98-107 MMOL/L Carbon Dioxide Level 25 21-32 MMOL/L Anion Gap 16 H 5-14 MMOL/L Blood Urea Nitrogen 13 7-18 MG/DL Creatinine 1.29 0.60-1.30 MG/DL Estimat Glomerular Filtration Rate 80 BUN/Creatinine Ratio 10 Glucose Level 115 H 70-105 MG/DL Calcium Level 11.2 H 8.5-10.1 MG/DL Corrected Calcium 8.5-10.1 MG/DL Total Bilirubin 0.4 0.1-1.0 MG/DL Aspartate Amino Transf (AST/SGOT) 35 H 5-34 U/L Alanine Aminotransferase (ALT/SGPT) 93 H 0-55 U/L Alkaline Phosphatase 56 40-136 U/L Total Protein 7.6 6.4-8.2 GM/DL Albumin 5.0 H 3.2-4.5 GM/DL My Orders Orders - FRANTZ GONSALEZ MD Ed Iv/Invasive Line Start (04/25/22 13:59) Comprehensive Metabolic Panel (04/25/22 13:59) Ekg Tracing (04/25/22 13:59) Ns Iv 1000 Ml (Sodium Chloride 0.9%) (04/25/22 14:00) Droperidol Inj (Ed Only) (Inapsine Inj ( (04/25/22 14:15) Vital Signs/I&O 04/25/22 04/25/22 13:33 15:21 Temp 37.0 36.5 Pulse 116 76 Resp 18 18 B/P (MAP) 137/97 (110) 127/68 Pulse Ox 99 97 O2 Delivery Room Air Room Air Blood Pressure Mean: 110 Progress Progress Note : Time: 15:03 Progress Note Patient reassessed after fluids and Inapsine. He feels much better. I reviewed his labs with him, his electrolytes look good, potassium minimally depressed at 3.2. Renal function looks good today. Liver functions are at his baseline. He is not febrile. He has not vomited since he has been here. I offered a prescription of Reglan. We will send that to [facility] on in [place]. He will follow-up with his dowel pin man and his primary care physician. All questions are sought and answered. Patient is improved at discharge. Initial ECG Impression Date: Apr 25, 2022 Initial ECG Impression Time: 14:11 Initial ECG Rate: 80 Initial ECG Rhythm: Normal Sinus Initial ECG Impression: Normal Comment no acute changes Departure Impression Primary Impression: Nausea and vomiting Qualified Codes: R11.2 - Nausea with vomiting, unspecified Disposition: 01 HOME, SELF-CARE Condition: Improved Departure-Patient Inst. Decision time for Depature: 15:04 Referrals: BEHZAD MOLINA MD (PCP) Primary Care Physician SHAYNA MAI APRN (Family) Primary Care Physician Patient Instructions: Nausea and Vomiting, Adult ED Add. Discharge Instructions: Sips of clear liquids throughout the rest of the day today. As your symptoms improve you can slowly advance your diet. You can try Reglan/metoclopramide 10 mg every 8 hours as needed for nausea. You can take this with your Zofran. If you develop a fever, worsening vomiting or any other emergent, concerning symptoms please return to the emergency room for reevaluation. Follow-up with your primary care and your dowel pin man as scheduled. Scripts Metoclopramide HCl (Reglan) 10 Mg Tablet 10 MG PO Q8H PRN for nausea, #12 TAB Prov: FRANTZ GONSALEZ MD 04/25/22 FRANTZ GONSALEZ MD Apr 25, 2022 14:15
[2022-04-25 14:42] LABS: ALANINE AMINOTRANSFERASE 93 U/L (0-55); ALKALINE PHOSPHATASE 56 U/L (40-136); BILIRUBIN,TOTAL 0.4 MG/DL (0.1-1.0); BUN/CREATININE RATIO 10; CALCIUM 11.2 MG/DL (8.5-10.1); CARBON DIOXIDE 25 MMOL/L (21-32); CHLORIDE 100 MMOL/L (98-107); CREATININE SERUM 1.29 MG/DL (0.60-1.30); GFR ESTIMATED 80; GLUCOSE 115 MG/DL (70-105); POTASSIUM 3.2 MMOL/L (3.6-5.0); SODIUM 141 MMOL/L (135-145); TOTAL PROTEIN 7.6 GM/DL (6.4-8.2)
[2022-04-25] MEDS ORDERED: METO-310 PO (15:05)
[2022-04-25 15:21] VITALS: BP 127/68
== END 2022-04-25 15:21 | disposition home or self-care (01) ==
LOC: EDUNIT# 13:04 → ER 13:06
DX: R11.2 Nausea with vomiting, unspecified (principal); F17.210 Nicotine dependence, cigarettes, uncomplicated; Z91.040 Latex allergy status
CPT/HCPCS: 36415; 80053; 93005

== ENCOUNTER 2022-05-01 23:52 | Observation (INO) | payer MEDICAID ==
[~2022-05-01] VITALS: Ht 180 cm; Wt 109.0 kg
[~2022-05-01 23:52] MED LIST changes: +METO-310 PO
--- NOTE | 2022-05-02 00:25 | ED GI ---
General Chief Complaint: Abdominal/GI Problems Stated Complaint: NAUSEA,VOMITING Source of Information: Patient Exam Limitations: No Limitations History of Present Illness Date Seen by Provider: May 02, 2022 Time Seen by Provider: 00:00 Initial Comments Patient to the ER by private conveyance with chief complaint of 6 days of lower bilateral abdominal discomfort nausea and vomiting blackish green. He is using Pepto-Bismol with some relief. No fevers or chills. No known sick contacts. No abdominal surgeries. He smokes a pack of cigarettes per week and denies recreational drug use. He has some ondansetron which helps some with the nausea and he is taking about 1 tablet every 8 hours. He has had endoscopy within the last year demonstrating some erosive gastroesophagitis. Allergies and Home Medications Allergies Coded Allergies: Penicillins (Verified Allergy, Unknown, 02/11/22) amoxicillin (Verified Allergy, Unknown, 02/11/22) latex (Verified Allergy, Unknown, 02/11/22) meclizine (Verified Allergy, Unknown, 02/20/22) Patient Home Medication List Home Medication List Reviewed: Yes Divalproex Sodium (Divalproex Sodium) 500 Mg Tablet.dr, 500 MG PO TID, (Reported) Entered as Reported by: LUZ MARINA PEGUERO on 02/11/22 2220 Famotidine (Pepcid) 20 Mg Tablet, 20 MG PO BID Prescribed by: JAMES PELAYO on 02/27/22 1032 Gabapentin (Neurontin) 300 Mg Capsule, 300 MG PO TID, (Reported) Entered as Reported by: LEANNA DASILVA on 02/12/22 1138 Levothyroxine Sodium (Levothyroxine Sodium) 25 Mcg Tablet, 25 MCG PO DAILY, (Reported) Entered as Reported by: LEANNA DASILVA on 02/12/22 1138 Metoclopramide HCl (Reglan) 10 Mg Tablet, 10 MG PO Q8H PRN for nausea Prescribed by: FRANTZ GONSALEZ on 04/25/22 1505 Metoprolol Tartrate (Metoprolol Tartrate) 25 Mg Tablet, 25 MG PO BID PRN for FAST HEART RATE, (Reported) Entered as Reported by: LEANNA DASILVA on 02/12/22 1138 Ondansetron (Ondansetron Odt) 4 Mg Tab.rapdis, 4 MG PO Q8H PRN for NAUSEA/VOMITING, (Reported) Entered as Reported by: LEANNA DASILVA on 02/12/22 1138 Ondansetron (Ondansetron Odt) 4 Mg Tab.rapdis, 4-8 MG PO Q6H PRN for NAUSEA/VOMITING Prescribed by: YESY LALA on 02/20/22 1522 Ondansetron (Ondansetron Odt) 4 Mg Tab.rapdis, 4 MG PO Q6H PRN for NAUSEA/VOMIT ING Prescribed by: LILIA SHIN on 03/14/22 1530 Promethazine HCl (Promethazine Tablet) 25 Mg Tablet, 25 MG PO Q6H PRN for NAUSEA/VOMITING Prescribed by: JAMES PELAYO on 02/27/22 1032 Promethazine HCl (Promethazine Tablet) 25 Mg Tablet, 25 MG PO Q6H PRN for NAUSEA/VOMITING Prescribed by: YESY LALA on 03/01/22 2351 Review of Systems Review of Systems Constitutional: No chills, No diaphoresis, No fever EENTM: No Blurred Vision, No Double Vision Respiratory: Denies Cough, Denies Shortness of Air Cardiovascular: Denies Chest Pain, Denies Lightheadedness Gastrointestinal: See HPI, Abdominal Pain; Denies Constipated; Diarrhea, Nausea, Poor Fluid Intake, Vomiting Genitourinary: Denies Burning, Denies Discharge Musculoskeletal: No back pain, No joint pain Skin: No pruritus, No rash Psychiatric/Neurological: Denies Headache, Denies Numbness All Other Systems Reviewed Negative Unless Noted: Yes Past Uklsnoq-Kmhvqa-Hutaub Hx Patient Social History Tobacco Use?: Yes Tobacco type used: Cigarettes Use of E-Cig and/or Vaping dev: No Substance use?: No Immunizations Up To Date First/Initial COVID19 Vaccinat: n/a Second COVID19 Vaccination Lion: n/a Third COVID19 Vaccination Date: n/a Past Medical History Surgery/Hospitalization HX: epilepsy, hypothyroidism, HTN, neuropathy, SVT with ablation. Seizure Disorder Renal Failure Liver Disease/Jaundice Hypothyroidsim Physical Exam Vital Signs Vital Signs - First Documented 05/02/22 00:17 Temp 36.0 Pulse 117 Resp 20 B/P (MAP) 173/116 (135) Pulse Ox 98 O2 Delivery Room Air Capillary Refill : Height/Weight/BMI Height: '" Weight: lbs. oz. kg; 38.00 BMI Method: General Appearance: WD/WN, mild distress HEENT: PERRL/EOMI, normal ENT inspection, TMs normal; No pharynx normal (Dry oral mucosa with blue staining of the tongue) Neck: non-tender, full range of motion, supple, normal inspection Respiratory: lungs clear, normal breath sounds, no respiratory distress, no accessory muscle use Cardiovascular: normal peripheral pulses, regular rate, rhythm Gastrointestinal: normal bowel sounds, soft, tenderness (Left lower quadrant) Extremities: normal range of motion, non-tender, normal capillary refill Neurologic/Psychiatric: alert, normal mood/affect, oriented x 3 Skin: normal color, warm/dry Progress/Results/Core Measures Results/Orders Lab Results Laboratory Tests Test 05/02/22 00:18 05/02/22 00:48 05/02/22 02:10 05/02/22 02:13 Range/Units Influenza Type A (RT-PCR) Not Detected Not Detecte Influenza Type B (RT-PCR) Not Detected Not Detecte SARS-CoV-2 RNA (RT-PCR) Not Detected Not Detecte White Blood Count 10.4 4.3-11.0 10^3/uL Red Blood Count 4.37 4.30-5.52 10^6/uL Hemoglobin 14.1 13.3-17.7 g/dL Hematocrit 39 L 40-54 % Mean Corpuscular Volume 90 80-99 fL Mean Corpuscular Hemoglobin 32 25-34 pg Mean Corpuscular Hemoglobin Concent 36 32-36 g/dL Red Cell Distribution Width 11.4 10.0-14.5 % Platelet Count 215 130-400 10^3/uL Mean Platelet Volume 11.3 9.0-12.2 fL Immature Granulocyte % (Auto) 0 % Neutrophils (%) (Auto) 75 42-75 % Lymphocytes (%) (Auto) 14 12-44 % Monocytes (%) (Auto) 11 0-12 % Eosinophils (%) (Auto) 0 0-10 % Basophils (%) (Auto) 0 0-10 % Neutrophils # (Auto) 7.8 1.8-7.8 10^3/uL Lymphocytes # (Auto) 1.4 1.0-4.0 10^3/uL Monocytes # (Auto) 1.2 H 0.0-1.0 10^3/uL Eosinophils # (Auto) 0.0 0.0-0.3 10^3/uL Basophils # (Auto) 0.0 0.0-0.1 10^3/uL Immature Granulocyte # (Auto) 0.0 0.0-0.1 10^3/uL Sodium Level 141 135-145 MMOL/L Potassium Level 4.3 3.6-5.0 MMOL/L Chloride Level 98 98-107 MMOL/L Carbon Dioxide Level 29 21-32 MMOL/L Anion Gap 14 5-14 MMOL/L Blood Urea Nitrogen 18 7-18 MG/DL Creatinine 2.59 #H 0.60-1.30 MG/DL Estimat Glomerular Filtration Rate 35 BUN/Creatinine Ratio 7 Glucose Level 111 H 70-105 MG/DL Calcium Level 16.2 *H 15.9 *H 8.5-10.1 MG/DL Corrected Calcium 8.5-10.1 MG/DL Magnesium Level 1.5 L 1.6-2.4 MG/DL Total Bilirubin 0.5 0.1-1.0 MG/DL Aspartate Amino Transf (AST/SGOT) 77 H 5-34 U/L Alanine Aminotransferase (ALT/SGPT) 147 H 0-55 U/L Alkaline Phosphatase 65 40-136 U/L C-Reactive Protein High Sensitivity 0.28 0.00-0.50 MG/DL Total Protein 8.2 6.4-8.2 GM/DL Albumin 5.0 H 3.2-4.5 GM/DL My Orders Orders - YESY LALA 19 Inhouse Test (05/02/22 00:03) Influenza A And B By Pcr (05/02/22 00:03) Ed Iv/Invasive Line Start (05/02/22 00:32) Lactated Ringers (Lr 1000 Ml Iv Solution (05/02/22 00:45) Cbc With Automated Diff (05/02/22 00:32) Comprehensive Metabolic Panel (05/02/22 00:32) Hs C Reactive Protein (05/02/22 00:32) Magnesium (05/02/22 00:32) Lidocaine 2% Viscous 15 Ml (Xylocaine Vi (05/02/22 00:45) Famotidine Tablet (Pepcid Tablet) (05/02/22 00:35) Antacid Suspension (Mylanta Suspension (05/02/22 00:45) Ondansetron Injection (Zofran Injectio (05/02/22 00:45) Para Thryoid Hormone Intact (05/02/22 01:50) Thyroid Stimulating Hormone (05/02/22 01:50) Calcium (05/02/22 01:50) Ionized Calcium (05/02/22 01:50) Vitamin D 25-Hydroxy (05/02/22 01:50) Ed Iv/Invasive Line Start (05/02/22 02:17) Ns Iv 1000 Ml (Sodium Chloride 0.9%) (05/02/22 02:30) Magnesium 1 Gm/100 Ml Ivpb (Magnesium Mcdaniel (05/02/22 02:30) Medications Given in ED Current Medications Medications Dose Ordered Sig/Macho Route Start Time Stop Time Status Last Admin Dose Admin Al Hydrox/Mg Hydrox/Simethicone 30 ml ONCE ONCE PO 05/02/22 00:45 05/02/22 00:46 DC 05/02/22 01:29 30 ML Lactated Ringer's 1,000 ml @ 0 mls/hr Q0M ONCE IV 05/02/22 00:45 05/02/22 00:46 DC 05/02/22 00:46 0 MLS/HR Lidocaine HCl 15 ml ONCE ONCE PO 05/02/22 00:45 05/02/22 00:46 DC 05/02/22 01:29 15 ML Magnesium Sulfate/ Dextrose 100 ml @ 100 mls/hr ONCE ONCE IV 05/02/22 02:30 05/02/22 03:29 05/02/22 02:27 100 MLS/HR Ondansetron HCl 8 mg ONCE ONCE IVP 05/02/22 00:45 05/02/22 00:46 DC 05/02/22 00:46 8 MG Vital Signs/I&O 05/02/22 00:17 Temp 36.0 Pulse 117 Resp 20 B/P (MAP) 173/116 (135) Pulse Ox 98 O2 Delivery Room Air Progress Progress Note #1: Time: 00:31 Progress Note Dry oral mucosa and history of 6 days of nausea vomiting diarrhea. Plan to give him a liter of lactated Ringer's, swabbing for COVID check some basic labs and electrolytes. 8 mg Zofran IV and Pepcid with a GI cocktail per his request. Progress Note #2: Time: 02:02 Progress Note The patient has a significantly elevated calcium of unclear origin. Plan to order a PTH and ionized calcium which neither of which will be back today. He denies taking any calcium containing medications or supplements. He has a history of elevated calcium however has not been this high before. He does not take thiazide diuretics, lithium, vitamin A or theophylline. No known history of malignancy. No vitamin D supplementation. He does not have vital signs or history consistent with a pheochromocytoma. He does not have acromegaly or long periods of immobilization. We will check TSH. Calcium corrected for hypoalbu minemia is 15.4 mg/dL. He has a history of chronically high calcium and that may be contributing to his lack of symptoms however since it is still greater than 14 we recommend inpatient treatment. A urine creatinine and calcium can be used to calculate a calcium creatinine clearance ratio to help differentiate from Familial hypocalciuric hypercalcemia. Departure Communication (Admissions) Time/Spoke to Admitting Phy: 02:45 Discussed the case with Dr. Meza who agrees to admit the patient with IV fluids. Impression Primary Impression: Viral gastroenteritis Additional Impression: Hypercalcemia Disposition: ADMITTED INPATIENT Condition: Stable Admissions Decision to Admit Reason: Admit from ER (General) Decision to Admit/Date: May 02, 2022 Time/Decision to Admit Time: 02:45 Departure-Patient Inst. Referrals: BEHZAD MOLINA MD (PCP) Primary Care Physician SHAYNA MAI APRN (Family) Primary Care Physician YESY LALA May 02, 2022 00:25
[2022-05-02] MEDS ORDERED: FAMOTIDINE 20 MG (PEPCID) TABLET PO STA (00:35)
[2022-05-02] MEDS ORDERED: ANTACID SUSP 30 ML UDC (MYLANTA) PO ONE (00:45)
[2022-05-02] MEDS ORDERED: LACTATED RINGERS 1,000 ML IV ONE (00:45)
[2022-05-02] MEDS ORDERED: ONDANSETRON 4 MG/2 ML (SDV) Z0FRAN IVP ONE (00:45)
[2022-05-02] MEDS ORDERED: LIDOCAINE 2% VISCOUS 15 ML UDC PO ONE (00:45)
[2022-05-02 00:53] LABS: BASOPHILS % (AUTO) 0 % (0-10); EOSINOPHILS % (AUTO) 0 % (0-10); HEMATOCRIT 39 % (40-54); HEMOGLOBIN 14.1 g/dL (13.3-17.7); LYMPHOCYTES # (AUTO) 1.4 10^3/uL (1.0-4.0); LYMPHOCYTES % (AUTO) 14 % (12-44); MEAN CORPUSCULAR HEMOGLOBIN 32 pg (25-34); MEAN CORPUSCULAR HGB CONC 36 g/dL (32-36); MEAN CORPUSCULAR VOLUME 90 fL (80-99); MEAN PLATELET VOLUME 11.3 fL (9.0-12.2); MONOCYTES # (AUTO) 1.2 10^3/uL (0.0-1.0); MONOCYTES % (AUTO) 11 % (0-12); NEUTROPHILS # (AUTO) 7.8 10^3/uL (1.8-7.8); NEUTROPHILS % (AUTO) 75 % (42-75); PLATELET COUNT 215 10^3/uL (130-400); WHITE BLOOD COUNT 10.4 10^3/uL (4.3-11.0)
[2022-05-02 01:03] LABS: CHLORIDE 98 MMOL/L (98-107); POTASSIUM 4.3 MMOL/L (3.6-5.0); SODIUM 141 MMOL/L (135-145)
[2022-05-02 01:05] LABS: GLUCOSE 111 MG/DL (70-105); TOTAL PROTEIN 8.2 GM/DL (6.4-8.2)
[2022-05-02 01:07] LABS: BILIRUBIN,TOTAL 0.5 MG/DL (0.1-1.0); CARBON DIOXIDE 29 MMOL/L (21-32)
[2022-05-02 01:09] LABS: ALKALINE PHOSPHATASE 65 U/L (40-136); CREATININE SERUM 2.59 MG/DL (0.60-1.30); GFR ESTIMATED 35
[2022-05-02 01:10] LABS: BUN/CREATININE RATIO 7
[2022-05-02 01:12] LABS: ALANINE AMINOTRANSFERASE 147 U/L (0-55)
[2022-05-02 01:13] LABS: MAGNESIUM 1.5 MG/DL (1.6-2.4)
[2022-05-02 01:14] LABS: CALCIUM 16.2 MG/DL (8.5-10.1)
[2022-05-02] MEDS ORDERED: MAGNESIUM 1 GM/100 ML IVPB 100 ML IV ONE (02:30)
[2022-05-02] MEDS ORDERED: NS IV 1000 ML 1,000 ML IV SCH (02:30)
[2022-05-02 02:39] LABS: CALCIUM 15.9 MG/DL (8.5-10.1)
[2022-05-02 03:45] VITALS: BP 136/77
[2022-05-02] MEDS ORDERED: ONDANSETRON 4 MG/2 ML (SDV) Z0FRAN IV PRN (04:00)
[2022-05-02] MEDS ORDERED: LOPERAMIDE 2 MG (IMODIUM) TABLET PO PRN (04:00)
[2022-05-02] MEDS: NS IV 1000 ML 1,000 ML IV SCH ×5 (04:05→19:22)
[2022-05-02 05:51] LABS: BASOPHILS % (AUTO) 0 % (0-10); EOSINOPHILS % (AUTO) 0 % (0-10); HEMATOCRIT 33 % (40-54); HEMOGLOBIN 11.7 g/dL (13.3-17.7); LYMPHOCYTES # (AUTO) 1.5 10^3/uL (1.0-4.0); LYMPHOCYTES % (AUTO) 23 % (12-44); MEAN CORPUSCULAR HEMOGLOBIN 33 pg (25-34); MEAN CORPUSCULAR HGB CONC 36 g/dL (32-36); MEAN CORPUSCULAR VOLUME 93 fL (80-99); MEAN PLATELET VOLUME 11.9 fL (9.0-12.2); MONOCYTES # (AUTO) 0.6 10^3/uL (0.0-1.0); MONOCYTES % (AUTO) 9 % (0-12); NEUTROPHILS # (AUTO) 4.6 10^3/uL (1.8-7.8); NEUTROPHILS % (AUTO) 68 % (42-75); PLATELET COUNT 171 10^3/uL (130-400); WHITE BLOOD COUNT 6.8 10^3/uL (4.3-11.0)
[2022-05-02 06:00] LABS: POTASSIUM 3.2 MMOL/L (3.6-5.0)
[2022-05-02 06:06] LABS: CREATININE SERUM 2.35 MG/DL (0.60-1.30)
[2022-05-02 06:14] LABS: CALCIUM 13.7 MG/DL (8.5-10.1)
[2022-05-02 07:33] VITALS: BP 127/64
[2022-05-02] MEDS: ACETAMINOPHEN 325 MG TABLET PO PRN ×2 (08:24→20:37)
[2022-05-02] MEDS ORDERED: GABAPENTIN 300 MG (NEURONTIN) CAP PO SCH (10:28)
[2022-05-02] MEDS ORDERED: PATIENT MAY USE OWN MEDS, ALL MC SCH (10:30)
[2022-05-02] MEDS: GABAPENTIN 300 MG (NEURONTIN) CAP PO SCH ×2 (11:41→20:33)
[2022-05-02] MEDS: DIVALPROEX 500 MG DELAYED RELEASE (DEPAKOTE) TAB PO SCH ×2 (11:41→20:33)
[2022-05-02 11:44] VITALS: BP 151/71
[2022-05-02] MEDS ORDERED: FAMO20TA5 PO (12:19)
[2022-05-02] MEDS ORDERED: METO75TA PO (12:19)
[2022-05-02] MEDS ORDERED: IBUP-2473 PO (12:19)
--- NOTE | 2022-05-02 14:46 | History & Physical-Hospitalist ---
History of Present Illness HPI/Chief Complaint Montez Ulloa is a 21 year old male with PMH HTN, GERD, CKD, hypercalcemia, who presented with abdominal pain. He also reports nausea and vomiting. He has been having symptoms for about a week. He denies fevers and chills. He denies chest pain and palpitaitons. He denies shortness of breath and cough. He denies urinary symptoms. Source: patient Exam Limitations: no limitations Date Seen 05/02/22 Time Seen by a Provider: 10:00 Attending Physician Gi Quinteros MD PCP Admitting Physician: Jaclny Meza DO Attending Physician: Ninoska Pabon MD Referring Physician Date of Admission May 02, 2022 at 02:50 Home Medications & Allergies Home Medications Reviewed patient Home Medication Reconciliation performed by pharmacy medication reconciliations management services technician and/or nursing. Patients Allergies have been reviewed. Allergies Allergies Coded Allergies Penicillins (Verified Allergy, Unknown, 02/11/22) amoxicillin (Verified Allergy, Unknown, 02/11/22) latex (Verified Allergy, Unknown, 02/11/22) meclizine (Verified Allergy, Unknown, 02/20/22) Past Vdxuopp-Eqnink-Hcfdfm Hx Patient Social History Tobacco Use?: Yes Tobacco type used: Cigarettes Smoking Status: Current Everyday Smoker Use of E-Cig and/or Vaping dev: No Substance use?: No Alcohol Use?: No Pt feels they are or have been: No Immunizations Up To Date First/Initial COVID19 Vaccinat: n/a Second COVID19 Vaccination Lion: n/a Tetanus Booster (TDap): Less Than 5 Years Current Status Advance Directives: No Communicates: Verbally Primary Language: Sri Lankan Preferred Spoken Language: [place]ankan Is interpretation needed?: No Sensory deficits: Vision impairment Past Medical History Seizure Disorder Renal Failure Liver Disease/Jaundice Hypothyroidsim Family Medical History No Pertinent Family Hx Review of Systems Constitutional: no symptoms reported EENTM: no symptoms reported Respiratory: no symptoms reported Gastrointestinal: abdominal pain, nausea, vomiting Physical Exam Physical Exam Vital Signs Vital Signs - First Documented 05/02/22 00:17 Temp 36.0 Pulse 117 Resp 20 B/P (MAP) 173/116 (135) Pulse Ox 98 O2 Delivery Room Air Capillary Refill : Less Than 3 Seconds Height, Weight, BMI Height: '" Weight: lbs. oz. kg; 33.64 BMI Method: General Appearance: No Apparent Distress, Obese HEENT: PERRL/EOMI, Pharynx Normal Neck: Normal Inspection, Supple Respiratory: Lungs Clear, Normal Breath Sounds, No Respiratory Distress Cardiovascular: Regular Rate, Rhythm, No Edema, No Murmur Gastrointestinal: Normal Bowel Sounds, Non Tender, Soft Extremity: Normal Inspection, No Pedal Edema Neurologic/Psychiatric: Alert, Other (flat affect) Skin: Normal Color, Warm/Dry Results Results/Procedures Labs Laboratory Tests 05/02/22 00:48 05/02/22 05:36 Patient resulted labs reviewed. Imaging: Reviewed Imaging Report Assessment/Plan Admission Diagnosis Hypercalcemia Admission Status: Observation Assessment and Plan Hypercalcemia CYRUS on CKD Ca >16 on arrival Started on IV fluids Improved to 13.8 after a few hours Repeat Ca this afternoon PTH previously low/low-normal, repeat pending PTH related-peptide pending Vitamin D previously low, repeat pending Cr 2.5, slowly improving with IV fluids Consider Pamidronate if calcium remains elevated, deferring at this time due to renal function HTN GERD Seizure disorder Hypothyroidism Continue home meds DVT prophylaxis: ambulation Diagnosis/Problems Diagnosis/Problems (1) Hypercalcemia Status: Acute (2) Acute kidney injury superimposed on chronic kidney disease Status: Acute NINOSKA PABON MD May 02, 2022 14:46
[2022-05-02 15:48] LABS: POTASSIUM 3.6 MMOL/L (3.6-5.0)
[2022-05-02 15:49] LABS: CALCIUM 11.9 MG/DL (8.5-10.1)
[2022-05-02 15:53] LABS: CREATININE SERUM 2.37 MG/DL (0.60-1.30)
[2022-05-02 16:48] VITALS: BP 163/92
[2022-05-02 19:53] VITALS: BP 140/65
[2022-05-02] MEDS: meTOprolol TARTRATE 25 MG (LOPRESSOR) TABLET PO SCH (20:32)
[2022-05-02 23:08] VITALS: BP 120/60
[2022-05-03 03:21] VITALS: BP 134/76
[2022-05-03] MEDS: NS IV 1000 ML 1,000 ML IV SCH ×3 (04:25→10:07)
[2022-05-03] MEDS: ACETAMINOPHEN 325 MG TABLET PO PRN (05:42)
[2022-05-03 06:12] LABS: POTASSIUM 3.8 MMOL/L (3.6-5.0)
[2022-05-03 06:13] LABS: CALCIUM 9.8 MG/DL (8.5-10.1)
[2022-05-03 06:17] LABS: CREATININE SERUM 1.9 MG/DL (0.60-1.30)
[2022-05-03] MEDS ORDERED: LEVOTHYROXINE 25 MCG (LEVOTHROID) TAB PO SCH (06:30)
[2022-05-03 07:40] VITALS: BP 133/79
[2022-05-03] MEDS: DIVALPROEX 500 MG DELAYED RELEASE (DEPAKOTE) TAB PO SCH (08:20)
[2022-05-03] MEDS: GABAPENTIN 300 MG (NEURONTIN) CAP PO SCH (08:21)
[2022-05-03] MEDS: meTOprolol TARTRATE 25 MG (LOPRESSOR) TABLET PO SCH (08:21)
[2022-05-03] MEDS ORDERED: FAMOTIDINE 20 MG (PEPCID) TABLET PO SCH (09:00)
[2022-05-03 11:50] VITALS: BP 133/79
--- NOTE | 2022-05-03 20:07 | Discharge Summary ---
Discharge Summary Hospital Course Problems/Dx: (1) Hypercalcemia Status: Acute (2) Acute kidney injury superimposed on chronic kidney disease Status: Acute Hospital Course Date of Admission: May 02, 2022 at 02:50 Admission Diagnosis : Hypercalcemia Family Physician/Provider: Kelly Sanz Aprn Date of Discharge: 05/03/22 Discharge Diagnosis: Hypercalcemia, CYRUS on CKD Hospital Course: Montez Ulloa is a 21 year old male who presented with abdominal pain and was admitted with hypercalemia. He has been having issues with high calcium levels for several months. He has had 13 ER visits at our facility over the past three months. His calcium levels were confirmed elevated by ionized Calcium. PTH levels were low. His Vitamin D levels were low. He had a PTH related peptide drawn previously but it has yet to be completed due to reported supply chain issues. Another sample was sent. He was treated with IV fluids and his calcium levels normalized. Consideration should be given for Pamidronate or Zolendronate as an outpatient if his calcium levels again increase. His course was complicated by CYRUS on CKD. He is establishing with a supervisor pigment making as an outpatient. He was discharged home in stable condition. Labs and Pending Lab Test: Laboratory Tests 05/03/22 05:04: Sodium Level 141, Potassium Level 3.8, Chloride Level 109H, Carbon Dioxide Level 22, Anion Gap 10, Blood Urea Nitrogen 19H, Creatinine 1.90H, Estimat Glomerular Filtration Rate 51, BUN/Creatinine Ratio 10, Glucose Level 85, Calcium Level 9.8 Home Meds Active Reported Famotidine 20 Mg Tablet 20 Mg PO DAILY LAST FILLED 03-10-2022 #30 DAY SUPPLY Metoprolol Tartrate 75 Mg Tablet 75 Mg PO BID Ibuprofen 200 Mg Tablet 400-600 Mg PO Q8H PRN Levothyroxine Sodium 25 Mcg Tablet 25 Mcg PO DAILY Neurontin (Gabapentin) 300 Mg Capsule 300 Mg PO TID Divalproex Sodium 500 Mg Tablet.dr 500 Mg PO TID Assessment/Pt Instructions See instructions Discharge Planning: <30 minutes discharge planning Discharge Instructions Discharge Diet: Low Sodium Diet Activity as Tolerated: Yes Discharge Physical Examination Vital Signs Vital Signs Date Time Temp Pulse Resp B/P (MAP) Pulse Ox O2 Delivery O2 Flow Rate FiO2 05/03/22 11:50 36.4 57 18 133/79 93 Room Air General Appearance: No Apparent Distress, Obese Respiratory: Lungs Clear, No Respiratory Distress Cardiovascular: Regular Rate, Rhythm, No Murmur Gastrointestinal: Normal Bowel Sounds, Soft Extremity: Normal Inspection, No Pedal Edema Skin: Normal Color, Warm/Dry Neurologic/Psychiatric: Alert, Normal Mood/Affect Allergies: Coded Allergies: Penicillins (Verified Allergy, Unknown, 02/11/22) amoxicillin (Verified Allergy, Unknown, 02/11/22) latex (Verified Allergy, Unknown, 02/11/22) meclizine (Verified Allergy, Unknown, 02/20/22) Discharge Summary Date of Admission May 02, 2022 at 02:50 Date of Discharge May 03, 2022 at 11:51 Discharge Date: May 03, 2022 Discharge Time: 11:51 Admission Diagnosis Hypercalcemia Discharge Diagnosis Hypercalcemia CYRUS on CKD (1) Hypercalcemia Status: Acute (2) Acute kidney injury superimposed on chronic kidney disease Status: Acute NINOSKA PABON MD May 03, 2022 20:06
== END 2022-05-03 10:31 | disposition home or self-care (01) ==
LOC: EDUNIT# 23:52 → ER 23:55 → 4TH 23:56 → UNDOADMOB 05-02 02:50 → 4TH 05-02 02:50 → UNDODISOB 05-03 11:51
PROVIDERS: ADMIT Internal Medicine; ATTEND Internal Medicine
DX: K52.9 Noninfective gastroenteritis and colitis, unspecified (principal); E83.52 Hypercalcemia; I12.0 Hypertensive chronic kidney disease with stage 5 chronic kidney disease or end stage renal disease; N17.9 Acute kidney failure, unspecified; N18.9 Chronic kidney disease, unspecified; F17.210 Nicotine dependence, cigarettes, uncomplicated; Z79.899 Other long term (current) drug therapy; K21.9 Gastro-esophageal reflux disease without esophagitis; G40.909 Epilepsy, unspecified, not intractable, without status epilepticus; E03.9 Hypothyroidism, unspecified; Z79.890 Hormone replacement therapy
CPT/HCPCS: 80048 ×2; 80053; 82306; 82310; 82330; 83519; 83735; 83970; 84443; 85025; 86141; 87636; 93005; 96361 ×2; 96365; 96375; 99284; G0378; 36415

== ENCOUNTER 2022-05-16 23:37 | Emergency (ER) | payer MEDICAID ==
[~2022-05-16 23:37] MED LIST changes: +FAMO20TA5 PO; +IBUP-2473 PO; +METO75TA PO
[2022-05-16] MEDS ORDERED: ONDANSETRON 4 MG/2 ML (SDV) Z0FRAN IVP ONE (23:45)
[2022-05-16] MEDS ORDERED: PANTOPRAZOLE 40 MG (PROTONIX) VIAL IV ONE (23:45)
--- NOTE | 2022-05-16 23:49 | ED GI ---
General Stated Complaint: N/V Source of Information: Patient Exam Limitations: No Limitations History of Present Illness Date Seen by Provider: May 16, 2022 Time Seen by Provider: 23:35 Initial Comments Patient to the ER by EMS from across the street at [facility] with chief complaint that he is having nausea vomiting x4 days with epigastric abdominal discomfort. He had some ondansetron leftover and he took some last at 9:00 but does not feel that it helped for very long. He says typically when he gets bad he has to go to the EMS to go to the ER because IV nausea medicine is necessary. He has had reactions to Phenergan and Compazine and does not want these. He denies any abdominal surgeries. He is not having fevers or chills. No history of diabetes but he does have prediabetes. No history of pancreatitis. Does not drink alcohol. Denies recreational drugs. EMS initiated an IV and a liter of fluids. He is not having any blood in his emesis but he did have a red slurpy at [facility]. He has not had a bowel movement in 3 days but he states he is also not been able to keep anything down except for fluids. Allergies and Home Medications Allergies Coded Allergies: Penicillins (Verified Allergy, Unknown, 02/11/22) amoxicillin (Verified Allergy, Unknown, 02/11/22) latex (Verified Allergy, Unknown, 02/11/22) meclizine (Verified Allergy, Unknown, 02/20/22) Patient Home Medication List Home Medication List Reviewed: Yes Divalproex Sodium (Divalproex Sodium) 500 Mg Tablet.dr, 500 MG PO TID, (Reported) Entered as Reported by: LUZ MARINA PEGUERO on 02/11/222219 Famotidine (Famotidine) 20 Mg Tablet, 20 MG PO DAILY, (Reported) Entered as Reported by: TRUPTI EVANS on 05/02/22 1219 Gabapentin (Neurontin) 300 Mg Capsule, 300 MG PO TID, (Reported) Entered as Reported by: LEANNA DASILVA on 02/12/22 1138 Ibuprofen (Ibuprofen) 200 Mg Tablet, 400-600 MG PO Q8H PRN for PAIN-MILD (1-4), (Reported) Entered as Reported by: TRUPTI EVANS on 05/02/22 1219 Levothyroxine Sodium (Levothyroxine Sodium) 25 Mcg Tablet, 25 MCG PO DAILY, (Reported) Entered as Reported by: LEANNA DASILVA on 02/12/22 1138 Metoprolol Tartrate (Metoprolol Tartrate) 75 Mg Tablet, 75 MG PO BID, (Reported) Entered as Reported by: TRUPTI EVANS on 05/02/22 1219 Ondansetron (Ondansetron Odt) 4 Mg Tab.rapdis, 4-8 MG PO Q6H PRN for NAUSEA/VOMITING Prescribed by: YESY LALA on 05/17/22 0203 Review of Systems Review of Systems Constitutional: No chills, No diaphoresis EENTM: No Blurred Vision, No Double Vision Respiratory: Denies Cough, Denies Shortness of Air Cardiovascular: Denies Chest Pain, Denies Lightheadedness Gastrointestinal: Abdominal Pain; Denies Constipated, Denies Diarrhea; Nausea, Poor Fluid Intake, Vomiting Genitourinary: Denies Burning, Denies Discharge, Denies Drainage All Other Systems Reviewed Negative Unless Noted: Yes Past Vghdxlc-Pntcjg-Finaun Hx Patient Social History Tobacco Use?: No Use of E-Cig and/or Vaping dev: No Immunizations Up To Date First/Initial COVID19 Vaccinat: n/a Second COVID19 Vaccination Lion: n/a Third COVID19 Vaccination Date: n/a Past Medical History Surgery/Hospitalization HX: SVT with ablation Seizure Disorder Renal Failure Liver Disease/Jaundice Hypothyroidsim Family Medical History No Pertinent Family Hx Physical Exam Vital Signs Vital Signs - First Documented 05/16/22 05/17/22 23:37 02:30 Temp 36.8 Pulse 107 Resp 18 B/P (MAP) 146/111 (123) Pulse Ox 93 O2 Delivery Room Air Capillary Refill : Height/Weight/BMI Height: '" Weight: lbs. oz. kg; 33.64 BMI Method: General Appearance: WD/WN, no apparent distress HEENT: PERRL/EOMI, pharynx normal Neck: full range of motion, supple, normal inspection Respiratory: lungs clear, normal breath sounds, no respiratory distress, no accessory muscle use Cardiovascular: normal peripheral pulses, regular rate, rhythm Peripheral Pulses: 2+ Radial Pulses (R), 2+ Radial Pulses (L) Gastrointestinal: normal bowel sounds, non tender, soft, no organomegaly, other (No mesenteric signs. No acute surgical abdomen) Extremities: non-tender, normal inspection, normal capillary refill Neurologic/Psychiatric: alert, normal mood/affect, oriented x 3 Skin: normal color, warm/dry Progress/Results/Core Measures Results/Orders Lab Results Laboratory Tests Test 05/16/22 23:40 05/16/22 23:51 Range/Units White Blood Count 9.0 4.3-11.0 10^3/uL Red Blood Count 4.53 4.30-5.52 10^6/uL Hemoglobin 14.7 13.3-17.7 g/dL Hematocrit 41 40-54 % Mean Corpuscular Volume 91 80-99 fL Mean Corpuscular Hemoglobin 33 25-34 pg Mean Corpuscular Hemoglobin Concent 36 32-36 g/dL Red Cell Distribution Width 11.4 10.0-14.5 % Platelet Count 264 130-400 10^3/uL Mean Platelet Volume 11.5 9.0-12.2 fL Immature Granulocyte % (Auto) 0 % Neutrophils (%) (Auto) 61 42-75 % Lymphocytes (%) (Auto) 25 12-44 % Monocytes (%) (Auto) 12 0-12 % Eosinophils (%) (Auto) 1 0-10 % Basophils (%) (Auto) 0 0-10 % Neutrophils # (Auto) 5.5 1.8-7.8 10^3/uL Lymphocytes # (Auto) 2.3 1.0-4.0 10^3/uL Monocytes # (Auto) 1.1 H 0.0-1.0 10^3/uL Eosinophils # (Auto) 0.1 0.0-0.3 10^3/uL Basophils # (Auto) 0.0 0.0-0.1 10^3/uL Immature Granulocyte # (Auto) 0.0 0.0-0.1 10^3/uL Sodium Level 138 135-145 MMOL/L Potassium Level 3.8 3.6-5.0 MMOL/L Chloride Level 96 L 98-107 MMOL/L Carbon Dioxide Level 27 21-32 MMOL/L Anion Gap 15 H 5-14 MMOL/L Blood Urea Nitrogen 24 H 7-18 MG/DL Creatinine 2.94 H 0.60-1.30 MG/DL Estimat Glomerular Filtration Rate 30 BUN/Creatinine Ratio 8 Glucose Level 102 70-105 MG/DL Calcium Level 14.3 *H 8.5-10.1 MG/DL Corrected Calcium 8.5-10.1 MG/DL Magnesium Level 1.7 1.6-2.4 MG/DL Total Bilirubin 0.8 0.1-1.0 MG/DL Aspartate Amino Transf (AST/SGOT) 66 H 5-34 U/L Alanine Aminotransferase (ALT/SGPT) 108 H 0-55 U/L Alkaline Phosphatase 74 40-136 U/L C-Reactive Protein High Sensitivity 0.56 H 0.00-0.50 MG/DL Total Protein 8.2 6.4-8.2 GM/DL Albumin 5.1 H 3.2-4.5 GM/DL Lipase 15 8-78 U/L Influenza Type A (RT-PCR) Not Detected Not Detecte Influenza Type B (RT-PCR) Not Detected Not Detecte SARS-CoV-2 RNA (RT-PCR) Detected H Not Detecte My Orders Orders - YESY LALA Cbc With Automated Diff (05/16/22 23:43) Comprehensive Metabolic Panel (05/16/22 23:43) Hs C Reactive Protein (05/16/22 23:43) Lipase (05/16/22 23:43) Pantoprazole Injection (Protonix Injecti (05/16/22 23:45) Covid 19 Inhouse Test (05/16/22 23:43) Influenza A And B By Pcr (05/16/22 23:43) Magnesium (05/16/22 23:43) Ua Culture If Indicated (05/16/22 23:43) Drug Screen Stat (Urine) (05/16/22 23:43) Ondansetron Injection (Zofran Injectio (05/16/22 23:45) Ed Iv/Invasive Line Start (05/17/22 00:42) Ns Iv 1000 Ml (Sodium Chloride 0.9%) (05/17/22 00:45) Famotidine Tablet (Pepcid Tablet) (05/17/22 00:45) Antacid Suspension (Mylanta Suspension (05/17/22 00:45) Medications Given in ED Current Medications Medications Dose Ordered Sig/Macho Route Start Time Stop Time Status Last Admin Dose Admin Famotidine 20 mg ONCE ONCE PO 05/17/22 00:45 05/17/22 00:46 DC 05/17/22 02:19 20 MG Ondansetron HCl 8 mg ONCE ONCE IVP 05/16/22 23:45 05/16/22 23:47 DC 05/17/22 00:11 8 MG Vital Signs/I&O 05/16/22 05/17/22 23:37 02:30 Temp 36.8 Pulse 107 78 Resp 18 16 B/P (MAP) 146/111 (123) 131/111 Pulse Ox 93 94 O2 Delivery Room Air Room Air 05/17/22 00:00 Intake Total 100 ml Balance 100 ml Progress Progress Note #1: Time: 23:48 Progress Note Swab for COVID and flu. Labs to include lipase, urinalysis etc. We will let him receive the first liter of fluids and check electrolytes and give him 40 of Protonix and 8 of Zofran. Progress Note #2: Time: 02:00 Progress Note Patient had a moderately elevated creatinine and dehydration. A second liter of fluids was given. The patient is sleeping symptoms have been resolved. We will send him home with some ondansetron. Pepcid for his reflux. Patient is okay with this plan. Return precautions were gone over. Departure Impression Primary Impression: COVID-19 Additional Impressions: Gastroenteritis Dehydration Disposition: 01 HOME, SELF-CARE Condition: Stable Departure-Patient Inst. Decision time for Depature: 02:01 Referrals: BEHZAD MOLINA MD (PCP) Primary Care Physician SHAYNA MAI APRN (Family) Primary Care Physician Patient Instructions: COVID-19 Overview, Viral Gastroenteritis, Adult (DC) Add. Discharge Instructions: Drink lots of fluids. Avoid spicy greasy foods. Ondansetron 1 tablet every 6 hours. If you are still having nausea or vomiting 30 to 45 minutes later then take a second tablet. Pepcid, Maalox, Rolaids, Tums etc. as necessary for stomach pain. Return to the ER for intractable vomiting, shortness of air resulting in oxygen saturations below 90% or other worsening symptoms. Scripts Ondansetron (Ondansetron Odt) 4 Mg Tab.rapdis 4-8 MG PO Q6H PRN for NAUSEA/VOMITING, #20 TAB 0 Refills Prov: YESY LALA 05/17/22 YESY LALA May 16, 2022 23:49
[2022-05-16 23:54] LABS: BASOPHILS % (AUTO) 0 % (0-10); EOSINOPHILS # (AUTO) 0.1 10^3/uL (0.0-0.3); EOSINOPHILS % (AUTO) 1 % (0-10); HEMATOCRIT 41 % (40-54); HEMOGLOBIN 14.7 g/dL (13.3-17.7); LYMPHOCYTES # (AUTO) 2.3 10^3/uL (1.0-4.0); LYMPHOCYTES % (AUTO) 25 % (12-44); MEAN CORPUSCULAR HEMOGLOBIN 33 pg (25-34); MEAN CORPUSCULAR HGB CONC 36 g/dL (32-36); MEAN CORPUSCULAR VOLUME 91 fL (80-99); MEAN PLATELET VOLUME 11.5 fL (9.0-12.2); MONOCYTES # (AUTO) 1.1 10^3/uL (0.0-1.0); MONOCYTES % (AUTO) 12 % (0-12); NEUTROPHILS # (AUTO) 5.5 10^3/uL (1.8-7.8); NEUTROPHILS % (AUTO) 61 % (42-75); PLATELET COUNT 264 10^3/uL (130-400)
[2022-05-16 23:59] LABS: ALBUMIN 5.1 GM/DL (3.2-4.5); CHLORIDE 96 MMOL/L (98-107); POTASSIUM 3.8 MMOL/L (3.6-5.0); SODIUM 138 MMOL/L (135-145)
[2022-05-17 00:01] LABS: GLUCOSE 102 MG/DL (70-105); TOTAL PROTEIN 8.2 GM/DL (6.4-8.2)
[2022-05-17 00:02] LABS: CARBON DIOXIDE 27 MMOL/L (21-32)
[2022-05-17 00:03] LABS: BILIRUBIN,TOTAL 0.8 MG/DL (0.1-1.0)
[2022-05-17 00:05] LABS: ALKALINE PHOSPHATASE 74 U/L (40-136); CREATININE SERUM 2.94 MG/DL (0.60-1.30); GFR ESTIMATED 30
[2022-05-17 00:06] LABS: BUN/CREATININE RATIO 8
[2022-05-17 00:08] LABS: ALANINE AMINOTRANSFERASE 108 U/L (0-55); MAGNESIUM 1.7 MG/DL (1.6-2.4)
[2022-05-17 00:09] LABS: LIPASE 15 U/L (8-78)
[2022-05-17 00:15] LABS: CALCIUM 14.3 MG/DL (8.5-10.1)
[2022-05-17] MEDS ORDERED: FAMOTIDINE 20 MG (PEPCID) TABLET PO ONE (00:45)
[2022-05-17] MEDS ORDERED: ANTACID SUSP 30 ML UDC (MYLANTA) PO ONE (00:45)
[2022-05-17] MEDS ORDERED: NS IV 1000 ML 1,000 ML IV SCH (00:45)
[2022-05-17] MEDS ORDERED: ONDA4TAB11 PO (02:03)
[2022-05-17 02:30] VITALS: BP 131/111
== END 2022-05-17 02:30 | disposition home or self-care (01) ==
LOC: EDUNIT# 23:37 → ER 23:37
DX: U07.1 COVID-19 (principal); K52.9 Noninfective gastroenteritis and colitis, unspecified; E86.0 Dehydration; Z91.040 Latex allergy status; Z28.310 Unvaccinated for COVID-19
CPT/HCPCS: 36415; 80053; 83690; 83735; 85025; 86141; 87636

== ENCOUNTER → 2022-05-22 | Outpatient (CLI) | payer MEDICAID ==
[2022-05-22 15:37] LABS: ALBUMIN 4.4 GM/DL (3.2-4.5); BILIRUBIN,TOTAL 0.2 MG/DL (0.1-1.0); CALCIUM 10.7 MG/DL (8.5-10.1); CREATININE SERUM 1.21 MG/DL (0.60-1.30); POTASSIUM 3.6 MMOL/L (3.6-5.0); TOTAL PROTEIN 6.7 GM/DL (6.4-8.2)
== END ==
LOC: LAB FS 14:46
PROVIDERS: ATTEND Registered Nurse Emergency
DX: I12.9 Hypertensive chronic kidney disease with stage 1 through stage 4 chronic kidney disease, or unspecified chronic kidney disease (principal); E83.52 Hypercalcemia
CPT/HCPCS: 36415; 80053

== ENCOUNTER 2022-05-24 19:55 | Outpatient (CLI) | payer MEDICAID | END 2022-05-25 06:18 | disposition home or self-care (01) | LOC: SLEEP 19:55 | PROVIDERS: ATTEND Registered Nurse Emergency | DX: G47.30 Sleep apnea, unspecified (principal); G47.10 Hypersomnia, unspecified; I12.9 Hypertensive chronic kidney disease with stage 1 through stage 4 chronic kidney disease, or unspecified chronic kidney disease; N18.9 Chronic kidney disease, unspecified; K76.0 Fatty (change of) liver, not elsewhere classified; E83.52 Hypercalcemia; M54.2 Cervicalgia; E78.5 Hyperlipidemia, unspecified; E03.9 Hypothyroidism, unspecified; E66.9 Obesity, unspecified; R73.9 Hyperglycemia, unspecified; Z68.30 Body mass index [BMI] 30.0-30.9, adult | CPT/HCPCS: 36415; 80053; 95810 ==

== ENCOUNTER → 2022-06-13 | Outpatient (CLI) | payer MEDICAID ==
[2022-06-13 16:37] LABS: ALBUMIN 4.4 GM/DL (3.2-4.5); POTASSIUM 3.6 MMOL/L (3.6-5.0)
[2022-06-13 16:38] LABS: CALCIUM 10.3 MG/DL (8.5-10.1)
[2022-06-13 16:41] LABS: BILIRUBIN,TOTAL 0.4 MG/DL (0.1-1.0)
[2022-06-13 16:43] LABS: CREATININE SERUM 1.48 MG/DL (0.60-1.30)
== END ==
LOC: LAB 15:42
PROVIDERS: ATTEND Internal Medicine Nephrology
DX: N18.2 Chronic kidney disease, stage 2 (mild) (principal); E83.52 Hypercalcemia
CPT/HCPCS: 36415; 80053; 82043; 82306; 82570; 82652; 83036; 83970; 84155; 84156; 84165; 84300; 86038; 86160; 86162; 86334

== ENCOUNTER 2022-06-17 23:38 | Emergency (ER) | payer MEDICAID ==
[2022-06-18 00:10] LABS: BASOPHILS % (AUTO) 1 % (0-10); EOSINOPHILS # (AUTO) 0.1 10^3/uL (0.0-0.3); EOSINOPHILS % (AUTO) 1 % (0-10); HEMATOCRIT 33 % (40-54); HEMOGLOBIN 11.7 g/dL (13.3-17.7); LYMPHOCYTES % (AUTO) 32 % (12-44); MEAN CORPUSCULAR HEMOGLOBIN 32 pg (25-34); MEAN CORPUSCULAR HGB CONC 35 g/dL (32-36); MEAN CORPUSCULAR VOLUME 91 fL (80-99); MEAN PLATELET VOLUME 11.4 fL (9.0-12.2); MONOCYTES # (AUTO) 0.5 10^3/uL (0.0-1.0); MONOCYTES % (AUTO) 8 % (0-12); NEUTROPHILS # (AUTO) 3.7 10^3/uL (1.8-7.8); NEUTROPHILS % (AUTO) 58 % (42-75); PLATELET COUNT 213 10^3/uL (130-400); WHITE BLOOD COUNT 6.3 10^3/uL (4.3-11.0)
[2022-06-18] MEDS ORDERED: LACTATED RINGERS 1,000 ML IV ONE (00:15)
--- NOTE | 2022-06-18 00:16 | ED General ---
General Chief Complaint: Neurological Problems Stated Complaint: SEIZURE,HIT HEAD Source of Information: Patient (PT GIVES SOME VAGUE AND INCONSISTENT STORIES) History of Present Illness Date Seen by Provider: Jun 17, 2022 Time Seen by Provider: 23:50 Initial Comments PT ARRIVES VIA EMS FROM HOME, PT IS TALKING ON HIS PHONE FROM THE TIME OF ARRIVAL-STATES HE IS TALKING TO HIS MOTHER PT STATES "I HAD ONE OF MY ABSENCE SEIZURES AND I FELL AND HIT MY HEAD" STATES HE WAS SITTING AND PLAYING ON THE COMPUTER WHEN HE HAD A SEIZURE AND FELL OUT OF HIS CHAIR, HITTING HIS RIGHT FOREHEAD ON THE CARPET STATES HIS SEIZURE OCCURRED AT 2230 TONIGHT AND LASTED A COUPLE OF MINUTES--PT WAS ALONE AT THE TIME, AND THEREFORE NOT WITNESSED STATES HE HAS BEEN DIZZY, HAVING RINGING IN HIS EARS, AND A LITTLE BLURRY VISION STATES HIS HANDS AND HIS FEET WERE SHAKEY FOR ABOUT 10 MINUTES AFTERWARD NO INCONTINENCE DID NOT BITE TONGUE OR HAVING ANY MOUTH INJURY. NO DAMAGE TO GLASSES HAS NOT TAKEN ANYTHING FOR PAIN --STATES HE CAN'T TAKE TYLENOL BECAUSE HE HAS "MORAN", AND HE CAN'T TAKE IBUPROFEN "BECAUSE IT HURTS MY KIDNEYS" STATES HE TAKES DEPAKOTE FOR THESE SEIZURES STATES "WHEN I CAN KEEP MY DEPAKOTE DOWN, I DON'T HAVE ANY SEIZURES" "BUT WHEN I CAN'T KEEP IT DOWN, THEN I HAVE SEIZURES" STATES "I HAVE THESE SPELLS EVERY 2-3 WEEKS, WHERE I START VOMITING AND HAVING STOMACH PAINS AND I CAN'T KEEP MY DEPAKOTE DOWN AND THEY ALWAYS HAVE TO ADMIT ME BECAUSE MY CREATININE AND MY CALCIUM ARE ALWAYS HIGH" STATES HE VOMITED X 1 THIS MORNING, AND DID NOT HAVE HIS MORNING DOSE OF DEPAKOTE, BUT WAS ABLE TO TAKE HIS EVENING DOSE OF DEPAKOTE AT 2000 TONIGHT. HAS BEEN ABLE TO EAT AND DRINK FOR THE REST OF THE DAY PT STATES HE HAS ONDANSETRON TO TAKE FOR NAUSEA, AND HE TOOK ONE EARLIER AND IT HELPED. STATES "ONDANSETRON IS THE ONLY ANTI-EMETIC I CAN TAKE ALL THE OTHERS MAKE ME SICK" STATES HE WAS HOSPITALIZED IN [place] IN MID FOR THIS SAME ISSUE--DOES NOT STATE WHY/HOW HE ENDED UP IN [place]. PT TELLS ME THAT LIVES HERE IN [place]-IN [facility]--NEXT TO THE HOSPITAL, BUT TELLS REGISTRATION THAT HE LIVES IN [place] AND GIVES A [place] ADDRESS. PT LATER STATES "I LIVE AT BOTH PLACES--I GO BACK AND FORTH BETWEEN MY APARTMENT IN [place] AND MY APARTMENT HERE" CLAIMS HE LIVES ALONE AT BOTH PLACES AND DOES NOT DRIVE. CLAIMS HE "TAKES THE "CITY BUS" OR A CAB" BACK AND FORTH TO [place]. CLAIMS HE DOES NOT KNOW ANYONE HERE IN [place] PT STATES HE DOES NOT WORK ANYWHERE. SEES A NEUROLOGIST IN [facility] [place]--LAST SEEN IN [place], AND DOSE OF DEPAKOTE WAS DECREASED, PT STATES "SHE THOUGHT I WAS ON TOO HIGH OF A DOSE" HAS NEXT APPOINTMENT AT THE END OF JUNE DOES NOT HAVE A PCP ANYWHERE --STATES HE USED TO SEE A ONLINE EDITOR [facility] IN [place]--WITH DR. MOLINA'S OFFICE, BUT DOES NOT GO THERE ANYMORE--DOES NOT GIVE ANY REASON WHY HE NO LONGER GOES THERE ( PT STATES HE HAS NEVER LIVED IN [place]--JUST WENT UP THERE FOR DOCTOR APPOINTMENTS, AND CLAIMS HE HAS NEVER ESTABLISHED WITH ANY DR HERE IN [place]) AND PT STATES HE HAS NOT ATTEMPTED TO ESTABLISH WITH ANYONE FOR PRIMARY CARE ANYWHERE. PT STATES HE HAS HAD "1 SHOT OF WHISKEY AND 1 JONAH" TONIGHT PT HAS HISTORY OF IV METH USE, AND "HALLUCINOGENICS LIKE LSD" --DENIES ANY DRUG USE X 5 YEARS SMOKES 1 PACK/ WEEK PT WITH A MULTITUDE OF VISITS TO MULTIPLE FACILITIES IN MULTIPLE [facility], WELL MANY OTHER LOCAL FACILITIES. PT IS EXTREMELY WELL KNOWN TO SOME ER STAFF HERE THAT HAVE WORKED AT OTHER FACILITIES, AND PT HAD DAILY, AND OFTEN MORE THAN ONCE DAILY VISITS TO OTHER HOSPITAL ER'S FOR VARIOUS COMPLAINTS. THIS IS PT'S 15 TH VISIT HERE, SINCE HIS FIRST VISIT HERE ON 02/08/22--MOST FOR CHRONIC GI COMPLAINTS OF NAUSEA/VOMITING/ABD PAIN PT STATES HIS MOTHER LIVES IN [place], AND IS COMING UP ON THE TO TAKE HIM TO HIS NEPHROLOGY APPOINTMENT IN [place] ON THE Allergies and Home Medications Allergies Coded Allergies: Penicillins (Verified Allergy, Unknown, 02/11/22) amoxicillin (Verified Allergy, Unknown, 02/11/22) latex (Verified Allergy, Unknown, 02/11/22) meclizine (Verified Allergy, Unknown, 02/20/22) Patient Home Medication List Home Medication List Reviewed: Yes Divalproex Sodium (Divalproex Sodium) 500 Mg Tablet.dr, 500 MG PO TID, (Reported) Entered as Reported by: LUZ MARINA PEGUERO on 02/11/22 2220 Famotidine (Famotidine) 20 Mg Tablet, 20 MG PO DAILY, (Reported) Entered as Reported by: TRUPTI EVANS on 05/02/22 1219 Gabapentin (Neurontin) 300 Mg Capsule, 300 MG PO TID, (Reported) Entered as Reported by: LEANNA DASILVA on 02/12/22 1138 Ibuprofen (Ibuprofen) 200 Mg Tablet, 400-600 MG PO Q8H PRN for PAIN-MILD (1-4), (Reported) Entered as Reported by: TRUPTI EVANS on 05/02/22 1219 Levothyroxine Sodium (Levothyroxine Sodium) 25 Mcg Tablet, 25 MCG PO DAILY, (Reported) Entered as Reported by: LEANNA DASILVA on 02/12/22 1138 Metoprolol Tartrate (Metoprolol Tartrate) 75 Mg Tablet, 75 MG PO BID, (Reported) Entered as Reported by: TRUPTI EVANS on 05/02/22 1219 Ondansetron (Ondansetron Odt) 4 Mg Tab.rapdis, 4-8 MG PO Q6H PRN for NAUSEA/VOMITING Prescribed by: YESY LALA on 05/17/22 0203 Review of Systems Review of Systems Constitutional: see HPI, dizziness EENTM: see HPI, blurred vision Respiratory: no symptoms reported Cardiovascular: no symptoms reported Gastrointestinal: see HPI Genitourinary: no symptoms reported Musculoskeletal: no symptoms reported Skin: no symptoms reported Psychiatric/Neurological: See HPI Hematologic/Lymphatic: No Symptoms Reported Immunological/Allergic: no symptoms reported Past Gyizsoh-Daznds-Qndmto Hx Patient Social History Tobacco Use?: Yes Tobacco type used: Cigarettes Smoking Status: Current Everyday Smoker Substance use?: Yes Substance type: Methamphetamine, Other Additional substance use comme: + IV METH USE; "HALLUCINOGENICS--LSD" Alcohol Use?: Yes Alcohol type: Beer, Hard Liquor Alcohol Frequency: Once in a while Pt feels they are or have been: No Immunizations Up To Date First/Initial COVID19 Vaccinat: n/a Second COVID19 Vaccination Lion: n/a Third COVID19 Vaccination Date: n/a Past Medical History Surgery/Hospitalization HX: SVT with ablation Surgeries: Yes (CARDIAC ABLATION) Cardiac Respiratory: No Cardiac: Yes (SVT-S/P ABLATION) Irregular Heartbeat Neurological: Yes Neuropathy, Seizure Disorder Genitourinary: Yes (CHRONIC RENAL INSUFFICIENCY) Renal Failure Gastrointestinal: Yes ("MORAN" PER PT; CHRONIC N/V/ABD PAIN; ) Liver Disease/Jaundice Musculoskeletal: No Endocrine: Yes (HYPERCALCEMIA) Hypothyroidsim, Diabetes, Non-Insulin dep HEENT: No Cancer: No Psychosocial: Yes (SUBSTANCE ABUSE) Integumentary: No Blood Disorders: No Family Medical History No Pertinent Family Hx TESTED POSITIVE FOR COVID-19 ON 05/16/22--NO TREATMENT OR HOSPITALIZATION Physical Exam Vital Signs Vital Signs - First Documented 06/17/22 06/18/22 23:46 01:29 Temp 36.8 Pulse 98 Resp 13 B/P (MAP) 145/92 (109) Pulse Ox 99 O2 Delivery Room Air Capillary Refill : Height, Weight, BMI Height: '" Weight: lbs. oz. kg; 33.64 BMI Method: General Appearance: No Apparent Distress, WD/WN, Other (TALKING ON PHONE, DOES NOT APPEAR ILL OR TO BE IN ANY DISCOMFORT OR DISTRESS.DOES NOT APPEAR POST-ICTAL ) HEENT: PERRL/EOMI, Normal ENT Inspection, Pharynx Normal, Moist Mucous Membranes; No Scleral Icterus (L), No Scleral Icterus (R); Other (NO EXTERNAL EVIDENCE OF TRAUMA TO HEAD WHATSOEVER--NO TENDERNESS, NO SWELLING OR BRUISING OR ERYTHEMA OR ABRASION) Neck: Full Range of Motion, Normal Inspection, Non Tender, Supple Respiratory: Normal Breath Sounds, No Accessory Muscle Use, No Respiratory Distress Cardiovascular: No Murmur Gastrointestinal: Non Tender, Soft Back: Normal Inspection, No CVA Tenderness, No Vertebral Tenderness Extremity: Normal Capillary Refill, Normal Inspection, Normal Range of Motion, Non Tender, No Calf Tenderness, No Pedal Edema Neurologic/Psychiatric: Alert, Oriented x3, No Motor/Sensory Deficits, Normal 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, 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 Norm as Tested; No Abnormal Cerebellar Tests Skin: Normal Color, Warm/Dry; No Ecchymosis Progress/Results/Core Measures Suspected Sepsis SIRS Temperature: Pulse: Respiratory Rate: Laboratory Tests 06/17/22 23:45: White Blood Count 6.3 Blood Pressure / Mean: Laboratory Tests 06/17/22 23:45: Creatinine 1.73H, Platelet Count 213, Total Bilirubin 0.3 Results/Orders Lab Results Laboratory Tests Test 06/17/22 23:45 06/18/22 00:40 Range/Units White Blood Count 6.3 4.3-11.0 10^3/uL Red Blood Count 3.65 L 4.30-5.52 10^6/uL Hemoglobin 11.7 L 13.3-17.7 g/dL Hematocrit 33 L 40-54 % Mean Corpuscular Volume 91 80-99 fL Mean Corpuscular Hemoglobin 32 25-34 pg Mean Corpuscular Hemoglobin Concent 35 32-36 g/dL Red Cell Distribution Width 12.1 10.0-14.5 % Platelet Count 213 130-400 10^3/uL Mean Platelet Volume 11.4 9.0-12.2 fL Immature Granulocyte % (Auto) 0 % Neutrophils (%) (Auto) 58 42-75 % Lymphocytes (%) (Auto) 32 12-44 % Monocytes (%) (Auto) 8 0-12 % Eosinophils (%) (Auto) 1 0-10 % Basophils (%) (Auto) 1 0-10 % Neutrophils # (Auto) 3.7 1.8-7.8 10^3/uL Lymphocytes # (Auto) 2.0 1.0-4.0 10^3/uL Monocytes # (Auto) 0.5 0.0-1.0 10^3/uL Eosinophils # (Auto) 0.1 0.0-0.3 10^3/uL Basophils # (Auto) 0.0 0.0-0.1 10^3/uL Immature Granulocyte # (Auto) 0.0 0.0-0.1 10^3/uL Sodium Level 141 135-145 MMOL/L Potassium Level 3.5 L 3.6-5.0 MMOL/L Chloride Level 102 98-107 MMOL/L Carbon Dioxide Level 29 21-32 MMOL/L Anion Gap 10 5-14 MMOL/L Blood Urea Nitrogen 10 7-18 MG/DL Creatinine 1.73 H 0.60-1.30 MG/DL Estimat Glomerular Filtration Rate 57 BUN/Creatinine Ratio 6 Glucose Level 90 70-105 MG/DL Calcium Level 11.7 H 8.5-10.1 MG/DL Corrected Calcium 11.4 H 8.5-10.1 MG/DL Magnesium Level 1.7 1.6-2.4 MG/DL Total Bilirubin 0.3 0.1-1.0 MG/DL Aspartate Amino Transf (AST/SGOT) 33 5-34 U/L Alanine Aminotransferase (ALT/SGPT) 61 H 0-55 U/L Alkaline Phosphatase 58 40-136 U/L Total Creatine Kinase 222 H 30-200 U/L Creatine Kinase MB 2.4 <6.6 NG/ML Myoglobin 104.9 H 10.0-92.0 NG/ML Total Protein 7.0 6.4-8.2 GM/DL Albumin 4.4 3.2-4.5 GM/DL Amylase Level 68 25-125 U/L Acetaminophen Level < 10 L 10-30 UG/ML Valproic Acid (Depakene) Level 63.1 50.0-100.0 UG/ML Serum Alcohol < 10 <10 MG/DL Urine Color YELLOW Urine Clarity CLOUDY Urine pH 7.0 5-9 Urine Specific [place] 1.015 L 1.016-1.022 Urine Protein 1+ H NEGATIVE Urine Glucose (UA) NEGATIVE NEGATIVE Urine Ketones NEGATIVE NEGATIVE Urine Nitrite NEGATIVE NEGATIVE Urine Bilirubin NEGATIVE NEGATIVE Urine Urobilinogen 0.2 < = 1.0 MG/DL Urine Leukocyte Esterase NEGATIVE NEGATIVE Urine RBC (Auto) NEGATIVE NEGATIVE Urine RBC NONE /HPF Urine WBC 2-5 /HPF Urine Squamous Epithelial Cells NONE /HPF Urine Crystals NONE /LPF Urine Bacteria LARGE H /HPF Urine Casts NONE /LPF Urine Mucus NEGATIVE /LPF Urine Culture Indicated NO Urine Opiates Screen NEGATIVE NEGATIVE Urine Oxycodone Screen NEGATIVE NEGATIVE Urine Methadone Screen NEGATIVE NEGATIVE Urine Propoxyphene Screen NEGATIVE NEGATIVE Urine Barbiturates Screen NEGATIVE NEGATIVE Ur Tricyclic Antidepressants Screen NEGATIVE NEGATIVE Urine Phencyclidine Screen NEGATIVE NEGATIVE Urine Amphetamines Screen NEGATIVE NEGATIVE Urine Methamphetamines Screen NEGATIVE NEGATIVE Urine Benzodiazepines Screen NEGATIVE NEGATIVE Urine Cocaine Screen NEGATIVE NEGATIVE Urine Cannabinoids Screen NEGATIVE NEGATIVE My Orders Orders - JENNY FRY DO Ed Iv/Invasive Line Start (06/18/22 00:03) Monitor-Rhythm Ecg Trace Only (06/18/22 00:03) Acetaminophen (06/18/22 00:03) Alcohol (06/18/22 00:03) Amylase (06/18/22 00:03) Cbc With Automated Diff (06/18/22 00:03) Comprehensive Metabolic Panel (06/18/22 00:03) Creatine Kinase (06/18/22 00:03) Creatine Kinase Mb (06/18/22 00:03) Drug Screen Stat (Urine) (06/18/22 00:03) Magnesium (06/18/22 00:03) Ua Culture If Indicated (06/18/22 00:03) Valproic Acid (06/18/22 00:03) Myoglobin Serum (06/18/22 00:03) Ed Iv/Invasive Line Start (06/18/22 00:03) Lactated Ringers (Lr 1000 Ml Iv Solution (06/18/22 00:15) Ct Head/Face/Cervical Wo (06/18/22 00:03) Ed Iv/Invasive Line Start (06/18/22 00:25) Ns Iv 1000 Ml (Sodium Chloride 0.9%) (06/18/22 00:30) Neis Mamadou Dna Urine Test (06/18/22 01:04) Chlamydia Trachomatis Urine (06/18/22 01:04) Urine Culture (06/18/22 01:08) Medications Given in ED Current Medications Medications Dose Ordered Sig/Macho Route Start Time Stop Time Status Last Admin Dose Admin Lactated Ringer's 1,000 ml @ 0 mls/hr Q0M ONCE IV 06/18/22 00:15 06/18/22 00:16 DC 06/18/22 00:22 1,000 MLS/HR Sodium Chloride 1,000 ml @ 0 mls/hr Q0M ONCE IV 06/18/22 00:30 06/18/22 00:31 DC 06/18/22 01:14 999 MLS/HR Vital Signs/I&O 06/17/22 06/18/22 23:46 01:29 Temp 36.8 Pulse 98 82 Resp 13 14 B/P (MAP) 145/92 (109) 122/67 Pulse Ox 99 O2 Delivery Room Air Capillary Refill : Progress Note : Progress Note GIVEN IV FLUIDS NO COMPLAINTS OF ANY KIND DURING ER STAY NO SEIZURES NO NAUSEA/VOMITING PT'S CREATININE AND CALCIUM LEVELS ARE IN AVERAGE RANGE FOR PT, BASED ON PREVIOUS VISITS---PT STATES HE HAS NO IDEA WHAT HIS NORMAL AVERAGE CREATININE OR CALCIUM LEVELS ARE. PT IS NOT SHOWING ANY ARRHYTHMIAS ON TELEMETRY Diagnostic Imaging Comments CT HEAD/MAXILLOFACIALS/CERVICAL SPINE--NO ACUTE PROCESS, PER [facility] VIA FAX AT [id number] Reviewed: Reviewed by Me Departure Impression Primary Impression: SELF REPORTED SEIZURE Additional Impressions: SELF REPORTED HEAD CONTUSION Chronic renal insufficiency CHRONIC HYPERCALCEMIA Disposition: HOME, SELF-CARE Condition: Stable Departure-Patient Inst. Decision time for Depature: 01:19 Referrals: SHAYNA MAI APRN (PCP) Primary Care Physician BEHZAD MOLINA MD (Family) Primary Care Physician Patient Instructions: HEAD [id number] WAKE-UP, Seizures, Adult (DC) Add. Discharge Instructions: LOTS OF FLUIDS--NO COFFEE, POP OR TEA TAKE YOUR REGULAR MEDICATIONS PRESCRIBED KEEP YOUR APPOINTMENT THIS WEEK WITH YOUR SLIP TENDER KEEP YOUR APPOINTMENT LATER THIS MONTH WITH YOUR NEUROLOGIST YOU NEED TO ESTABLISH WITH A PRIMARY CARE DR, OR YOU MAY FOLLOW UP WITH DR. MOLINA'S OFFICE IN [place]--CALL IN THE MORNING TO MAKE AND APPOINTMENT All discharge instructions reviewed with patient and/or family. Voiced understanding. JENNY FRY DO Jun 18, 2022 00:15
[2022-06-18 00:18] LABS: ALBUMIN 4.4 GM/DL (3.2-4.5); CHLORIDE 102 MMOL/L (98-107); POTASSIUM 3.5 MMOL/L (3.6-5.0); SODIUM 141 MMOL/L (135-145)
[2022-06-18 00:19] LABS: CALCIUM 11.7 MG/DL (8.5-10.1)
[2022-06-18 00:20] LABS: AMYLASE 68 U/L (25-125)
[2022-06-18 00:21] LABS: GLUCOSE 90 MG/DL (70-105)
[2022-06-18 00:22] LABS: BILIRUBIN,TOTAL 0.3 MG/DL (0.1-1.0); CARBON DIOXIDE 29 MMOL/L (21-32)
[2022-06-18 00:24] LABS: ALKALINE PHOSPHATASE 58 U/L (40-136); CREATININE SERUM 1.73 MG/DL (0.60-1.30); GFR ESTIMATED 57
[2022-06-18 00:25] LABS: BUN/CREATININE RATIO 6
[2022-06-18 00:27] LABS: ALANINE AMINOTRANSFERASE 61 U/L (0-55); MAGNESIUM 1.7 MG/DL (1.6-2.4)
[2022-06-18 00:28] LABS: CREATINE KINASE 222 U/L (30-200)
[2022-06-18] MEDS ORDERED: NS IV 1000 ML 1,000 ML IV ONE (00:30)
[2022-06-18 00:35] LABS: CREATINE KINASE MB 2.4 NG/ML (<6.6); VALPROIC ACID 63.1 UG/ML (50.0-100.0)
[2022-06-18 00:46] LABS: BILIRUBIN,URINE NEGATIVE (NEGATIVE); CLARITY,URINE CLOUDY; COLOR,URINE YELLOW; GLUCOSE, URINE (UA) NEGATIVE (NEGATIVE); KETONES,URINE NEGATIVE (NEGATIVE); LEUKOCYTE ESTERASE ,URINE NEGATIVE (NEGATIVE); NITRITE,URINE NEGATIVE (NEGATIVE); PROTEIN,URINE 1+ (NEGATIVE)
[2022-06-18 00:56] LABS: BACTERIA,URINE LARGE /HPF
[2022-06-18 00:58] LABS: AMPHETAMINE SCREEN, URINE NEGATIVE (NEGATIVE); BARBITURATE SCREEN URINE NEGATIVE (NEGATIVE); BENZODIAZEPINES SCREEN URINE NEGATIVE (NEGATIVE); CANNABINOID SCREEN, URINE NEGATIVE (NEGATIVE); COCAINE SCREEN URINE NEGATIVE (NEGATIVE); METHADONE STAT NEGATIVE (NEGATIVE); OPIATE SCREEN URINE NEGATIVE (NEGATIVE); OXYCODONE STAT NEGATIVE (NEGATIVE); PROPOXYPHENE STAT NEGATIVE (NEGATIVE); TRICYCLIC ANTIDEPRESSANTS SCRE NEGATIVE (NEGATIVE)
[2022-06-18 01:12] LABS: ACETAMINOPHEN < 10 UG/ML (10-30)
[2022-06-18 01:29] VITALS: BP 122/67
--- NOTE | 2022-06-18 07:29 | Diagnostic Imaging Report ---
PROCEDURE: CT head, face, and cervical spine without contrast. TECHNIQUE: Multiple contiguous axial images were obtained through the head, neck, and facial bones without the use of intravenous contrast. Sagittal and coronal reformations through the cervical spine and facial bones were also performed. Auto Exposure Controls were utilized during the CT exam to meet ALARA standards for radiation dose reduction. INDICATION: Fall with trauma to head. Seizure. Injury. COMPARISON: 04/01/2022 FINDINGS: CT head: Ventricles and cortical sulci are normal in size and contour. There is no midline shift or mass-effect. No acute intra-axial hemorrhage is seen. There are no abnormal areas of increased or decreased density to suggest acute hemorrhage or edema. No extra-axial masses or collections are present. The bony calvarium is intact. CT FACIAL BONES: There is no acute fracture or dislocation of the facial bones. Zygomatic arches are intact. Bilateral medial and lateral pterygoid plates are intact as well. There is no acute fracture or dislocation of the mandible. There is no fracture of the alveolar ridge of the maxilla. There is slight rightward bowing of the anterior superior nasal septum and slight leftward hooking inferiorly. This however appears to be on a chronic basis. Note is made of destiney bullosa of the bilateral middle turbinates. Nasal bones are intact. Paranasal sinuses sinuses show minimal mucosal thickening of the left maxillary sinus. No abnormal air-fluid levels are seen. No acute fracture is identified. Orbits are intact. Globes are symmetric. No unexpected radiopaque foreign bodies are seen. CT cervical spine: Evaluation static alignment shows reversal of normal lordotic curvature. This may be related patient positioning, as well as spasm. There is no significant anteroretrolisthesis. There is no evidence of jumped facets. Vertebral body heights are maintained. There is no acute fracture. No bony fragments are seen within the spinal canal. No significant degenerative changes are identified. Pre and paravertebral soft tissue structures are unremarkable. Included portions of lung apices are clear. IMPRESSION: 1. No acute intracranial abnormality. No CT evidence of mass, acute infarct or intracranial hemorrhage. 2. No acute fracture or dislocation of the facial bones. 3. No acute fracture or dislocation of the cervical spine. Dictated by: Dictated on workstation # [id number]
== END 2022-06-18 01:43 | disposition home or self-care (01) ==
LOC: EDUNIT# 23:38 → ER 23:40
DX: S00.93XA Contusion of unspecified part of head, initial encounter (principal); E11.22 Type 2 diabetes mellitus with diabetic chronic kidney disease; N18.9 Chronic kidney disease, unspecified; E11.40 Type 2 diabetes mellitus with diabetic neuropathy, unspecified; G40.909 Epilepsy, unspecified, not intractable, without status epilepticus; E83.52 Hypercalcemia; F17.210 Nicotine dependence, cigarettes, uncomplicated; Z91.040 Latex allergy status; Z28.310 Unvaccinated for COVID-19; W07.XXXA Fall from chair, initial encounter; Y93.C1 Activity, computer keyboarding
CPT/HCPCS: 70450; 70486; 72125; 80053; 80164; 80306; 81000; 82150; 82550; 82553; 83735; 83874; 85025; 87088; 87491; 87591; 93041; 99284; G0480 ×2; 36415; 80320; 80329

== ENCOUNTER 2022-08-10 17:26 | Emergency (ER) | payer MEDICAID ==
[~2022-08-10] VITALS: Ht 180 cm; Wt 127.0 kg
[2022-08-10] MEDS ORDERED: ONDANSETRON 4 MG/2 ML (SDV) Z0FRAN IVP ONE (18:15)
[2022-08-10] MEDS ORDERED: LACTATED RINGERS 1,000 ML IV ONE (18:15)
[2022-08-10 18:19] LABS: BASOPHILS % (AUTO) 0 % (0-10); EOSINOPHILS # (AUTO) 0.1 10^3/uL (0.0-0.3); EOSINOPHILS % (AUTO) 1 % (0-10); HEMATOCRIT 38 % (40-54); HEMOGLOBIN 13.2 g/dL (13.3-17.7); LYMPHOCYTES # (AUTO) 1.5 10^3/uL (1.0-4.0); LYMPHOCYTES % (AUTO) 25 % (12-44); MEAN CORPUSCULAR HEMOGLOBIN 32 pg (25-34); MEAN CORPUSCULAR HGB CONC 35 g/dL (32-36); MEAN CORPUSCULAR VOLUME 92 fL (80-99); MEAN PLATELET VOLUME 12.1 fL (9.0-12.2); MONOCYTES # (AUTO) 0.6 10^3/uL (0.0-1.0); MONOCYTES % (AUTO) 10 % (0-12); NEUTROPHILS # (AUTO) 3.8 10^3/uL (1.8-7.8); NEUTROPHILS % (AUTO) 63 % (42-75); PLATELET COUNT 187 10^3/uL (130-400); WHITE BLOOD COUNT 6.1 10^3/uL (4.3-11.0)
[2022-08-10 18:27] LABS: BILIRUBIN,URINE NEGATIVE (NEGATIVE); CLARITY,URINE CLEAR; COLOR,URINE YELLOW; GLUCOSE, URINE (UA) NEGATIVE (NEGATIVE); KETONES,URINE NEGATIVE (NEGATIVE); LEUKOCYTE ESTERASE ,URINE TRACE (NEGATIVE); NITRITE,URINE NEGATIVE (NEGATIVE); PH,URINE 7.5 (5-9); PROTEIN,URINE TRACE (NEGATIVE)
[2022-08-10 18:34] LABS: BACTERIA,URINE FEW /HPF; HYALINE CASTS, URINE 0-2 /LPF
[2022-08-10 18:38] LABS: ALANINE AMINOTRANSFERASE 52 U/L (0-55); ALBUMIN 4.5 GM/DL (3.2-4.5); ALKALINE PHOSPHATASE 52 U/L (40-136); AMYLASE 54 U/L (25-125); BILIRUBIN,TOTAL 0.4 MG/DL (0.1-1.0); BUN/CREATININE RATIO 11; CALCIUM 10.9 MG/DL (8.5-10.1); CARBON DIOXIDE 20 MMOL/L (21-32); CHLORIDE 104 MMOL/L (98-107); CREATINE KINASE 162 U/L (30-200); CREATININE SERUM 2.07 MG/DL (0.60-1.30); GFR ESTIMATED 46; GLUCOSE 94 MG/DL (70-105); LIPASE 15 U/L (8-78); MAGNESIUM 1.7 MG/DL (1.6-2.4); POTASSIUM 4.6 MMOL/L (3.6-5.0); SODIUM 138 MMOL/L (135-145); TOTAL PROTEIN 7.3 GM/DL (6.4-8.2)
[2022-08-10 18:40] LABS: ACETAMINOPHEN < 10 UG/ML (10-30)
[2022-08-10 18:42] LABS: AMPHETAMINE SCREEN, URINE NEGATIVE (NEGATIVE); BARBITURATE SCREEN URINE NEGATIVE (NEGATIVE); BENZODIAZEPINES SCREEN URINE NEGATIVE (NEGATIVE); CANNABINOID SCREEN, URINE NEGATIVE (NEGATIVE); COCAINE SCREEN URINE NEGATIVE (NEGATIVE); METHADONE STAT NEGATIVE (NEGATIVE); OPIATE SCREEN URINE NEGATIVE (NEGATIVE); OXYCODONE STAT NEGATIVE (NEGATIVE); PROPOXYPHENE STAT NEGATIVE (NEGATIVE); TRICYCLIC ANTIDEPRESSANTS SCRE NEGATIVE (NEGATIVE)
[2022-08-10 18:45] LABS: CREATINE KINASE MB 2.1 NG/ML (<6.6); VALPROIC ACID 52.5 UG/ML (50.0-100.0)
[2022-08-10] MEDS ORDERED: NS IV 1000 ML 1,000 ML IV SCH (18:45)
--- NOTE | 2022-08-10 18:51 | ED General ---
General Chief Complaint: Neurological Problems Stated Complaint: SEIZURE Nursing Triage Note: Patient to ED via [facility] from [facility] s/p seizure-like activity. Patient has hx epilepsy and reports he has been unable to keep his depakote doses down the last couple days due to nausea. EMS reports no medication needed to stop seizures - bystanders report pt had approx 5 episodes of seizure-like activity prior to EMS arrival. Source of Information: Patient, Old Records History of Present Illness Date Seen by Provider: Aug 10, 2022 Time Seen by Provider: 18:10 Initial Comments PT ARRIVED VIA EMS FROM LOCAL [facility], PRIOR TO MY ARRIVAL PT STATES "I HAD SEVERAL SEIZURES AND ONE OF THEM LASTED 7 MINUTES" PT STATES THIS OCCURRED AROUND 1630, WHILE SITTING AT A [employer] HE DENIES ANY INJURIES PT STATES HE "HASN'T FELT GOOD" FOR THE LAST COUPLE OF DAYS--NAUSEA PT HAS BEEN DX WITH SEIZURES IN THE PAST AND IS PRESCRIBED DEPAKOTE AND GABAPENTIN. PT STATES "I ACCIDENTALLY SKIPPED A DOSE YESTERDAY AND I THREW UP ONE THIS MORNING" HAS HAD ONLY 1 EPISODE OF VOMITING--THIS MORNING; NO DIARRHEA. NO ABDOMINAL PAIN NO FEVER/SWEATS/CHILLS NO RESPIRATORY SYMPTOMS NO HEADACHE NO INCONTINENCE NO TONGUE BITING OR ORAL INJURY NO POST ICTAL SYMPTOMS WERE REPORTED BY EMS, AND NO SEIZURE ACTIVITY NOTED BY EMS. PT STATES "I HAVEN'T FELT GOOD ALL DAY" --YET HE TOOK A TAXI TO THE [facility] AND HAS BEEN AT THE [facility] MOST OF THE AFTERNOON STATES HE HAS NOT EATEN OR HAD ANYTHING TO DRINK TODAY--"JUST DIDN'T FEEL GOOD" PT STATES HIS LAST SEIZURE WAS > 1 MONTH AGO PT THEN GIVES MUCH CONVOLUTED AND INCONSISTENT INFORMATION ABOUT NEUROLOGIST AND PCP STATES "I DON'T CURRENTLY HAVE A NEUROLOGIST"--HE WAS SEEING A DR. LINDSEY IN [place], [place] --HAS NOT BEEN THERE "IN A LONG TIME" , AND CANNOT REMEMBER WHEN HE LAST SAW A NEUROLOGIST HE ALSO STATES HE DOES NOT HAVE A PCP--STATES HE IS GOING TO START SEEING SOMEONE IN [place], [place]--DOES NOT HAVE AN APPOINTMENT YET. ( PT STATES HE LIVES HERE IN [place]) . PT HAD SEEN DR. MOLINA IN [place] IN THE PAST, BUT STATES HE NO LONGER GOES THERE. ON REVIEW OF OLD RECORDS, PT HAS HISTORY OF MORAN ( SELF-REPORTED) AND CHRONIC NAUSEA/VOMITING/ABDOMINAL PAIN, WELL CHRONIC RENAL INSUFFICIENCY. FIRST VISIT HERE WAS IN JANUARY OF THIS YEAR--HE HAS HAD 16 VISITS HERE SINCE THEN--MOST FOR CHRONIC GI COMPLAINTS OR REPORTED SEIZURES PT WITH A MULTITUDE OF VISITS TO MULTIPLE FACILITIES IN MULTIPLE [facility], WELL MANY OTHER LOCAL FACILITIES. PT IS EXTREMELY WELL KNOWN TO SOME ER STAFF HERE THAT HAVE WORKED AT OTHER FACILITIES, AND PT HAD DAILY, AND OFTEN MORE THAN ONCE DAILY VISITS TO OTHER HOSPITAL ER'S FOR VARIOUS COMPLAINTS. PT HAS LONG HISTORY OF ALCOHOL AND DRUG USE, ESPECIALLY METHAMPHETAMINES, AND HALLUCINOGENICS, SUCH LSD---PER PT Allergies and Home Medications Allergies Coded Allergies: Penicillins (Verified Allergy, Unknown, 02/11/22) amoxicillin (Verified Allergy, Unknown, 02/11/22) droperidol (Verified Allergy, Unknown, 08/10/22) latex (Verified Allergy, Unknown, 02/11/22) meclizine (Verified Allergy, Unknown, 02/20/22) Patient Home Medication List Cefdinir (Cefdinir) 300 Mg Capsule, 300 MG PO BID Prescribed by: JENNY FRY on 08/10/221916 Divalproex Sodium (Divalproex Sodium) 500 Mg Tablet.dr, 500 MG PO TID, (Reported) Entered as Reported by: LUZ MARINA PEGUERO on 02/11/222219 Famotidine (Famotidine) 20 Mg Tablet, 20 MG PO DAILY, (Reported) Entered as Reported by: TRUPTI EVANS on 05/02/22 1219 Gabapentin (Neurontin) 300 Mg Capsule, 300 MG PO TID, (Reported) Entered as Reported by: LEANNA DASILVA on 02/12/22 1138 Ibuprofen (Ibuprofen) 200 Mg Tablet, 400-600 MG PO Q8H PRN for PAIN-MILD (1-4), (Reported) Entered as Reported by: TRUPTI EVANS on 05/02/22 1219 Levothyroxine Sodium (Levothyroxine Sodium) 25 Mcg Tablet, 25 MCG PO DAILY, (Reported) Entered as Reported by: LEANNA DASILVA on 02/12/22 1138 Metoprolol Tartrate (Metoprolol Tartrate) 75 Mg Tablet, 75 MG PO BID, (Reported) Entered as Reported by: TRUPTI EVANS on 05/02/22 1219 Ondansetron (Ondansetron Odt) 4 Mg Tab.rapdis, 4-8 MG PO Q6H PRN for NAUSEA/VOMITING Prescribed by: YESY LALA on 05/17/22 0203 Ondansetron (Ondansetron Odt) 4 Mg Tab.rapdis, 4 MG PO Q4H Prescribed by: JENNY FRY on 08/10/22 1914 Review of Systems Review of Systems Constitutional: no symptoms reported EENTM: no symptoms reported Respiratory: no symptoms reported Cardiovascular: no symptoms reported Gastrointestinal: see HPI; No abdominal pain, No diarrhea; nausea Genitourinary: no symptoms reported Musculoskeletal: no symptoms reported Skin: no symptoms reported Psychiatric/Neurological: See HPI Hematologic/Lymphatic: No Symptoms Reported Immunological/Allergic: no symptoms reported Past Jxigvet-Sjjgkn-Lsdplz Hx Patient Social History Tobacco Use?: Yes Tobacco type used: Cigarettes Smoking Status: Current Everyday Smoker Substance use?: Yes Substance type: Methamphetamine Additional substance use comme: LSD, OTHER HALLUCINOGENICS Alcohol Use?: Yes Alcohol type: Beer, Hard Liquor Alcohol Frequency: Couple times a week (VERY HEAVY AT TIMES) Pt feels they are or have been: No Immunizations Up To Date Influenza Vaccine Up-to-Date: Yes; Up-to-Date First/Initial COVID19 Vaccinat: n/a Second COVID19 Vaccination Lion: n/a Third COVID19 Vaccination Date: n/a Past Medical History Surgery/Hospitalization HX: SVT with ablation, hx epilepsy, hypothyroidism, non-alcoholic hepatitis, hypertension Surgeries: Yes (CARDIAC ABLATION) Cardiac Respiratory: No Cardiac: Yes (SVT-S/P ABLATION) Irregular Heartbeat Neurological: Yes Neuropathy, Seizure Disorder Genitourinary: Yes (CHRONIC RENAL INSUFFICIENCY) Renal Failure Gastrointestinal: Yes ("MORAN" PER PT; CHRONIC N/V/ABD PAIN; ) Liver Disease/Jaundice Musculoskeletal: No Endocrine: Yes (HYPERCALCEMIA) Hypothyroidsim, Diabetes, Non-Insulin dep HEENT: No Cancer: No Psychosocial: Yes (POLYSUBSTANCE ABUSE) Integumentary: No Blood Disorders: No Family Medical History No Pertinent Family Hx TESTED POSITIVE FOR COVID-19 ON 05/16/22--NO TREATMENT OR HOSPITALIZATION Physical Exam Vital Signs Vital Signs - First Documented 08/10/22 17:31 Temp 36.9 Pulse 84 Resp 18 B/P (MAP) 116/74 (88) Pulse Ox 97 O2 Delivery Room Air Capillary Refill : Less Than 3 Seconds Height, Weight, BMI Height: '" Weight: lbs. oz. kg; 39.00 BMI Method: General Appearance: No Apparent Distress, WD/WN, Other (DOES NOT APPEAR POST ICTAL OR TO BE IN ANY DISCOMFORT OR DISTRESS. NON-CHALANT. 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 Norm as Tested; No Abnormal Cerebellar Tests Skin: Normal Color, Warm/Dry Progress/Results/Core Measures Suspected Sepsis SIRS Temperature: Pulse: 84 Respiratory Rate: 18 Laboratory Tests 08/10/22 17:42: White Blood Count 6.1 Blood Pressure 116 /74 Mean: 88 Laboratory Tests 08/10/22 17:42: Creatinine 2.07H, Platelet Count 187, Total Bilirubin 0.4 Results/Orders Lab Results Laboratory Tests Test 08/10/22 17:42 08/10/22 18:21 Range/Units White Blood Count 6.1 4.3-11.0 10^3/uL Red Blood Count 4.17 L 4.30-5.52 10^6/uL Hemoglobin 13.2 L 13.3-17.7 g/dL Hematocrit 38 L 40-54 % Mean Corpuscular Volume 92 80-99 fL Mean Corpuscular Hemoglobin 32 25-34 pg Mean Corpuscular Hemoglobin Concent 35 32-36 g/dL Red Cell Distribution Width 12.1 10.0-14.5 % Platelet Count 187 130-400 10^3/uL Mean Platelet Volume 12.1 9.0-12.2 fL Immature Granulocyte % (Auto) 0 % Neutrophils (%) (Auto) 63 42-75 % Lymphocytes (%) (Auto) 25 12-44 % Monocytes (%) (Auto) 10 0-12 % Eosinophils (%) (Auto) 1 0-10 % Basophils (%) (Auto) 0 0-10 % Neutrophils # (Auto) 3.8 1.8-7.8 10^3/uL Lymphocytes # (Auto) 1.5 1.0-4.0 10^3/uL Monocytes # (Auto) 0.6 0.0-1.0 10^3/uL Eosinophils # (Auto) 0.1 0.0-0.3 10^3/uL Basophils # (Auto) 0.0 0.0-0.1 10^3/uL Immature Granulocyte # (Auto) 0.0 0.0-0.1 10^3/uL Sodium Level 138 135-145 MMOL/L Potassium Level 4.6 3.6-5.0 MMOL/L Chloride Level 104 98-107 MMOL/L Carbon Dioxide Level 20 L 21-32 MMOL/L Anion Gap 14 5-14 MMOL/L Blood Urea Nitrogen 23 H 7-18 MG/DL Creatinine 2.07 H 0.60-1.30 MG/DL Estimat Glomerular Filtration Rate 46 BUN/Creatinine Ratio 11 Glucose Level 94 70-105 MG/DL Calcium Level 10.9 H 8.5-10.1 MG/DL Corrected Calcium 10.5 H 8.5-10.1 MG/DL Magnesium Level 1.7 1.6-2.4 MG/DL Total Bilirubin 0.4 0.1-1.0 MG/DL Aspartate Amino Transf (AST/SGOT) 31 5-34 U/L Alanine Aminotransferase (ALT/SGPT) 52 0-55 U/L Alkaline Phosphatase 52 40-136 U/L Total Creatine Kinase 162 30-200 U/L Creatine Kinase MB 2.1 <6.6 NG/ML Myoglobin 125.4 H 10.0-92.0 NG/ML Total Protein 7.3 6.4-8.2 GM/DL Albumin 4.5 3.2-4.5 GM/DL Amylase Level 54 25-125 U/L Lipase 15 8-78 U/L TSH [place] Testing 0.93 0.35-4.94 UIU/ML Acetaminophen Level < 10 L 10-30 UG/ML Valproic Acid (Depakene) Level 52.5 50.0-100.0 UG/ML Serum Alcohol < 10 <10 MG/DL Urine Color YELLOW Urine Clarity CLEAR Urine pH 7.5 5-9 Urine Specific [place] 1.020 1.016-1.022 Urine Protein TRACE H NEGATIVE Urine Glucose (UA) NEGATIVE NEGATIVE Urine Ketones NEGATIVE NEGATIVE Urine Nitrite NEGATIVE NEGATIVE Urine Bilirubin NEGATIVE NEGATIVE Urine Urobilinogen 0.2 < = 1.0 MG/DL Urine Leukocyte Esterase TRACE H NEGATIVE Urine RBC (Auto) NEGATIVE NEGATIVE Urine RBC NONE /HPF Urine WBC 5-10 H /HPF Urine Crystals NONE /LPF Urine Bacteria FEW H /HPF Urine Casts PRESENT /LPF Urine Hyaline Casts 0-2 H /LPF Urine Mucus SMALL H /LPF Urine Culture Indicated YES Urine Opiates Screen NEGATIVE NEGATIVE Urine Oxycodone Screen NEGATIVE NEGATIVE Urine Methadone Screen NEGATIVE NEGATIVE Urine Propoxyphene Screen NEGATIVE NEGATIVE Urine Barbiturates Screen NEGATIVE NEGATIVE Ur Tricyclic Antidepressants Screen NEGATIVE NEGATIVE Urine Phencyclidine Screen NEGATIVE NEGATIVE Urine Amphetamines Screen NEGATIVE NEGATIVE Urine Methamphetamines Screen NEGATIVE NEGATIVE Urine Benzodiazepines Screen NEGATIVE NEGATIVE Urine Cocaine Screen NEGATIVE NEGATIVE Urine Cannabinoids Screen NEGATIVE NEGATIVE Influenza Type A (RT-PCR) Not Detected Not Detecte Influenza Type B (RT-PCR) Not Detected Not Detecte SARS-CoV-2 RNA (RT-PCR) Not Detected Not Detecte My Orders Orders - JENNY FRY DO Ed Iv/Invasive Line Start (08/10/22 18:12) Monitor-Rhythm Ecg Trace Only (08/10/22 18:12) Acetaminophen (08/10/22 18:12) Alcohol (08/10/22 18:12) Amylase (08/10/22 18:12) Cbc With Automated Diff (08/10/22 18:12) Comprehensive Metabolic Panel (08/10/22 18:12) Creatine Kinase (08/10/22 18:12) Creatine Kinase Mb (08/10/22 18:12) Drug Screen Stat (Urine) (08/10/22 18:12) Lipase (08/10/22 18:12) Magnesium (08/10/22 18:12) Ua Culture If Indicated (08/10/22 18:12) Valproic Acid (08/10/22 18:12) Myoglobin Serum (08/10/22 18:12) Ed Iv/Invasive Line Start (08/10/22 18:12) Lactated Ringers (Lr 1000 Ml Iv Solution (08/10/22 18:15) Ondansetron Injection (Zofran Injectio (08/10/22 18:15) Covid 19 Inhouse Test (08/10/22 18:12) Influenza A And B By Pcr (08/10/22 18:12) Isolation Central Supply Req (08/10/22 18:12) Urine Culture (08/10/22 18:21) Ed Iv/Invasive Line Start (08/10/22 18:41) Ns Iv 1000 Ml (Sodium Chloride 0.9%) (08/10/22 18:45) Thyroid Analyzer (08/10/22 18:43) Neis Mamadou Dna Urine Test (08/10/22 19:15) Chlamydia Trachomatis Urine (08/10/22 19:15) Ceftriaxone 1 Gm Pre-Mix (Rocephin 1 Gm (08/10/22 19:30) Medications Given in ED Current Medications Medications Dose Ordered Sig/Macho Route Start Time Stop Time Status Last Admin Dose Admin Lactated Ringer's 1,000 ml @ 0 mls/hr Q0M ONCE IV 08/10/22 18:15 08/10/22 18:16 DC 08/10/22 18:23 999 MLS/HR Ondansetron HCl 4 mg ONCE ONCE IVP 08/10/22 18:15 08/10/22 18:16 DC 08/10/22 18:24 4 MG Vital Signs/I&O 08/10/22 17:31 Temp 36.9 Pulse 84 Resp 18 B/P (MAP) 116/74 (88) Pulse Ox 97 O2 Delivery Room Air Capillary Refill : Less Than 3 Seconds Blood Pressure Mean: 88 Progress Note : Progress Note GIVEN IV FLUIDS AND ZOFRAN PT STATES "ZOFRAN IS THE ONLY NAUSEA MEDICINE I CAN TAKE" PT ASKS "YOU'RE NOT GOING TO TREAT THE SEIZURES ? " "YOU'RE NOT GOING TO GIVE ME ATIVAN?" NAUSEA IS GONE AFTER ZOFRAN, WANTING SOMETHING TO DRINK NO VOMITING DURING ER STAY NO SEIZURES DURING ER STAY REVIEWED TEST RESULTS, ANTICIPATED COURSE, SYMPTOMATIC TREATMENT, NEED FOR FOLLOW UP WITH PRIMARY CARE, NEUROLOGIST, AND NEPHROLOGY, AND RETURN PRECAUTIONS Departure Impression Primary Impression: REPORTED SEIZURE ACTIVITY Additional Impressions: Non-compliance Acute on chronic renal failure Chronic nausea UTI (urinary tract infection) Disposition: 01 HOME, SELF-CARE Condition: Stable Departure-Patient Inst. Decision time for Depature: 19:12 Referrals: SHAYNA MAI APRN (PCP) Primary Care Physician BEHZAD MOLINA MD (Family) Primary Care Physician Patient Instructions: Chronic Kidney Disease (DC), Nausea and Vomiting, Adult (DC), Seizures, Adult (DC), Urinary Tract Infection, Adult ED Add. Discharge Instructions: INCREASE YOUR FLUID INTAKE--ESPECIALLY WATER AND GATORADE DO NOT MISS DOSES OF YOUR MEDICATIONS!! AVOID PLACES AND THINGS WITH FLASHING LIGHTS, SUCH CASINOS, VIDEO GAMES, ETC. FOLLOW UP WITH DR OF CHOICE NEXT WEEK WITH PRIMARY CARE FOR FURTHER CARE--CALL ON Friday TO MAKE AN APPOINTMENT FOLLOW UP WITH NEUROLOGIST AND PLATE GLASS INSTALLER HELPER NEXT WEEK FOR FURTHER CARE--CALL ON Friday TO MAKE AN APPOINTMENT All discharge instructions reviewed with patient and/or family. Voiced understanding. Scripts Cefdinir (Cefdinir) 300 Mg Capsule 300 MG PO BID, #20 CAP Prov: JENNY FRY DO 08/10/22 Ondansetron (Ondansetron Odt) 4 Mg Tab.rapdis 4 MG PO Q4H for Nausea/Vomiting, #10 TAB Prov: JENNY FRY DO 08/10/22 JENNY FRY DO Aug 10, 2022 18:51
[2022-08-10] MEDS ORDERED: ONDA4TAB11 PO (19:14)
[2022-08-10] MEDS ORDERED: CEFD300C3 PO (19:17)
[2022-08-10] MEDS ORDERED: cefTRIAXone 1 GM PRE-MIX 50 ML IV ONE (19:30)
[2022-08-10 20:22] VITALS: BP 94/61
== END 2022-08-10 20:22 | disposition home or self-care (01) ==
LOC: EDUNIT# 17:26 → ER 17:28
DX: R56.9 Unspecified convulsions (principal); R11.2 Nausea with vomiting, unspecified; N39.0 Urinary tract infection, site not specified; I12.9 Hypertensive chronic kidney disease with stage 1 through stage 4 chronic kidney disease, or unspecified chronic kidney disease; E11.22 Type 2 diabetes mellitus with diabetic chronic kidney disease; N18.9 Chronic kidney disease, unspecified; F17.210 Nicotine dependence, cigarettes, uncomplicated; Z91.14 Patient's other noncompliance with medication regimen; Z20.822 Contact with and (suspected) exposure to COVID-19
CPT/HCPCS: 36415; 80053; 80164; 80306; 80320; 80329; 81000; 82150; 82550; 82553; 83690; 83735; 83874; 84443; 85025; 87088; 87491; 87591; 87636; 93041

== ENCOUNTER 2022-09-27 15:54 | Emergency (ER) | payer OTHER ==
[~2022-09-27] VITALS: Ht 185 cm; Wt 100.0 kg
[~2022-09-27 15:54] MED LIST changes: +CEFD300C3 PO
--- NOTE | 2022-09-27 16:06 | ED General ---
General Stated Complaint: SEIZURES Source of Information: Patient, EMS Exam Limitations: No Limitations History of Present Illness Date Seen by Provider: Sep 27, 2022 Time Seen by Provider: 15:55 Initial Comments 22-year-old male presents to the emergency department today for seizure activity. He has known epilepsy. He states he takes 1000 mg of Depakote twice daily. No recent changes in his medications. He was feeling slightly unwell last night with nausea. He had nausea and vomited once this morning after he took his morning dose of Depakote. He has not missed any other doses. He is fairly frequent for him to have nausea with vomiting and he had some Zofran at home which is what he has been using to treat his symptoms. He denies any sick contacts fevers chills. He had a witnessed seizure described as generalized shaking in his upper and lower extremities. He did not hit his head and was actually lowered to the ground by a bystander. On arrival he is alert and oriented. He states he feels like he typically does after he has had a seizure. He does endorse that if he even misses 1 dose of Depakote that he typically ends up having a seizure pretty quickly. He denies any current pain from his seizure or fall. He has no other medical concerns at this time. Allergies and Home Medications Allergies Coded Allergies: Penicillins (Verified Allergy, Unknown, 02/11/22) amoxicillin (Verified Allergy, Unknown, 02/11/22) droperidol (Verified Allergy, Unknown, 08/10/22) latex (Verified Allergy, Unknown, 02/11/22) meclizine (Verified Allergy, Unknown, 02/20/22) Patient Home Medication List Home Medication List Reviewed: Yes Cefdinir (Cefdinir) 300 Mg Capsule, 300 MG PO BID Prescribed by: JENNY FRY on 08/10/221916 Divalproex Sodium (Divalproex Sodium) 500 Mg Tablet.dr, 500 MG PO TID, (Reported) Entered as Reported by: LUZ MARINA PEGUERO on 02/11/222219 Famotidine (Famotidine) 20 Mg Tablet, 20 MG PO DAILY, (Reported) Entered as Reported by: TRUPTI EVANS on 05/02/22 1219 Gabapentin (Neurontin) 300 Mg Capsule, 300 MG PO TID, (Reported) Entered as Reported by: LEANNA DASILVA on 02/12/22 1138 Ibuprofen (Ibuprofen) 200 Mg Tablet, 400-600 MG PO Q8H PRN for PAIN-MILD (1-4), (Reported) Entered as Reported by: TRUPTI EVANS on 05/02/22 1219 Levothyroxine Sodium (Levothyroxine Sodium) 25 Mcg Tablet, 25 MCG PO DAILY, (Reported) Entered as Reported by: LEANNA DASILVA on 02/12/22 1138 Metoprolol Tartrate (Metoprolol Tartrate) 75 Mg Tablet, 75 MG PO BID, (Reported) Entered as Reported by: TRUPTI EVANS on 05/02/22 1219 Ondansetron (Ondansetron Odt) 4 Mg Tab.rapdis, 4-8 MG PO Q6H PRN for NAUSEA/VOMITING Prescribed by: YESY LALA on 05/17/22 020 Ondansetron (Ondansetron Odt) 4 Mg Tab.rapdis, 4 MG PO Q4H Prescribed by: JENNY FRY on 08/10/221913 Review of Systems Review of Systems Constitutional: no symptoms reported EENTM: no symptoms reported Respiratory: no symptoms reported Cardiovascular: no symptoms reported Gastrointestinal: no symptoms reported Genitourinary: no symptoms reported Musculoskeletal: no symptoms reported Skin: no symptoms reported Psychiatric/Neurological: Seizure Hematologic/Lymphatic: No Symptoms Reported Immunological/Allergic: no symptoms reported Past Hiccswe-Qxuiff-Wtjymz Hx Patient Social History Tobacco Use?: No Use of E-Cig and/or Vaping dev: No Substance use?: No Alcohol Use?: No Immunizations Up To Date First/Initial COVID19 Vaccinat: n/a Second COVID19 Vaccination Lion: n/a Third COVID19 Vaccination Date: n/a Past Medical History Surgery/Hospitalization HX: SVT with ablation, hx epilepsy, hypothyroidism, non-alcoholic hepatitis, hypertension Surgeries: Yes (CARDIAC ABLATION) Cardiac Respiratory: No Cardiac: Yes (SVT-S/P ABLATION) Irregular Heartbeat Neurological: Yes Neuropathy, Seizure Disorder Genitourinary: Yes (CHRONIC RENAL INSUFFICIENCY) Renal Failure Gastrointestinal: Yes ("MORAN" PER PT; CHRONIC N/V/ABD PAIN; ) Liver Disease/Jaundice Musculoskeletal: No Endocrine: Yes (HYPERCALCEMIA) Hypothyroidsim, Diabetes, Non-Insulin dep HEENT: No Cancer: No Psychosocial: Yes (POLYSUBSTANCE ABUSE) Integumentary: No Blood Disorders: No Family Medical History Reviewed Nursing Family Hx No Pertinent Family Hx TESTED POSITIVE FOR COVID-19 ON 05/16/22--NO TREATMENT OR HOSPITALIZATION Physical Exam Vital Signs Vital Signs - First Documented 09/27/22 16:21 Temp 36.3 Pulse 89 Resp 18 B/P (MAP) 149/111 (124) Pulse Ox 98 O2 Delivery Room Air Capillary Refill : Height, Weight, BMI Height: '" Weight: lbs. oz. kg; 39.00 BMI Method: General Appearance: No Apparent Distress HEENT: PERRL/EOMI, TMs Normal, Normal ENT Inspection, Pharynx Normal Neck: Full Range of Motion, Normal Inspection, Non Tender, Supple Respiratory: Chest Non Tender, Lungs Clear, Normal Breath Sounds, No Accessory Muscle Use, No Respiratory Distress Cardiovascular: Regular Rate, Rhythm, No Edema, No Murmur, Normal Peripheral Pulses Gastrointestinal: Normal Bowel Sounds, No Organomegaly, No Pulsatile Mass, Non Tender, Soft Back: Normal Inspection, No CVA Tenderness, No Vertebral Tenderness Extremity: Normal Capillary Refill, Normal Inspection, Normal Range of Motion, Non Tender, No Calf Tenderness Neurologic/Psychiatric: Alert, Oriented x3, No Motor/Sensory Deficits, Normal Mood/Affect, combination 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-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 Norm as Tested Skin: Normal Color, Warm/Dry Lymphatic: No Adenopathy Progress/Results/Core Measures Suspected Sepsis SIRS Temperature: Pulse: Respiratory Rate: Blood Pressure / Mean: Results/Orders Lab Results Laboratory Tests Test 09/27/22 16:12 Range/Units Valproic Acid (Depakene) Level 132.6 H 50.0-100.0 UG/ML My Orders Orders - SHOAIB ODELL DO Valproic Acid (09/27/22 16:02) Divalproex Delay Release Tab (Depakote T (09/27/22 16:15) Divalproex Delay Release Tab (Depakote T (09/27/22 16:15) Vital Signs/I&O 09/27/22 16:21 Temp 36.3 Pulse 89 Resp 18 B/P (MAP) 149/111 (124) Pulse Ox 98 O2 Delivery Room Air Capillary Refill : Departure Communication (Admissions) Patient is hemodynamically stable. He has no focal neurologic deficits. He is slightly postictal on arrival, resolved and is now alert and oriented and back to normal mental baseline. Valproic acid level slightly high. This is expected with his high-dose daily. We did loaded with Depakote here orally as he missed a dose this morning after he vomited. Advised to resume normal Depakote dosing tomorrow. He has known seizure disorder. No evidence for brain tumor or changes in the frequency or duration of his seizures. This was a typical seizure for him. No indication for further lab work at outside of Depakote level at this time. Discharged in stable condition Impression Primary Impression: Seizure disorder Disposition: 01 HOME, SELF-CARE Condition: Stable Departure-Patient Inst. Referrals: AUTUMN BAUMANN MD (PCP) Primary Care Physician Patient Instructions: Seizures, Adult (DC) Add. Discharge Instructions: Continue home medications as previously prescribed. We have given you a dose of Depakote here. Resume Depakote in the morning as previously prescribed. Return to the emergency department for any severe concerns. Follow-up with your primary doctor for any nonemergent needs. SHOAIB ODELL DO Sep 27, 2022 16:06
[2022-09-27] MEDS ORDERED: DIVALPROEX 250 MG DELAYED RELEASE (DEPAKOTE) TAB PO SCH ×2 (16:15)
[2022-09-27 17:30] VITALS: BP 149/111
== END 2022-09-27 17:30 | disposition home or self-care (01) ==
LOC: EDUNIT# 15:54 → ER 15:55
DX: G40.909 Epilepsy, unspecified, not intractable, without status epilepticus (principal); Z86.16 Personal history of COVID-19; Z91.040 Latex allergy status
CPT/HCPCS: 36415; 80164; 99281; 99283

== ENCOUNTER → 2022-10-15 | Outpatient (RCR) | payer OTHER | END | disposition home or self-care (01) | PROVIDERS: ATTEND Family Medicine | DX: M54.2 Cervicalgia (principal); G89.29 Other chronic pain ==

== ENCOUNTER → 2022-10-22 | Outpatient (CLI) | payer OTHER ==
--- NOTE | 2022-10-22 14:27 | Diagnostic Imaging Report ---
CLINICAL INDICATION: Patient with vomiting. COMPARISON: None. PROCEDURE: Solid Gastric emptying study After oral ingestion of 1.03 millicuries of technetium 99M sulfur colloid, mixed with scrambled egg, sequential imaging of the abdomen is performed. Computer analysis is performed and gastric emptying curves are calculated. FINDINGS: There is gastric emptying demonstrated with sequential imaging. The residual retained gastric activity: 1 hour: 27% (less than 30% equals rapid and greater than 90% equals delayed) 2 hours: 10% (greater than 60% represents abnormally delayed) 3 hours: 1% (greater than 30% represents abnormally delayed) IMPRESSION: Abnormal gastric emptying study with rapid gastric emptying seen at the 1-hour time point. Dictated by: Dictated on workstation # [id number]
== END ==
LOC: CARD 08:30
DX: R11.10 Vomiting, unspecified (principal)
CPT/HCPCS: 78264

== ENCOUNTER → 2022-10-24 | Outpatient (CLI) | payer OTHER ==
[2022-10-24 21:28] LABS: HEPATITIS C ANTIBODY C Non-Reactive (Non-Reactive)
== END ==
LOC: LAB 13:56
DX: R74.8 Abnormal levels of other serum enzymes (principal)
CPT/HCPCS: 36415; 80074; 82103; 82390; 82728; 82784; 83516; 83520; 83540; 83550; 86038; 86255

== ENCOUNTER 2022-11-06 09:38 | Outpatient (RCR) | payer OTHER | END 2022-11-12 | disposition home or self-care (01) | PROVIDERS: ATTEND Family Medicine | DX: M54.2 Cervicalgia (principal); I12.9 Hypertensive chronic kidney disease with stage 1 through stage 4 chronic kidney disease, or unspecified chronic kidney disease; N18.9 Chronic kidney disease, unspecified ==

== ENCOUNTER 2022-11-21 11:02 | Emergency (ER) | payer OTHER ==
[~2022-11-21] VITALS: Ht 180 cm; Wt 117.0 kg
[2022-11-21] MEDS ORDERED: ONDANSETRON 4 MG/2 ML (SDV) Z0FRAN IVP ONE (12:00)
[2022-11-21] MEDS ORDERED: NS IV 1000 ML 1,000 ML IV STA (12:00)
--- NOTE | 2022-11-21 12:05 | ED General ---
General Chief Complaint: General Problems/Pain Stated Complaint: DIARRHEA | VOMITING Nursing Triage Note: DIZZINESS, FAININTING, AND V/D X2 WEEKS. Source of Information: Patient Exam Limitations: No Limitations History of Present Illness Date Seen by Provider: Nov 21, 2022 Time Seen by Provider: 12:03 Initial Comments Patient is a 22-year-old male with a history of IBS who presents ED with generalized abdominal pain with vomiting diarrhea. Symptoms over the past 2 weeks. Reports at least 3 episodes of nonbilious vomiting daily. Reports 10 episodes of watery diarrhea without any blood or mucus daily. Associated dizziness. States 1 hour ago he potentially fainted after making a phone call. States he was out for about 1 minute. Reports generalized weakness and fatigue. He reports history of similar symptoms in the past. Scheduled to get a endoscopy by Dr. CID in [place] but that has not been completed. Denies chest pain, cough, runny nose, sore throat, drug use, alcohol use. Reports normal urination. patient states that the only thing that works for his nausea and vomiting is Zofran Allergies and Home Medications Allergies Coded Allergies: Penicillins (Verified Allergy, Unknown, 02/11/22) amoxicillin (Verified Allergy, Unknown, 02/11/22) droperidol (Verified Allergy, Unknown, 08/10/22) latex (Verified Allergy, Unknown, 02/11/22) meclizine (Verified Allergy, Unknown, 02/20/22) Patient Home Medication List Home Medication List Reviewed: Yes Gabapentin (Neurontin) 300 Mg Capsule, 300 MG PO TID, (Reported) Entered as Reported by: LEANNA DASILVA on 02/12/22 1138 Levothyroxine Sodium (Levothyroxine Sodium) 25 Mcg Tablet, 25 MCG PO DAILY, (Reported) Entered as Reported by: LEANNA DASILVA on 02/12/22 1138 Metoprolol Tartrate (Metoprolol Tartrate) 75 Mg Tablet, 75 MG PO BID, (Reported) Entered as Reported by: TRUPTI EVANS on 05/02/22 1219 Ondansetron (Ondansetron Odt) 4 Mg Tab.rapdis, 4 MG SL Q4H PRN for NAUSEA/VOMITING Prescribed by: DRAKE VELAZQUEZ on 11/21/22 1258 Discontinued Medications Cefdinir (Cefdinir) 300 Mg Capsule, 300 MG PO BID Discontinued Reason: No Longer Taking Prescribed by: JENNY FRY on 08/10/221916 Last Action: Discontinued Divalproex Sodium (Divalproex Sodium) 500 Mg Tablet.dr, 500 MG PO TID, (Reported) Discontinued Reason: No Longer Taking Entered as Reported by: LUZ MARINA PEGUERO on 02/11/222219 Last Action: Discontinued Famotidine (Famotidine) 20 Mg Tablet, 20 MG PO DAILY, (Reported) Discontinued Reason: No Longer Taking Entered as Reported by: TRUPTI EVANS on 05/02/221218 Last Action: Discontinued Ibuprofen (Ibuprofen) 200 Mg Tablet, 400-600 MG PO Q8H PRN for PAIN-MILD (1-4), (Reported) Discontinued Reason: No Longer Taking Entered as Reported by: TRUPTI EVANS on 05/02/221218 Last Action: Discontinued Ondansetron (Ondansetron Odt) 4 Mg Tab.rapdis, 4-8 MG PO Q6H PRN for NAUSEA/VOMITING Discontinued Reason: No Longer Taking Prescribed by: YESY LALA on 05/17/22 020 Last Action: Discontinued Ondansetron (Ondansetron Odt) 4 Mg Tab.rapdis, 4 MG PO Q4H Discontinued Reason: No Longer Taking Prescribed by: JENNY FRY on 08/10/221913 Last Action: Discontinued Review of Systems Review of Systems Constitutional: No chills, No diaphoresis, No malaise, No weakness EENTM: No hearing loss, No blurred vision, No double vision, No mouth pain, No mouth swelling Respiratory: No cough, No dyspnea on exertion Cardiovascular: No chest pain Gastrointestinal: abdominal pain, diarrhea Genitourinary: No decreased output, No discharge Musculoskeletal: No back pain, No joint pain Skin: No change in color, No change in hair/nails All Other Systems Reviewed Negative Unless Noted: Yes Past Ywcdixs-Zalsgy-Sfajnn Hx Patient Social History Tobacco Use?: Yes Smokeless Tobacco Frequency: Current Everyday User Substance use?: No Alcohol Use?: Yes Alcohol Frequency: Once in a while Immunizations Up To Date First/Initial COVID19 Vaccinat: n/a Second COVID19 Vaccination Lion: n/a Third COVID19 Vaccination Date: n/a Past Medical History Surgery/Hospitalization HX: SVT with ablation, hx epilepsy, hypothyroidism, non-alcoholic hepatitis, hypertension Surgeries: Yes (CARDIAC ABLATION) Cardiac Respiratory: No Cardiac: Yes (SVT-S/P ABLATION) Irregular Heartbeat Neurological: Yes Neuropathy, Seizure Disorder Genitourinary: Yes (CHRONIC RENAL INSUFFICIENCY) Renal Failure Gastrointestinal: Yes ("MORAN" PER PT; CHRONIC N/V/ABD PAIN; ) Liver Disease/Jaundice Musculoskeletal: No Endocrine: Yes (HYPERCALCEMIA) Hypothyroidsim, Diabetes, Non-Insulin dep HEENT: No Cancer: No Psychosocial: Yes (POLYSUBSTANCE ABUSE) Integumentary: No Blood Disorders: No Family Medical History No Pertinent Family Hx TESTED POSITIVE FOR COVID-19 ON 05/16/22--NO TREATMENT OR HOSPITALIZATION Physical Exam Vital Signs Vital Signs - First Documented 11/21/22 11:17 Temp 36.8 Pulse 123 Resp 16 B/P (MAP) 136/84 (101) Pulse Ox 99 O2 Delivery Room Air Capillary Refill : Less Than 3 Seconds Height, Weight, BMI Height: '" Weight: lbs. oz. kg; 36.00 BMI Method: General Appearance: No Apparent Distress, WD/WN Eyes: Bilateral Eye Normal Inspection HEENT: PERRL/EOMI, TMs Normal, Normal ENT Inspection, Pharynx Normal Neck: Full Range of Motion, Normal Inspection, Non Tender, Supple Respiratory: Chest Non Tender, Lungs Clear, Normal Breath Sounds, No Accessory Muscle Use, No Respiratory Distress Cardiovascular: Regular Rate, Rhythm, No Edema, No Gallop, No JVD Gastrointestinal: Normal Bowel Sounds, No Organomegaly, No Pulsatile Mass, Soft, Tenderness (Left upper quadrant tenderness, right side abdominal tenderness) Back: Normal Inspection, No CVA Tenderness, No Vertebral Tenderness Extremity: Normal Capillary Refill, Normal Inspection, Normal Range of Motion, Non Tender, No Calf Tenderness Progress/Results/Core Measures Suspected Sepsis SIRS Temperature: Pulse: 123 Respiratory Rate: 16 Laboratory Tests 11/21/22 12:20: White Blood Count 7.2 Blood Pressure 136 /84 Mean: 101 Laboratory Tests 11/21/22 12:20: Creatinine 1.56H, Platelet Count 202, Total Bilirubin 0.3 Results/Orders Lab Results Laboratory Tests Test 11/21/22 12:20 Range/Units White Blood Count 7.2 4.3-11.0 10^3/uL Red Blood Count 4.41 4.30-5.52 10^6/uL Hemoglobin 14.0 13.3-17.7 g/dL Hematocrit 40 40-54 % Mean Corpuscular Volume 91 80-99 fL Mean Corpuscular Hemoglobin 32 25-34 pg Mean Corpuscular Hemoglobin Concent 35 32-36 g/dL Red Cell Distribution Width 12.1 10.0-14.5 % Platelet Count 202 130-400 10^3/uL Mean Platelet Volume 11.1 9.0-12.2 fL Immature Granulocyte % (Auto) 0 % Neutrophils (%) (Auto) 58 42-75 % Lymphocytes (%) (Auto) 29 12-44 % Monocytes (%) (Auto) 10 0-12 % Eosinophils (%) (Auto) 2 0-10 % Basophils (%) (Auto) 1 0-10 % Neutrophils # (Auto) 4.2 1.8-7.8 10^3/uL Lymphocytes # (Auto) 2.1 1.0-4.0 10^3/uL Monocytes # (Auto) 0.8 0.0-1.0 10^3/uL Eosinophils # (Auto) 0.1 0.0-0.3 10^3/uL Basophils # (Auto) 0.0 0.0-0.1 10^3/uL Immature Granulocyte # (Auto) 0.0 0.0-0.1 10^3/uL Sodium Level 140 135-145 MMOL/L Potassium Level 3.9 3.6-5.0 MMOL/L Chloride Level 103 98-107 MMOL/L Carbon Dioxide Level 26 21-32 MMOL/L Anion Gap 11 5-14 MMOL/L Blood Urea Nitrogen 18 7-18 MG/DL Creatinine 1.56 H 0.60-1.30 MG/DL Estimat Glomerular Filtration Rate 64 BUN/Creatinine Ratio 12 Glucose Level 87 70-105 MG/DL Calcium Level 12.6 H 8.5-10.1 MG/DL Corrected Calcium 8.5-10.1 MG/DL Total Bilirubin 0.3 0.1-1.0 MG/DL Aspartate Amino Transf (AST/SGOT) 38 H 5-34 U/L Alanine Aminotransferase (ALT/SGPT) 51 0-55 U/L Alkaline Phosphatase 51 40-136 U/L Total Protein 7.3 6.4-8.2 GM/DL Albumin 4.6 H 3.2-4.5 GM/DL Lipase 18 8-78 U/L My Orders Orders - SANDRA BARCENAS Cbc With Automated Diff (11/21/22 12:00) Comprehensive Metabolic Panel (11/21/22 12:00) Lipase (11/21/22 12:00) Ns Iv 1000 Ml (Sodium Chloride 0.9%) (11/21/22 12:00) Ondansetron Injection (Zofran Injectio (11/21/22 12:00) Medications Given in ED Current Medications Medications Dose Ordered Sig/Macho Route Start Time Stop Time Status Last Admin Dose Admin Ondansetron HCl 4 mg ONCE ONCE IVP 11/21/22 12:00 11/21/22 12:02 DC 11/21/22 12:23 4 MG Vital Signs/I&O 11/21/22 11:17 Temp 36.8 Pulse 123 Resp 16 B/P (MAP) 136/84 (101) Pulse Ox 99 O2 Delivery Room Air Capillary Refill : Less Than 3 Seconds Blood Pressure Mean: 101 Departure Communication (PCP) Reviewed previous ER visits, H&P's, lab testing. Patient with similar type complaint of abdominal pain with vomiting diarrhea. History of abnormal electrolytes secondary to the vomiting and diarrhea. Reports history of IBS. Scheduled to follow-up with perinatal tech for an endoscopy in [place]. Due to current complaints CBC, CMP, lipase, liter fluid was Zofran was provided. Nausea improved with Zofran. Tolerate p.o. fluids. CBC was unremarkable. CMP showed a creatinine 1.56 which is stable with his chronic kidney disease. Patient was given a liter of fluid. Lab work was otherwise unremarkable. Patient abdominal tenderness and pain has improved. He is currently on Levsin. Continue with medication. Will discharge with Zofran. Outpatient follow-up with return precautions Impression Primary Impression: Vomiting and diarrhea Disposition: 01 HOME, SELF-CARE Condition: Stable Departure-Patient Inst. Decision time for Depature: 12:57 Referrals: YADIRA MURPHY MD (PCP/Family) Primary Care Physician Patient Instructions: Nausea and Vomiting, Adult ED Scripts Ondansetron (Ondansetron Odt) 4 Mg Tab.rapdis 4 MG SL Q4H PRN for NAUSEA/VOMITING, #6 TAB Prov: SANDRA BARCENAS 11/21/22 SANDRA BARCENAS 9, 2023 12:05
[2022-11-21 12:29] LABS: BASOPHILS % (AUTO) 1 % (0-10); EOSINOPHILS # (AUTO) 0.1 10^3/uL (0.0-0.3); EOSINOPHILS % (AUTO) 2 % (0-10); HEMATOCRIT 40 % (40-54); LYMPHOCYTES # (AUTO) 2.1 10^3/uL (1.0-4.0); LYMPHOCYTES % (AUTO) 29 % (12-44); MEAN CORPUSCULAR HEMOGLOBIN 32 pg (25-34); MEAN CORPUSCULAR HGB CONC 35 g/dL (32-36); MEAN CORPUSCULAR VOLUME 91 fL (80-99); MEAN PLATELET VOLUME 11.1 fL (9.0-12.2); MONOCYTES # (AUTO) 0.8 10^3/uL (0.0-1.0); MONOCYTES % (AUTO) 10 % (0-12); NEUTROPHILS # (AUTO) 4.2 10^3/uL (1.8-7.8); NEUTROPHILS % (AUTO) 58 % (42-75); PLATELET COUNT 202 10^3/uL (130-400); WHITE BLOOD COUNT 7.2 10^3/uL (4.3-11.0)
[2022-11-21 12:42] LABS: ALBUMIN 4.6 GM/DL (3.2-4.5)
[2022-11-21 12:43] LABS: CHLORIDE 103 MMOL/L (98-107); POTASSIUM 3.9 MMOL/L (3.6-5.0); SODIUM 140 MMOL/L (135-145)
[2022-11-21 12:44] LABS: CALCIUM 12.6 MG/DL (8.5-10.1)
[2022-11-21 12:45] LABS: GLUCOSE 87 MG/DL (70-105); TOTAL PROTEIN 7.3 GM/DL (6.4-8.2)
[2022-11-21 12:46] LABS: CARBON DIOXIDE 26 MMOL/L (21-32)
[2022-11-21 12:47] LABS: BILIRUBIN,TOTAL 0.3 MG/DL (0.1-1.0)
[2022-11-21 12:48] LABS: ALKALINE PHOSPHATASE 51 U/L (40-136)
[2022-11-21 12:49] LABS: CREATININE SERUM 1.56 MG/DL (0.60-1.30); GFR ESTIMATED 64
[2022-11-21 12:50] LABS: BUN/CREATININE RATIO 12
[2022-11-21 12:51] LABS: ALANINE AMINOTRANSFERASE 51 U/L (0-55)
[2022-11-21 12:52] LABS: LIPASE 18 U/L (8-78)
[2022-11-21] MEDS ORDERED: ONDA4TAB11 SL (12:58)
[2022-11-21 13:27] VITALS: BP 109/65
== END 2022-11-21 13:27 | disposition home or self-care (01) ==
LOC: EDUNIT# 11:02 → ER 11:04
DX: R19.7 Diarrhea, unspecified (principal); R11.2 Nausea with vomiting, unspecified; R10.12 Left upper quadrant pain; F17.200 Nicotine dependence, unspecified, uncomplicated; I12.9 Hypertensive chronic kidney disease with stage 1 through stage 4 chronic kidney disease, or unspecified chronic kidney disease; E11.22 Type 2 diabetes mellitus with diabetic chronic kidney disease; N18.9 Chronic kidney disease, unspecified; Z91.040 Latex allergy status; Z79.899 Other long term (current) drug therapy; Z86.16 Personal history of COVID-19; Z28.310 Unvaccinated for COVID-19; Z87.19 Personal history of other diseases of the digestive system
CPT/HCPCS: 36415; 80053; 83690; 85025; 99285

== ENCOUNTER 2022-12-10 11:07 | Outpatient (RCR) | payer OTHER ==
[~2022-12-10 11:07] MED LIST changes: +ONDA4TAB11 SL
== END 2022-12-13 | disposition home or self-care (01) ==
PROVIDERS: ATTEND Family Medicine
DX: M54.2 Cervicalgia (principal); I12.9 Hypertensive chronic kidney disease with stage 1 through stage 4 chronic kidney disease, or unspecified chronic kidney disease; N18.9 Chronic kidney disease, unspecified

== ENCOUNTER 2023-01-18 02:23 | Emergency (ER) | payer OTHER ==
[~2023-01-18] VITALS: Ht 180 cm; Wt 115.0 kg
[2023-01-18 02:40] VITALS: BP 148/83
[2023-01-18] MEDS ORDERED: NS IV 1000 ML 1,000 ML IV STA (03:11)
[2023-01-18] MEDS ORDERED: ANTACID SUSP 30 ML UDC (MYLANTA) PO ONE (03:15)
[2023-01-18] MEDS ORDERED: ONDANSETRON 4 MG/2 ML (SDV) Z0FRAN IVP ONE (03:15)
[2023-01-18] MEDS ORDERED: LIDOCAINE 2% VISCOUS 15 ML UDC PO ONE (03:15)
[2023-01-18 03:31] LABS: BASOPHILS % (AUTO) 1 % (0-10); EOSINOPHILS # (AUTO) 0.2 10^3/uL (0.0-0.3); EOSINOPHILS % (AUTO) 2 % (0-10); HEMATOCRIT 42 % (40-54); HEMOGLOBIN 14.9 g/dL (13.3-17.7); LYMPHOCYTES % (AUTO) 31 % (12-44); MEAN CORPUSCULAR HEMOGLOBIN 32 pg (25-34); MEAN CORPUSCULAR HGB CONC 36 g/dL (32-36); MEAN CORPUSCULAR VOLUME 90 fL (80-99); MEAN PLATELET VOLUME 11.2 fL (9.0-12.2); MONOCYTES # (AUTO) 0.4 10^3/uL (0.0-1.0); MONOCYTES % (AUTO) 7 % (0-12); NEUTROPHILS # (AUTO) 3.8 10^3/uL (1.8-7.8); NEUTROPHILS % (AUTO) 59 % (42-75); PLATELET COUNT 208 10^3/uL (130-400); WHITE BLOOD COUNT 6.4 10^3/uL (4.3-11.0)
[2023-01-18 03:40] LABS: ALBUMIN 4.6 GM/DL (3.2-4.5); CHLORIDE 101 MMOL/L (98-107); POTASSIUM 3.7 MMOL/L (3.6-5.0); SODIUM 139 MMOL/L (135-145)
[2023-01-18 03:41] LABS: CALCIUM 10.6 MG/DL (8.5-10.1)
[2023-01-18 03:42] LABS: GLUCOSE 89 MG/DL (70-105)
[2023-01-18 03:43] LABS: TOTAL PROTEIN 7.1 GM/DL (6.4-8.2)
[2023-01-18 03:44] LABS: BILIRUBIN,TOTAL 0.4 MG/DL (0.1-1.0); CARBON DIOXIDE 25 MMOL/L (21-32)
[2023-01-18 03:46] LABS: ALKALINE PHOSPHATASE 53 U/L (40-136); GFR ESTIMATED 79
[2023-01-18 03:47] LABS: BUN/CREATININE RATIO 8
[2023-01-18 03:49] LABS: ALANINE AMINOTRANSFERASE 67 U/L (0-55); MAGNESIUM 1.5 MG/DL (1.6-2.4)
[2023-01-18 03:50] LABS: LIPASE 15 U/L (8-78)
--- NOTE | 2023-01-18 03:54 | ED General ---
General Chief Complaint: Abdominal/GI Problems Stated Complaint: DIZZY,ABD PAIN,VOMIITNG,BLURRY VISION Nursing Triage Note: Pt presents with c/o abdominal pain, n/v, dizziness and occasional blurred vision that has been going on for the past 5 days. Pt states he has been taking 8mg zofran every 12 hours, last dose was 2300. Source of Information: Patient Exam Limitations: No Limitations History of Present Illness Date Seen by Provider: January 18, 2023 Time Seen by Provider: 02:49 Initial Comments Patient here with report of dizziness, nausea, vomiting and abdominal pain left upper quadrant and right mid abdomen. States that he has not been able to eat 3 meals in the last 5 days. He reports that he is drinking okay. He has been taking his ondansetron and that has not helped. States usually he gets IV fluid, GI cocktail and ondansetron IV here and that usually helps. He follows with primary care in [place] where he used to live. He has been seen here multiple times for similar. Does have chronic kidney disease and chronic abdominal pain with nausea and vomiting. Patient does have seizure disorder. He states he is taking all meds as directed. Denies fever chills. Denies upper respiratory symptoms. Timing/Duration: 5-6 Days Severity: Moderate Associated Systoms: No Cough, No Fever/Chills; Nausea/Vomiting, Weakness Allergies and Home Medications Allergies Coded Allergies: Penicillins (Verified Allergy, Unknown, 02/11/22) amoxicillin (Verified Allergy, Unknown, 02/11/22) droperidol (Verified Allergy, Unknown, 08/10/22) latex (Verified Allergy, Unknown, 02/11/22) meclizine (Verified Allergy, Unknown, 02/20/22) Patient Home Medication List Home Medication List Reviewed: Yes Gabapentin (Neurontin) 300 Mg Capsule, 300 MG PO TID, (Reported) Entered as Reported by: LEANNA DASILVA on 02/12/22 1138 Levothyroxine Sodium (Levothyroxine Sodium) 25 Mcg Tablet, 25 MCG PO DAILY, (Reported) Entered as Reported by: LEANNA DASILVA on 02/12/22 1138 Metoprolol Tartrate (Metoprolol Tartrate) 75 Mg Tablet, 75 MG PO BID, (Reported) Entered as Reported by: TRUPTI EVANS on 05/02/22 1219 Ondansetron (Ondansetron Odt) 4 Mg Tab.rapdis, 4 MG SL Q4H PRN for NAUSEA/VOMITING Prescribed by: DRAKE VELAZQUEZ on 11/21/22 1258 Review of Systems Review of Systems Constitutional: No chills, No fever EENTM: blurred vision; No nose congestion, No throat pain Respiratory: No cough, No short of breath Cardiovascular: No chest pain, No edema Gastrointestinal: nausea, vomiting Genitourinary: No dysuria, No pain Musculoskeletal: No back pain, No neck pain Skin: no symptoms reported Psychiatric/Neurological: Denies Headache; Weakness Past Autjape-Iygtbj-Tcwhvi Hx Patient Social History Tobacco Use?: No Substance use?: No Alcohol Use?: No Immunizations Up To Date Influenza Vaccine Up-to-Date: Yes; Up-to-Date First/Initial COVID19 Vaccinat: n/a Second COVID19 Vaccination Lion: n/a Third COVID19 Vaccination Date: n/a Past Medical History Surgery/Hospitalization HX: SVT with ablation, hx epilepsy, hypothyroidism, non-alcoholic hepatitis, hypertension Surgeries: Yes (CARDIAC ABLATION) Cardiac Respiratory: No Cardiac: Yes (SVT-S/P ABLATION) Irregular Heartbeat Neurological: Yes Neuropathy, Seizure Disorder Genitourinary: Yes (CHRONIC RENAL INSUFFICIENCY) Renal Failure Gastrointestinal: Yes ("MORAN" PER PT; CHRONIC N/V/ABD PAIN; ) Liver Disease/Jaundice Musculoskeletal: No Endocrine: Yes (HYPERCALCEMIA) Hypothyroidsim, Diabetes, Non-Insulin dep HEENT: No Cancer: No Psychosocial: Yes (POLYSUBSTANCE ABUSE) Integumentary: No Blood Disorders: No Family Medical History Reviewed Nursing Family Hx No Pertinent Family Hx TESTED POSITIVE FOR COVID-19 ON 05/16/22--NO TREATMENT OR HOSPITALIZATION Physical Exam Vital Signs Vital Signs - First Documented 01/18/23 02:40 Temp 37.0 Pulse 112 Resp 20 B/P (MAP) 148/83 (104) Capillary Refill : Less Than 3 Seconds Height, Weight, BMI Height: '" Weight: lbs. oz. kg; 35.00 BMI Method: General Appearance: No Apparent Distress, WD/WN, Other (Flat affect) HEENT: PERRL/EOMI, Pharynx Normal Neck: Non Tender, Supple Respiratory: Lungs Clear, Normal Breath Sounds Cardiovascular: No Murmur, Tachycardia Gastrointestinal: Soft, Tenderness (Mild left upper quadrant and right mid abdomen) Back: Normal Inspection, No CVA Tenderness, No Vertebral Tenderness Extremity: Normal Range of Motion, Non Tender Neurologic/Psychiatric: Alert, Oriented x3 Skin: Normal Color, Warm/Dry Progress/Results/Core Measures Suspected Sepsis SIRS Temperature: Pulse: 112 Respiratory Rate: 20 Laboratory Tests 01/18/23 03:20: White Blood Count 6.4 Blood Pressure 148 /83 Mean: 104 Laboratory Tests 01/18/23 03:20: Creatinine 1.30, Platelet Count 208, Total Bilirubin 0.4 Results/Orders Lab Results Laboratory Tests Test 01/18/23 03:20 Range/Units White Blood Count 6.4 4.3-11.0 10^3/uL Red Blood Count 4.65 4.30-5.52 10^6/uL Hemoglobin 14.9 13.3-17.7 g/dL Hematocrit 42 40-54 % Mean Corpuscular Volume 90 80-99 fL Mean Corpuscular Hemoglobin 32 25-34 pg Mean Corpuscular Hemoglobin Concent 36 32-36 g/dL Red Cell Distribution Width 11.7 10.0-14.5 % Platelet Count 208 130-400 10^3/uL Mean Platelet Volume 11.2 9.0-12.2 fL Immature Granulocyte % (Auto) 0 % Neutrophils (%) (Auto) 59 42-75 % Lymphocytes (%) (Auto) 31 12-44 % Monocytes (%) (Auto) 7 0-12 % Eosinophils (%) (Auto) 2 0-10 % Basophils (%) (Auto) 1 0-10 % Neutrophils # (Auto) 3.8 1.8-7.8 10^3/uL Lymphocytes # (Auto) 2.0 1.0-4.0 10^3/uL Monocytes # (Auto) 0.4 0.0-1.0 10^3/uL Eosinophils # (Auto) 0.2 0.0-0.3 10^3/uL Basophils # (Auto) 0.0 0.0-0.1 10^3/uL Immature Granulocyte # (Auto) 0.0 0.0-0.1 10^3/uL Sodium Level 139 135-145 MMOL/L Potassium Level 3.7 3.6-5.0 MMOL/L Chloride Level 101 98-107 MMOL/L Carbon Dioxide Level 25 21-32 MMOL/L Anion Gap 13 5-14 MMOL/L Blood Urea Nitrogen 11 7-18 MG/DL Creatinine 1.30 0.60-1.30 MG/DL Estimat Glomerular Filtration Rate 79 BUN/Creatinine Ratio 8 Glucose Level 89 70-105 MG/DL Calcium Level 10.6 H 8.5-10.1 MG/DL Corrected Calcium 8.5-10.1 MG/DL Magnesium Level 1.5 L 1.6-2.4 MG/DL Total Bilirubin 0.4 0.1-1.0 MG/DL Aspartate Amino Transf (AST/SGOT) 36 H 5-34 U/L Alanine Aminotransferase (ALT/SGPT) 67 H 0-55 U/L Alkaline Phosphatase 53 40-136 U/L Total Protein 7.1 6.4-8.2 GM/DL Albumin 4.6 H 3.2-4.5 GM/DL Lipase 15 8-78 U/L My Orders Orders - BINH MCLAIN MD Ondansetron Injection (Zofran Injectio (01/18/23 03:15) Lidocaine 2% Viscous 15 Ml (Xylocaine Vi (01/18/23 03:15) Ns Iv 1000 Ml (Sodium Chloride 0.9%) (01/18/23 03:11) Antacid Suspension (Mylanta Suspension (01/18/23 03:15) Ed Iv/Invasive Line Start (01/18/23 03:11) Cbc With Automated Diff (01/18/23 03:11) Comprehensive Metabolic Panel (01/18/23 03:11) Lipase (01/18/23 03:11) Magnesium (01/18/23 03:11) Magnesium Oxide Tablet (Mag Ox Tablet) (01/18/23 04:15) Medications Given in ED Current Medications Medications Dose Ordered Sig/Macho Route Start Time Stop Time Status Last Admin Dose Admin Al Hydrox/Mg Hydrox/Simethicone 30 ml ONCE ONCE PO 01/18/23 03:15 01/18/23 03:16 DC 01/18/23 03:21 30 ML Lidocaine HCl 15 ml ONCE ONCE PO 01/18/23 03:15 01/18/23 03:16 DC 01/18/23 03:21 15 ML Ondansetron HCl 4 mg ONCE ONCE IVP 01/18/23 03:15 01/18/23 03:16 DC 01/18/23 03:21 4 MG Vital Signs/I&O 01/18/23 02:40 Temp 37.0 Pulse 112 Resp 20 B/P (MAP) 148/83 (104) Capillary Refill : Less Than 3 Seconds Blood Pressure Mean: 104 Progress Note : Progress Note Seen and evaluated. IV, labs including CBC, CMP and lipase ordered. Normal saline 1 L bolus and ondansetron 4 mg IV ordered. GI cocktail ordered. Orthostatic vital signs. He does have increased heart rate from 10 7-1 20 with relatively stable blood pressure in the hypertensive range in the laying to standing. See nursing notes for details. Monitor patient. Differential diagnosis includes electrolyte abnormality, dehydration, chronic abdominal pain, chronic nausea and vomiting 0354: CBC reviewed and is normal overall. Chemistry reviewed and has very slight elevation of LFTs with magnesium at 1.5. Lipase is normal. Creatinine is noted to be normal but at the high end of normal. This is overall better than previous visit. Patient was able to walk to the bathroom under his own power without balance issues. He remained steady throughout entire walk. 0409: Mag oxide 400 mg tablet p.o. ordered. Patient is overall doing better. With no significant abnormality, no indication for CT scan. No indication for admission. Patient has appointment with GI specialist in [place] on 01/27/2023. We will keep that appointment. Discharged home with return precautions. Patient agreeable radiologist. Instructions and agreement with plan. Departure Impression Primary Impression: Nausea and vomiting Qualified Codes: R11.2 - Nausea with vomiting, unspecified Additional Impressions: Dehydration Low magnesium level Disposition: 01 HOME, SELF-CARE Condition: Improved Departure-Patient Inst. Decision time for Depature: 04:11 Referrals: NO,LOCAL PHYSICIAN (PCP/Family) Primary Care Physician Patient Instructions: Severe Abdominal Pain, Adult (DC), Nausea and Vomiting, Adult, Low Magnesium Level Add. Discharge Instructions: All discharge instructions reviewed with patient and/or family. Voiced understanding. You may take [id number] magnesium supplements although take these spa ringly as this may cause diarrhea. Drink plenty of fluids. Clear liquid or light diet for the next few days and then advance as tolerated. Continue home meds as previously prescribed. Follow-up with GI specialist on the as scheduled. Follow-up with your primary care doctor within 1 week for recheck and further evaluation. Discussed this visit with your primary care doctor including magnesium level. Return for worse pain, fever, vomiting, weakness, breathing problems or other concerns as needed. BINH MCLAIN MD January 18, 2023 03:54
[2023-01-18] MEDS ORDERED: MAGNESIUM OXIDE (MAG-OX)400 MG TAB PO ONE (04:15)
== END 2023-01-18 04:28 | disposition home or self-care (01) ==
LOC: EDUNIT# 02:23 → ER 02:29
DX: R11.2 Nausea with vomiting, unspecified (principal); E86.0 Dehydration; E61.2 Magnesium deficiency; G40.909 Epilepsy, unspecified, not intractable, without status epilepticus; Z86.16 Personal history of COVID-19; Z91.040 Latex allergy status; Z28.310 Unvaccinated for COVID-19; Z79.899 Other long term (current) drug therapy
CPT/HCPCS: 36415; 80053; 83690; 83735; 85025

== ENCOUNTER → 2023-02-04 | Outpatient (CLI) | payer OTHER ==
[~2023-02-04] MED LIST changes: -GABA300S2 PO; +GABA300S3 PO
--- NOTE | 2023-02-04 13:18 | Diagnostic Imaging Report ---
PROCEDURE: US Abdomen, limited. TECHNIQUE: Multiple Real-time grayscale images were obtained over the abdomen in various projections. INDICATION: Nausea and vomiting. FINDINGS: The liver is enlarged at approximately 20 cm. There is increased echogenicity throughout the liver, consistent with hepatic steatosis. The portal vein is patent and shows normal direction of flow. No liver mass is identified. The gallbladder is without stones or sludge. There is no wall thickening or biliary ductal dilatation. The pancreas is unremarkable. The aorta is nonaneurysmal. The IVC is patent. The right kidney is without calculus or hydronephrosis. There is no ascites. IMPRESSION: 1. Hepatomegaly and hepatic steatosis. 2. No evidence of cholelithiasis or acute cholecystitis. Dictated by: Dictated on workstation # [id number]
== END ==
LOC: RAD 09:02
DX: R16.0 Hepatomegaly, not elsewhere classified (principal)
CPT/HCPCS: 76705

== ENCOUNTER → 2023-04-14 | Outpatient (RCR) | payer OTHER | END | disposition home or self-care (01) | PROVIDERS: ATTEND Family Medicine | DX: R42 Dizziness and giddiness (principal) ==

== ENCOUNTER 2023-04-17 15:49 | Outpatient (RCR) | payer OTHER ==
[2023-04-26] MEDS ORDERED: DIVA-76 PO (03:27)
[2023-04-26] MEDS ORDERED: POTA-179 (03:27)
[2023-04-26] MEDS ORDERED: SMZ/TMP (03:27)
[2023-04-26] MEDS ORDERED: FURO20TA4 (03:27)
== END 2023-05-15 | disposition home or self-care (01) ==
PROVIDERS: ATTEND Family Medicine
DX: R42 Dizziness and giddiness (principal)

== ENCOUNTER 2023-04-26 03:18 | Emergency (ER) | payer OTHER ==
[~2023-04-26] VITALS: Ht 180 cm; Wt 115.0 kg
[2023-04-26 03:21] VITALS: BP 132/83
[2023-04-26] MEDS ORDERED: FURO20TA4 (03:27)
[2023-04-26] MEDS ORDERED: SMZ/TMP (03:27)
[2023-04-26] MEDS ORDERED: DIVA-76 PO (03:27)
[2023-04-26] MEDS ORDERED: POTA-179 (03:27)
--- NOTE | 2023-04-26 03:38 | ED Neurological Problem ---
General Chief Complaint: Neurological Problems Stated Complaint: SEIZURE Nursing Triage Note: BROUGHT IN BY [facility] FOR SEIZURE AT WORK. PT DENIES INJURY. REPORTS MISSING DOSE OF DEPAKOTE. HX OF SEIZURES. PT REPORTS RIGHT TESTICULAR PAIN FROM EXCESSIVE MASTURBATION CURRENTLY BEING TREATED WITH SMZ/TMP. Source: patient, EMS, old records History of Present Illness Date Seen by Provider: Apr 26, 2023 Time Seen by Provider: 03:21 Initial Comments PT ARRIVES VIA EMS FROM LOCAL [facility], WHERE PT WAS WORKING TONIGHT STATES HE WORKS FROM 11 PM TO 7 AM HE REPORTEDLY HAD A SEIZURE TONIGHT--WAS NOT WITNESSED BY ANYONE, STAFF MEMBER FOUND HIM LAYING ON THE FLOOR. EMS REPORT THAT A SURVEILLANCE [employer]ER[employer] HAD VIDEO OF HIM SLOWLY LOWERING HIMSELF TO THE FLOOR. EMS WAS DISPATCHED AT 0240 AND PT WAS FOUND AT APPROXIMATELY 0230, PER EMS. PT DID NOT HIT HIS HEAD HE DID BITE HIS TONGUE OR HAVE ANY INJURY TO HIS MOUTH. THERE IS NO INCONTINENCE NO HEADACHE NO NAUSEA/VOMITING PT IS NOT POST ICTAL NOW AND WAS NOT FOR EMS. PT HAS A REPORTED HISTORY OF SEIZURES AND IS PRESCRIBED DEPAKOTE 500 MG BID--HE DENIES ANY DOSE CHANGES. HE STATES HE DID NOT TAKE HIS DEPAKOTE TONIGHT. HE STATES HE DID TAKE IT IN THE MORNING. HE STATES THAT IF HE MISSES EVEN ONE DOSE HE WILL HAVE A SEIZURE. HE STATES HE DID NOT TAKE IT BECAUSE OF ONGOING RIGHT TESTICULAR PAIN FOR THE L AST 4 DAYS--STATES HE WENT TO [facility] AND WAS DX WITH EPIDIDYMITIS DUE TO MASTURBATING TOO MUCH AND WAS PRESCRIBED BACTRIM. HE STATES HE HAS NOT TAKEN ANYTHING FOR PAIN NO FEVER NO ABDOMINAL PAIN NO BACK PAIN PT HAS HAD A MULTITUDE OF VISITS HERE FOR THIS SAME COMPLAINT, WELL CHRONIC NAUSEA AND VOMITING AND ABDOMINAL PAIN COMPLAINTS. PT STATES HE HAS A NEUROLOGIST IN [place],BUT STATES "IT HAS BEEN SO LONG SINCE I'VE SEEN HIM I DON'T REMEMBER HIS NAME". THEN LATER STATES HE SAW HIM 6 MONTHS AGO. PT STATES HE LIVES HERE IN [place]. HE STATES HIS PCP IS IN [place], [place] WHERE HE USED TO LIVE, BUT HE HAS NOT BEEN THERE RECENTLY AND DOES NOT HAVE ANY SCHEDULED APPOINTMENTS ON PRIOR VISITS, PT HAS GIVEN MUCH CONVOLUTED AND INCONSISTENT INFORMATION ABOUT WHAT DOCTOR HE GOES TO AND WHERE AND WHEN PT IS VERY WELL KNOWN TO FREQUENT OTHER FACILITIES IN [facility], AND IS VERY WELL KNOWN TO SOME ER STAFF WHO HAVE WORKED AT OTHER FACILITIES , AND HAS BEEN KNOWN TO FREQUENT THE ER DAILY OR EVEN MULTIPLE TIMES IN THE SAME DAY FOR VARIOUS COMPLAINTS PT HAS LONG HISTORY OF ALCOHOL AND DRUG ABUSE, ESPECIALLY METHAMPHETAMINES AND HALLUCINOGENICS ESPECIALLY LSD, PER PT. HE STATES HE DOES NOT DRIVE, AND EITHER WALKS TO WORK OR USES UBER TO GET TO AND FROM WORK, WHICH HE DID TONIGHT. Allergies and Home Medications Allergies Coded Allergies: Penicillins (Verified Allergy, Unknown, 02/11/22) amoxicillin (Verified Allergy, Unknown, 02/11/22) droperidol (Verified Allergy, Unknown, 08/10/22) latex (Verified Allergy, Unknown, 02/11/22) meclizine (Verified Allergy, Unknown, 02/20/22) Patient Home Medication List Home Medication List Reviewed: Yes Divalproex Sodium (Divalproex Sodium) 500 Mg Tablet.dr, 500 MG PO, (Reported) Entered as Reported by: ALEX SAMPSON on 04/26/23326 Last Action: New Order Furosemide (Furosemide) 20 Mg Tablet, (Reported) Entered as Reported by: ALEX SAMPSON on 04/26/23326 Last Action: New Order Gabapentin (Neurontin) 300 Mg Capsule, 300 MG PO TID, (Reported) Entered as Reported by: LEANNA DASIVLA on 02/12/22 113 Levothyroxine Sodium (Levothyroxine Sodium) 25 Mcg Tablet, 25 MCG PO DAILY, (Reported) Entered as Reported by: LEANNA DASILVA on 02/12/22 1138 Metoprolol Tartrate (Metoprolol Tartrate) 75 Mg Tablet, 75 MG PO BID, (Reported) Entered as Reported by: TRUPTI EVANS on 05/02/22 1219 Ondansetron (Ondansetron Odt) 4 Mg Tab.rapdis, 4 MG SL Q4H PRN for NAUSEA/VOMITING Prescribed by: DRAKE VELAZQUEZ on 11/21/22 1258 Potassium Chloride (Potassium Chloride) 20 Meq Tab.er.prt, (Reported) Entered as Reported by: ALEX SAMPSON on 04/26/23326 Last Action: New Order [Smz/Tmp] , (Reported) Entered as Reported by: ALEX SAMPSON on 04/26/23326 Last Action: New Order Review of Systems Review of Systems Constitutional: no symptoms reported Eyes: No Symptoms Reported Ears, Nose, Mouth, Throat: no symptoms reported Respiratory: no symptoms reported Cardiovascular: no symptoms reported Gastrointestinal: no symptoms reported Genitourinary: see HPI Musculoskeletal: no symptoms reported Skin: no symptoms reported Psychiatric/Neurological: See HPI; Denies Cognitive Dysfunction, Denies Headache, Denies Numbness, Denies Tingling, Denies Weakness Endocrine: No Symptoms Reported Hematologic/Lymphatic: No Symptoms Reported Past Mebcdbk-Jpobnm-Wqomni Hx Patient Social History Tobacco Use?: Yes Tobacco type used: Cigarettes Smoking Status: Current Everyday Smoker Substance use?: Yes Substance type: Methamphetamine, Hallucinogens Alcohol Use?: Yes Pt feels they are or have been: No Immunizations Up To Date First/Initial COVID19 Vaccinat: n/a Second COVID19 Vaccination Lion: n/a Third COVID19 Vaccination Date: n/a Past Medical History Surgery/Hospitalization HX: SVT with ablation, hx epilepsy, hypothyroidism, non-alcoholic hepatitis, hypertension Surgeries: Yes (CARDIAC ABLATION) Cardiac Respiratory: No Cardiac: Yes (SVT-S/P ABLATION) Irregular Heartbeat Neurological: Yes Neuropathy, Seizure Disorder Genitourinary: Yes (CHRONIC RENAL INSUFFICIENCY) Renal Failure Gastrointestinal: Yes ("MORAN" PER PT; CHRONIC N/V/ABD PAIN; ) Liver Disease/Jaundice Musculoskeletal: No Endocrine: Yes (HYPERCALCEMIA) Hypothyroidsim, Diabetes, Non-Insulin dep HEENT: No Cancer: No Psychosocial: Yes (POLYSUBSTANCE ABUSE) Integumentary: No Blood Disorders: No Family Medical History No Pertinent Family Hx SOCIAL HISTORY: -SMOKES 1 PPD -ETOH--HISTORY OF HEAVY, DAILY USE -DRUGS--EXTENSIVE HISTORY OF USING MULTIPLE DRUGS, ESPECIALLY METHAMPHETAMINES AND HALLUCINOGENS SUCH LSD, PER PT. HE HAS USED METHAMPHETAMINES IV AND SMOKED IT. PT GIVES MUCH CONVOLUTED AND INCONSISTENT INFORMATION ABOUT NEUROLOGIST AND PCP STATES "I DON'T CURRENTLY HAVE A NEUROLOGIST"--STATES HE WAS SEEING A DR. LINDSEY IN [facility], [place]. --HAS NOT BEEN THERE "IN A LONG TIME" , AND CANNOT REMEMBER WHEN HE LAST SAW A NEUROLOGIST HE ALSO STATES HE DOES NOT HAVE A PCP--STATES HE IS GOING TO START SEEING SOMEONE IN [place], [place]--DOES NOT HAVE AN APPOINTMENT YET. ( PT STATES HE LIVES HERE IN [place]) . PT HAD SEEN DR. MOLINA IN [place] IN THE PAST, BUT STATES HE NO LONGER GOES THERE. ON 04/26/23, HE STATES HIS PCP IS IN [place], [place] WHERE HE USED TO LIVE. HE ALSO STATES THAT HE SEES A NEUROLOGIST IN [place], BUT "DOES NOT KNOW HIS NAME BECAUSE IT HAS BEEN SO LONG SINCE HE HAS BEEN THERE" [facility] RECOR[facility], PT HAS HISTORY OF MORAN ( SELF-REPORTED) AND CHRONIC NAUSEA/VOMITING/ABDOMINAL PAIN, WELL CHRONIC RENAL INSUFFICIENCY. PT WITH A MULTITUDE OF VISITS TO MULTIPLE FACILITIES IN [facility], WELL MANY OTHER LOCAL FACILITIES. PT IS EXTREMELY WELL KNOWN TO SOME ER STAFF HERE THAT HAVE WORKED AT OTHER FACILITIES, AND PT HAD DAILY, AND OFTEN MORE THAN ONCE DAILY VISITS TO OTHER HOSPITAL ER'S FOR VARIOUS COMPLAINTS. TESTED POSITIVE FOR COVID-19 ON 05/16/22--NO TREATMENT OR HOSPITALIZATION Physical Exam Vital Signs Vital Signs - First Documented 04/26/23 03:21 Temp 36.7 Pulse 86 Resp 16 B/P (MAP) 132/83 (99) Pulse Ox 96 O2 Delivery Room Air Capillary Refill : Less Than 3 Seconds Height, Weight, BMI Height: '" Weight: lbs. oz. kg; 35.00 BMI Method: General Appearance: WD/WN, no apparent distress HEENT: PERRL/EOMI, normal ENT inspection, TMs normal, pharynx normal Neck: non-tender Respiratory: normal breath sounds, no respiratory distress, no accessory muscle use Cardiovascular: regular rate, rhythm, no murmur Gastrointestinal: non tender, soft Extremities: normal inspection, normal capillary refill Neurologic/Psychiatric: explosive technician II-XII nml as tested, no motor/sensory deficits, alert, normal mood/affect, oriented x 3 Crainal Nerves: normal hearing, normal speech, PERRL Coordination/Gait: normal gait Motor/Sensory: no motor deficit, no sensory deficit Skin: normal color, warm/dry Progress/Results/Core Measures Results/Orders My Orders Orders - JENNY FRY DO Divalproex Delay Release Tab (Divalproex (04/26/23 03:45) Vital Signs/I&O 04/26/23 03:21 Temp 36.7 Pulse 86 Resp 16 B/P (MAP) 132/83 (99) Pulse Ox 96 O2 Delivery Room Air Blood Pressure Mean: 99 Progress Progress Note : Progress Note VITALS ARE STABLE PT DOES NOT APPEAR POST ICTAL HE IS NOT REPORTING ANY INJURIES FROM THE REPORTED SEIZURE. PT WAS GIVEN DEPAKOTE, HE MISSED HIS DOSE TONIGHT. PT IS WANTING ATIVAN ON ARRIVAL. ADVISED HIM THAT HE WAS NOT CURRENTLY HAVING A SEIZURE AND ATIVAN IS NOT INDICATED AT THIS TIME. DISCUSSED IMPORTANCE OF TAKING HIS MEDICATION, FOLLOWING UP WITH NEUROLOGIST AND ESTABLISHING WITH LOCAL PCP FOR ONGOING MEDICAL CARE. REVIEWED PRIOR RECORDS, PT HAS HAD A MULTITUDE OF ER VISITS WITH A COUPLE OF ADMITS, SINCE HIS FIRST VISIT HERE 01/2022 FOR CHRONIC GI COMPLAINTS AND REPORTED SEIZURES. Departure Impression Primary Impression: REPORTED SEIZURE Disposition: HOME, SELF-CARE Condition: Stable Departure-Patient Inst. Decision time for Depature: 03:35 Referrals: SHOAIB SIMS MD (PCP) Primary Care Physician Patient Instructions: Seizures, Adult (DC) Add. Discharge Instructions: DO NOT MISS DOSES OF YOUR MEDICATIONS FOLLOW UP WITH YOUR NEUROLOGIST NEXT WEEK FOLLOW UP WITH [facility] NEXT WEEK FOR FURTHER CARE All discharge instructions reviewed with patient and/or family. Voiced understanding. JENNY FRY DO Apr 26, 2023 03:38
[2023-04-26] MEDS ORDERED: DIVALPROEX 250 MG DELAYED RELEASE TABLET PO SCH (03:45)
== END 2023-04-26 03:42 | disposition home or self-care (01) ==
LOC: EDUNIT# 03:18 → ER 03:19
DX: G40.909 Epilepsy, unspecified, not intractable, without status epilepticus (principal); F17.210 Nicotine dependence, cigarettes, uncomplicated; Z28.310 Unvaccinated for COVID-19; Z91.040 Latex allergy status; Z79.899 Other long term (current) drug therapy
CPT/HCPCS: 99283

== ENCOUNTER 2023-05-18 01:04 | Emergency (ER) | payer OTHER ==
[~2023-05-18] VITALS: Ht 180.3 cm; Wt 104.3 kg
[~2023-05-18 01:04] MED LIST changes: +FURO20TA4; +POTA-179; +SMZ/TMP
[2023-05-18] MEDS ORDERED: KETOROLAC INJ 15 MG/ML VIAL IVP ONE (01:15)
--- NOTE | 2023-05-18 01:18 | ED General ---
General Stated Complaint: ABD PX,NAUSEA Source of Information: Patient Exam Limitations: No Limitations History of Present Illness Date Seen by Provider: May 18, 2023 Time Seen by Provider: 01:06 Initial Comments 22 yo M here via EMS from work at the [employer]. He states he has chronic nausea and vomiting and has had worsening symptoms over the last couple of days. He also has chronic abdominal pain and worsened symptoms today. Emesis is non bloody and non bilious. He has had multiple workups for the exact same presentation. He states he hopes to avoid the cost of CT scan and labs today. Just wants treated for pain and nausea. He was given 4 mg of Zofran in his IV prior to arrival by EMS. He states his nausea has improved. He has been using Zofran at home as well. No fevers or chills. No changes in bowel or bladder habits. He has not had any abdominal surgeries. He has had multiple CT scans as well as upper and lower endoscopy to evaluate the cause of his symptoms all of which not reveal source. All other systems reviewed and negative except documented per HPI. Voice recognition software was used to help create this chart Allergies and Home Medications Allergies Coded Allergies: Penicillins (Verified Allergy, Unknown, 02/11/22) amoxicillin (Verified Allergy, Unknown, 02/11/22) droperidol (Verified Allergy, Unknown, 08/10/22) latex (Verified Allergy, Unknown, 02/11/22) meclizine (Verified Allergy, Unknown, 02/20/22) Patient Home Medication List Home Medication List Reviewed: Yes Divalproex Sodium (Divalproex Sodium) 500 Mg Tablet.dr, 500 MG PO, (Reported) Entered as Reported by: ALEX SAMPSON on 04/26/23 032 Furosemide (Furosemide) 20 Mg Tablet, (Reported) Entered as Reported by: ALEX SAMPSON on 04/26/23 032 Gabapentin (Neurontin) 300 Mg Capsule, 300 MG PO TID, (Reported) Entered as Reported by: LEANNA DASILVA on 02/12/22 113 Levothyroxine Sodium (Levothyroxine Sodium) 25 Mcg Tablet, 25 MCG PO DAILY, (Reported) Entered as Reported by: LEANNA DASILVA on 02/12/22 1138 Metoprolol Tartrate (Metoprolol Tartrate) 75 Mg Tablet, 75 MG PO BID, (Reported) Entered as Reported by: TRUPTI EVANS on 05/02/22 1219 Ondansetron (Ondansetron Odt) 4 Mg Tab.rapdis, 4 MG SL Q4H PRN for NAUSEA/VOMITING Prescribed by: DRAKE VELAZQUEZ on 11/21/22 1258 Potassium Chloride (Potassium Chloride) 20 Meq Tab.er.prt, (Reported) Entered as Reported by: ALEX SAMPSON on 04/26/23 032 [Smz/Tmp] , (Reported) Entered as Reported by: ALEX SAMPSON on 04/26/23326 Review of Systems Review of Systems Constitutional: see HPI Past Jatdtew-Xmofbj-Uuntfu Hx Patient Social History Tobacco Use?: No Use of E-Cig and/or Vaping dev: No Substance use?: No Alcohol Use?: No Immunizations Up To Date First/Initial COVID19 Vaccinat: n/a Second COVID19 Vaccination Lion: n/a Third COVID19 Vaccination Date: n/a Past Medical History Surgery/Hospitalization HX: SVT with ablation, hx epilepsy, hypothyroidism, non-alcoholic hepatitis, hypertension Surgeries: Yes (CARDIAC ABLATION) Cardiac Respiratory: No Cardiac: Yes (SVT-S/P ABLATION) Irregular Heartbeat Neurological: Yes Neuropathy, Seizure Disorder Genitourinary: Yes (CHRONIC RENAL INSUFFICIENCY) Renal Failure Gastrointestinal: Yes ("MORAN" PER PT; CHRONIC N/V/ABD PAIN; ) Liver Disease/Jaundice Musculoskeletal: No Endocrine: Yes (HYPERCALCEMIA) Hypothyroidsim, Diabetes, Non-Insulin dep HEENT: No Cancer: No Psychosocial: Yes (POLYSUBSTANCE ABUSE) Integumentary: No Blood Disorders: No Family Medical History No Pertinent Family Hx SOCIAL HISTORY: -SMOKES 1 PPD -ETOH--HISTORY OF HEAVY, DAILY USE -DRUGS--EXTENSIVE HISTORY OF USING MULTIPLE DRUGS, ESPECIALLY METHAMPHETAMINES AND HALLUCINOGENS SUCH LSD, PER PT. HE HAS USED METHAMPHETAMINES IV AND SMOKED IT. PT GIVES MUCH CONVOLUTED AND INCONSISTENT INFORMATION ABOUT NEUROLOGIST AND PCP STATES "I DON'T CURRENTLY HAVE A NEUROLOGIST"--STATES HE WAS SEEING A DR. LINDSEY IN [facility], [place]. --HAS NOT BEEN THERE "IN A LONG TIME" , AND CANNOT REMEMBER WHEN HE LAST SAW A NEUROLOGIST HE ALSO STATES HE DOES NOT HAVE A PCP--STATES HE IS GOING TO START SEEING SOMEONE IN [place], [place]--DOES NOT HAVE AN APPOINTMENT YET. ( PT STATES HE LIVES HERE IN [place]) . PT HAD SEEN DR. MOLINA IN [place] IN THE PAST, BUT STATES HE NO LONGER GOES THERE. ON 04/26/23, HE STATES HIS PCP IS IN [place], [place] WHERE HE USED TO LIVE. HE ALSO STATES THAT HE SEES A NEUROLOGIST IN [place], BUT "DOES NOT KNOW HIS NAME BECAUSE IT HAS BEEN SO LONG SINCE HE HAS BEEN THERE" HE HAS ALSO BEEN TO [facility] ON REVIEW OF OLD RECORDS, PT HAS HISTORY OF MORAN ( SELF-REPORTED) AND CHRONIC NAUSEA/VOMITING/ABDOMINAL PAIN, WELL CHRONIC RENAL INSUFFICIENCY. PT WITH A MULTITUDE OF VISITS TO MULTIPLE FACILITIES IN [facility], WELL MANY OTHER LOCAL FACILITIES. PT IS EXTREMELY WELL KNOWN TO SOME ER STAFF HERE THAT HAVE WORKED AT OTHER FACILITIES, AND PT HAD DAILY, AND OFTEN MORE THAN ONCE DAILY VISITS TO OTHER HOSPITAL ER'S FOR VARIOUS COMPLAINTS. TESTED POSITIVE FOR COVID-19 ON 05/16/22--NO TREATMENT OR HOSPITALIZATION Physical Exam Vital Signs Capillary Refill : Height, Weight, BMI Height: '" Weight: lbs. oz. kg; 35.00 BMI Method: General Appearance: No Apparent Distress, WD/WN Eyes: Bilateral Eye Normal Inspection, Bilateral Eye PERRL, Bilateral Eye EOMI HEENT: Normal ENT Inspection, Pharynx Normal Neck: Full Range of Motion, Normal Inspection, Non Tender, Supple Respiratory: Chest Non Tender, Lungs Clear, Normal Breath Sounds, No Accessory Muscle Use, No Respiratory Distress Cardiovascular: Regular Rate, Rhythm, No Murmur, Normal Peripheral Pulses Gastrointestinal: Normal Bowel Sounds, No Organomegaly, Soft, Other (I am unable to elicit any tenderness on exam.) Neurologic/Psychiatric: Alert, Oriented x3 Skin: Normal Color, Warm/Dry Progress/Results/Core Measures Suspected Sepsis SIRS Temperature: Pulse: Respiratory Rate: Blood Pressure / Mean: Results/Orders My Orders Orders - SHOAIB ODELL DO Ketorolac Injection (Ketorolac Injection (05/18/23 01:15) Vital Signs/I&O Capillary Refill : Departure Communication (Admissions) Patient is hemodynamically stable. He asked to forego labs and imaging today as this is the exact same presentation as previous. Request treatment for his nausea as well as pain. He is given IV Toradol. He was given IV Zofran in route via EMS and is feeling somewhat better in that regard. He does have Zofran at home. His abdominal exam is nonsurgical and his vital signs are sta ble. He is discharged home in stable condition. Impression Primary Impression: Chronic abdominal pain Additional Impression: Chronic nausea Disposition: HOME, SELF-CARE Condition: Stable Departure-Patient Inst. Referrals: SHOAIB SIMS MD (PCP) Primary Care Physician Patient Instructions: Nausea and Vomiting, Adult ED, Nausea and Vomiting, Adult Add. Discharge Instructions: You have requested to forego labs and imaging. You were given a shot of Toradol here in the emergency department which should help with your pain. Continue to use ondansetron at home as needed. Increase your fluids at home and rest. Return to the emergency department for any severe concerns. Follow-up with primary doctor for any ongoing needs. SHOAIB ODELL DO May 18, 2023 01:18
[2023-05-18 01:25] VITALS: BP 131/73
== END 2023-05-18 01:25 | disposition home or self-care (01) ==
LOC: EDUNIT# 01:04 → ER 01:05
DX: R11.2 Nausea with vomiting, unspecified (principal); R10.9 Unspecified abdominal pain; G89.29 Other chronic pain; F17.210 Nicotine dependence, cigarettes, uncomplicated; Z91.040 Latex allergy status; Z28.310 Unvaccinated for COVID-19
CPT/HCPCS: 99283

== ENCOUNTER 2023-05-20 16:33 | Emergency (ER) | payer OTHER ==
[2023-05-20] MEDS ORDERED: ONDANSETRON INJECTION 4 MG/2 ML (SDV) IVP ONE ×2 (17:00→18:45)
[2023-05-20] MEDS ORDERED: KETOROLAC INJ 15 MG/ML VIAL IVP ONE (17:00)
[2023-05-20 17:07] LABS: BASOPHILS % (AUTO) 1 % (0-10); EOSINOPHILS # (AUTO) 0.2 10^3/uL (0.0-0.3); EOSINOPHILS % (AUTO) 4 % (0-10); HEMATOCRIT 44 % (40-54); HEMOGLOBIN 14.7 g/dL (13.3-17.7); LYMPHOCYTES # (AUTO) 2.1 10^3/uL (1.0-4.0); LYMPHOCYTES % (AUTO) 36 % (12-44); MEAN CORPUSCULAR HEMOGLOBIN 32 pg (25-34); MEAN CORPUSCULAR HGB CONC 34 g/dL (32-36); MEAN CORPUSCULAR VOLUME 94 fL (80-99); MEAN PLATELET VOLUME 11.4 fL (9.0-12.2); MONOCYTES # (AUTO) 0.6 10^3/uL (0.0-1.0); MONOCYTES % (AUTO) 11 % (0-12); NEUTROPHILS # (AUTO) 2.9 10^3/uL (1.8-7.8); NEUTROPHILS % (AUTO) 49 % (42-75); PLATELET COUNT 178 10^3/uL (130-400); WHITE BLOOD COUNT 5.9 10^3/uL (4.3-11.0)
--- NOTE | 2023-05-20 17:11 | ED Abdominal Pain ---
General Chief Complaint: Abdominal/GI Problems Stated Complaint: ABD PAIN Nursing Triage Note: PT TO RM 6 BY EMS WITH CC OF DIZZINESS, NAUSEA, VOMITING AND ABD PAIN X 3 DAYS. PT SEEN AT [facility] WINDOW TREATMENT INSTALLER FOR SAME CONCERN. PT SEEN IN ED FOR SAME CONCERN ON # IV PLACED BY [facility] STAFF WINDOW TREATMENT INSTALLER Source of Information: Patient Exam Limitations: No Limitations History of Present Illness Date Seen by Provider: May 20, 2023 Time Seen by Provider: 16:52 Initial Comments 22-year-old male presents to the ER with complaint of dizziness, lightheadedness, upper abdominal pain, and nausea and vomiting which started 3 days ago. Patient was seen here on 05/18/2023 for the same symptoms. Patient has a long history of abdominal pain, has had multiple endoscopies and colonoscopies. Patient states the pain is the same as it always is. He denies blood in his vomit. Denies diarrhea and fevers. His last bowel movement was yesterday and normal. Allergies and Home Medications Allergies Coded Allergies: Penicillins (Verified Allergy, Unknown, 02/11/22) amoxicillin (Verified Allergy, Unknown, 02/11/22) droperidol (Verified Allergy, Unknown, 08/10/22) latex (Verified Allergy, Unknown, 02/11/22) meclizine (Verified Allergy, Unknown, 02/20/22) Patient Home Medication List Home Medication List Reviewed: Yes Divalproex Sodium (Divalproex Sodium) 500 Mg Tablet.dr, 500 MG PO, (Reported) Entered as Reported by: ALEX SAMPSON on 04/26/23326 Furosemide (Furosemide) 20 Mg Tablet, (Reported) Entered as Reported by: ALEX SAMPSON on 04/26/23326 Gabapentin (Neurontin) 300 Mg Capsule, 300 MG PO TID, (Reported) Entered as Reported by: LEANNA DASILVA on 02/12/22 1138 Levothyroxine Sodium (Levothyroxine Sodium) 25 Mcg Tablet, 25 MCG PO DAILY, (Reported) Entered as Reported by: LEANNA DASILVA on 02/12/22 1138 Metoprolol Tartrate (Metoprolol Tartrate) 75 Mg Tablet, 75 MG PO BID, (Reported) Entered as Reported by: TRUPTI EVANS on 05/02/22 1219 Ondansetron (Ondansetron Odt) 4 Mg Tab.rapdis, 4 MG SL Q4H PRN for NAUSEA/VOMITING Prescribed by: DRAKE VELAZQUEZ on 11/21/22 1258 Ondansetron (Ondansetron Odt) 4 Mg Tab.rapdis, 4 MG SL Q4H PRN for NAUSEA/VOMITING Prescribed by: Enedina Swain on 05/20/23 193 Potassium Chloride (Potassium Chloride) 20 Meq Tab.er.prt, (Reported) Entered as Reported by: ALEX SAMPSON on 04/26/23326 [Smz/Tmp] , (Reported) Entered as Reported by: ALEX SAMPSON on 04/26/23326 Review of Systems Review of Systems Constitutional: see HPI Past Osbrecj-Vissxx-Hhfqbf Hx Patient Social History Tobacco Use?: Yes Tobacco type used: Cigarettes Smoking Status: Current Everyday Smoker Substance use?: No Alcohol Use?: Yes Alcohol Frequency: Once in a while Immunizations Up To Date First/Initial COVID19 Vaccinat: N/A Second COVID19 Vaccination Lion: N/A Third COVID19 Vaccination Date: N/A Past Medical History Surgery/Hospitalization HX: SVT with ablation, hx epilepsy, hypothyroidism, non-alcoholic hepatitis, hypertension Surgeries: Yes (CARDIAC ABLATION) Cardiac Respiratory: No Cardiac: Yes (SVT-S/P ABLATION) Irregular Heartbeat Neurological: Yes Neuropathy, Seizure Disorder Genitourinary: Yes (CHRONIC RENAL INSUFFICIENCY) Renal Failure Gastrointestinal: Yes ("MORAN" PER PT; CHRONIC N/V/ABD PAIN; ) Liver Disease/Jaundice Musculoskeletal: No Endocrine: Yes (HYPERCALCEMIA) Hypothyroidsim, Diabetes, Non-Insulin dep HEENT: No Cancer: No Psychosocial: Yes (POLYSUBSTANCE ABUSE) Integumentary: No Blood Disorders: No Family Medical History No Pertinent Family Hx SOCIAL HISTORY: -SMOKES 1 PPD -ETOH--HISTORY OF HEAVY, DAILY USE -DRUGS--EXTENSIVE HISTORY OF USING MULTIPLE DRUGS, ESPECIALLY METHAMPHETAMINES AND HALLUCINOGENS SUCH LSD, PER PT. HE HAS USED METHAMPHETAMINES IV AND SMOKED IT. PT GIVES MUCH CONVOLUTED AND INCONSISTENT INFORMATION ABOUT NEUROLOGIST AND PCP STATES "I DON'T CURRENTLY HAVE A NEUROLOGIST"--STATES HE WAS SEEING A DR. LINDSEY IN [facility], [place] --HAS NOT BEEN THERE "IN A LONG TIME" , AND CANNOT REMEMBER WHEN HE LAST SAW A NEUROLOGIST HE ALSO STATES HE DOES NOT HAVE A PCP--STATES HE IS GOING TO START SEEING SOMEONE IN [place], [place]--DOES NOT HAVE AN APPOINTMENT YET. ( PT STATES HE LIVES HERE IN [place]) . PT HAD SEEN DR. MOLINA IN [place] IN THE PAST, BUT STATES HE NO LONGER GOES THERE. ON 04/26/23, HE STATES HIS PCP IS IN [place], [place] WHERE HE USED TO LIVE. HE ALSO STATES THAT HE SEES A NEUROLOGIST IN [place], BUT "DOES NOT KNOW HIS NAME BECAUSE IT HAS BEEN SO LONG SINCE HE HAS BEEN THERE" HE HAS ALSO BEEN TO [facility] ON REVIEW OF OLD RECORDS, PT HAS HISTORY OF MORAN ( SELF-REPORTED) AND CHRONIC NAUSEA/VOMITING/ABDOMINAL PAIN, WELL CHRONIC RENAL INSUFFICIENCY. PT WITH A MULTITUDE OF VISITS TO MULTIPLE FACILITIES IN MULTIPLE [facility], WELL MANY OTHER LOCAL FACILITIES. PT IS EXTREMELY WELL KNOWN TO SOME ER STAFF HERE THAT HAVE WORKED AT OTHER FACILITIES, AND PT HAD DAILY, AND OFTEN MORE THAN ONCE DAILY VISITS TO OTHER HOSPITAL ER'S FOR VARIOUS COMPLAINTS. TESTED POSITIVE FOR COVID-19 ON 05/16/22--NO TREATMENT OR HOSPITALIZATION Physical Exam Vital Signs Vital Signs - First Documented 05/20/23 16:33 Temp 36.9 Pulse 68 Resp 16 B/P (MAP) 122/70 (87) Pulse Ox 97 O2 Delivery Room Air Capillary Refill : Less Than 3 Seconds Height/Weight/BMI Height: '" Weight: lbs. oz. kg; 32.00 BMI Method: General Appearance: WD/WN, mild distress HEENT: PERRL/EOMI, TMs normal Neck: supple, normal inspection Respiratory: lungs clear, normal breath sounds, no respiratory distress, no accessory muscle use Cardiovascular: regular rate, rhythm Gastrointestinal: normal bowel sounds, non tender, soft Extremities: normal range of motion, normal inspection Neurologic/Psychiatric: campus security director II-XII nml as tested, alert, normal mood/affect Skin: normal color, warm/dry Progress/Results/Core Measures Results/Orders Lab Results Laboratory Tests Test 05/20/23 17:02 05/20/23 17:39 05/20/23 18:57 Range/Units White Blood Count 5.9 4.3-11.0 10^3/uL Red Blood Count 4.62 4.30-5.52 10^6/uL Hemoglobin 14.7 13.3-17.7 g/dL Hematocrit 44 40-54 % Mean Corpuscular Volume 94 80-99 fL Mean Corpuscular Hemoglobin 32 25-34 pg Mean Corpuscular Hemoglobin Concent 34 32-36 g/dL Red Cell Distribution Width 12.0 10.0-14.5 % Platelet Count 178 130-400 10^3/uL Mean Platelet Volume 11.4 9.0-12.2 fL Immature Granulocyte % (Auto) 0 % Neutrophils (%) (Auto) 49 42-75 % Lymphocytes (%) (Auto) 36 12-44 % Monocytes (%) (Auto) 11 0-12 % Eosinophils (%) (Auto) 4 0-10 % Basophils (%) (Auto) 1 0-10 % Neutrophils # (Auto) 2.9 1.8-7.8 10^3/uL Lymphocytes # (Auto) 2.1 1.0-4.0 10^3/uL Monocytes # (Auto) 0.6 0.0-1.0 10^3/uL Eosinophils # (Auto) 0.2 0.0-0.3 10^3/uL Basophils # (Auto) 0.0 0.0-0.1 10^3/uL Immature Granulocyte # (Auto) 0.0 0.0-0.1 10^3/uL Sodium Level 140 135-145 MMOL/L Potassium Level 4.3 3.6-5.0 MMOL/L Chloride Level 108 H 98-107 MMOL/L Carbon Dioxide Level 22 21-32 MMOL/L Anion Gap 10 5-14 MMOL/L Blood Urea Nitrogen 12 7-18 MG/DL Creatinine 1.16 0.60-1.30 MG/DL Estimat Glomerular Filtration Rate 91 BUN/Creatinine Ratio 10 Glucose Level 87 70-105 MG/DL Calcium Level 9.2 8.5-10.1 MG/DL Corrected Calcium 8.9 8.5-10.1 MG/DL Total Bilirubin 0.3 0.1-1.0 MG/DL Aspartate Amino Transf (AST/SGOT) 31 5-34 U/L Alanine Aminotransferase (ALT/SGPT) 66 H 0-55 U/L Alkaline Phosphatase 58 40-136 U/L Total Protein 6.7 6.4-8.2 GM/DL Albumin 4.4 3.2-4.5 GM/DL Lipase 18 8-78 U/L Urine Color YELLOW Urine Clarity CLEAR Urine pH 7.0 5-9 Urine Specific Delancey 1.025 H 1.016-1.022 Urine Protein TRACE H NEGATIVE Urine Glucose (UA) NEGATIVE NEGATIVE Urine Ketones 1+ H NEGATIVE Urine Nitrite NEGATIVE NEGATIVE Urine Bilirubin NEGATIVE NEGATIVE Urine Urobilinogen 1.0 < = 1.0 MG/DL Urine Leukocyte Esterase NEGATIVE NEGATIVE Urine RBC (Auto) NEGATIVE NEGATIVE Urine RBC NONE /HPF Urine WBC NONE /HPF Urine Squamous Epithelial Cells 0-2 /HPF Urine Crystals PRESENT H /LPF Urine Amorphous Sediment LARGE ANGY PHOSPHATE H /LPF Urine Bacteria NEGATIVE /HPF Urine Casts NONE /LPF Urine Mucus MODERATE H /LPF Urine Culture Indicated NO Influenza Type A (RT-PCR) Not Detected Not Detecte Influenza Type B (RT-PCR) Not Detected Not Detecte SARS-CoV-2 RNA (RT-PCR) Not Detected Not Detecte My Orders Orders - ENEDINA MARTINI APRN Comprehensive Metabolic Panel (05/20/23 17:00) Lipase (05/20/23 17:00) Ua Culture If Indicated (05/20/23 17:00) Ed Iv/Invasive Line Start (05/20/23 17:00) Cbc With Automated Diff (05/20/23 17:00) Ondansetron Injection (Ondansetron Inj (05/20/23 17:00) Ketorolac Injection (Ketorolac Injection (05/20/23 17:00) Ondansetron Injection (Ondansetron Inj (05/20/23 18:45) Covid 19 Inhouse Test (05/20/23 18:44) Influenza A And B By Pcr (05/20/23 18:44) Diazepam Injection (Diazepam Injection (05/20/23 18:45) Lorazepam Tablet (Lorazepam Tablet) (05/20/23 19:30) Medications Given in ED Vital Signs/I&O 05/20/23 05/20/23 16:33 19:45 Temp 36.9 Pulse 68 71 Resp 16 16 B/P (MAP) 122/70 (87) 127/83 Pulse Ox 97 97 O2 Delivery Room Air Room Air 05/21/23 00:00 Intake Total 400 ml Balance 400 ml Blood Pressure Mean: 87 Progress Progress Note : Progress Note Patient seen and evaluated, resting in bed, mild distress. Based on exam and symptoms, work-up initiated including CBC, CMP, lipase, UA. Zofran and Toradol ordered. Patient receiving IV fluids from EMS. 1845 Labs reviewed. CBC grossly normal. CMP shows slightly elevated chloride 108, slightly elevated ALT 66. Urinalysis shows 1+ ketones, trace protein, negative for infection. Patient reports continued nausea and dizziness. Second dose of Zofran ordered. I offered Phenergan, Compazine, and Reglan, patient declined these medications. States he only likes to take Zofran. Diazepam ordered for dizziness. Patient declined this as well. 1923 I spoke with patient about medication for dizziness. He states he has taken Ativan before and would like to take that. This has been ordered. Results discussed with patient. Will discharge after Ativan. Discharge instructions and return precautions provided. Departure Impression Primary Impression: Abdominal pain Additional Impressions: Vomiting Vertigo Disposition: HOME, SELF-CARE Condition: Stable Departure-Patient Inst. Decision time for Depature: 19:25 Referrals: SHOAIB SIMS MD (PCP/Family) Primary Care Physician Patient Instructions: Vertigo (a type of dizziness) Add. Discharge Instructions: Follow-up with primary care provider. Return for any new, concerning, or worsening symptoms. All discharge instructions reviewed with patient and/or family. Voiced understanding. Scripts Ondansetron (Ondansetron Odt) 4 Mg Tab.rapdis 4 MG SL Q4H PRN for NAUSEA/VOMITING, #15 TAB 0 Refills Prov: ENEDINA MARTINI APRN 05/20/23 Work/School Note: Work Release Form Date Seen in the Emergency Department: May 20, 2023 Return to Work: May 22, 2023 Restrictions: No Restrictions ENEDINA MARTINI APRN May 20, 2023 17:11
[2023-05-20 17:20] LABS: ALBUMIN 4.4 GM/DL (3.2-4.5); BILIRUBIN,TOTAL 0.3 MG/DL (0.1-1.0); CALCIUM 9.2 MG/DL (8.5-10.1); CREATININE SERUM 1.16 MG/DL (0.60-1.30); POTASSIUM 4.3 MMOL/L (3.6-5.0); TOTAL PROTEIN 6.7 GM/DL (6.4-8.2)
[2023-05-20 18:04] LABS: CLARITY,URINE CLEAR; COLOR,URINE YELLOW; GLUCOSE, URINE (UA) NEGATIVE (NEGATIVE); PROTEIN,URINE TRACE (NEGATIVE)
[2023-05-20 18:05] LABS: AMORPHOUS SEDIMENT,UR LARGE AMOR PHOSPHATE /LPF; BACTERIA,URINE NEGATIVE /HPF; BILIRUBIN,URINE NEGATIVE (NEGATIVE); KETONES,URINE 1+ (NEGATIVE); LEUKOCYTE ESTERASE ,URINE NEGATIVE (NEGATIVE); NITRITE,URINE NEGATIVE (NEGATIVE); SQUAMOUS EPITHELIAL CELL,UR 0-2 /HPF
[2023-05-20] MEDS: diazePAM INJ 10 MG/2 ML syringe IVP ONE (19:09)
[2023-05-20] MEDS ORDERED: LORA-404 PO (19:28)
[2023-05-20] MEDS ORDERED: LORazepam 0.5 MG TABLET PO ONE (19:30)
[2023-05-20] MEDS ORDERED: ONDA4TAB11 SL (19:39)
[2023-05-20 19:45] VITALS: BP 127/83
== END 2023-05-20 19:45 | disposition home or self-care (01) ==
LOC: EDUNIT# 16:34 → ER 16:34
DX: R42 Dizziness and giddiness (principal); R11.2 Nausea with vomiting, unspecified; R10.10 Upper abdominal pain, unspecified; F17.210 Nicotine dependence, cigarettes, uncomplicated; Z91.040 Latex allergy status; Z20.822 Contact with and (suspected) exposure to COVID-19
CPT/HCPCS: 36415; 80053; 81000; 83690; 85025; 87636

== ENCOUNTER 2023-05-23 23:54 | Emergency (ER) | payer OTHER ==
[~2023-05-23] VITALS: Ht 182 cm; Wt 90.0 kg
[~2023-05-23 23:54] MED LIST changes: +LORA-404 PO
--- NOTE | 2023-05-24 00:18 | ED GI ---
General Chief Complaint: Abdominal/GI Problems Stated Complaint: NAUSEA,VOMITING,ABD PX,CAN'T SWALLOW EASILY Nursing Triage Note: N/V WITH ABD PAIN FOR 5 DAYS. UNABLE TO EAT FOR 4 DAYS. DIARRHEA ON 05/23/23. LAST VOMIT 05/23/23 AT 2200. C/O DIFFICULTY SWALLOWING. PAIN IN ABDOMINAL IS IN THE LUQ AND THE RLQ. Source of Information: Patient Exam Limitations: Other (?intellectual disability) History of Present Illness Date Seen by Provider: May 24, 2023 Time Seen by Provider: 00:07 Initial Comments Patient is a 22yo male who presents to the ED with "4 days" of abdominal pain, N/V and inability to hold anything down. He states that he has been taking his medications. He took 8mg of ondansetron at 8:30pm. This is his 3rd visit in a week for similar symptoms. He has had visits on 05/18 and 05/20. Labs reviewed from 04/19 were all normal. He denies fever. No chest pain or shortness of breath. Diarrhea last night. no urinary issues. No covid symptoms - was tested 04/19 and negative. Patient tells me his primary care doctor is in [facility]. He lives here in [place]. He states he went down and saw them 05/22 and they feel like he has an "auto immune" problem. They gave him no new medications - he has follow up arranged in 05/28. He states he has had an upper endoscopy "the beginning of this year" but his GI doctor "fired" him due to "nothing being wrong". No current GI specialist. He is not sure what we can do for him tonight, he states he has not been able to hold anything down for 4 days. He denies alcohol, THC or other drugs. He is slightly tachy at 107 with a good BP. Allergies and Home Medications Allergies Coded Allergies: Penicillins (Verified Allergy, Unknown, 02/11/22) amoxicillin (Verified Allergy, Unknown, 02/11/22) droperidol (Verified Allergy, Unknown, 08/10/22) latex (Verified Allergy, Unknown, 02/11/22) meclizine (Verified Allergy, Unknown, 02/20/22) Patient Home Medication List Home Medication List Reviewed: Yes Divalproex Sodium (Divalproex Sodium) 500 Mg Tablet.dr, 500 MG PO, (Reported) Entered as Reported by: ALEX SAMPSON on 04/26/23326 Furosemide (Furosemide) 20 Mg Tablet, (Reported) Entered as Reported by: ALEX SAMPSON on 04/26/23326 Gabapentin (Neurontin) 300 Mg Capsule, 300 MG PO TID, (Reported) Entered as Reported by: LEANNA DASILVA on 02/12/22 113 Levothyroxine Sodium (Levothyroxine Sodium) 25 Mcg Tablet, 25 MCG PO DAILY, (Reported) Entered as Reported by: LEANNA DASILVA on 02/12/22 113 Metoprolol Tartrate (Metoprolol Tartrate) 75 Mg Tablet, 75 MG PO BID, (Reported) Entered as Reported by: TRUPTI EVANS on 05/02/22 1219 Ondansetron (Ondansetron Odt) 4 Mg Tab.rapdis, 4 MG SL Q4H PRN for NAUSEA/VOMITING Prescribed by: DRAKE VELAZQUEZ on 11/21/22 1258 Ondansetron (Ondansetron Odt) 4 Mg Tab.rapdis, 4 MG SL Q4H PRN for NAUSEA/VOMITING Prescribed by: Enedina Swain on 05/20/23 193 Potassium Chloride (Potassium Chloride) 20 Meq Tab.er.prt, (Reported) Entered as Reported by: ALEX SAMPSON on 04/26/23326 [Smz/Tmp] , (Reported) Entered as Reported by: ALEX SAMPSON on 04/26/23326 Review of Systems Review of Systems Constitutional: see HPI EENTM: No Symptoms Reported Respiratory: No Symptoms Reported Cardiovascular: No Symptoms Reported Gastrointestinal: Abdominal Pain, Diarrhea, Difficulty Swallowing, Nausea, Vomiting Genitourinary: No Symptoms Reported Musculoskeletal: no symptoms reported Skin: no symptoms reported Psychiatric/Neurological: No Symptoms Reported All Other Systems Reviewed Negative Unless Noted: Yes Past Mgnosfk-Umiybg-Gozaii Hx Immunizations Up To Date First/Initial COVID19 Vaccinat: N/A Second COVID19 Vaccination Lion: N/A Third COVID19 Vaccination Date: N/A Past Medical History Surgery/Hospitalization HX: SVT with ablation, hx epilepsy, hypothyroidism, non-alcoholic hepatitis, hypertension Surgeries: Yes (CARDIAC ABLATION) Cardiac Respiratory: No Cardiac: Yes (SVT-S/P ABLATION) Irregular Heartbeat Neurological: Yes Neuropathy, Seizure Disorder Genitourinary: Yes (CHRONIC RENAL INSUFFICIENCY) Renal Failure Gastrointestinal: Yes ("MORAN" PER PT; CHRONIC N/V/ABD PAIN; ) Liver Disease/Jaundice Musculoskeletal: No Endocrine: Yes (HYPERCALCEMIA) Hypothyroidsim, Diabetes, Non-Insulin dep HEENT: No Cancer: No Psychosocial: Yes (POLYSUBSTANCE ABUSE) Integumentary: No Blood Disorders: No Family Medical History No Pertinent Family Hx SOCIAL HISTORY: -SMOKES 1 PPD -ETOH--HISTORY OF HEAVY, DAILY USE -DRUGS--EXTENSIVE HISTORY OF USING MULTIPLE DRUGS, ESPECIALLY METHAMPHETAMINES AND HALLUCINOGENS SUCH LSD, PER PT. HE HAS USED METHAMPHETAMINES IV AND SMOKED IT. PT GIVES MUCH CONVOLUTED AND INCONSISTENT INFORMATION ABOUT NEUROLOGIST AND PCP STATES "I DON'T CURRENTLY HAVE A NEUROLOGIST"--STATES HE WAS SEEING A DR. LINDSEY IN [place], [place]. --HAS NOT BEEN THERE "IN A LONG TIME" , AND CANNOT REMEMBER WHEN HE LAST SAW A NEUROLOGIST HE ALSO STATES HE DOES NOT HAVE A PCP--STATES HE IS GOING TO START SEEING SOMEONE IN [place], [place]--DOES NOT HAVE AN APPOINTMENT YET. ( PT STATES HE LIVES HERE IN [place]) . PT HAD SEEN DR. MOLINA IN [place] IN THE PAST, BUT STATES HE NO LONGER GOES THERE. ON 04/26/23, HE STATES HIS PCP IS IN [place], [place] WHERE HE USED TO LIVE. HE ALSO STATES THAT HE SEES A NEUROLOGIST IN [place], BUT "DOES NOT KNOW HIS NAME BECAUSE IT HAS BEEN SO LONG SINCE HE HAS BEEN THERE" HE HAS ALSO BEEN TO [facility] ON REVIEW OF OLD RECORDS, PT HAS HISTORY OF MORAN ( SELF-REPORTED) AND CHRONIC NAUSEA/VOMITING/ABDOMINAL PAIN, WELL CHRONIC RENAL INSUFFICIENCY. PT WITH A MULTITUDE OF VISITS TO MULTIPLE FACILITIES IN MULTIPLE [facility], WELL MANY OTHER LOCAL FACILITIES. PT IS EXTREMELY WELL KNOWN TO SOME ER STAFF HERE THAT HAVE WORKED AT OTHER FACILITIES, AND PT HAD DAILY, AND OFTEN MORE THAN ONCE DAILY VISITS TO OTHER HOSPITAL ER'S FOR VARIOUS COMPLAINTS. TESTED POSITIVE FOR COVID-19 ON 05/16/22--NO TREATMENT OR HOSPITALIZATION Physical Exam Vital Signs Vital Signs - First Documented 05/24/23 00:08 Temp 36.0 Pulse 92 Resp 18 B/P (MAP) 124/82 (96) Pulse Ox 100 O2 Delivery Room Air Capillary Refill : Less Than 3 Seconds Height/Weight/BMI Height: '" Weight: lbs. oz. kg; 27.00 BMI Method: General Appearance: WD/WN, no apparent distress HEENT: PERRL/EOMI Neck: normal inspection Respiratory: lungs clear, normal breath sounds, no respiratory distress, no accessory muscle use Cardiovascular: regular rate, rhythm Gastrointestinal: normal bowel sounds, non tender, soft, no organomegaly Extremities: normal range of motion Neurologic/Psychiatric: alert, oriented x 3, other (flat affect) Skin: normal color, warm/dry Progress/Results/Core Measures Results/Orders Lab Results Laboratory Tests Test 05/24/23 00:08 Range/Units Sodium Level 139 135-145 MMOL/L Potassium Level 3.5 L 3.6-5.0 MMOL/L Chloride Level 98 98-107 MMOL/L Carbon Dioxide Level 25 21-32 MMOL/L Anion Gap 16 H 5-14 MMOL/L Blood Urea Nitrogen 14 7-18 MG/DL Creatinine 1.33 H 0.60-1.30 MG/DL Estimat Glomerular Filtration Rate 77 BUN/Creatinine Ratio 11 Glucose Level 96 70-105 MG/DL Calcium Level 11.6 H 8.5-10.1 MG/DL My Orders Orders - FRANTZ GONSALEZ MD Lactated Ringers 1,000 Ml (Lactated Ring (05/24/23 00:30) Basic Metabolic Panel (05/24/23 00:29) Dicyclomine Injection (Dicyclomine Injec (05/24/23 00:29) Lactated Ringers 1,000 Ml (Lactated Ring (05/24/23 01:21) Vital Signs/I&O 05/24/23 05/24/23 00:08 02:20 Temp 36.0 36.9 Pulse 92 87 Resp 18 16 B/P (MAP) 124/82 (96) 134/82 Pulse Ox 100 99 O2 Delivery Room Air Room Air Blood Pressure Mean: 96 Progress Progress Note #1: Time: 00:37 Progress Note Notified by RN that patient declined IM bentyl, that he is "not taking anything from that doctor since the last time I saw her". LR running and BMP ordered. Progress Note #2: Time: 01:06 Progress Note Patient seen and evaluated by me. Evaluation today includes physical exam, BMP. Pertinent physical exam findings - patient is slightly tachy with a HR 107. ALert and oriented in NAD. Heart is regular, lungs clear. Abd is soft and no focal tenderness elicited.Normal (quiet) bowel sounds. MAEW. Seems to be at his normal neuro baseline. DDx based on H&P electrolyte abnormality, cyclic vomiting, dehydration , acute on chronic kidney injury Patient treated with LR x2 liters. He declined the dicyclomine offered for abdominal pain. I have reviewed and interpreted his BMP - his creatinine is 1.33 otherwise normal lab. He declines any further medications for nausea (I offered benadryl). He cannot take tylenol due to self reported MORAN. He should not take NSAIDS due to kidneys. He again declined the bentyl. I discussed that he should consolidate his care close to home and truly follow up with a GI doctor for further work up of his chronic abdominal pain and n/v. I also suggested he speak with Neurology about his valproic acid dosing as common side effects include n/v/d. All questions are sought and answered. At the time of dictation he has about 700ml left in his 2nd bag of LR. He has not had any vomiting or retching during the entirety of his stay here in the ED. Departure Impression Primary Impression: Chronic abdominal pain Additional Impression: chronic nausea and vomiting Disposition: 01 HOME, SELF-CARE Condition: Stable Departure-Patient Inst. Decision time for Depature: 01:00 Referrals: SHOAIB SIMS MD (PCP/Family) Primary Care Physician Patient Instructions: Nausea and Vomiting, Adult ED Add. Discharge Instructions: Consider changing your over the counter Nexium to generic Prilosec or other acid project accountant as the Nexium may not be working as well. Continue your Ondansetron every 8 hours as needed. You should follow up with a local GI doctor for further work up and evaluation of these chronic complaints. Pedialyte/ electrolyte replacement mchugh to keep your electrolytes normal. Nausea, vomiting and diarrhea can be common reactions to Valproic Acid - maybe consider talking to your Neurologist about changing seizure medications. Keep your scheduled appointment with your primary care doctor in [place] next week. Return to the Emergency Department for any new, emergent or concerning symptoms. Work/School Note: Work Release Form Date Seen in the Emergency Department: May 24, 2023 Return to Work: May 25, 2023 FRANTZ GONSALEZ MD May 24, 2023 00:18
[2023-05-24] MEDS ORDERED: DICYCLOMINE 10 MG/ML 2 ML AMPULE IM STA (00:29)
[2023-05-24] MEDS ORDERED: LACTATED RINGERS 1,000 ML 1,000 ML IV SCH (00:30)
[2023-05-24 00:42] LABS: POTASSIUM 3.5 MMOL/L (3.6-5.0)
[2023-05-24 00:43] LABS: CALCIUM 11.6 MG/DL (8.5-10.1)
[2023-05-24 00:48] LABS: CREATININE SERUM 1.33 MG/DL (0.60-1.30)
[2023-05-24] MEDS ORDERED: LACTATED RINGERS 1,000 ML 1,000 ML IV STA (01:21)
[2023-05-24 02:20] VITALS: BP 134/82
== END 2023-05-24 02:21 | disposition home or self-care (01) ==
LOC: EDUNIT# 23:54 → ER 23:57
DX: R10.12 Left upper quadrant pain (principal); G89.29 Other chronic pain; R11.2 Nausea with vomiting, unspecified; F17.210 Nicotine dependence, cigarettes, uncomplicated; Z91.040 Latex allergy status; Z28.310 Unvaccinated for COVID-19; Z86.16 Personal history of COVID-19; Z87.19 Personal history of other diseases of the digestive system
CPT/HCPCS: 36415; 80048

== ENCOUNTER 2023-07-10 15:03 | Outpatient (RCR) | payer OTHER | END 2023-07-15 | disposition home or self-care (01) | PROVIDERS: ATTEND Family Medicine | DX: M54.2 Cervicalgia (principal); M54.9 Dorsalgia, unspecified; M25.519 Pain in unspecified shoulder; R42 Dizziness and giddiness; I10 Essential (primary) hypertension; E03.9 Hypothyroidism, unspecified; Z72.0 Tobacco use ==

== ENCOUNTER 2023-07-17 13:51 | Outpatient (RCR) | payer OTHER | END 2023-07-17 15:40 | disposition home or self-care (01) | PROVIDERS: ATTEND Family Medicine | DX: M54.2 Cervicalgia (principal); M54.9 Dorsalgia, unspecified; M25.519 Pain in unspecified shoulder; R42 Dizziness and giddiness; I12.9 Hypertensive chronic kidney disease with stage 1 through stage 4 chronic kidney disease, or unspecified chronic kidney disease; N18.9 Chronic kidney disease, unspecified ==

== ENCOUNTER 2023-07-21 16:22 | Emergency (ER) | payer OTHER ==
[2023-07-21 16:28] VITALS: BP 131/62
[2023-07-21] MEDS ORDERED: levETIRAcetam 1000 mg/NS 100ml 100 ML IV STA (16:37)
[2023-07-21 16:42] LABS: BASOPHILS % (AUTO) 1 % (0-10); EOSINOPHILS # (AUTO) 0.1 10^3/uL (0.0-0.3); EOSINOPHILS % (AUTO) 2 % (0-10); HEMATOCRIT 42 % (40-54); HEMOGLOBIN 14.8 g/dL (13.3-17.7); LYMPHOCYTES # (AUTO) 2.3 10^3/uL (1.0-4.0); LYMPHOCYTES % (AUTO) 38 % (12-44); MEAN CORPUSCULAR HEMOGLOBIN 32 pg (25-34); MEAN CORPUSCULAR HGB CONC 35 g/dL (32-36); MEAN CORPUSCULAR VOLUME 92 fL (80-99); MEAN PLATELET VOLUME 11.1 fL (9.0-12.2); MONOCYTES # (AUTO) 0.5 10^3/uL (0.0-1.0); MONOCYTES % (AUTO) 8 % (0-12); NEUTROPHILS # (AUTO) 3.2 10^3/uL (1.8-7.8); NEUTROPHILS % (AUTO) 52 % (42-75); PLATELET COUNT 209 10^3/uL (130-400); WHITE BLOOD COUNT 6.1 10^3/uL (4.3-11.0)
--- NOTE | 2023-07-21 16:44 | ED Neurological Problem ---
General Chief Complaint: Neurological Problems Stated Complaint: SEIZURE Nursing Triage Note: PT TO RM 4 BY [facility] EMS WITH C/O SEIZURE WHILE EATING AT [employer]. UNKNOWN DURATION OF SEIZURE Source: patient Exam Limitations: no limitations History of Present Illness Date Seen by Provider: Jul 21, 2023 Time Seen by Provider: 16:42 Initial Comments Patient is a 22-year-old male with a history of seizures who presents ED for potential seizure. This occurred while eating [employer]. Patient was at problems at the time. This was a witnessed seizure by bystanders. Patient did not fall or hit the ground. Patient was assisted down. Unknown length of seizure. Patient was postictal according to EMS who were contacted. Patient on arrival alert and oriented x4. GCS of 15. Does take Depakote and gabapentin which she did take this morning. States last seizure was in April. Patient states his vision appears blurry and feels limp with facial numbness which typically happens after his seizures. Patient denies of any chest pain, shortness of breath, nausea, vomiting, diarrhea, cough, headache. Allergies and Home Medications Allergies Coded Allergies: Penicillins (Verified Allergy, Unknown, 02/11/22) amoxicillin (Verified Allergy, Unknown, 02/11/22) droperidol (Verified Allergy, Unknown, 08/10/22) latex (Verified Allergy, Unknown, 02/11/22) meclizine (Verified Allergy, Unknown, 02/20/22) Patient Home Medication List Home Medication List Reviewed: Yes Divalproex Sodium (Divalproex Sodium) 500 Mg Tablet.dr, 500 MG PO, (Reported) Entered as Reported by: ALEX SAMPSON on 04/26/23326 Furosemide (Furosemide) 20 Mg Tablet, (Reported) Entered as Reported by: ALEX SAMPSON on 04/26/23326 Gabapentin (Neurontin) 300 Mg Capsule, 300 MG PO TID, (Reported) Entered as Reported by: LEANNA DASILVA on 02/12/22 1138 Levothyroxine Sodium (Levothyroxine Sodium) 25 Mcg Tablet, 25 MCG PO DAILY, (Reported) Entered as Reported by: LEANNA DASILVA on 02/12/22 1138 Metoprolol Tartrate (Metoprolol Tartrate) 75 Mg Tablet, 75 MG PO BID, (Reported) Entered as Reported by: TRUPTI EVANS on 05/02/22 1219 Ondansetron (Ondansetron Odt) 4 Mg Tab.rapdis, 4 MG SL Q4H PRN for NAUSEA/VOMIT ING Prescribed by: DRAKE VELAZQUEZ on 11/21/22 1258 Ondansetron (Ondansetron Odt) 4 Mg Tab.rapdis, 4 MG SL Q4H PRN for NAUSEA/VOMITING Prescribed by: Enedina Swain on 05/20/23 193 Potassium Chloride (Potassium Chloride) 20 Meq Tab.er.prt, (Reported) Entered as Reported by: ALEX SAMPSON on 04/26/23326 [Smz/Tmp] , (Reported) Entered as Reported by: ALEX SAMPSON on 04/26/23326 Review of Systems Review of Systems Constitutional: No chills, No diaphoresis, No malaise, No weakness Eyes: Denies Blurred Vision, Denies Drainage, Denies Decreased Acuity Ears, Nose, Mouth, Throat: denies ear pain, denies ear discharge Respiratory: No cough, No dyspnea on exertion Cardiovascular: No chest pain, No edema Gastrointestinal: No abdominal pain, No diarrhea, No nausea, No vomiting Genitourinary: No decreased output, No discharge, No dysuria, No frequency Musculoskeletal: No back pain, No joint pain, No joint swelling, No muscle pain Skin: No change in color, No change in hair/nails Psychiatric/Neurological: Other (Seizure) All Other Systems Reviewed Negative Unless Noted: Yes Past Wudntgb-Plgonr-Ctegnn Hx Patient Social History Tobacco Use?: Yes Tobacco type used: Cigarettes Substance use?: No Alcohol Use?: Yes Alcohol Frequency: Once in a while Pt feels they are or have been: No Immunizations Up To Date First/Initial COVID19 Vaccinat: N/A Second COVID19 Vaccination Lion: N/A Third COVID19 Vaccination Date: N/A Past Medical History Surgery/Hospitalization HX: SVT with ablation, hx epilepsy, hypothyroidism, non-alcoholic hepatitis, hypertension Surgeries: Yes (CARDIAC ABLATION) Cardiac Respiratory: No Cardiac: Yes (SVT-S/P ABLATION) Irregular Heartbeat Neurological: Yes Neuropathy, Seizure Disorder Genitourinary: Yes (CHRONIC RENAL INSUFFICIENCY) Renal Failure Gastrointestinal: Yes ("MORAN" PER PT; CHRONIC N/V/ABD PAIN; ) Liver Disease/Jaundice Musculoskeletal: No Endocrine: Yes (HYPERCALCEMIA) Hypothyroidsim, Diabetes, Non-Insulin dep HEENT: No Cancer: No Psychosocial: Yes (POLYSUBSTANCE ABUSE) Integumentary: No Blood Disorders: No Family Medical History No Pertinent Family Hx SOCIAL HISTORY: -SMOKES 1 PPD -ETOH--HISTORY OF HEAVY, DAILY USE -DRUGS--EXTENSIVE HISTORY OF USING MULTIPLE DRUGS, ESPECIALLY METHAMPHETAMINES AND HALLUCINOGENS SUCH LSD, PER PT. HE HAS USED METHAMPHETAMINES IV AND SMOKED IT. PT GIVES MUCH CONVOLUTED AND INCONSISTENT INFORMATION ABOUT NEUROLOGIST AND PCP STATES "I DON'T CURRENTLY HAVE A NEUROLOGIST"--STATES HE WAS SEEING A DR. LINDSEY IN [place], [place]. --HAS NOT BEEN THERE "IN A LONG TIME" , AND CANNOT REMEMBER WHEN HE LAST SAW A NEUROLOGIST HE ALSO STATES HE DOES NOT HAVE A PCP--STATES HE IS GOING TO START SEEING SOMEONE IN [place], [place]--DOES NOT HAVE AN APPOINTMENT YET. ( PT STATES HE LIVES HERE IN [place]) . PT HAD SEEN DR. MOLINA IN [place] IN THE PAST, BUT STATES HE NO LONGER GOES THERE. ON 04/26/23, HE STATES HIS PCP IS IN [place], [place] WHERE HE USED TO LIVE. HE ALSO STATES THAT HE SEES A NEUROLOGIST IN [place], BUT "DOES NOT KNOW HIS NAME BECAUSE IT HAS BEEN SO LONG SINCE HE HAS BEEN THERE" [facility], PT HAS HISTORY OF MORAN ( SELF-REPORTED) AND CHRONIC NAUSEA/VOMITING/ABDOMINAL PAIN, WELL CHRONIC RENAL INSUFFICIENCY. PT WITH A MULTITUDE OF VISITS TO MULTIPLE FACILITIES IN MULTIPLE [facility], WELL MANY OTHER LOCAL FACILITIES. PT IS EXTREMELY WELL KNOWN TO SOME ER STAFF HERE THAT HAVE WORKED AT OTHER FACILITIES, AND PT HAD DAILY, AND OFTEN MORE THAN ONCE DAILY VISITS TO OTHER HOSPITAL ER'S FOR VARIOUS COMPLAINTS. TESTED POSITIVE FOR COVID-19 ON 05/16/22--NO TREATMENT OR HOSPITALIZATION Physical Exam Vital Signs Vital Signs - First Documented 07/21/23 16:28 Temp 37.5 Pulse 100 Resp 18 B/P (MAP) 131/62 (85) Pulse Ox 96 O2 Delivery Room Air Capillary Refill : Height, Weight, BMI Height: '" Weight: lbs. oz. kg; 27.00 BMI Method: General Appearance: WD/WN, no apparent distress HEENT: PERRL/EOMI, normal ENT inspection, TMs normal, pharynx normal Neck: non-tender, full range of motion, supple Respiratory: chest non-tender, lungs clear, normal breath sounds, no respira tory distress, no accessory muscle use Cardiovascular: regular rate, rhythm, no edema, no gallop, no JVD Gastrointestinal: normal bowel sounds, non tender, soft, no organomegaly Back: normal inspection, no CVA tenderness, no vertebral tenderness Extremities: normal range of motion, non-tender, normal inspection, no pedal edema Neurologic/Psychiatric: knowledge analyst II-XII nml as tested, no motor/sensory deficits, alert, normal mood/affect, oriented x 3 Crainal Nerves: normal hearing, normal speech, PERRL Coordination/Gait: normal finger to nose, normal gait Motor/Sensory: no motor deficit, no sensory deficit Skin: normal color, warm/dry Progress/Results/Core Measures Results/Orders Lab Results Laboratory Tests Test 07/21/23 16:30 Range/Units White Blood Count 6.1 4.3-11.0 10^3/uL Red Blood Count 4.58 4.30-5.52 10^6/uL Hemoglobin 14.8 13.3-17.7 g/dL Hematocrit 42 40-54 % Mean Corpuscular Volume 92 80-99 fL Mean Corpuscular Hemoglobin 32 25-34 pg Mean Corpuscular Hemoglobin Concent 35 32-36 g/dL Red Cell Distribution Width 12.1 10.0-14.5 % Platelet Count 209 130-400 10^3/uL Mean Platelet Volume 11.1 9.0-12.2 fL Immature Granulocyte % (Auto) 0 % Neutrophils (%) (Auto) 52 42-75 % Lymphocytes (%) (Auto) 38 12-44 % Monocytes (%) (Auto) 8 0-12 % Eosinophils (%) (Auto) 2 0-10 % Basophils (%) (Auto) 1 0-10 % Neutrophils # (Auto) 3.2 1.8-7.8 10^3/uL Lymphocytes # (Auto) 2.3 1.0-4.0 10^3/uL Monocytes # (Auto) 0.5 0.0-1.0 10^3/uL Eosinophils # (Auto) 0.1 0.0-0.3 10^3/uL Basophils # (Auto) 0.0 0.0-0.1 10^3/uL Immature Granulocyte # (Auto) 0.0 0.0-0.1 10^3/uL Sodium Level 140 135-145 MMOL/L Potassium Level 3.9 3.6-5.0 MMOL/L Chloride Level 105 98-107 MMOL/L Carbon Dioxide Level 23 21-32 MMOL/L Anion Gap 12 5-14 MMOL/L Blood Urea Nitrogen 13 7-18 MG/DL Creatinine 1.22 0.60-1.30 MG/DL Estimat Glomerular Filtration Rate 85 BUN/Creatinine Ratio 11 Glucose Level 103 70-105 MG/DL Calcium Level 9.8 8.5-10.1 MG/DL Corrected Calcium 9.4 8.5-10.1 MG/DL Magnesium Level 1.6 1.6-2.4 MG/DL Total Bilirubin 0.5 0.1-1.0 MG/DL Aspartate Amino Transf (AST/SGOT) 30 5-34 U/L Alanine Aminotransferase (ALT/SGPT) 50 0-55 U/L Alkaline Phosphatase 62 40-136 U/L Total Protein 7.1 6.4-8.2 GM/DL Albumin 4.5 3.2-4.5 GM/DL Lipase 18 8-78 U/L Valproic Acid (Depakene) Level 63.7 50.0-100.0 UG/ML My Orders Orders - SANDRA BARCENAS Cbc And Automated Diff (07/21/23 16:37) Comprehensive Metabolic Panel (07/21/23 16:37) Lipase (07/21/23 16:37) Magnesium (07/21/23 16:37) Valproic Acid (07/21/23 16:37) Levetiracetam 1000 Mg/Ns 100ml (Keppra I (07/21/23 16:37) Vital Signs/I&O 07/21/23 16:28 Temp 37.5 Pulse 100 Resp 18 B/P (MAP) 131/62 (85) Pulse Ox 96 O2 Delivery Room Air Blood Pressure Mean: 85 Departure Communication (PCP) Patient was brought to ED by EMS for a witnessed seizure. Patient did not fall and hit his head. Patient was assisted down. EMS states patient was postictal. On arrival alert and orient x4. GCS of 15. Moving all extremities. States he does feel limp and blurry vision which typically happens after his seizures. Does take Depakote and gabapentin. Generalized lab work was ordered. Seizure precautions. Drug screen was ordered. Denies any drug use or alcohol use. Patient was started on Keppra 1000 mg. Last seizure was in April. CBC, CMP was grossly unremarkable. Depakote level 63 within limit. Before lab work returned patient wanted to leave AMA. Patient refused any further work-up, observation. Patient is alert and oriented and is able to make his own decision s at this time. Discussed with patient he may potentially have a second seizure and recommended at least observing at this time. Patient refused. Discussed potential risk such as . Patient acknowledges. Impression Primary Impression: Seizure Disposition: 07 AGAINST MEDICAL ADVICE Condition: Stable Departure-Patient Inst. Decision time for Depature: 17:41 Referrals: SHOAIB SIMS MD (PCP) Primary Care Physician SANDRA BARCENAS Jul 21, 2023 16:44
[2023-07-21 16:46] LABS: ALBUMIN 4.5 GM/DL (3.2-4.5); POTASSIUM 3.9 MMOL/L (3.6-5.0)
[2023-07-21 16:47] LABS: CALCIUM 9.8 MG/DL (8.5-10.1)
[2023-07-21 16:49] LABS: TOTAL PROTEIN 7.1 GM/DL (6.4-8.2)
[2023-07-21 16:50] LABS: BILIRUBIN,TOTAL 0.5 MG/DL (0.1-1.0)
[2023-07-21 16:52] LABS: CREATININE SERUM 1.22 MG/DL (0.60-1.30)
[2023-07-21 16:55] LABS: MAGNESIUM 1.6 MG/DL (1.6-2.4)
[2023-07-21 17:01] LABS: VALPROIC ACID 63.7 UG/ML (50.0-100.0)
== END 2023-07-21 17:01 | disposition left against medical advice (07) ==
LOC: EDUNIT# 16:22 → ER 16:23
DX: G40.909 Epilepsy, unspecified, not intractable, without status epilepticus (principal); F17.210 Nicotine dependence, cigarettes, uncomplicated; Z91.040 Latex allergy status
CPT/HCPCS: 36415; 80053; 80164; 83690; 83735; 85025

== ENCOUNTER 2023-07-24 19:58 | Emergency (ER) | payer OTHER ==
[~2023-07-24] VITALS: Ht 180.3 cm; Wt 82.0 kg
--- NOTE | 2023-07-24 20:14 | ED Neurological Problem ---
General Chief Complaint: Neurological Problems Stated Complaint: SEIZURE Nursing Triage Note: PT TO ED BY EMS, STATES HE HAD A WITNESSED SEIZURE AT THE [facility], HAS HX OF SEIZURES. STATES HE CURRENTLY HAS SOME BLURRED VISION AND NUMBNESS ON THE RIGHT SIDE OF HIS FACE Source: patient, old records History of Present Illness Date Seen by Provider: Jul 24, 2023 Time Seen by Provider: 20:08 Initial Comments PT ARRIVES VIA EMS FROM LOCAL LIBRARY PT REPORTEDLY HAD A WITNESSED SEIZURE, UNKNOWN LENGTH OF TIME PT STATES HE WAS STANDING AT THE TIME, AND STATES HE LANDED ON THE FLOOR PT DENIES PAIN ANYWHERE HE DOES C/O SOME BLURRED VISION AND NUMBNESS TO RIGHT SIDE OF HIS FACE NO INCONTINENCE OF BOWELS OR BLADDER NO NECK OR BACK PAIN NO EXTREMITY PAIN C/O NAUSEA, NO VOMITING NO FEVER OR RECENT ILLNESS NO HEADACHE PT HAS HX OF SEIZURES AND IS ON DEPAKOTE AND GABAPENTIN, HE DENIES ANY MISSED DOSES OF MEDICATIONS, BUT IS DUE NOW FOR HIS PM MEDICATIONS. PT SMOKES 1 PPD "OCCASIONAL" ETOH--BUT STATES HE HAD "ONE 4-LOCO" TONIGHT. HX OF HEAVY DAILY USE USES THC, HAS HISTORY OF COCAINE, METH AND LSD USE, AND HISTORY OF IV USE. HE CLAIMS NO METH, COCAINE OR LSD X 6 YEARS PCP: IN [place], [place]. PT LIVES HERE IN [place] Allergies and Home Medications Allergies Coded Allergies: Penicillins (Verified Allergy, Unknown, 02/11/22) amoxicillin (Verified Allergy, Unknown, 02/11/22) droperidol (Verified Allergy, Unknown, 08/10/22) latex (Verified Allergy, Unknown, 02/11/22) meclizine (Verified Allergy, Unknown, 02/20/22) Patient Home Medication List Home Medication List Reviewed: Yes Divalproex Sodium (Divalproex Sodium) 500 Mg Tablet.dr, 500 MG PO, (Reported) Entered as Reported by: ALEX SAMPSON on 04/26/23326 Furosemide (Furosemide) 20 Mg Tablet, (Reported) Entered as Reported by: ALEX SAMPSON on 04/26/23326 Gabapentin (Neurontin) 300 Mg Capsule, 300 MG PO TID, (Reported) Entered as Reported by: LEANNA DASILVA on 02/12/22 1138 Levothyroxine Sodium (Levothyroxine Sodium) 25 Mcg Tablet, 25 MCG PO DAILY, (Reported) Entered as Reported by: LEANNA DASILVA on 02/12/22 1138 Metoprolol Tartrate (Metoprolol Tartrate) 75 Mg Tablet, 75 MG PO BID, (Reported) Entered as Reported by: TRUPTI EVANS on 05/02/22 1219 Ondansetron (Ondansetron Odt) 4 Mg Tab.rapdis, 4 MG SL Q4H PRN for NAUSEA/VOMITING Prescribed by: DRAKE VELAZQUEZ on 11/21/22 1258 Ondansetron (Ondansetron Odt) 4 Mg Tab.rapdis, 4 MG SL Q4H PRN for NAUSEA/VOMITING Prescribed by: Enedina Swain on 05/20/23 193 Potassium Chloride (Potassium Chloride) 20 Meq Tab.er.prt, (Reported) Entered as Reported by: ALEX SAMPSON on 04/26/23 032 [Smz/Tmp] , (Reported) Entered as Reported by: ALEX SAMPSON on 04/26/23326 Review of Systems Review of Systems Constitutional: no symptoms reported Eyes: See HPI Ears, Nose, Mouth, Throat: no symptoms reported Respiratory: no symptoms reported Cardiovascular: no symptoms reported Gastrointestinal: see HPI; No abdominal pain, No diarrhea; nausea; No vomiting Genitourinary: no symptoms reported Musculoskeletal: no symptoms reported Skin: no symptoms reported Psychiatric/Neurological: See HPI Endocrine: No Symptoms Reported Hematologic/Lymphatic: No Symptoms Reported Past Dptfawp-Swckqj-Ielbqn Hx Patient Social History Tobacco Use?: Yes Tobacco type used: Cigarettes Smoking Status: Current Everyday Smoker Substance use?: Yes Substance type: Amphetamines, Methamphetamine, Marijuana Additional substance use comme: COCAINE, LSD Alcohol Use?: Yes Alcohol type: Beer, Hard Liquor Immunizations Up To Date First/Initial COVID19 Vaccinat: N/A Second COVID19 Vaccination Lion: N/A Third COVID19 Vaccination Date: N/A Past Medical History Surgery/Hospitalization HX: SVT with ablation, hx epilepsy, hypothyroidism, non-alcoholic hepatitis, hypertension Surgeries: Yes (CARDIAC ABLATION) Cardiac Respiratory: No Cardiac: Yes (SVT-S/P ABLATION) Irregular Heartbeat Neurological: Yes Neuropathy, Seizure Disorder Genitourinary: Yes (CHRONIC RENAL INSUFFICIENCY) Renal Failure Gastrointestinal: Yes ("MORAN" PER PT; CHRONIC N/V/ABD PAIN; ) Liver Disease/Jaundice Musculoskeletal: No Endocrine: Yes (HYPERCALCEMIA) Hypothyroidsim, Diabetes, Non-Insulin dep HEENT: No Cancer: No Psychosocial: Yes (POLYSUBSTANCE ABUSE) Integumentary: No Blood Disorders: No Family Medical History No Pertinent Family Hx SOCIAL HISTORY: -SMOKES 1 PPD -ETOH--HISTORY OF HEAVY, DAILY USE -DRUGS--EXTENSIVE HISTORY OF USING MULTIPLE DRUGS, ESPECIALLY COCAINE, METHAMPHETAMINES AND HALLUCINOGENS SUCH LSD, PER PT. HE HAS USED METHAMPHETAMINES IV AND SMOKED IT. PT GIVES MUCH CONVOLUTED AND INCONSISTENT INFORMATION ABOUT NEUROLOGIST AND PCP STATES "I DON'T CURRENTLY HAVE A NEUROLOGIST"--STATES HE WAS SEEING A DR. LINDSEY IN [place], [place]. --HAS NOT BEEN THERE "IN A LONG TIME" , AND CANNOT REMEMBER WHEN HE LAST SAW A NEUROLOGIST HE ALSO STATES HE DOES NOT HAVE A PCP--STATES HE IS GOING TO START SEEING SOMEONE IN [place], [place]--DOES NOT HAVE AN APPOINTMENT YET. ( PT STATES HE LIVES HERE IN [place]) . PT HAD SEEN DR. MOLINA IN [place] IN THE PAST, BUT STATES HE NO LONGER GOES THERE. ON 04/26/23, HE STATES HIS PCP IS IN [place], [place] WHERE HE USED TO LIVE. HE ALSO STATES THAT HE SEES A NEUROLOGIST IN [place], BUT "DOES NOT KNOW HIS NAME BECAUSE IT HAS BEEN SO LONG SINCE HE HAS BEEN THERE" HE HAS ALSO [facility] REVIEW [facility] OLD RECORDS, PT HAS HISTORY OF MORAN ( SELF-REPORTED) AND CHRONIC NAUSEA/VOMITING/ABDOMINAL PAIN, WELL CHRONIC RENAL INSUFFICIENCY. PT WITH A MULTITUDE OF VISITS TO MULTIPLE FACILITIES IN MULTIPLE [facility], WELL MANY OTHER LOCAL FACILITIES. PT IS EXTREMELY WELL KNOWN TO SOME ER STAFF HERE THAT HAVE WORKED AT OTHER FACILITIES, AND PT HAD DAILY, AND OFTEN MORE THAN ONCE DAILY VISITS TO OTHER HOSPITAL ER'S FOR VARIOUS COMPLAINTS. TESTED POSITIVE FOR COVID-19 ON 05/16/22--NO TREATMENT OR HOSPITALIZATION Physical Exam Vital Signs Vital Signs - First Documented 07/24/23 20:02 Temp 37.1 Pulse 78 Resp 16 B/P (MAP) 127/86 (100) Pulse Ox 100 Capillary Refill : Height, Weight, BMI Height: '" Weight: lbs. oz. kg; 25.00 BMI Method: General Appearance: WD/WN, no apparent distress HEENT: PERRL/EOMI, normal ENT inspection, TMs normal, pharynx normal Neck: normal inspection Respiratory: normal breath sounds, no respiratory distress, no accessory muscle use Cardiovascular: regular rate, rhythm Gastrointestinal: non tender, soft Back: normal inspection Extremities: normal inspection Neurologic/Psychiatric: [email or web address] java developer II-XII nml as tested, no motor/sensory deficits, alert, oriented x 3, other (FLAT AFFECT) Crainal Nerves: normal hearing, normal speech, PERRL Coordination/Gait: normal gait Motor/Sensory: no motor deficit, no sensory deficit Skin: normal color, warm/dry Progress/Results/Core Measures Results/Orders Lab Results Laboratory Tests Test 07/24/23 20:05 07/24/23 20:25 Range/Units White Blood Count 5.2 4.3-11.0 10^3/uL Red Blood Count 4.19 L 4.30-5.52 10^6/uL Hemoglobin 13.7 13.3-17.7 g/dL Hematocrit 39 L 40-54 % Mean Corpuscular Volume 93 80-99 fL Mean Corpuscular Hemoglobin 33 25-34 pg Mean Corpuscular Hemoglobin Concent 35 32-36 g/dL Red Cell Distribution Width 12.1 10.0-14.5 % Platelet Count 163 130-400 10^3/uL Mean Platelet Volume 11.2 9.0-12.2 fL Immature Granulocyte % (Auto) 0 % Neutrophils (%) (Auto) 51 42-75 % Lymphocytes (%) (Auto) 40 12-44 % Monocytes (%) (Auto) 7 0-12 % Eosinophils (%) (Auto) 1 0-10 % Basophils (%) (Auto) 1 0-10 % Neutrophils # (Auto) 2.7 1.8-7.8 10^3/uL Lymphocytes # (Auto) 2.1 1.0-4.0 10^3/uL Monocytes # (Auto) 0.4 0.0-1.0 10^3/uL Eosinophils # (Auto) 0.1 0.0-0.3 10^3/uL Basophils # (Auto) 0.0 0.0-0.1 10^3/uL Immature Granulocyte # (Auto) 0.0 0.0-0.1 10^3/uL Sodium Level 142 135-145 MMOL/L Potassium Level 4.2 3.6-5.0 MMOL/L Chloride Level 107 98-107 MMOL/L Carbon Dioxide Level 24 21-32 MMOL/L Anion Gap 11 5-14 MMOL/L Blood Urea Nitrogen 8 7-18 MG/DL Creatinine 1.22 0.60-1.30 MG/DL Estimat Glomerular Filtration Rate 85 BUN/Creatinine Ratio 7 Glucose Level 93 70-105 MG/DL Calcium Level 9.8 8.5-10.1 MG/DL Corrected Calcium 9.4 8.5-10.1 MG/DL Magnesium Level 1.6 1.6-2.4 MG/DL Total Bilirubin 0.2 0.1-1.0 MG/DL Aspartate Amino Transf (AST/SGOT) 35 H 5-34 U/L Alanine Aminotransferase (ALT/SGPT) 53 0-55 U/L Alkaline Phosphatase 59 40-136 U/L Total Creatine Kinase 306 H 30-200 U/L Creatine Kinase MB 2.6 <6.6 NG/ML Myoglobin 106.5 H 10.0-92.0 NG/ML Total Protein 6.9 6.4-8.2 GM/DL Albumin 4.5 3.2-4.5 GM/DL Valproic Acid (Depakene) Level 43.8 L 50.0-100.0 UG/ML Serum Alcohol 35 H <10 MG/DL Urine Color YELLOW Urine Clarity CLEAR Urine pH 7.5 5-9 Urine Specific [place] 1.025 H 1.016-1.022 Urine Protein NEGATIVE NEGATIVE Urine Glucose (UA) NEGATIVE NEGATIVE Urine Ketones NEGATIVE NEGATIVE Urine Nitrite NEGATIVE NEGATIVE Urine Bilirubin NEGATIVE NEGATIVE Urine Urobilinogen 0.2 < = 1.0 MG/DL Urine Leukocyte Esterase NEGATIVE NEGATIVE Urine RBC (Auto) NEGATIVE NEGATIVE Urine RBC NONE /HPF Urine WBC NONE /HPF Urine Squamous Epithelial Cells RARE /HPF Urine Crystals NONE /LPF Urine Bacteria NEGATIVE /HPF Urine Casts NONE /LPF Urine Mucus NEGATIVE /LPF Urine Culture Indicated NO Urine Opiates Screen NEGATIVE NEGATIVE Urine Oxycodone Screen NEGATIVE NEGATIVE Urine Methadone Screen NEGATIVE NEGATIVE Urine Barbiturates Screen NEGATIVE NEGATIVE Ur Tricyclic Antidepressants Screen NEGATIVE NEGATIVE Urine Phencyclidine Screen NEGATIVE NEGATIVE Urine Amphetamines Screen NEGATIVE NEGATIVE Urine Methamphetamines Screen NEGATIVE NEGATIVE Urine Benzodiazepines Screen NEGATIVE NEGATIVE Urine Cocaine Screen NEGATIVE NEGATIVE Urine Cannabinoids Screen NEGATIVE NEGATIVE My Orders Orders - LISANDRA,JENNY K DO Ed Iv/Invasive Line Start (07/24/23 20:14) Monitor-Rhythm Ecg Trace Only (07/24/23 20:14) Alcohol (07/24/23 20:14) Cbc And Automated Diff (07/24/23 20:14) Comprehensive Metabolic Panel (07/24/23 20:14) Creatine Kinase (07/24/23 20:14) Creatine Kinase Mb (07/24/23 20:14) Drug Screen Stat (Urine) (07/24/23 20:14) Magnesium (07/24/23 20:14) Ua Culture If Indicated (07/24/23 20:14) Valproic Acid (07/24/23 20:14) Myoglobin Serum (07/24/23 20:14) Ed Iv/Invasive Line Start (07/24/23 20:14) Lactated Ringers 1,000 Ml (Lactated Ring (07/24/23 20:15) Ondansetron Injection (Ondansetron Inj (07/24/23 20:15) Ct Head/Face/Cervical Wo (07/24/23 20:18) Medications Given in ED Current Medications Medications Dose Ordered Sig/Macho Route Start Time Stop Time Status Last Admin Dose Admin Lactated Ringer's 1,000 ml @ 0 mls/hr Q0M ONCE IV 07/24/23 20:15 07/24/23 20:17 DC 07/24/23 20:26 999 MLS/HR Ondansetron HCl 4 mg ONCE ONCE IVP 07/24/23 20:15 07/24/23 20:17 DC 07/24/23 20:26 4 MG Vital Signs/I&O 07/24/23 07/24/23 20:02 21:41 Temp 37.1 37.1 Pulse 78 80 Resp 16 16 B/P (MAP) 127/86 (100) 121/67 Pulse Ox 100 99 Blood Pressure Mean: 100 Progress Progress Note : Progress Note VITALS STABLE LABS UNREMARKABLE, INCLUDING CBC, CMP, UA CK 306, CK-MB NORMAL, MYOGLOBIN 106 VALPROIC ACID 43.8 ETOH 35 UDS NEGATIVE UNEVENTFUL ER STAY PT HAD NO COMPLAINTS, NO SEIZURE ACTIVITY AND NO POST ICTAL SYMPTOMS REVIEWED PRIOR RECORDS, INCLUDING ER VISITS, ADMITS, H&P'S, CONSULTS, DISCHARGE SUMMARIES, TESTS/PROCEDURES PT WITH A MULTITUDE OF VISITS FOR THIS WELL CHRONIC GI COMPLAINTS, SINCE HIS FIRST VISIT HERE IN JANUARY [address] HEAD/MAXILLOFACIALS/CERVICAL SPINE--PER RADIOLOGIST REPORT AT 2124 FINDINGS: HEAD: The ventricles and sulci are normal. No abnormal attenuation of brain parenchyma is present. No acute intracranial hemorrhage or abnormal extra-axial fluid collections are present. No hyperdense vessel. The calvarium is intact. The mastoid air cells are clear. The visualized paranasal sinuses are clear. The orbits are normal. C-SPINE: Vertebral body height and alignment are preserved. No acute fracture, dislocation, or destructive osseous process. No significant facet hypertrophy. No significant central canal or neuroforaminal stenosis. The paraspinous soft tissues are normal. The visualized thyroid gland is normal. The visualized lung apices are normal. FACE: No fracture is seen in the face. The nasal bones are normal. Mandible and maxillae are normal. Zygomatic arches are normal. Pterygoid plates are normal. No soft tissue abnormality is seen. IMPRESSION: 1. No acute intracranial abnormality. 2. No cervical spine fracture. 3. No fracture in the face. Reviewed: Reviewed by Me Departure Impression Primary Impression: REPORTED SEIZURE Disposition: 01 HOME, SELF-CARE Condition: Stable Departure-Patient Inst. Decision time for Depature: 21:27 Referrals: SHOAIB SIMS MD (PCP) Primary Care Physician Patient Instructions: Seizures, Adult (DC) Add. Discharge Instructions: TAKE YOUR MEDICATIONS PRESCRIBED FOLLOW UP WITH YOUR NEUROLOGIST FOR FURTHER CARE--CALL IN THE MORNING TO SCHEDULE AN APPOINTMENT All discharge instructions reviewed with patient and/or family. Voiced understanding. JENNY FRY DO Jul 24, 2023 20:14
[2023-07-24] MEDS ORDERED: LACTATED RINGERS 1,000 ML 1,000 ML IV ONE (20:15)
[2023-07-24] MEDS ORDERED: ONDANSETRON INJECTION 4 MG/2 ML (SDV) IVP ONE (20:15)
[2023-07-24 20:21] LABS: BASOPHILS % (AUTO) 1 % (0-10); EOSINOPHILS # (AUTO) 0.1 10^3/uL (0.0-0.3); EOSINOPHILS % (AUTO) 1 % (0-10); HEMATOCRIT 39 % (40-54); HEMOGLOBIN 13.7 g/dL (13.3-17.7); LYMPHOCYTES # (AUTO) 2.1 10^3/uL (1.0-4.0); LYMPHOCYTES % (AUTO) 40 % (12-44); MEAN CORPUSCULAR HEMOGLOBIN 33 pg (25-34); MEAN CORPUSCULAR HGB CONC 35 g/dL (32-36); MEAN CORPUSCULAR VOLUME 93 fL (80-99); MEAN PLATELET VOLUME 11.2 fL (9.0-12.2); MONOCYTES # (AUTO) 0.4 10^3/uL (0.0-1.0); MONOCYTES % (AUTO) 7 % (0-12); NEUTROPHILS # (AUTO) 2.7 10^3/uL (1.8-7.8); NEUTROPHILS % (AUTO) 51 % (42-75); PLATELET COUNT 163 10^3/uL (130-400); WHITE BLOOD COUNT 5.2 10^3/uL (4.3-11.0)
[2023-07-24 20:41] LABS: ALBUMIN 4.5 GM/DL (3.2-4.5); BILIRUBIN,TOTAL 0.2 MG/DL (0.1-1.0); CALCIUM 9.8 MG/DL (8.5-10.1); CREATININE SERUM 1.22 MG/DL (0.60-1.30); MAGNESIUM 1.6 MG/DL (1.6-2.4); POTASSIUM 4.2 MMOL/L (3.6-5.0); TOTAL PROTEIN 6.9 GM/DL (6.4-8.2)
[2023-07-24 20:41] LABS: BACTERIA,URINE NEGATIVE /HPF; BILIRUBIN,URINE NEGATIVE (NEGATIVE); CLARITY,URINE CLEAR; COLOR,URINE YELLOW; GLUCOSE, URINE (UA) NEGATIVE (NEGATIVE); KETONES,URINE NEGATIVE (NEGATIVE); LEUKOCYTE ESTERASE ,URINE NEGATIVE (NEGATIVE); NITRITE,URINE NEGATIVE (NEGATIVE); PH,URINE 7.5 (5-9); PROTEIN,URINE NEGATIVE (NEGATIVE); SQUAMOUS EPITHELIAL CELL,UR RARE /HPF
[2023-07-24 20:46] LABS: AMPHETAMINE SCREEN, URINE NEGATIVE (NEGATIVE); BARBITURATE SCREEN URINE NEGATIVE (NEGATIVE); CANNABINOID SCREEN, URINE NEGATIVE (NEGATIVE); COCAINE SCREEN URINE NEGATIVE (NEGATIVE); METHADONE STAT NEGATIVE (NEGATIVE); OPIATE SCREEN URINE NEGATIVE (NEGATIVE); OXYCODONE STAT NEGATIVE (NEGATIVE); TRICYCLIC ANTIDEPRESSANTS SCRE NEGATIVE (NEGATIVE)
[2023-07-24 20:48] LABS: CREATINE KINASE MB 2.6 NG/ML (<6.6); VALPROIC ACID 43.8 UG/ML (50.0-100.0)
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
[2023-07-24 21:41] VITALS: BP 121/67
== END 2023-07-24 21:42 | disposition home or self-care (01) ==
LOC: EDUNIT# 19:58 → ER 20:00
DX: G40.909 Epilepsy, unspecified, not intractable, without status epilepticus (principal); F17.210 Nicotine dependence, cigarettes, uncomplicated; Z91.040 Latex allergy status; Z79.899 Other long term (current) drug therapy
CPT/HCPCS: 70450; 70486; 72125; 80053; 80164; 80306; 81000; 82550; 82553; 83735; 83874; 85025; 93041; 96374; 99284; G0480; 36415; 80320

== ENCOUNTER 2023-08-04 16:10 | Emergency (ER) | payer OTHER ==
[~2023-08-04] VITALS: Ht 180.3 cm; Wt 127.0 kg
[2023-08-04] MEDS ORDERED: levETIRAcetam 1000 mg/NS 100ml 100 ML IV STA (16:16)
[2023-08-04] MEDS ORDERED: NS IV 1000 ML 1,000 ML IV STA (16:16)
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
[2023-08-04 16:30] LABS: BASOPHILS % (AUTO) 1 % (0-10); EOSINOPHILS # (AUTO) 0.2 10^3/uL (0.0-0.3); EOSINOPHILS % (AUTO) 3 % (0-10); HEMATOCRIT 47 % (40-54); HEMOGLOBIN 15.9 g/dL (13.3-17.7); LYMPHOCYTES # (AUTO) 2.8 10^3/uL (1.0-4.0); LYMPHOCYTES % (AUTO) 36 % (12-44); MEAN CORPUSCULAR HEMOGLOBIN 32 pg (25-34); MEAN CORPUSCULAR HGB CONC 34 g/dL (32-36); MEAN CORPUSCULAR VOLUME 95 fL (80-99); MEAN PLATELET VOLUME 11.1 fL (9.0-12.2); MONOCYTES # (AUTO) 0.6 10^3/uL (0.0-1.0); MONOCYTES % (AUTO) 8 % (0-12); NEUTROPHILS % (AUTO) 52 % (42-75); PLATELET COUNT 210 10^3/uL (130-400); WHITE BLOOD COUNT 7.6 10^3/uL (4.3-11.0)
[2023-08-04 16:37] LABS: ALBUMIN 4.6 GM/DL (3.2-4.5); CHLORIDE 101 MMOL/L (98-107); POTASSIUM 4.1 MMOL/L (3.6-5.0); SODIUM 140 MMOL/L (135-145)
[2023-08-04 16:38] LABS: CALCIUM 10.4 MG/DL (8.5-10.1)
[2023-08-04 16:39] LABS: GLUCOSE 85 MG/DL (70-105); TOTAL PROTEIN 7.6 GM/DL (6.4-8.2)
[2023-08-04 16:40] LABS: CARBON DIOXIDE 30 MMOL/L (21-32)
[2023-08-04 16:41] LABS: BILIRUBIN,TOTAL 0.3 MG/DL (0.1-1.0)
[2023-08-04 16:43] LABS: ALKALINE PHOSPHATASE 65 U/L (40-136); CREATININE SERUM 1.09 MG/DL (0.60-1.30); GFR ESTIMATED 98
[2023-08-04 16:44] LABS: BUN/CREATININE RATIO 10
[2023-08-04 16:46] LABS: ALANINE AMINOTRANSFERASE 50 U/L (0-55)
[2023-08-04 17:06] LABS: TSH (THYROID ANALYZER) 1.53 UIU/ML (0.35-4.94)
[2023-08-04 18:03] LABS: BILIRUBIN,URINE NEGATIVE (NEGATIVE); CLARITY,URINE CLEAR; COLOR,URINE YELLOW; GLUCOSE, URINE (UA) NEGATIVE (NEGATIVE); KETONES,URINE NEGATIVE (NEGATIVE); NITRITE,URINE NEGATIVE (NEGATIVE); PROTEIN,URINE NEGATIVE (NEGATIVE)
[2023-08-04 18:04] LABS: BACTERIA,URINE NEGATIVE /HPF; LEUKOCYTE ESTERASE ,URINE NEGATIVE (NEGATIVE)
[2023-08-04 18:08] LABS: AMPHETAMINE SCREEN, URINE NEGATIVE (NEGATIVE); BARBITURATE SCREEN URINE NEGATIVE (NEGATIVE); CANNABINOID SCREEN, URINE NEGATIVE (NEGATIVE); COCAINE SCREEN URINE NEGATIVE (NEGATIVE); METHADONE STAT NEGATIVE (NEGATIVE); OPIATE SCREEN URINE NEGATIVE (NEGATIVE); OXYCODONE STAT NEGATIVE (NEGATIVE); TRICYCLIC ANTIDEPRESSANTS SCRE NEGATIVE (NEGATIVE)
[2023-08-04 18:19] LABS: SALICYLATE < 5.0 MG/DL (5.0-20.0)
[2023-08-04 18:23] LABS: ACETAMINOPHEN < 10 UG/ML (10-30)
[2023-08-04 19:27] VITALS: BP 115/81
== END 2023-08-04 19:28 | disposition home or self-care (01) ==
LOC: EDUNIT# 16:11 → ER 16:13
DX: G40.909 Epilepsy, unspecified, not intractable, without status epilepticus (principal); F10.129 Alcohol abuse with intoxication, unspecified; F17.210 Nicotine dependence, cigarettes, uncomplicated; Z91.040 Latex allergy status
CPT/HCPCS: 80053; 80164; 80306; 81000; 84443; 85025; 99284; G0480 ×3; 36415; 80320; 80329